=== PATIENT | female | born 1995 | race Caucasian/White ===

== ENCOUNTER 2024-01-16 14:04 | Outpatient (OUT) | payer OTHER, SELFPAY ==
--- NOTE | 2024-01-16 14:05 | US_ITS ---
[address] [address] Patient Name: JUNIOR GASPAR MRN: [id number] date: 1995 Sex: F Assigned Patient Location: [facility] Current Patient Location: Accession/Order Number: [id number] Exam Date: 01/16/2024 14:05 Report Date: 01/17/2024 04:23 At the request of: RUBIO MATTHEWS Procedure: US OB <= 14 weeks fetus EXAMINATION: US OB <= 14 weeks fetus HISTORY: MISSED MENSES COMPARISON: No relevant comparison available. FINDINGS: GESTATIONAL SAC: Present and normal appearing. YOLK SAC: Present and normal appearing. POLE: Present and normal appearing. CARDIAC: Present. UTERUS: Normal size and appearance. OVARIES: Right: Not seen. Left: Not seen. CERVIX: 3.9 cm in length and closed. CUL-DE-SAC: Normal. OTHER: None. AGE BY LMP: 12 weeks 0 days FE BY LMP: 07/30/2024 AGE BY US CRL: 11 weeks 6 days FE BY US CRL: 07/31/2024 US/US OB <= 14 weeks fetus IMPRESSION: 1. Single live intrauterine . Electronically authenticated by: PHILLIP QUINONES Date: 01/17/2024 04:23
== END 2024-01-16 14:05 | disposition home or self-care (01) ==
LOC: NOMS 14:04
PROVIDERS: Visit Provider Obstetrics & Gynecology
DX: Z34.91 Encounter for supervision of normal pregnancy, unspecified, first trimester (principal); Z3A.11 11 weeks gestation of pregnancy; N92.6 Irregular menstruation, unspecified
CPT/HCPCS: 76801

== ENCOUNTER 2024-02-14 12:14 | Outpatient (OUT) | payer OTHER, SELFPAY ==
--- OUTSIDE RECORDS SUMMARY | 2024-02-14 12:30 | XMS_ITS | CCD ---
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 Name Role Phone LESLY OLIVAREZ Unavailable Unavailable HERMILLER, JANETH R Unavailable Unavailable HERMILLER, JANETH R Unavailable Unavailable HERMILLER, JANETH R Unavailable Unavailable Alex Suarez Unavailable Unavailable HERMILLER, JANETH R Unavailable Unavailable Jarret Oquendo Unavailable Unavailable NO FAMILY, PHYSICIAN Primary Care Provider DO Luis De Santiago Emergency Provider HAO Hernandez Emergency Provider DO Quique Granger Attending Provider [phone] Trae Richey Admitting Unavailable Trae Richey Attending Unavailable [facility] Ren Admitting Unavailable Greg Ren Attending Unavailable Quique Granger Referring Unavailable DO Quique Granger Referring Provider DO Greg Ren Attending Provider [facility] Primary [facility] ider HAO Richey Emergency Provider Allergies Allergy Classification Reported Allergen(s) Allergy Type Date of Onset Reaction(s) Facility (1 source) No Known Medication Allergies; Translations: [No Known Medication Allergies] Propensity to adverse reactions to drug (disorder) [facility] Repository Medications Current Medications Medication Drug Class(es) Dates Sig (Normalized) Sig (Original) predniSONE 10 mg oral tablet (4 sources) Start: 07-10-2023 take 60 mg by mouth once daily, then take 40 mg by mouth once daily, then take 20 mg by mouth once daily, then take 10 mg by mouth once daily Prednisone Active 10 MG PO Daily 39 July 10, 2023 12:00am 60mg daily for three days, 40mg daily for three days, 20mg daily for three days, 10mg daily for three days. Start: 06-22-2022 End: 07-10-2023 take 40 mg by mouth once daily Prednisone Discontinued 40 MG PO Daily 6 June 22, 2022 1:00am July 10, 2023 3:08pm Completed/Discontinued Medications Medication Drug Class(es) Dates Sig (Normalized) Sig (Original) famotidine 20 mg oral tablet (3 sources) Histamine-2 Receptor Antagonist Start: 06-22-2022 End: 07-10-2023 take 1 tablet by mouth once daily Famotidine (Pepcid) 20 mg tablet Discontinued 20 MG PO Daily June 22, 2022 1:00am July 10, 2023 3:08pm Problems Problem Classification Problem Date Documented Da te Episodic/Chronic Allergic reactions (4 sources) Allergic reaction; Translations: [Allergy, unspecified, initial encounter] 06-22-2022 Episodic Fluid and electrolyte disorders (4 sources) Hypokalemia; Translations: [Hypokalemia] 06-20-2022 Episodic Mood disorders (1 source) Major depressive disorder, single episode, mild; Translations: [Major depressive disorder, single episode, mild] Onset: 05-31-2023 Chronic Other aftercare (3 sources) Follow-up status; Translations: [Encounter for change or removal of nonsurgical wound dressing] 06-22-2022 Episodic Skin and subcutaneous tissue infections (8 sources) Abscess; Translations: [Cutaneous abscess, unspecified] 06-20-2022 Episodic Results Test Name Value Interpretation Reference Range Facility Alanine aminotransferase [En zymatic activity/volume] in Serum or PlasmaOrdered By: Quique Granger on 05-31-2023 ALT [Catalytic activity/Vol] 122 U/L 7-[address] [facility] Albumin [Mass/volume] in Ser um or Plasma by Bromocresol green (BCG) dye binding methoOrdered By: Quique Granger on 05-31-2023 Albumin BCG dye [Mass/Vol] 4.4 g/dL 3.5-5.[address] [facility] Alkaline phosphatase [Enzyma tic activity/volume] in Serum or PlasmaOrdered By: Quique Granger on 05-31-2023 ALP [Catalytic activity/Vol] 51 U/L 34-[address] [facility] Aspartate aminotransferase [ Enzymatic activity/volume] in Serum or PlasmaOrdered By: Quique Granger on 05-31-2023 AST [Catalytic activity/Vol] 93 U/L 13-[address] [facility] Basophils Auto (Bld) [#/Vol] Ordered By: Quique Granger on 05-31-2023 Basophils (Bld) [#/Vol] 0.0 10*3/uL 0.0-0.[address] [facility] Basophils/100 WBC Auto (Bld) Ordered By: Quique Granger on 05-31-2023 Basophils/100 WBC (Bld) 0.6 % . [facility] Bilirubin.total [Mass/volume ] in Serum or PlasmaOrdered By: Quique Granger on 05-31-2023 Bilirubin [Mass/Vol] 0.5 mg/dL 0.3-1.0 [facility] Calcium [Mass/volume] in Ser um or PlasmaOrdered By: Quique Granger on 05-31-2023 Calcium [Mass/Vol] 9.2 mg/dL 8.6-10.3 [facility] Carbon dioxide, total [Moles /volume] in Serum or PlasmaOrdered By: Quique Granger on 05-31-2023 CO2 [Moles/Vol] 25.4 mmol/L 21.0-31.0 [facility] Chloride [Moles/volume] in S quan or PlasmaOrdered By: Quique Granger on 05-31-2023 Chloride [Moles/Vol] 106 mmol/L 98-107 [facility] Complete Blood Count Auto Di ffon 05-31-2023 Basophils (Bld) [#/Vol] 0.0 10*3/uL Normal 0.0-0.[address] [facility] Comment on above: Result Comment: PERF ORMED BY: [facility] [address] [place] [address] PATHOLOGIST [employer] ADRIAN LANG M.D. Performed By: #### T SH3 wRFLX, CMP, CBC #### [facility] [address] Basophils/100 WBC (Bld) 0.6 % Normal . [facility] Comment on above: Performed By: #### T SH3 wRFLX, CMP, CBC #### [address] Eosinophils (Bld) [#/Vol] 0.2 10*3/uL Normal 0.0-0.[address] [facility] Comment on above: Performed By: #### T SH3 wRFLX, CMP, CBC #### [address] Eosinophils/100 WBC (Bld) 3.9 % Normal . [facility] Comment on above: Performed By: #### T SH3 wRFLX, CMP, CBC #### [address] Erythrocyte distribution width (RBC) [Ratio] 13.8 % Normal 11.9-15.[address] [facility] Comment on above: Performed By: #### T SH3 wRFLX, CMP, CBC #### [address] Hematocrit (Bld) [Volume fraction] 39.2 % Normal 34.0-46.[address] [facility] Comment on above: Performed By: #### T SH3 wRFLX, CMP, CBC #### [address] Hemoglobin (Bld) [Mass/Vol] 13.2 g/dL Normal 11.8-15.[address] [facility] Comment on above: Performed By: #### T SH3 wRFLX, CMP, CBC #### [place] [address] [place] Lymphocytes (Bld) [#/Vol] 1.7 10*3/uL Normal 1.00-4.[address] [facility] Comment on above: Performed By: #### T SH3 wRFLX, CMP, CBC #### [address] Lymphocytes/100 WBC (Bld) 27.2 % Normal . [facility] Comment on above: Performed By: #### T SH3 wRFLX, CMP, CBC #### [address] MCH (RBC) [Entitic mass] 29.0 pg Normal 24.7-34.[address] [facility] Comment on above: Performed By: #### T SH3 wRFLX, CMP, CBC #### [address] MCV (RBC) [Entitic vol] 86.3 fL Normal 80-[address] [facility] Comment on above: Performed By: #### T SH3 wRFLX, CMP, CBC #### [address] Mean Corpuscular HGB Conc 33.6 g/dL Normal 32.0-35.[address] [facility] Comment on above: Performed By: #### T SH3 wRFLX, CMP, CBC #### [address] Monocytes (Bld) [#/Vol] 0.5 10*3/uL Normal 0.0-0.[address] [facility] Comment on above: Performed By: #### T SH3 wRFLX, CMP, CBC #### [address] Monocytes/100 WBC (Bld) 7.9 % Normal . [facility] Comment on above: Performed By: #### T SH3 wRFLX, CMP, CBC #### [address] Neutrophils (Bld) [#/Vol] 3.8 10*3/uL Normal 1.8-7.[address] [facility] Comment on above: Performed By: #### T SH3 wRFLX, CMP, CBC #### [address] Neutrophils/100 WBC (Bld) 60.4 % Normal . [facility] Comment on above: Performed By: #### T SH3 wRFLX, CMP, CBC #### [address] NRBC% 0.1 /100{WBC} Normal 0-0.[address] [facility] Comment on above: Performed By: #### T SH3 wRFLX, CMP, CBC #### [facility] [address] [place] [address] Platelet mean volume (Bld) [Entitic vol] 10.0 fL Normal 6.3-10.[address] [facility] Comment on above: Performed By: #### T SH3 wRFLX, CMP, CBC #### [address] Platelets (Bld) [#/Vol] 210 10*3/uL Normal 150-[address] [facility] Comment on above: Performed By: #### T SH3 wRFLX, CMP, CBC #### [address] RBC (Bld) [#/Vol] 4.54 10*6/uL Normal 3.60-5.00 [facility] Comment on above: Performed By: #### T SH3 wRFLX, CMP, CBC #### [address] WBC (Bld) [#/Vol] 6.3 10*3/uL Normal 3.8-11.6 [facility] Comment on above: Performed By: #### T SH3 wRFLX, CMP, CBC #### [address] Comprehensive Metabolic Pane caden 05-31-2023 Albumin [Mass/Vol] 4.4 g/dL Normal 3.5-5.7 [facility] Comment on above: Performed By: #### T SH3 wRFLX, CMP, CBC #### [address] Albumin/Globulin [Mass ratio] 1.9 {ratio} Normal [facility] Comment on above: Performed By: #### T SH3 wRFLX, CMP, CBC #### [address] ALP [Catalytic activity/Vol] 51 U/L Normal 34-[address] [facility] Comment on above: Performed By: #### T SH3 wRFLX, CMP, CBC #### [facility] [address] [place] [address] [place] ALT [Catalytic activity/Vol] 122 U/L High 7-[address] [facility] Comment on above: Performed By: #### T SH3 wRFLX, CMP, CBC #### [facility] [address] Anion gap [Moles/Vol] 9.8 mmol/L Normal 6.0-15.0 [facility] Comment on above: Performed By: #### T SH3 wRFLX, CMP, CBC #### [facility] [address] AST [Catalytic activity/Vol] 93 U/L High 13-[address] [facility] Comment on above: Performed By: #### T SH3 wRFLX, CMP, CBC #### [facility] [address] Bilirubin [Mass/Vol] 0.5 mg/dL Normal 0.3-1.0 [facility] Comment on above: Performed By: #### T SH3 wRFLX, CMP, CBC #### [facility] [address] Calcium [Mass/Vol] 9.2 mg/dL Normal 8.6-10.3 [facility] Comment on above: Performed By: #### T SH3 wRFLX, CMP, CBC #### [facility] [address] [place] [address] [place] Chloride [Moles/Vol] 106 mmol/L Normal 98-107 [facility] Comment on above: Performed By: #### T SH3 wRFLX, CMP, CBC #### [facility] [address] [place] [address] [place] CO2 [Moles/Vol] 25.4 mmol/L Normal 21.0-31.0 [facility] Comment on above: Performed By: #### T SH3 wRFLX, CMP, CBC #### [facility] [address] [place] [address] [place] Creatinine [Mass/Vol] 0.51 mg/dL Low 0.60-1.20 [facility] Comment on above: Performed By: #### T SORIN Valentine CMP, CBC #### [facility] [address] [place] [address] [place] GFR/1.73 sq M.predicted MDRD (S/P/Bld) [Vol rate/Area] mL/min/{1.73_m2} Normal [facility] Comment on above: Performed By: #### T SORIN Valentine CMP, CBC #### [facility] [address] Globulin (S) [Mass/Vol] 2.3 g/dL Normal [facility] Comment on above: Performed By: #### T SORIN Valentine CMP, CBC #### [address] Glucose [Mass/Vol] 92 mg/dL Normal 70-100 [facility] Comment on above: Result Comment: [facility] Glucose Reference Range is dependent on time and content of last meal. Glucose of more than 200 mg/dL in a nonstressed, ambulatory subject supports the diagnosis of Diabetes Mellitus. ADA recommended reference range Performed By: #### T SORIN Valentine CMP, CBC #### [address] Potassium [Moles/Vol] 4.2 mmol/L Normal 3.5-5.1 [facility] Comment on above: Performed By: #### T SORIN Valentine CMP, CBC #### [address] Protein [Mass/Vol] 6.7 g/dL Normal 6.4-8.9 [facility] Comment on above: Performed By: #### T SORIN Valentine CMP, CBC #### [facility] [address] Sodium [Moles/Vol] 137 mmol/L Normal 136-145 [facility] Comment on above: Performed By: #### T SORIN Valentine CMP, CBC #### [facility] [address] [place] [address] [place] Urea nitrogen [Mass/Vol] 9 mg/dL Normal 7-[address] [facility] Comment on above: Performed By: #### T SH3 wRFLX, CMP, CBC #### [facility] [address] Creatinine [Mass/volume] in Serum or PlasmaOrdered By: Quique Granger on 05-31-2023 Creatinine [Mass/Vol] 0.51 mg/dL 0.60-1.20 [facility] Eosinophils Auto (Bld) [#/Vo l]Ordered By: Quique Granger on 05-31-2023 Eosinophils (Bld) [#/Vol] 0.2 10*3/uL 0.0-0.[address] [facility] Eosinophils/100 WBC Auto (Bl d)Ordered By: Quique Granger on 05-31-2023 Eosinophils/100 WBC (Bld) 3.9 % . [facility] Erythrocyte distribution wid th Auto (RBC) [Ratio]Ordered By: Quique Granger on 05-31-2023 Erythrocyte distribution width (RBC) [Ratio] 13.8 % 11.9-15.[address] [facility] Globulin Calc (S) [Mass/Vol] Ordered By: Quique Granger on 05-31-2023 Globulin (S) [Mass/Vol] 2.3 g/dL [facility] Glucose [Mass/volume] in Ser um or PlasmaOrdered By: Quique Granger on 05-31-2023 Glucose [Mass/Vol] 92 mg/dL 70-100 [facility] Comment on above: ADA recommended refe rence rangeRandom Glucose Reference Range is dependent on time and content of last meal. Glucose of more than 200 mg/dL in a nonstressed, ambulatory subject supports the diagnosis of Diabetes Mellitus. Hematocrit Auto (Bld) [Volum e fraction]Ordered By: Quique Granger on 05-31-2023 Hematocrit (Bld) [Volume fraction] 39.2 % 34.0-46.[address] [facility] Hemoglobin [Mass/volume] in BloodOrdered By: Quique Granger on 05-31-2023 Hemoglobin (Bld) [Mass/Vol] 13.2 g/dL 11.8-15.[address] [facility] Leukocytes [#/volume] correc adrienne for nucleated erythrocytes in Blood by Automated counOrdered By: Quique Granger on 05-31-2023 WBC corrected for nucl RBC Auto (Bld) [#/Vol] 6.3 10*3/uL 3.8-11.[address] [facility] Lymphocytes Auto (Bld) [#/Vo l]Ordered By: Quique Granger on 05-31-2023 Lymphocytes (Bld) [#/Vol] 1.7 10*3/uL 1.00-4.[address] [facility] Lymphocytes/100 WBC Auto (Bl d)Ordered By: Quique Granger on 05-31-2023 Lymphocytes/100 WBC (Bld) 27.2 % . [facility] MCH Auto (RBC) [Entitic mass ]Ordered By: Quique Granger on 05-31-2023 MCH (RBC) [Entitic mass] 29.0 pg 24.7-34.[address] [facility] MCHC Auto (RBC) [Mass/Vol]Or dered By: Quique Granger on 05-31-2023 MCHC (RBC) [Mass/Vol] 33.6 g/dL 32.0-35.0 [facility] MCV Auto (RBC) [Entitic vol] Ordered By: Quique Granger on 05-31-2023 MCV (RBC) [Entitic vol] 86.3 fL 80-[address] [facility] Monocytes Auto (Bld) [#/Vol] Ordered By: Quique Granger on 05-31-2023 Monocytes (Bld) [#/Vol] 0.5 10*3/uL 0.0-0.[address] [facility] Monocytes/100 WBC Auto (Bld) Ordered By: Quique Granger on 05-31-2023 Monocytes/100 WBC (Bld) 7.9 % . [facility] Neutrophils Auto (Bld) [#/Vo l]Ordered By: Quique Granger on 05-31-2023 Neutrophils (Bld) [#/Vol] 3.8 10*3/uL 1.8-7.[address] [facility] Neutrophils/100 WBC Auto (Bl d)Ordered By: Quique Granger on 05-31-2023 Neutrophils/100 WBC (Bld) 60.4 % . [facility] No Panel InformationOrdered By: Quique Granger on 05-31-2023 Estimated GFR (CKD-EPI) > 60.0 mL/Min [facility] Creatinine Clearance (Chem N/A [facility] Nucleated erythrocytes [Pres ence] in Blood by Automated countOrdered By: Quique Granger on 05-31-2023 Nucleated RBC Auto Ql (Bld) 0.1 /100{WBC} 0-0.[address] [facility] Platelet mean volume Auto (B ld) [Entitic vol]Ordered By: Quique Granger on 05-31-2023 Platelet mean volume (Bld) [Entitic vol] 10.0 fL 6.3-10.[address] [facility] Platelets Auto (Bld) [#/Vol] Ordered By: Quique Granger on 05-31-2023 Platelets (Bld) [#/Vol] 210 10*3/uL 150-[address] [facility] Potassium [Moles/volume] in Serum or PlasmaOrdered By: Quique Granger on 05-31-2023 Potassium [Moles/Vol] 4.2 mmol/L 3.5-5.1 [facility] Protein [Mass/volume] in Ser um or PlasmaOrdered By: Quique Granger on 05-31-2023 Protein [Mass/Vol] 6.7 g/dL 6.4-8.9 [facility] RBC Auto (Bld) [#/Vol]Ordere d By: Quique Granger on 05-31-2023 RBC (Bld) [#/Vol] 4.54 10*6/uL 3.60-5.00 [facility] Serum or plasma albumin/glob ulin mass ratioOrdered By: Quique Granger on 05-31-2023 Albumin/Globulin [Mass ratio] 1.9 {ratio} [facility] Serum or plasma anion gap de terminationOrdered By: Quique Granger on 05-31-2023 Anion gap [Moles/Vol] 9.8 mmol/L 6.0-15.0 [facility] Sodium [Moles/volume] in Ser um or PlasmaOrdered By: Quique Granger on 05-31-2023 Sodium [Moles/Vol] 137 mmol/L 136-145 [facility] Thyroid Stim Hormone w/Rflxo n 05-31-2023 Thyroid Stim Hormone w/Rflx 0.86 u[iU]/mL Normal 0.45-5.[address] [facility] Comment on above: Result Comment: PERF ORMED BY: [place] [address] PATHOLOGIST [employer] ADRIAN LANG M.D. Performed By: #### T SH3 wRFLX, CMP, CBC #### [facility] [address] [place] [address] Thyrotropin [Units/volume] i n Serum or PlasmaOrdered By: Quique Granger on 05-31-2023 TSH Qn 0.86 m[IU]/L 0.45-5.[address] [facility] Urea nitrogen [Mass/volume] in Serum or PlasmaOrdered By: Quique Granger on 05-31-2023 Urea nitrogen [Mass/Vol] 9 mg/dL 7-[address] [facility] WBC Auto (Bld) [#/Vol]Ordere d By: Quique Granger on 05-31-2023 WBC (Bld) [#/Vol] 6.3 10*3/uL 3.8-11.6 [facility] Aerobic cultureOrdered By: Moshe Grayson on 06-20-2022 Bacteria identified Aer cx Nom (Unsp spec) [address] [facility] Albumin [Mass/volume] in Bod y fluidOrdered By: Luis Grayson on 06-20-2022 Albumin (Body fld) [Mass/Vol] 3.8 g/dL 3.2-5.[address] [facility] Alkaline phosphatase [Enzyma tic activity/volume] in Serum or PlasmaOrdered By: Luis Grayson on 06-20-2022 ALP [Catalytic activity/Vol] 60 U/L 32-[address] [facility] Aspartate aminotransferase [ Enzymatic activity/volume] in Serum or PlasmaOrdered By: Luis Grayson on 06-20-2022 AST [Catalytic activity/Vol] 65 U/L 10-[address] [facility] Basophils Auto (Bld) [#/Vol] Ordered By: Luis Grayson on 06-20-2022 Basophils (Bld) [#/Vol] 0.0 10*3/uL 0.0-0.[address] [facility] Basophils/100 WBC Auto (Bld) Ordered By: Luis Grayson on 06-20-2022 Basophils/100 WBC (Bld) 0.3 % . [facility] Bilirubin.direct [Mass/volum e] in Serum or PlasmaOrdered By: Luis Grayson on 06-20-2022 Bilirubin.direct [Mass/Vol] 0.2 mg/dL 0.0-0.[address] [facility] Bilirubin.total [Mass/volume ] in Serum or PlasmaOrdered By: Luis Grayson on 06-20-2022 Bilirubin [Mass/Vol] 0.6 mg/dL 0.3-1.2 [facility] Calcium [Mass/volume] in Ser um or PlasmaOrdered By: Luis Grayson on 06-20-2022 Calcium [Mass/Vol] 8.9 mg/dL 8.2-10.2 [facility] Carbon dioxide, total [Moles /volume] in Serum or PlasmaOrdered By: Luis Grayson on 06-20-2022 CO2 [Moles/Vol] 25.9 mmol/L 22.0-30.0 [facility] Chloride [Moles/volume] in S quan or PlasmaOrdered By: Luis Grayson on 06-20-2022 Chloride [Moles/Vol] 98 mmol/L 95-114 [facility] Creatinine and Glomerular fi ltration rate.predicted panel (S/P/Bld)Ordered By: Luis Grayson on 06-20-2022 Creatinine [Mass/Vol] 0.55 mg/dL 0.44-1.03 [facility] Eosinophils Auto (Bld) [#/Vo l]Ordered By: Luis Grayson on 06-20-2022 Eosinophils (Bld) [#/Vol] 0.0 10*3/uL 0.0-0.[address] [facility] Eosinophils/100 WBC Auto (Bl d)Ordered By: Luis Grayson on 06-20-2022 Eosinophils/100 WBC (Bld) 0.4 % . [facility] Erythrocyte distribution wid th Auto (RBC) [Ratio]Ordered By: Luis Grayson on 06-20-2022 Erythrocyte distribution width (RBC) [Ratio] 14.3 % 11.9-15.[address] [facility] Estimated glomerular filtrat ion rate (GFR) non- AmericanOrdered By: Luis Grayson on 06-20-2022 GFR/1.73 sq M.predicted among non-blacks MDRD (S/P/Bld) [Vol rate/Area] > 60 mL/Min [facility] Globulin Calc (S) [Mass/Vol] Ordered By: Luis Grayson on 06-20-2022 Globulin (S) [Mass/Vol] 3.0 g/dL [facility] Glucose [Mass/volume] in Ser um or PlasmaOrdered By: Luis Grayson on 06-20-2022 Glucose [Mass/Vol] 93 mg/dL 70-100 [facility] Comment on above: ADA recommended refe rence rangeRandom Glucose Reference Range is dependent on time and content of last meal. Glucose of more than 200 mg/dL in a nonstressed, ambulatory subject supports the diagnosis of Diabetes Mellitus. Hematocrit Auto (Bld) [Volum e fraction]Ordered By: Luis Grayson on 06-20-2022 Hematocrit (Bld) [Volume fraction] 36.7 % 34.0-46.[address] [facility] Hemoglobin [Mass/volume] in BloodOrdered By: Luis Grayson on 06-20-2022 Hemoglobin (Bld) [Mass/Vol] 12.2 g/dL 11.8-15.[address] [facility] Leukocytes [#/volume] correc adrienne for nucleated erythrocytes in Blood by Automated counOrdered By: Luis Grayson on 06-20-2022 WBC corrected for nucl RBC Auto (Bld) [#/Vol] 10.0 10*3/uL 3.8-11.[address] [facility] Lymphocytes Auto (Bld) [#/Vo l]Ordered By: Luis Grayson on 06-20-2022 Lymphocytes (Bld) [#/Vol] 1.1 10*3/uL 1.00-4.[address] [facility] Lymphocytes/100 WBC Auto (Bl d)Ordered By: Luis Grayson on 06-20-2022 Lymphocytes/100 WBC (Bld) 10.7 % . [facility] MCH Auto (RBC) [Entitic mass ]Ordered By: Luis Grayson on 06-20-2022 MCH (RBC) [Entitic mass] 28.5 pg 24.7-34.[address] [facility] MCHC Auto (RBC) [Mass/Vol]Or dered By: Luis Grayson on 06-20-2022 MCHC (RBC) [Mass/Vol] 33.3 g/dL 32.0-35.0 [facility] MCV Auto (RBC) [Entitic vol] Ordered By: Luis Grayson on 06-20-2022 MCV (RBC) [Entitic vol] 85.4 fL 80-[address] [facility] Monocyte distribution width [Entitic volume] in Blood by AutomatedOrdered By: Luis Grayson on 06-20-2022 Monocyte distribution width Auto (Bld) [Entitic vol] 18.16 % 0.00-20.[address] [facility] Monocytes Auto (Bld) [#/Vol] Ordered By: Luis Grayson on 06-20-2022 Monocytes (Bld) [#/Vol] 1.1 10*3/uL 0.0-0.[address] [facility] Monocytes/100 WBC Auto (Bld) Ordered By: Luis Grayson on 06-20-2022 Monocytes/100 WBC (Bld) 11.0 % . [facility] Neutrophils Auto (Bld) [#/Vo l]Ordered By: Luis Grayson on 06-20-2022 Neutrophils (Bld) [#/Vol] 7.8 10*3/uL 1.8-7.[address] [facility] Neutrophils/100 WBC Auto (Bl d)Ordered By: Luis Grayson on 06-20-2022 Neutrophils/100 WBC (Bld) 77.6 % . [facility] No Panel InformationOrdered By: Luis Grayson on 06-20-2022 Estimated GFR () > 60 mL/Min [facility] Comment on above: GFR estimated refere nce range: According to KDOQI guidelines, <60 ml/min/1.73m2 is sufficient to diagnose a patient with chronic kidney disease. Pharmacy Creatinine Clearance (Chem 149.[address] [facility] Nucleated erythrocytes [Pres ence] in Blood by Automated countOrdered By: Luis Grayson on 06-20-2022 Nucleated RBC Auto Ql (Bld) 0.1 /100{WBC} 0-0.[address] [facility] Platelet mean volume Auto (B ld) [Entitic vol]Ordered By: Luis Grayson on 06-20-2022 Platelet mean volume (Bld) [Entitic vol] 9.7 fL 6.3-10.[address] [facility] Platelets Auto (Bld) [#/Vol] Ordered By: Luis Grayson on 06-20-2022 Platelets (Bld) [#/Vol] 138 10*3/uL 150-[address] [facility] Potassium [Moles/volume] in Serum or PlasmaOrdered By: Luis Grayson on 06-20-2022 Potassium [Moles/Vol] 3.3 mmol/L 3.5-5.1 [facility] Protein [Mass/volume] in Ser um or PlasmaOrdered By: Luis Grayson on 06-20-2022 Protein [Mass/Vol] 6.8 g/dL 6.1-7.9 [facility] RBC Auto (Bld) [#/Vol]Ordere d By: Luis Grayson on 06-20-2022 RBC (Bld) [#/Vol] 4.29 10*6/uL 3.60-5.00 [facility] Serum or plasma alanine humphrey otransferase measurement without P-5'-P (enzymatic activiOrdered By: Luis Grayson on 06-20-2022 ALT No additional P-5'-P [Catalytic activity/Vol] 53 U/L 10-[address] [facility] Serum or plasma albumin/glob ulin mass ratioOrdered By: Luis Grayson on 06-20-2022 Albumin/Globulin [Mass ratio] 1.3 {ratio} [facility] Serum or plasma anion gap de terminationOrdered By: Luis Grayson on 06-20-2022 Anion gap [Moles/Vol] 15.4 mmol/L 6.0-15.0 [facility] Serum or plasma non-glucuron idated bilirubin measurement (mass/volume)Ordered By: Luis Grayson on 06-20-2022 Bilirubin.indirect [Mass/Vol] 0.4 mg/dL [facility] Sodium [Moles/volume] in Ser um or PlasmaOrdered By: Luis Grayson on 06-20-2022 Sodium [Moles/Vol] 136 mmol/L 136-146 [facility] Urea nitrogen [Mass/volume] in Serum or PlasmaOrdered By: Luis Grayson on 06-20-2022 Urea nitrogen [Mass/Vol] 13 mg/dL 01-[address] [facility] Urine lactic acid measuremen tOrdered By: Luis Grayson on 06-20-2022 Lactate (U) [Moles/Vol] 0.8 mmol/L 0.5-2.[address] [facility] WBC Auto (Bld) [#/Vol]Ordere d By: Luis Grayson on 06-20-2022 WBC (Bld) [#/Vol] 10.0 10*3/uL 3.8-11.6 [facility] EMS Documentationon 12-07-19 EMS Documentation [id number]:127 [facility] Coding Summary.on 12-05-2020 Coding Summary. CD:[id number] Gh0bWw+PG hlYWQ+SA1EOWYfZ28buPElnL0EH9d IMW8KFGFEXJFBKE0PPB0yzQI0OPbd Q0XjrfNg OcmakPNpTH05MAe7DRC7aXsoZYwnj N6ztGXuW9k5LhSbFE50lZ76JYyiFU XfGsN4EsHzxnkzpIGe W3cyNbUipLZuJcv+PHRhYmxlIHdpZ AExSXeyEXMeIqMscPnwIL8uCe0bNP VyLWNvbGxhcHNlOiBj i2bkXQHyIXswQC0kfNkvF8KtzOA6G YIri5h9Za36zMZ+HDUkARZ7yYtzOF apc349FqLmh4ywZUC7 eMUuDZiwBEO5E52zz1F3ROKvKEJjA YO3bBE2tK0czZnaxtkeT5HywZSjDv Y9HNF7nLMgmQ8vtEdv lazbwK2mCxq+L53PPD9HUFOBNQ1YZ tk8Z5NwWwrdtWG+NM01PYTtCO90tU CsvIRjm6mobJy8CzYa UHGaQSQ6cOaoGWkwa5CxUFMeX46zy CFow6K9MIYghIaxnTKgJjJxfMS8tC 1wDPaonmazv3hjhety Afsqa4xcvi87bW84B24fDYjpDFWaH JI7VQKsFVBwjVxmfb8awF6eFq9+ID swm5ohg2escDf9DeOs QXEjtbGeyRaaZLN9l5SqBo24P6Uud Hfag3WfBbc7sy03qJPul5I4iXF2NI zqZCTseZ2pJZosYyZ6 NDXeGkLzaK07jSRnRPxfVh6mfTfww HbxHT0sQBHebqepSGMkuE7kITDmxY MajHrcXR1gMRVcuqyo k015UnMhYHH2EYYbyEKgP0WljZ3sG zDkOAKjQDDvI0BsiGDmLVjrR390UO reRyI8PXRztsUtN9Ac TSXkjIbcEoD2h9C0Nu0Iz1AhxrchY IU6ZEpxVYV4RiW8UfYyWzB1F0NgMi c9UCAwgGeuFY2yS4Ls XVUiqomtunbfvJK0ILKwDNUyaD21p TXeTTvlBg3zd7A0t170DFPlRYHfcU 70Wr8yuDkdXLDywFAB uQ9xfxniv7nqsgboWgKjIWCqBUf4P Fw1QGOrwDzrMnAoFAE9XrV0NVO5zY PgjF6klCigvymcfL1o Oyc+W74liM3nRDQ7NDS7egmcMYDam lPcUN58ZJ99F7YfSdfbvELziPZ+PG GxnoRgqShsJZ2wGmPk z3kqs0WxXZxpM3XrTPBqGWsaBvu2K VCgUCU4iJM1pN3mUNEwATozs5E8eD F1B8QlgwNimv4so1bg CVCgNZkiI47eoNNef3Q4SZWviTB3V XGcyTopNlAmsG41Iad+PGNvbGdyb3 QcMhfmw7auv1umeWx2 InAtNGOsyzAeeOfzPUQ5o8ObNm75C 29sIHdpZHRoPSIxNSUiIHZhbGlnbj 8clH2vEs0+PGNvbCB3 tOZ7hV8eSZKeKtK1VMtzJ633TvQgf SOrKlcvw5rdv1ahcHc2YkFjQCQdnr WqnHexUJR5y2ZoWo37 J03jIOvmWHIxBGHzINFgLRFyfWsjb y0msH3bBp2+SB2eq2tvfo29aH55cB I+ZZLnULN5hWipMYdl NIQfgR4gRKtlLyB0XBEeWkPxkA87e BIiHTtxHh6saZweiXwoZY1kDUVfcz knc160YoEyf4cpLKYs vHVoZPreGMQ1P61xu1S6BDWjZAPcZ CV1kZL8bI1eeEedhjpdfRWolTdhlx YhuMurJNtaVXxnP027 TVUloJezUdAjsTxyjoAwOgOzFRx0I 7QxOli1ZMQtyNsbHV7jqQPnBPdjQh 5paZchyEfcTG6fALGs vmvkf652VvZly2kjHGOmgZNeKTbqF MI5Z78io5Q3MFWyMQFeXOO9lPL4iV 1hbGlnbjogbGVmdDsg daEpkUucKApcZRgrJ568KSHwuXsyL jHltoNmBCHrwPK2MA12ZD81iJIph4 F1lCK9U4XjVNMyggyl guknpAA8OBQgYBTcxW55Oy9hoNecS u3fEDCbONK4XVHitVGfD4CzlI1eNh DxLOOtXJPcK2IavJOz UYtdS643VMmaXgL8CIXyjpWpG5XfX WOhoGgnBmE5p2C3Gs0GT3X6UU64WR 17tEIed9S4kJZ0E6Jd QCUdkiosocnbfXA2MFEcMCWzzT47W l3jaNwxVr6tIQLrKLL5OCIqlSLoO5 KeuE5aAyBxJTAtEXFy W4KfdQPoJJpqN555KAkpVkU7HYVqb vUcH6MeFAJlbKwhHxH2q5E5Xf1ICK e6RP44SJ72iDGgw8W1 oIX4Q1TiQFBheprpnjwzoAN5JHSrI FFmmF86Ft3zbQhrPz0dARFpAXR4ZU GkgIWhL1AstJ9vQxWr TAJaGLRrB6QfoUBzQMgxG991KQekT nD5PWGqbqNqM3WtLYHdeIjmWyX9u1 O1It4CSOBgBU74HLY6 vIJ0FA11JS94A5UpRrfkwJNahMR+P HRhYmxlIHdpZHRoPScxMDAlJyBzdH lmNP2iFf7hNVLyKRCj lAiyfUVxAcRqf9lhYNLzLIsyGC0uy MpoG6CcpJO2GHSpk3z7Ir13C61lM9 JvdXA+CTYntRJ5fGZ2 rN2sBkNyQnV6KFubN727LhGudTLjV rmzq9cpo7ufyCg9XqR7GCMmetElfQ lpUNO4k0ReHa10A00e OOavHVSuIVOePKKtFNEhkIcvya7ey G9wIi8+ZUWkqDN2tUP9uV8cHtYzSb W5WTuyL018ZtQaeTFi Odtyi6yab7avdEj2EqHqMZUuwsZef GolUGV5q0XbHq44H2EayHifg3RgNo t4oq26lILtv2M5zEX6 X8TmHYQhfoeumGKqjYgtLY7dPAYuc fmgYAYlsI2sDBDzS1l9RqSjPiL9KI njF1JjiiS4BKAttKTu LIalFBM2C14bu8O3ZIPfDIUkSQM2n CO5nR6egIfxfcasyYHcoUzzhwLgtU omKZyuMZrfY275PNCh mJkePTLuuT6rGRAinKQbdYtjSQ4dR UAhzgokOvrZOPJMBDFYVDNGR61QPH W8M4VnSic7LJCqyHqg EU1ekTWeRObnAn3uyRujqVgrIR0hI SYmurmnMNAqvZ5bNDSmkKCcaGytXI 1lLDRodphgj767VlWk YSO9PHGecVCmQ4VjqD2lSrBdDJAbZ ZLdS4LdfDUoNKkfM308SYrmNcW3EQ WrmwMbY9BaWQOotSym CmZ5d7B6Lr1qTr8eMt8jDWk4LP75B Y57rITxz0K9sMT4U2RzUUXbwuctml ckxRG4QIDrFBInpY13 xKUdJMzkJm5fn9X6z155TWTlJEFvb D29Ss6adLyqVQKydWIZqO2xhfbbd5 xvcjogIzAwMDAwMDt0 BHn3TXSktQtpBoTpDOL3HfR9JAF7o ZEqlF9zgRilikivxE7cHmh+MjMgWW FpmxM4X8DbRzs2ZARa qMeiVP2njSSoSAjmGv1ywWvliEnrV W0gJQOdgkesTKCctJ6dOSZrdYAdcW bwKL6oJAKulrodj660 VfXvFSM8JYIwzTFmC0NsyL0xYaDaQ YWvXCOsV0DypEMeZUxdQ058QNriBw D6AZGnrfUlZ5UcECCe fUgkZtD8g9S9Qb0HSU1orIV7D2PgA um4TEHfuHnlZE2qmRGdPUgmJq3keR olvBjdXV7xWXEaanvy QNAheO4vLTHryZPnwVorAH9yQJTfa uzdw436JoKgWHI8HMFhfKMtC7GhiG 4yZmGbKBGnUZUrX9Rv aOSpBTizE970KGapEjS6RUNftnFfH 4WbYLGvxVgiThS9z9R9Bc0LqMWqR6 OcX7g4H5UtDqzgrMZ+ GG90SGMnAI26dZJgiEGep8ujtMk0T zPmHFDsZAN9wGiiCAjog6DtSEHiE3 1uiQWsj7K8PPSxjUlx iGQsJjZthVG7lH2iFUdbjgwhx8ehi qarZppyn2zqag99vZ53Z47vRUscTJ RoPSIzMCUiIHZhbGln ql4nzF2zTx8+MIGdkQJ8wQT8hX8wF rXoTnV6LSouD278PsQtwPTvBxkgm1 tyj7wafHw1BdPfRDDe dnWhvOdsSKH4b7YqQr59V74qXQgjE MAnIZOvKIPkDXApwCrvpy2txL7kXq 8+XC9ei3chds52pJ27 dHI+JXGaTLJ7oOwnKKxaXVCygJ3tE XhwUqS5RUIwIiFioI85qYMtMLkhRb 3vyVjssSaiGR9uYJDl mfjmh000GoYet8ahPTStoTCyIGkuT FI4V28dw8Y2UNNgDYMkXRB7oQH8nR 1hbGlnbjogbGVmdDsg etBuoBixOJmkELwwP811FBNlsJyeM bGacJMlX0yogrQVRK0uMlgsoMV+PH RyXSM2cTnxZMreAITl vC5pCWNsZ2c1VyOxVqR1OJarQ8Vuz cK4WHOaqODfQVSfbWSSiX7mgjbwe5 xvcjogIzAwMDAwMDt0 BDg6ZONyxRbwWcPgANE8XqV1THY4u ZMavM0tfXylehkepL2aLny+RklOOj wvdGQ+IOKeWHW3bYmt LShtPNTwlM7xRNXxG2t1FiQdYkF3P DqvA5FtgsM9XWLuuFDbGPYhaOAUnV 9igqmti4dhcccgXnUq TXOePYj8BMs6LYVxrWyeLgGeFIH5V aW0LDX0bCRhuK2imAolzgoewQ3bUj c+TVJOOjwvdGQ+PHRk NCY2mEeqLImvJUOwbS7fHVDaI0m2B jZmMaK5OQigY5XxbzY2KQMalDExDN ZssHIEeO8ggkvpz5pj zxluChUjFGYsUVa5BQa9JIAbaAahM pHsLAY1KgY1JIA1qLSouV7gfMpzvl toqS7yYjf+JFD6SFR5 JH09RU49L1EtGvknhHCebCK+PHRhY mxlIHdpZHRoPScxMDAlJyBzdHlsZT 9pXx9oSPTjMHMhkNqt cHNl (more content not included)... [facility] Acetamnphn Lvlon 12-04-2020 Acetaminophen [Mass/Vol] ug/mL Low 15-30 [facility] Comment on above: Result Comment: Resu lt verified by dilution Performed By: #### 2 [id number], [id number], [id number], [id number], [id number], [id number], [id number] ####[facility] [id number] [place] [address] Consent for Treatmenton 11-20 Consent for Treatment [id number]#[id number]:127 [facility] Discharge Instructionson Discharge Instructions [id number]:127 [facility] ED Clinical Summaryon 2020 ED Clinical Summary (Inserted Image. Addie ble to display) [address] [address] ED Clinical Summary Person Information Name: RABIA GASPAR/[facility] Age: 25 Years : 1995 Sex: Female Language: Danish PCP: NONE, XXXX Marital Status: Single Visit Id: Visit Reason: intoxication Speciality: Acuity: 2 Enc Type: Emergency Med Service: Emergency Arrival: 12/03/2020 20:52:33 Discharge: 12/04/2020 03:18:59 LOS: 000 06:26 Checkin: 12/03/2020 20:52:33 Checkout: 12/04/2020 03:18:59 Dispo Type: Home (Routine DC) EVENTS: Event Name Event Status Request Date/Time Start Date/Time Complete Date/Time Arrive Complete 12/03/2020 20:52:33 12/03/2020 20:52:33 12/03/2020 20:52:33 Document Home Meds Request 12/03/2020 20:52:33 Triage Complete 12/03/2020 20:52:33 12/03/2020 21:11:59 12/03/2020 21:11:59 Bed Assign Complete 12/03/2020 20:53:49 12/03/2020 20:53:49 12/03/2020 20:53:49 Dr Exam Complete 12/03/2020 20:53:49 12/03/2020 20:58:42 12/03/2020 20:58:42 RN Exam Complete 12/03/2020 20:53:49 12/03/2020 21:34:56 12/03/2020 21:34:56 Registration Complete 12/03/2020 20:58:42 12/03/2020 21:03:10 12/03/2020 22:11:41 Pending Labs Request 12/03/2020 21:01:28 Lab Request 12/03/2020 21:01:28 Patient Care Request 12/03/2020 21:01:28 RT Request 12/03/2020 21:01:28 EKG Complete 12/03/2020 21:01:28 12/03/2020 22:25:31 Urine Collect Request 12/03/2020 21:01:28 Meds Admin Complete 12/03/2020 21:18:38 12/03/2020 21:25:08 Pending Labs Complete 12/03/2020 21:29:53 12/03/2020 21:29:53 12/03/2020 21:57:53 Lab Complete 12/03/2020 21:29:53 12/03/2020 21:29:53 12/03/2020 21:57:53 Pending Labs Complete 12/03/2020 21:29:53 12/03/2020 21:29:53 12/03/2020 21:57:54 Lab Complete 12/03/2020 21:29:53 12/03/2020 21:29:53 12/03/2020 21:57:54 Fall Risk Request 12/03/2020 21:34:56 Pending Labs Complete 12/03/2020 21:36:12 12/03/2020 21:36:12 12/03/2020 21:36:19 Lab Complete 12/03/2020 21:36:12 12/03/2020 21:36:12 12/03/2020 21:36:19 Pending Labs Complete 12/03/2020 21:37:09 12/03/2020 21:37:09 12/03/2020 21:37:10 Reg Complete Request 12/03/2020 22:11:41 Reg Bed Request Complete 12/03/2020 22:11:41 12/03/2020 22:11:41 12/03/2020 22:11:41 Discharge Complete 12/04/2020 02:57:21 12/04/2020 03:19:09 12/04/2020 03:19:09 Transfer Complete 12/04/2020 03:19:09 12/04/2020 03:19:09 12/04/2020 03:19:09 ADDRESS: [address] [place] [id number] PHYS DOC NOTES: MEDICAL INFORMATION: Prescriptions Given: PATIENT EDUCATION INFORMATION: Instructions: Alcohol Intoxication Follow up: With: Address: When: XXXX NONE , [place] In 3 days 12/07/2020 DIAGNOSIS: 1:Alcohol intoxication; 2:Depression [facility] ED Note-Physicianon 12-05-19 ED Note-Physician Basic Information Time Seen: Keyshawn Stout MD 12/03/2020 20:58 Chief Complaint Pt is intoxicated. Not answering questions. Possible opiates on board. Says she wants to and be left alone. History of Present Illness patient is from [place]. Candy states she was at a alliance party. They state it was a alliance party after a wedding. Patient drinking ETOH. They believes she may have taken something in addition to the Alcohol. They did give her 2mg of narcan and states she did have a short response to it and became more responsive and then became unresponsive again. She has been vomiting. Candy states she did comment at the scene that she wanted to Review of Systems Unable to obtain ROS secondary to _.patient intoxicated Physical Exam Vitals & Measurements T: 36.5 ?C (Axillary) HR: 79(Monitored) RR: 14 BP: 86/45 SpO2: 97% General: obtuned, no acute distress. Vomiting with her head hanging of the side of the bed Skin: warm, dry Head: no trauma, normocephalic Neck: Trachea midline, no adenopathy, no tenderness Eye: normal conjunctiva, sclera clear ENMT: , oral mucosa moist, Cardiovascular: regular rate and rhythm, normal peripheral perfusion Respiratory: Lungs CTA, respirations non labored Chest wall: no deformity. Gastrointestinal: soft, non distended, no tenderness, no guarding. Back: No tenderness, Normal ROM, Normal alignment. Extremities: no deformity, no trauma Neurological: obtunded Medical Decision Making patient is awake and her mother is by her side. Apparently her boyfriend broke up with her tonight. She drink too much and was depressed. She has no plan of harming herself and is discharged in the care of her mother Assessment/Plan 1. Alcohol intoxication (F10.929: Alcohol use, unspecified with intoxication, unspecified) 2. Depression (F32.9: Major depressive disorder, single episode, unspecified) Orders: ondansetron, 4 mg = 2 mL, Injection, IV Push, Once, Stop date 12/03/20 21:18:00 EDT, STAT, Start date 12/03/20 21:18:00 EDT, 12/03/20 21:18:00 EDT Acetaminophen Level Automated Diff Beta hCG Qual Bilirubin Direct CBC w/ Auto Diff Communication Order Communication Order Physician to Nursing Comprehensive Metabolic Panel Continuous Pulse Oximetry Drug Screen Urine ECG 12 Lead Adult ED Cardiac Monitoring eGFR Ethanol Level Extra Blue Tube Lipase Level Oxygen Therapy Salicylate Level Medications Administered Given Zofran 4 mg/2 mL Injection, 4 mg, IV Push Disposition Plan Discharge Prescription List Prescriptions No active prescription medications Follow-up With When Contact Information XXXX NONE In 3 days 12/07/2020 EDT [place] Additional Instructions: Patient Education Alcohol Intoxication Problem List/Past Medical History Ongoing Smoker Historical None Procedure/Surgical History None. Medications Inpatient No active inpatient medications Home No active home medications Allergies No Known Allergies Social History Tobacco 1ppd Tobacco Use:. Cigarettes, 12/03/2020 Lab Results WBC: 9.6 E9/L (12/03/20 21:26:00) RBC: 4.8 E12/L (12/03/20 21:26:00) Hgb: 13.8 gm/dL (12/03/20:26:00) Hct: 41.8 % (12/03/20 21:26:00) MCV: 86.9 fL (12/03/20 21:26:00) MCH: 28.7 pg (12/03/20 21:26:00) MCHC: 33 gm/dL (12/03/20:26:00) RDW: 14.9 % High (12/03/20 21:26:00) Platelet: 200 E9/L (12/03/20 21:26:00) MPV: 9.7 fL (12/03/20 21:26:00) Neutro Auto: 57.4 % (12/03/20 21:26:00) Lymph Auto: 29.6 % (12/03/20::00) [place] Auto: 7.9 % (12/03/20::00) Eos Auto: 4.5 % (12/03/20::) Basophil Auto: 0.6 % (12/03/20:) Neutro Absolute: 5.5 E9/L (12/03/20::00) Lymph Absolute: 2.8 E9/L (12/03/20::) [place] Absolute: 0.8 E9/L (12/03/20::00) Eos Absolute: 0.4 E9/L (12/03/20::00) Basophil Absolute: 0.1 E9/L (12/03/20:) Glucose Lvl: 86 mg/dL (12/03/20:00) BUN: 16 mg/dL (12/03/20:) Creatinine: 0.5 mg/dL (12/03/20:) eGFR: >60 (12/03/20:) eGFR AA: >60 (12/03/20::) BUN/Creat Ratio: 32 High (12/03/20::) Sodium Lvl: 141 mmol/L (12/03/20::00) Potassium Lvl: 3.5 mmol/L (12/03/20::00) Chloride: 112 mmol/L High (12/03/20::00) CO2: 21 mmol/L (12/03/20::00) AGAP: 12 mEq/L (12/03/20:00) Calcium Lvl: 8.4 mg/dL Low (12/03/20::00) Alk Phos: 49 Int._Unit/L (12/03/20::00) ALT: 137 Int._Unit/L High (12/03/20::00) AST: 115 Int._Unit/L High (12/03/20:26:00) Total Protein: 7.1 gm/dL (12/03/20::00) Albumin Lvl: 4.4 gm/dL (12/03/20 21:26:00) Globulin: 2.7 gm/dL (12/03/20:26:00) A/G Ratio: 1.6 (12/03/20::00) Bili Total: 0.4 mg/dL (12/03/20:26:00) Bili Direct: 0.1 mg/dL (12/03/20:26:00) Lipase Lvl: 35 unit/L (12/03/20::00) Acetaminoph Lvl: <10 Low (12/03/20 21:26:00) Salicylate Lvl: <4 Low (12/03/20:26:00) Ethanol Lvl: 196 mg/dL Critical (12/03/20::00) Beta hCG Ql: NEGAT (more content not included)... [facility] Comment on above: Result Comment: Elec tronically Signed By: Girish MIXON, Keyshawn\.br\Date and Time Signed: 12/04/20 02:58 EDT ED Patient Education Noteon 12-04-2020 ED Patient Education Note Mental and Behavioral Health Alcohol Intoxication Alcohol intoxication occurs when a person no longer thinks clearly or functions well (becomes impaired) after drinking alcohol. Intoxication can occur with just one drink. The legal definition of alcohol intoxication depends on the amount of alcohol in the blood (blood alcohol concentration, XENIA). XENIA of 80?100 mg/dL or higher is commonly considered legally intoxicated. The level of impairment depends on: ? The amount of alcohol the person had. ? The person's age, gender, and weight. ? How often the person drinks. ? Whether the person has other medical conditions, such as diabetes, seizures, or a heart condition. Alcohol intoxication can range from mild to severe. The condition can be dangerous, especially if the person: ? Also took certain drugs or prescription medicines. ? Drinks a large amount of alcohol in a short period of time (binge drinks). ? For women, binge drinking is having four or more drinks at one time. ? For men, binge drinking is having five or more drinks at one time. If you or anyone around you appears intoxicated, speak up and act. What are the causes? This condition is caused by drinking alcohol. What increases the risk? The following factors may make you more likely to develop this condition: ? Peer pressure in young adults. ? Difficulty managing stress. ? History of drug or alcohol abuse. ? Combining alcohol with drugs. ? Family history of drug or alcohol abuse. ? Low body weight. ? Binge drinking. What are the signs or symptoms? Symptoms of alcohol intoxication can vary from person to person. Symptoms can be mild, moderate, or severe. Symptoms of mild alcohol intoxication may include: ? Feeling relaxed or sleepy. ? Having mild difficulty with coordination, speech, memory, or attention. Symptoms of moderate alcohol intoxication may include: ? Extreme emotions, like anger or sadness. ? Moderate difficulty with coordination, speech, memory, or attention. Symptoms of severe alcohol intoxication may include: ? Severe difficulty with coordination, speech, memory, or attention. ? Passing out. ? Vomiting. ? Confusion. ? Slow breathing. ? Coma. Intoxication can change quickly from mild to severe. It can cause coma or , especially in people who are not exposed to alcohol often. How is this diagnosed? Your health care provider will ask you how much alcohol you drank and what kind you had. Intoxication may also be diagnosed based on: ? Your symptoms and medical history. ? A physical exam. ? A blood test that measures XENIA. ? A smell of alcohol on your breath. How is this treated? Treatment for alcohol intoxication may include: ? Being monitored in an emergency department, hospital, or treatment center until your XENIA comes down and it is safe for you to go home. ? IV fluids to prevent or treat loss of fluid in the body (dehydration). ? Medicine to treat nausea or vomiting or to get rid of alcohol in the body. ? Counseling (brief intervention) about the dangers of using alcohol. ? Treatment for substance use disorder. ? Oxygen therapy or a breathing machine (ventilator). Long-term (chronic) exposure to alcohol can have long-term effects on your brain, heart, and gastrointestinal system. These effects can be serious and may also require treatment. Follow these instructions at home: Eating and drinking ? Do not drink alcohol if: ? Your health care provider tells you not to drink. ? You are , may be , or are planning to become . ? You are under the legal drinking age (21 years old in the [place] ? You are taking medicines that should not be taken with alcohol. ? You have a medical condition, and alcohol makes it worse. ? You need to drive or perform activities that require you to be alert. ? You have substance use disorder. ? Ask your health care provider if alcohol is safe for you. If your health care provider allows you to drink alcohol, limit how much you have. You may drink: ? 0?1 drink a day for women. ? 0?2 drinks a day for men. ? Be aware of how much alcohol is in your drink. In the [place] one drink equals one 12 oz bottle of beer (355 mL), one 5 oz glass of wine (148 mL), or one 1? oz shot of hard liquor (44 mL). ? Avoid drinking alcohol on an empty stomach. ? Stay hydrated. Drink enough fluid to keep your urine pale yellow. Avoid caffeine because it can dehydrate you. ? Avoid drinking more than one drink per hour. ? When having multiple drinks, drink water or a non-alcoholic beverage between alcoholic drinks. General instructions ? Take siyo-cjv-lgcirzm and prescription medicines only as told by your health care provider. ? Do not drive after drinking any amount of alcohol. Plan for a designated jinriksha driver or another way to go home. ? Have someone responsible stay with you while you are intoxicate (more content not included)... Normal [facility] ED Patient Summaryon 021 ED Patient Summary (Inserted Image. Addie ble to display) [place] [id number] Patient Discharge Instructions Person Information Name: RABIA GASPAR Age: 25 Years Arrival Date: 12/03/2020 20:52:33 Discharge Diagnosis: 1:Alcohol intoxication; 2:Depression Primary Care Physician: NONE, [place] Provider Information Primary Provider: Keyshawn Stout MD Advanced Sheet Combining Operator:None The exam and treatment you received in the Emergency Department were for an urgent problem and are not intended as complete care. It is important that you follow up with a doctor, nurse practitioner, or physician?s patent legal assistant for ongoing care. If your symptoms become worse or you do not improve as expected and you are unable to reach your usual health care provider, you should return to the Emergency Department. We are available 24 hours a day. JAREDRABIA STEWART has been given the following list of patient education materials, prescriptions and follow-up instructions: Follow-up Instructions: With: Address: When: [place] NONE , [place] In 3 days 12/07/2020 In the event that this physician does not participate in your insurance network, please consult with your insurance company to find a nearby participating provider. Patient Education Materials: Alcohol Intoxication A MESSAGE TO ALL PATIENTS REGARDING OPIOIDS PRESCRIPTION OPIOIDS: WHAT YOU NEED TO KNOW Prescription opioids can be used to help relieve awxylymg-ep-mukhtg pain and are often prescribed following a surgery or injury, or for certain health conditions. These medications can be an important part of the treatment but also come with serious risks. It is important to work with your healthcare provider to make sure you are getting the safest, most effective care. WHAT ARE THE RISKS AND SIDE EFFECTS OF OPIOID USE? Prescription opioids carry serious risks of addiction and overdose, especially with prolonged use. An opioid overdose, often marked by slowed breathing, can cause sudden . The use of prescription opioids can have a number of side effects as well, even when taken as directed: ? Tolerance?meaning you might need to take more of the medication for the same pain relief ? Physical dependence?meaning you have symptoms of withdrawal when a medication is stopped ? Increased sensitivity to pain ? Constipation ? Nausea, vomiting, and dry mouth ? Sleepiness and dizziness ? Confusion ? Depression ? Low levels of testosterone that can result in lower sex drive, energy, and strength ? Itching and sweating RISKS ARE GREATER WITH: ? History of drug misuse, substance use disorder, or overdose ? Mental health conditions (such as depression or anxiety) ? Sleep apnea ? Older age (65 years and older) ? Avoid alcohol while taking prescription opioids. Also, unless specifically advised by your health care provider, medications to avoid include: ? Benzodiazepines (such as Xanax or Valium) ? Muscle relaxants (such as Soma or Flexeril) ? Hypnotics (such as Ambien or Lunesta) ? Other prescription opioids KNOW YOUR OPTIONS Talk to your health care provider about ways to manage your pain that don?t involve prescription opioids. Some of these options may actually work better and have fewer risks and side effects. Options may include: ? Pain relievers such as acetaminophen, ibuprofen, and naproxen ? Some medication that are also used for depression or seizures ? Physical therapy and exercise ? Cognitive behavioral therapy, a psychological, goal-directed approach, in which patients learn how to modify physical, behavioral, and emotional triggers of pain and stress. IF YOU ARE PRESCRIBED OPIOIDS FOR PAIN: ? Never take opioids in greater amounts or more often than prescribed. ? Follow up with your primary health care provider. o Work together to create a plan on how to manage your pain. o Talk about ways to help manage your pain that don?t involve prescription opioids. o Talk about any and all concerns and side effects. ? Help prevent misuse and abuse o Never sell or share prescription opioids. o Never use another person?s prescription opioids. ? Store prescription opioids in a secure place and out of reach of others (this may include visitors, children, friends, and family). ? Safely dispose of unused prescription opioids: Find your community drug take-back program or your pharmacy mail-back program, or flush them down the toilet, following guidance from the Food and Drug Administration (www.fda.gov/Drugs/ResourcesF orYou). ? Visit www.cdc.gov/drugoverdose to learn about the risks of opioids abuse and overdose. ? If you believe you may be struggling with addiction, tell your health life care planner and ask for guidance or call [facility]?S National Helpline at 0-592-513-EMOY. w Source: [place] Department of Health and Human Services/Center for Disease Control & Prevention Am (more content not included)... Normal [facility] Ethanolon 12-04-2020 Ethanol [Mass/Vol] 196 mg/dL Abnormal <=7 [facility] Comment on above: Result Comment: Resu lts verified by repeat analysis\Critical Result S_ETOH:196.0 Called to AMRIK HOWELL AT by KEIRY LEVIN And Read Back For Confirmation at: 12/03/2020 22:01:24 Performed By: #### 2 [id number] ####[facility] [place] [address] Salicylateon 12-04-2020 Salicylates [Mass/Vol] mg/dL Low 6-29 [facility] Comment on above: Performed By: #### 2 427165, 78006996, 5557263, 20475871, 3267441, 7429495, 6711884, 6407827, 2950785 ####[facility] [address] [place] [address] Auto Diffon 12-03-2020 Basophils/100 WBC (Bld) 0.6 % Normal 0.0-2.0 [facility] Comment on above: Order Comment: Order Added by Discern Expert. Performed By: #### 2 003309, 26770995, 4442932, 21459860, 7221217, 3325167, 6259042, 2066734, 8501203 #### [facility] [address] [place] [address] Basophils/Leukocytes Auto (Bld) [Pure # fraction] 0.1 E9/L Normal 0.0-0.2 [facility] Comment on above: Order Comment: Order Added by Discern Expert. Performed By: #### 2 551271, 61769565, 2378367, 91232608, 8994404, 6167888, 6890473, 4019591, 1856096 #### [facility] [address] [place] [address] Eosinophils/100 WBC (Bld) 4.5 % Normal 0.0-8.0 [facility] Comment on above: Order Comment: Order Added by Discern Expert. Performed By: #### 2 584844, 11043069, 6803800, 74893582, 6920114, 8793697, 1304695, 2014954, 9457992 #### [facility] [address] [place] [address]288 Eosinophils/Leukocyte s Auto (Bld) [Pure # fraction] 0.4 E9/L Normal 0.0-0.5 [facility] Comment on above: Order Comment: Order Added by Discern Expert. Performed By: #### 2 650747, 67889756, 0114327, 17478487, 5782039, 9112380, 0939050, 6623787, 5030874 #### [facility] [address] [place] [address] Lymphocytes/100 WBC (Bld) 29.6 % Normal 14.0-50.0 [facility] Comment on above: Order Comment: Order Added by Discern Expert. Performed By: #### 2 587652, 85375399, 7362692, 74285284, 2124728, 8721787, 8305181, 0954921, 6145027 #### [facility] [address] [place] [address] 59997 Lymphocytes/Leukocyte s Auto (Bld) [Pure # fraction] 2.8 E9/L Normal 1.0-4.0 [facility] Comment on above: Order Comment: Order Added by Discern Expert. Performed By: #### 2 368866, 64718024, 2394706, 51196962, 5030315, 8773737, 8659922, 8297176, 4193627 #### [facility] [address] [place] [address] Monocytes/100 WBC (Bld) 7.9 % Normal 4.0-14.0 [facility] Comment on above: Order Comment: Order Added by Discern Expert. Performed By: #### 2 036718, 24908113, 4681515, 52255711, 4801027, 5680317, 1112222, 5486786, 1982575 #### [facility] [address] [place] [address] Monocytes/Leukocytes Auto (Bld) [Pure # fraction] 0.8 E9/L Normal 0.2-1.0 [facility] Comment on above: Order Comment: Order Added by Discern Expert. Performed By: #### 2 504745, 93236788, 9751511, 92391975, 1008267, 5989815, 5787522, 9288275, 4754195 #### [facility] [address] [place] [address] Neutrophils/100 WBC (Bld) 57.4 % Normal 36.0-75.0 [facility] Comment on above: Order Comment: Order Added by Carlos Expert. Performed By: #### 2 242730, 11745953, 1839155, 04429893, 6891936, 6737569, 9773620, 4919380, 2822373 #### [facility] [address] [place] [address] 41518 Neutrophils/Leukocyte s Auto (Bld) [Pure # fraction] 5.5 E9/L Normal 2.0-7.5 [facility] Comment on above: Order Comment: Order Added by Discern Expert. Performed By: #### 2 547178, 01510894, 8273998, 05877315, 3330422, 5349207, 3631746, 0247180, 6532028 #### [facility] [address] [place] [address] B hCG Qualon 12-03-2020 Beta hCG Ql Negative Normal [facility] Comment on above: Performed By: #### 2 919232, 03152286, 2795455, 21097505, 5623685, 7879528, 8359164, 4463169, 2659971 #### [facility] [address] [place] [address] Bili Directon 12-03-2020 Bilirubin.direct [Mass/Vol] 0.1 mg/dL Normal 0.1-0.4 [facility] Comment on above: Order Comment: Order Added by Discern Expert. Performed By: #### 2 331418, 37479495, 4780000, 42171821, 6554852, 9647520, 9785452, 5585171, 7443239 #### [facility] [address] [place] [address] CBC w/ Auto Diffon Erythrocyte distribution width (RBC) [Ratio] 14.9 % High 10.9-14.2 [facility] Comment on above: Performed By: #### 2 824170, 97735521, 9467970, 47179198, 9403785, 3356011, 9676646, 4329436, 7686993 #### [facility] [address] [place] [address] Hematocrit (Bld) [Volume fraction] 41.8 % Normal 34.0-46.0 [facility] Comment on above: Performed By: #### 2 189540, 54355758, 8932182, 09202709, 4947808, 1965175, 8961471, 2344824, 6611759 #### [facility] [address] [place] [address] 80959 Hemoglobin (Bld) [Mass/Vol] 13.8 g/dL Normal 12.0-16.0 [facility] Comment on above: Performed By: #### 2 296381, 43670808, 7309820, 18894349, 8044911, 6220955, 1765215, 9038684, 1031526 #### [facility] [address] [place] [address] 48431 MCH (RBC) [Entitic mass] 28.7 pg Normal 27.0-34.0 [facility] Comment on above: Performed By: #### 2 422626, 38216583, 2816231, 42946576, 1664138, 8359278, 0947422, 6446854, 9588459 #### [facility] [address] [place] [address] 63481 MCHC (RBC) [Mass/Vol] 33.0 g/dL Normal 31.4-36.0 [facility] Comment on above: Performed By: #### 2 122589, 64855560, 1715108, 89279585, 7680057, 7049798, 0180729, 1290868, 1049933 #### [facility] [address] [place] [address] 03381 MCV (RBC) [Entitic vol] 86.9 fL Normal 80.0-100.0 [facility] Comment on above: Performed By: #### 2 243926, 19673043, 2521168, 61598990, 8779802, 6661465, 0726718, 9489422, 6937101 #### [facility] [address] [place] [address] 84820 Platelet mean volume (Bld) [Entitic vol] 9.7 fL Normal 6.4-10.8 [facility] Comment on above: Performed By: #### 2 847634, 21276617, 9212588, 01819054, 8546059, 7592337, 6567181, 6326821, 2594682 #### [facility] [address] [place] [address] Platelets (Bld) [#/Vol] 200.0 E9/L Normal 150.0-500. 0 [facility] Comment on above: Performed By: #### 2 048025, 54115353, 8589109, 35493873, 4750734, 2879451, 1534107, 9662688, 6835514 #### [facility] [address] [place] [address] 60192 RBC (Bld) [#/Vol] 4.8 E12/L Normal 4.3-5.9 [facility] Comment on above: Performed By: #### 2 159372, 05272609, 4092229, 05216004, 3487817, 8791920, 0108565, 6607575, 3062501 #### [facility] [address] [place] [address] 94966 WBC corrected for nucl RBC Auto (Bld) [#/Vol] 9.6 E9/L Normal 4.0-11.0 [facility] Comment on above: Performed By: #### 2 456237, 84581303, 7776072, 15694016, 2102956, 2803744, 5644613, 2049166, 4175954 #### [facility] [address] [place] [address] CMPon 12-03-2020 Albumin [Mass/Vol] 4.4 g/dL Normal 3.3-5.0 [facility] Comment on above: Performed By: #### 2 180684, 18390562, 5578317, 91187460, 6147990, 2376555, 1708677, 0229399, 0461850 #### [facility] [address] [place] [address] 76178 Albumin/Globulin (S) [Mass conc ratio] 1.6 Normal 1.1-2.2 [facility] Comment on above: Performed By: #### 2 464403, 72992461, 4851811, 17887422, 4774701, 3262147, 6629587, 5884326, 3613375 #### [facility] [address] [place] [address] 95255 ALP [Catalytic activity/Vol] 49 Int._Unit/L Normal 21-98 [facility] Comment on above: Performed By: #### 2 501609, 36274249, 8343261, 67909217, 9050328, 7769306, 9030665, 6159565, 9072448 #### [facility] [address] [place] [address] 48124 ALT No additional P-5'-P [Catalytic activity/Vol] 137 Int._Unit/L High 6-46 [facility] Comment on above: Performed By: #### 2 787650, 91776317, 9461112, 87792867, 3894223, 7612521, 8880360, 5421738, 9802059 #### [facility] [address] [place] [address] 15209 AST [Catalytic activity/Vol] 115 Int._Unit/L High 5-43 [facility] Comment on above: Performed By: #### 2 950079, 20443928, 4297970, 10420957, 0717828, 4465587, 0435143, 6675004, 1711852 #### [facility] [address] [place] [address] 20107 Bilirubin [Mass/Vol] 0.4 mg/dL Normal 0.0-1.1 [facility] Comment on above: Performed By: #### 2 632377, 56657069, 4240503, 00092241, 1407670, 1453605, 5707267, 3559933, 3242604 #### [facility] [address] [place] [address] 31897 Creatinine [Mass/Vol] 0.5 mg/dL Normal 0.5-1.3 [facility] Comment on above: Performed By: #### 2 310296, 06234198, 3360222, 04315422, 7423704, 0285689, 3473543, 0433657, 6001738 #### [facility] [address] [place] [address] Globulin (S) [Mass/Vol] 2.7 g/dL Normal 1.4-4.0 [facility] Comment on above: Performed By: #### 2 675829, 56467472, 2225054, 12351204, 2709416, 2901150, 4291144, 4721096, 2809581 #### [facility] [address] [place] [address] Protein [Mass/Vol] 7.1 g/dL Normal 6.0-7.8 [facility] Comment on above: Performed By: #### 2 497577, 59912272, 6082722, 77302872, 0556049, 2624683, 1045620, 5534247, 0193818 #### [facility] [address] [place] [address] Urea nitrogen [Mass/Vol] 16 mg/dL Normal 5-21 [facility] Comment on above: Performed By: #### 2 371043, 77286914, 2084533, 46107852, 7524239, 6735971, 8966197, 5841629, 5821059 #### [facility] [address] [place] [address] 22618 Urea nitrogen/Creatinine [Mass ratio] 32 No Units High 10-20 [facility] Comment on above: Performed By: #### 2 641565, 52497431, 2440705, 83573144, 2286847, 9957368, 9833298, 9780362, 2729077 #### [facility] [address] [place] [address] Anion gap [Moles/Vol] 12 mmol/L Normal 6-16 [facility] Comment on above: Performed By: #### 2 058678, 26375933, 5873079, 01704636, 4093658, 0019503, 8393999, 2444966, 7428407 #### [facility] [address] [place] [address] Calcium [Mass/Vol] 8.4 mg/dL Low 8.9-11.1 [facility] Comment on above: Performed By: #### 2 361287, 81707653, 9151953, 87642223, 5059629, 8319108, 2121190, 1044272, 5814760 #### [facility] [address] [place] [address] Chloride [Moles/Vol] 112 mmol/L High 101-111 [facility] Comment on above: Performed By: #### 2 183387, 41569777, 9363362, 37054819, 7214701, 2335235, 2564419, 3251427, 6283518 #### [facility] [address] [place] [address] CO2 [Moles/Vol] 21 mmol/L Normal 21-31 [facility] Comment on above: Performed By: #### 2 328838, 35201495, 5310490, 26314533, 0787702, 1199519, 4043098, 4113867, 6725260 #### [facility] [address] [place] [address] Glucose [Mass/Vol] 86 mg/dL Normal 55-199 [facility] Comment on above: Result Comment: If t his glucose result represents a fasting glucose, interpretation should refer to the following reference range: 55-99 mg/dL Performed By: #### 2 966033, 59001262, 8906165, 07269238, 3421501, 8910324, 3785376, 1879308, 8057904 #### [facility] [address] [place] [address] Potassium [Moles/Vol] 3.5 mmol/L Normal 3.5-5.3 [facility] Comment on above: Performed By: #### 2 688733, 35551074, 9314640, 32077703, 8660922, 6155641, 8089141, 1707695, 7387034 #### [facility] [address] [place] [address] Sodium [Moles/Vol] 141 mmol/L Normal 135-145 [facility] Comment on above: Performed By: #### 2 794657, 78320036, 8253218, 89622448, 3660973, 5091192, 5662823, 9026783, 2610210 #### [facility] [address] [place] [address] Lipase Levelon 12-03-2020 Lipase [Catalytic activity/Vol] 35 U/L Normal 13-58 [facility] Comment on above: Performed By: #### 2 317567, 09390194, 2720119, 51470676, 4725361, 4479922, 5726394, 3376034, 4469295 #### [facility] [address] [place] [address] eGFRon 12-03-2020 GFR/1.73 sq M.predicted among blacks MDRD (S/P/Bld) [Vol rate/Area] mL/min/{1.73_m2} Normal >=59 [facility] Comment on above: Order Comment: Order added by Discern Expert. Result Comment: eGFR is race adjusted. AA=. Performed By: #### 2 879823, 17693183, 8166146, 42039347, 5192462, 0703310, 7846256, 1145255, 3394929 #### [facility] [address] [place] [address] GFR/1.73 sq M.predicted among non-blacks MDRD (S/P/Bld) [Vol rate/Area] mL/min/{1.73_m2} Normal >=59 [facility] Comment on above: Order Comment: Order added by Discern Expert. Result Comment: Rn Pool anuradha kidney disease could be indicated at eGFR's of less than 60 mL/min/1.73m2. Kidney failure is indicated at less than 15 mL/min/1.73m2. Performed By: #### 2 033971, 66405967, 5157460, 59876959, 4902020, 7810127, 5154350, 0635874, 9882911 #### [facility] [address] [place] [address] Gynecology Office/Clinic Not lindy 11-11-2017 Gynecology Office/Clinic Note Chief Complaint 22 y/o G0 here for ER follow up, was seen in ER for abdominal pain and vaginal bleeding.History of Present Illness Contraception Type: None Last Menstrual Period: 10/31/17 Abnormal vaginal discharge: No Breast lumps/pain: No Clotting with periods: Yes Heavy periods: No Hot flashes: No Irregular periods: Yes Night sweats: Yes Painful periods: No Painful sex: Yes Pelvic pain: Yes Spotting: Yes Vaginal dryness: Yes Vaginal itch/burning/odor: No Recent ER visit October 30 and for left lower quadrant pain. TVUS 10/30 showing left complex cyst less than 3 cm. Noting vaginal spotting. Rec Depo 09/25/17-states her last period was light and short. No fever/chills, n/vReview of Systems Constitutional: No fevers, chills, sweats Eye: No recent visual problems ENMT: No ear pain, nasal congestion, sore throat Respiratory: No shortness of breath, cough Cardiovascular: No Chest pain, palpitations, syncope Gastrointestinal: No nausea, vomiting, diarrhea Genitourinary: No hematuriaPhysical Exam Vitals & Measurements BP: 98/64 HT: 171.5 cm WT: 66.5 kg DOSE WT: 66.5 kg BMI: 22.61 General: Alert and oriented, well nourished, no acute distress. Psychiatric: Cooperative, appropriate mood and affect. Abd: left lower quadrant tenderness with palpation, soft, no masses palpated. Additional Vitals Body Mass Index Measured: 22.61 kg/m2 BP Position/Location: Sitting, Right armAssessment/Plan 1. Vaginal bleeding Pt with spotting, continue to monitor, bleeding prec reviewed. 2. Left lower quadrant pain, Left lower quadrant pain Recommend 600-800 mg Motrin TID PRN, if pain worsens she is to call Ordered: US Transvaginal 3. Complex cyst of left ovary, Other ovarian cyst, left side Plan for Day 5 TVUS-pt to call Ordered: US TransvaginalPhysician Comments 15 minute Face to face time with patient discussing symptoms, diagnosis, treatments, and medication compliance and risks.Problem List/Past Medical History Ongoing No chronic problems Historical No qualifying dataProcedure/Surgical History denies.Medications DayQuil Cold & Flu oral syrup, 30 mL, Oral, q4hr, PRN Depo-Provera Contraceptive 150 mg/mL intramuscular suspension, 150 mg, 1 mL, IM, q3mo, Not taking ibuprofen 200 mg oral capsule, 400 mg, 2 caps, Oral, q6hr, PRN Keflex 500 mg oral capsule, 500 mg, 1 caps, Oral, q8hr, Not takingAllergies No Known Medication AllergiesSocial History Alcohol Past Never Home/Environment Lives with Significant other. Sexual Sexually active: Yes. Substance Abuse Denies All Tobacco Former smoker, Cigarettes, 1 per day. Packs, 1 year(s). Started age 22 Years. Ready to change: No. Former smokerFamily History Family history is negativeDiagnostic Results No qualifying data available. No qualifying data available. No qualifying data available. No qualifying data available.Electronically signed by Janeth Carlos CNP 11/11/17 16:14 EDT Normal [facility] .UA Microscp Aon 11-07-2017 UA Bacteria Present Abnormal Absent [facility] Comment on above: Performed By: #### C [id number] ####[address] [address] UA Mucus Present Abnormal Absent [facility] Comment on above: Performed By: #### C D:[id number] ####[address] [address] UA RBC Quant 1 /HPF Normal 0-5 [facility] Comment on above: Performed By: #### C D:[id number] ####[place] [place] [address] UA Squepi Cells Quant 3 /HPF Normal 0-29 [facility] Comment on above: Performed By: #### C D:[id number] ####[address] [address] UA WBC Quant 10 /HPF High 0-5 [facility] Comment on above: Performed By: #### C D:[id number] ####[address] [address] .eGFRon 11-07-2017 eGFR Non-AA >60 Normal >=60 [facility] Comment on above: Result Comment: Resu lt = 0-14.9 mL/min/1.73 m2 Kidney failure or DialysisResult = 15-29 mL/min/1.73 m2 Severe decrease in GFRResult = 30-59 mL/min/1.73 m2 Moderate decrease in GFRResult >= 60 mL/min/1.73 m2 Normal or increased GFRChronic kidney disease is defined as either kidney damage or GFR < 60 mL/min/1.73 m2 for >= 3 months. Kidney damage is defined as pathologic abnormalities or markers of damage including abnormalities in blood or urine tests or imaging studies. This GFR is NOT used for medication dosing. Performed By: #### E GFR ####[place] [address] eGFR AA >60 Normal >=60 [facility] Comment on above: Result Comment: Resu lt = 0-14.9 mL/min/1.73 m2 Kidney failure or DialysisResult = 15-29 mL/min/1.73 m2 Severe decrease in GFRResult = 30-59 mL/min/1.73 m2 Moderate decrease in GFRResult >= 60 mL/min/1.73 m2 Normal or increased GFR Performed By: #### E GFR ####[place] [id number] CBC w/ Diffon 11-07-2017 Erythrocyte distribution width Auto Ratio (RBC) 15.0 % High 11.6-14.8 [facility] Comment on above: Performed By: #### C BC ####[place] [address] Hematocrit Auto Volume Fraction (Bld) 34.4 % Low 36.0-46.0 [facility] Comment on above: Performed By: #### C BC ####[place] [address] Hemoglobin mass conc (Bld) 11.5 g/dL Low 12.0-16.0 [facility] Comment on above: Performed By: #### C BC ####[address] [address] MCH Auto Entitic mass (RBC) 26.9 pg Low 27.0-35.0 [facility] Comment on above: Performed By: #### C BC ####[address] [address] MCHC Auto mass conc (RBC) 33.3 % Normal 31.0-37.0 [facility] Comment on above: Performed By: #### C BC ####[address] [address] MCV Auto Entitic volume (RBC) 80.6 fL Normal 80.0-100.0 [facility] Comment on above: Performed By: #### C BC ####[address] [address] Platelet mean volume Auto Entitic volume (Bld) 9.7 fL Normal 6.7-10.6 [facility] Comment on above: Performed By: #### C BC ####[address] [address] Platelets Auto #/vol (Bld) 166 x10*3/mcL Normal 150-350 [facility] Comment on above: Performed By: #### C BC ####[address] [address] RBC Auto #/vol (Bld) 4.27 x10*6/mcL Normal 3.80-5.20 [facility] Comment on above: Performed By: #### C BC ####[address] [address] WBC Auto #/vol (Bld) 8.6 x10*3/mcL Normal 4.5-11.0 [facility] Comment on above: Performed By: #### C BC ####[address] [address] CMPon 11-07-2017 Albumin mass conc 4.2 g/dL Normal 3.2-4.9 [facility] Comment on above: Performed By: #### C OMP ####[address] [address] Albumin/Globulin mass ratio 1.4 {ratio} Normal 1.1-2.2 [facility] Comment on above: Performed By: #### C OMP ####[address] [address] Alk Phos 57 IU/L Normal 32-91 [facility] Comment on above: Performed By: #### C OMP ####[address] [address] ALT enzyme act/vol 106 U/L High 14-54 [facility] Comment on above: Performed By: #### C OMP ####[address] [address] Anion gap 3 molar conc 9 mmol/L Normal 7-17 [facility] Comment on above: Performed By: #### C OMP ####[address] [address] AST enzyme act/vol 80 U/L High 15-41 [facility] Comment on above: Performed By: #### C OMP ####[address] [address] Bili Total 0.4 mg/dL Normal 0.3-1.2 [facility] Comment on above: Performed By: #### C OMP ####[address] [address] Calcium mass conc 8.9 mg/dL Normal 8.5-10.3 [facility] Comment on above: Performed By: #### C OMP ####[address] [address] Chloride molar conc 106 mmol/L Normal 98-110 [facility] Comment on above: Performed By: #### C OMP ####[address] [address] CO2 molar conc 27 mmol/L Normal 22-32 [facility] Comment on above: Performed By: #### C OMP ####[address] [address] Creatinine mass conc 0.40 mg/dL Low 0.44-1.03 [facility] Comment on above: Performed By: #### C OMP ####[address] [address] Glucose mass conc 102 mg/dL Normal 74-118 [facility] Comment on above: Performed By: #### C OMP ####[address] [address] Potassium molar conc 4.1 mmol/L Normal 3.4-4.8 [facility] Comment on above: Performed By: #### C OMP ####[address] [address] Protein mass conc 7.3 g/dL Normal 6.5-8.1 [facility] Comment on above: Performed By: #### C OMP ####[address] [address] Sodium molar conc 138 mmol/L Normal 133-142 [facility] Comment on above: Performed By: #### C OMP ####[address] [address] Urea nitrogen mass conc 16 mg/dL Normal 8-26 [facility] Comment on above: Performed By: #### C OMP ####[address] [address] Urea nitrogen/Creatinine mass ratio 40.0 mg/mg High 15.0-25.0 [facility] Comment on above: Performed By: #### C OMP ####[address] [address] [address] Abdomen Pelvis w/ IV Cont raston 11-07-2017 CT Abdomen Pelvis w/ IV Contrast Exam: Abdomen and pelvis CT with oral and IV contrast dated 11/07/2017.HISTORY: Left lower quadrant abdominal pain, nausea, vomiting and diarrhea.COMPARISON: None.TECHNIQUE: Multidetector axial images with coronal and sagittal reconstructions performed at the CT scanner are obtained through the abdomen and pelvis following the intravenous administration of 100 mL of Omnipaque 300.Oral contrast was administered prior to scanning.FINDINGS:Liver, gallbladder, pancreas, spleen, bilateral adrenal glands are unremarkable.Gastroesophageal reflux in distal esophagus.Stomach, small and large bowel loops are grossly unremarkable. The appendix is normal. Trace free fluid in the pelvis, physiologic. Uterus and bilateral ovaries are unremarkable. Small cyst in the left ovary. No abdominal aortic aneurysm. No abnormal lymph node enlargement. No acute findings at the lung bases. No acute osseous abnormalities.IMPRESSION: No acute findings.Radiation Dose Estimate:CTDI(mGy):0.667344 / / / kVp:120.978709 / mAs:0.951551 / / / DLP(mGy-cm):7.666293Qrqf Part: AbdomenCTDI(mGy):8.623799 / / / kVp:100.460653 / mAs:115.084403 / / / DLP(mGy-cm):404.200240Vqji Part: Abdomen Final Dictated by: Essie Osorio MD DT/TM: 11.07.2017 7:06 pmSigned by: Wilfredo Osorio MD (Electronic Signature): 11.07.2017 7:10 pm(If Report Is Signed, Electronically Signed in Other Vendor System) Normal [facility] Diff Autoon 11-07-2017 Baso Absolute 0.0 x10*3/mcL Normal 0.0-0.2 [facility] Comment on above: Performed By: #### . Automated Diff ####[address] [address] Basophils/100 WBC Auto (Bld) 0.5 % Normal 0.0-1.5 [facility] Comment on above: Performed By: #### . Automated Diff ####[address] [address] Eos Absolute 0.3 x10*3/mcL Normal 0.0-0.4 [facility] Comment on above: Performed By: #### . Automated Diff ####[address] [address] Eosinophils/100 WBC Auto (Bld) 3.1 % Normal 0.0-5.4 [facility] Comment on above: Performed By: #### . Automated Diff ####[address] [address] Lymphocytes Auto #/vol (Bld) 1.5 x10*3/mcL Normal 1.2-5.2 [facility] Comment on above: Performed By: #### . Automated Diff ####[address] [address] Lymphocytes/100 WBC Auto (Bld) 17.9 % Low 28.0-42.0 [facility] Comment on above: Performed By: #### . Automated Diff ####[address] [address] [place] Absolute 1.0 x10*3/mcL Normal 0.1-1.1 [facility] Comment on above: Performed By: #### . Automated Diff ####[address] [address] Monocytes/100 WBC Auto (Bld) 11.2 % Normal 3.7-11.9 [facility] Comment on above: Performed By: #### . Automated Diff ####[address] [address] Neutro Absolute 5.8 x10*3/mcL Normal 1.8-8.0 [facility] Comment on above: Performed By: #### . Automated Diff ####[place] [id number] Neutro Auto 67.3 % Normal 45.6-68.4 [facility] Comment on above: Performed By: #### . Automated Diff ####[address] [address] ED Clinical Summaryon 2017 ED Clinical Summary (Inserted Image. Addie ble to display) [address] [address] ed Clinical SummaryPerson InformationName: Rabia Gaspar [facility] Age: 22 Years : 1995Sex: Female PCP:Marital Status:Single Phone:Race:White Ethnicity:Not or Language:EnglishMRN: [id number] [facility]: [id number] Reason:Headache; Abdominal pain; Abdominal pain Acuity: 3Enc Type: Emergency Med Service: Emergency MedicineArrival:11/07/2017 17:17:00 Discharge: 11/07/2017 19:46:00 LOS: 000 02:29Checkin:11/07/2017 17:17:00 Checkout: 11/07/2017 19:46:00 Dispo Type: Home or Self CareAddress:[address] [place] [address] Provider Notes:Diagnosis:1:Abdominal pain; 2:Urinary tract infection; 3:Frontal headacheProblems Active No Chronic ProblemsSmoking Status: Smoking Status Former smokerFunctional Status:Sensory Deficits:History of Falls:Mobility Assistance Prior to Admission:ADLs:Current Level of Assistance for Self-Care/Mobility:Cognitive Status:Allergies No Known Medication AllergiesLaboratory or Other Results This Visit (last charted value for your 11/07/2017 visit) Hematology 11/07/2017 6:14 PM WBC: 8.6 x10 RBC: 4.27 x10 Neutro Auto: 67.3 % -- Normal range between ( 45.6 and 68.4 ) Lymph Auto: 17.9 % -- Normal range between ( 28.0 and 42.0 ) [place] Auto: 11.2 % -- Normal range between ( 3.7 and 11.9 ) Eos Auto: 3.1 % -- Normal range between ( 0.0 and 5.4 ) Basophil Auto: 0.5 % -- Normal range between ( 0.0 and 1.5 ) Baso Absolute: 0.0 x10 MCV: 80.6 fL -- Normal range between ( 80.0 and 100.0 ) MCHC: 33.3 % -- Normal range between ( 31.0 and 37.0 ) Lymph Absolute: 1.5 x10 Hct: 34.4 % -- Normal range between ( 36.0 and 46.0 ) [place] Absolute: 1.0 x10 MCH: 26.9 pg -- Normal range between ( 27.0 and 35.0 ) Neutro Absolute: 5.8 x10 Hgb: 11.5 g/dL -- Normal range between ( 12.0 and 16.0 ) Mean Platelet Volume: 9.7 fL -- Normal range between ( 6.7 and 10.6 ) Platelet: 166 x10 Eos Absolute: 0.3 x10 RDW: 15.0 % -- Normal range between ( 11.6 and 14.8 ) Urinalysis 11/07/2017 5:36 PM UA Color: Yellow UA Urobilinogen: 0.2 mg/dL UA Bili: Negative UA Ketones: Negative mg/dL UA Leukocyte Esterase: Moderate UA Nitrite: Negative UA Glucose: Negative mg/dL UA Bacteria: Present /HPF UA Protein: Negative mg/dL UA Blood: Large UA Spec Grav: 1.020 -- Normal range between ( 1.003 and 1.035 ) UA pH: 6.0 UA Clarity: Clear UA Source: Clean Catch UA Mucus: Present /LPF UA WBC Quant: 10 /HPF -- Normal range between ( 0 and 5 ) UA RBC Quant: 1 /HPF -- Normal range between ( 0 and 5 ) UA Squepi Cells Quant: 3 /HPF -- Normal range between ( 0 and 29 ) Chemistry 11/07/2017 6:14 PM Creatinine Lvl: 0.40 mg/dL -- Normal range between ( 0.44 and 1.03 ) BUN: 16 mg/dL -- Normal range between ( 8 and 26 ) Glucose Lvl: 102 mg/dL -- Normal range between ( 74 and 118 ) Potassium Lvl: 4.1 mmol/L -- Normal range between ( 3.4 and 4.8 ) AST: 80 IU/L -- Normal range between ( 15 and 41 ) ALT: 106 IU/L -- Normal range between ( 14 and 54 ) Sodium Lvl: 138 mmol/L -- Normal range between ( 133 and 142 ) Lipase Lvl: 22 IU/L -- Normal range between ( 22 and 51 ) Calcium Lvl: 8.9 mg/dL -- Normal range between ( 8.5 and 10.3 ) Albumin Lvl: 4.2 g/dL -- Normal range between ( 3.2 and 4.9 ) Total Protein: 7.3 g/dL -- Normal range between ( 6.5 and 8.1 ) Bili Total: 0.4 mg/dL -- Normal range between ( 0.3 and 1.2 ) Alk Phos: 57 IU/L -- Normal range between ( 32 and 91 ) Chloride: 106 mmol/L -- Normal range between ( 98 and 110 ) CO2: 27 mmol/L -- Normal range between ( 22 and 32 ) Anion Gap: 9 -- Normal range between ( 7 and 17 ) eGFR Non-AA: >60 mL/min/1.73m? eGFR AA: >60 mL/min/1.73m? BUN Crea Ratio: 40.0 -- Normal range between ( 15.0 and 25.0 ) AG Ratio: 1.4 -- Normal range between ( 1.1 and 2.2 ) 11/07/2017 5:36 PM Urine Preg: Negative Computed Tomography 11/07/2017 6:[address] Abdomen Pelvis w/ IV Contrast: CT Abdomen Pelvis w/ IV ContrastMeasurements:Height:W eight: 72.6 kgBlood Pressure: /76 mmHgBMI:Procedures No Procedures DocumentedImmunizations No Immunizations Documented This VisitFinal Med List:New MedicationsKR[facility]ER [facility] [address] [place] [address], [phone] (Keflex 500 mg oral capsule) 1 Capsules Oral (given by mouth) every 8 hours for 7 Days. Refills: 0.Last Dose: Medi cations that have not changedOther MedicationsAPAP/dextromethorp luo/phenylephrine (DayQuil Cold & Flu oral syrup) 30 Milliliter Oral (given by mouth) every 4 hours as needed as needed for cold.Last Dose: ibup rofen (ibuprofen 200 mg oral capsule) 2 Capsules Oral (given by mouth) every 6 hours as needed as needed for pain.Last Dose: medr oxyPROGESTERone (Depo-Provera Contraceptive 150 mg/mL intramuscular suspension) 1 Milliliter Intramuscular (in a muscle) every 3 months.Last Dose: [facility] [address] [place] [address], [phone] (Keflex 500 mg oral capsule) 1 Capsules Oral (given by mouth) every 8 hours for 7 Days. Refills: 0.Other MedicationsAPAP/dextromethorp luo/phenylephrine (DayQuil Cold & Flu oral syrup) 30 Milliliter Oral (given by mouth) every 4 hours as needed as needed for cold.ibuprofen (ibuprofen 200 mg oral capsule) 2 Capsules Oral (given by mouth) every 6 hours as needed as needed for pain.medroxyPROGESTERone (Depo-Provera Contraceptive 150 mg/mL intramuscular suspension) 1 Milliliter Intramuscular (in a muscle) every 3 months.Care Team Members:Attending Physician: Jarret Oquendo MDConsulting Physician:Referring Physician:Provider Role Assigned UnassAmie Kennedy ED Nurse 11/07/2017 17:24:13Jarret Oquendo MD ED Provider 11/07/2017 17:27:38Follow up:With: Address: When:Follow-up with your primary care provider in next 2-3 days. If you do not have a primary care provider, you can call for help establishing with a primary care doctor in the area.Type Location Start Finish StateSP Established Patient Visit [facility] 11/11/2017 15:45:00 11/11/2017 16:00:00 ConfirmedNurse Visit [facility] 12/26/2017 15:15:00 12/26/2017 15:30:00 ConfirmedDischarge Orders:Discharge Patient 11/07/17 19:17:00 EDT, Discharge to Home, SelfPatient Education Information:HEADACHE, Unspecified; BLADDER INFECTION, Female (Adult); ABDOMINAL PAIN, Unknown Cause, (Female)[facility] Poison Help line: .[facility] Hotline: [place] Tobacco Quit Line: [place], [place]) [address]: [phone], [place]) [address]: [phone] [address] [place], [place]: [phone] [facility] ED Note-Physicianon 11-08-19 18 ED Note-Physician Chief Complaint Pt c /o pressure behind right eye, headache, sinus drainage x4 days. Left lower quadrant pain.History of Present Illness Patient is a 22 year old female presenting to the emergency department by private vehicle complaining of headache. Patient states the symptoms started 4 days ago. Patient describes the the quality of the symptoms as constant. Patient complains of right eye pressure, sinus drainage, epistaxis, LLQ abdominal pain, nausea, vomiting, yellow and watery diarrhea, abdominal distention. Patient does have a history of similar symptoms; she visited the ED last week secondary to similar symptoms. Patient reports having an ultrasound performed while at the ED which demonstrated hemorrhaging in the pelvic area and a possible cyst on her left ovary. Patient denies a history of chronic migraines. PCP: none. Patient reports she has an PHYSICIAN ANESTHESIOLOGIST appointment on November 11.Review of Systems GENERAL: [Negative for fevers] EYES: [Positive for right eye pressure] ENT: [Positive for sinus drainage, epistaxis; Negative for sore throat] NECK: [Negative for pain] CARDIOVASCULAR: [Negative for chest pain] RESPIRATORY: [Negative for shortness of breath] ABDOMEN/GI: [Positive for LLQ abdominal pain, nausea, vomiting, yellow and watery diarrhea, abdominal distention] BACK: [Negative for injury] : [Negative for dysuria] MUSCULOSKELETAL: [Negative for arthralgias] SKIN: [Negative for rash] NEURO: [Positive for headache]Physical Exam CONSTITUTIONAL: [well appearing in no acute distress] SKIN: [Warm, dry, and intact without rash] EYES: [clear conjunctiva] HENT: [Normocephalic, atraumatic, moist mucus membranes] NECK: [no obvious swelling, normal range of motion] PULMONARY: [normal chest rise and fall, no respiratory distress or stridor CARDIOVASCULAR: [regular rate, distal extremities are warm and well perfused] GASTROINTESTINAL: [generalized abdominal tenderness, nondistended, No CVA tenderness note] NEUROLOGIC: [normal speech, moves all extremities] MUSCULOSKELETAL: [no gross deformities, atraumatic, lower extremities are symmetrical without edema, erythema, and tenderness] PSYCHIATRIC: [normal mood and affect]Vitals & Measurements T: 36.3 ?C (Oral) RR: 16 BP: 120/76 SpO2: 99% DOSE WT: 72.6 kg Additional Vitals Peripheral Pulse Rate: 69 bpmProcedure No qualifying data available. ASA DocumentationMedical Decision Making Trae Torres scribing for and in the presence of Dr. Jarret Oquendo. Scribe Attestation: The information in this document, created by the emergency medical technician for me, accurately reflects the services I personally performed and the decisions made by me. On evaluation, patient is in no distress. Abdominal pain has been chronic over the last 2 weeks. She had pelvic ultrasound performed which showed minimal hemorrhage but otherwise unremarkable. CT abdomen and pelvis was ordered. CBC shows hemoglobin of 11.5 but otherwise unremarkable. CMP is essentially unremarkable. Urinalysis shows minimal evidence of infection with 10 wbc's and moderate leukocyte esterase. CT abdomen and pelvis was read by radiologist and shows no acute finding. On reevaluation, patient is be in no distress. Patient was started on Keflex for treatment urinary tract infection. Return precautions were discussed. 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 Abdominal pain Ordered: cephalexin, 1 caps, Oral, q8hr, X 7 days, # 21 caps, 0 Refill(s), 11/14/17 19:17:00 EDT, Pharmacy: [facility] 2. Urinary tract infection 3. Frontal headache Orders: Discharge PatientProblem List/Past Medical History Ongoing No chronic problems Historical No qualifying dataProcedure/Surgical History denies.Medications Home DayQuil Cold & Flu oral syrup, 30 mL, Oral, q4hr, PRN Depo-Provera Contraceptive 150 mg/mL intramuscular suspension, 150 mg, 1 mL, IM, q3mo ibuprofen 200 mg oral capsule, 400 mg, 2 caps, Oral, q6hr, PRN Inpatient Benadryl, 50 mg, 1 mL, IV Push, Once NS Bolus, 1000 mL, IV Bolus, Once Omnipaque 300, 30 mL, Oral, Once Toradol, 30 mg, 1 mL, IV Push, Once Zofran, 4 mg, 2 mL, IV Push, Once Prescriptions No active PrescriptionsAllergies No Known Medication AllergiesSocial History Alcohol Past Never Home/Environment Lives with Significant other. Sexual Sexually active: Yes. Substance Abuse Denies All Tobacco Former smoker, Cigarettes, 1 per day. Packs, 1 year(s). Started age 22 Years. Former smokerFamily History Family history is negativeLab Results Automated Hematology LATEST RESULTS HISTORICAL RESULTS WBC 11/07/17 18:14 8.6 10/30/17 9.2 RBC 11/07/17 18:14 4.27 10/30/17 4.73 Hgb 11/07/17 18:14 11.5 Low 10/30/17 12.9 Hct 11/07/17 18:14 34.4 Low 10/30/17 38.5 MCV 11/07/17 18:14 80.6 10/30/17 81.4 MCH 11/07/17 18:14 26.9 Low 10/30/17 27.3 MCHC 11/07/17 18:14 33.3 10/30/17 33.6 RDW 11/07/17 18:14 15.0 High 10/30/17 15.1 High Platelet 11/07/17 18:14 166 10/30/17 171 Mean Platelet Volume 11/07/17 18:14 9.7 10/30/17 9.9 Neutro Auto 11/07/17 18:14 67.3 10/30/17 69.9 High Lymph Auto 11/07/17 18:14 17.9 Low 10/30/17 14.7 Low [place] Auto 11/07/17 18:14 11.2 10/30/17 10.0 Eos Auto 11/07/17 18:14 3.1 10/30/17 5.1 Basophil Auto 11/07/17 18:14 0.5 10/30/17 0.3 Neutro Absolute 11/07/17 18:14 5.8 10/30/17 6.4 Lymph Absolute 11/07/17 18:14 1.5 10/30/17 1.4 [place] Absolute 11/07/17 18:14 1.0 10/30/17 0.9 Eos Absolute 11/07/17 18:14 0.3 10/30/17 0.5 High Baso Absolute 11/07/17 18:14 0.0 10/30/17 0.0 Routine Chemistry LATEST RESULTS HISTORICAL RESULTS Sodium Lvl 11/07/17 18:14 138 10/30/17 139 Potassium Lvl 11/07/17 18:14 4.1 10/30/17 3.8 Chloride 11/07/17 18:14 106 10/30/17 108 CO2 11/07/17 18:14 27 10/30/17 25 Anion Gap 11/07/17 18:14 9 10/30/17 10 Glucose Lvl 11/07/17 18:14 102 10/30/17 87 BUN 11/07/17 18:14 16 10/30/17 11 Creatinine Lvl 11/07/17 18:14 0.40 Low 10/30/17 0.65 eGFR AA 11/07/17 18:14 >60 10/30/17 >60 eGFR Non-AA 11/07/17 18:14 >60 10/30/17 >60 BUN Crea Ratio 11/07/17 18:14 40.0 High 10/30/17 16.9 Bili Total 11/07/17 18:14 0.4 Alk Phos 11/07/17 18:14 57 AST 11/07/17 18:14 80 High ALT 11/07/17 18:14 106 High Total Protein 11/07/17 18:14 7.3 Albumin Lvl 11/07/17 18:14 4.2 AG Ratio 11/07/17 18:14 1.4 Calcium Lvl 11/07/17 18:14 8.9 10/30/17 8.9 Lipase Lvl 11/07/17 18:14 22 Testing LATEST RESULTS Urine Preg 11/07/17 17:36 Negative UA Macroscopic LATEST RESULTS UA Source 11/07/17 17:36 Clean Catch UA Color 11/07/17 17:36 Yellow UA Clarity 11/07/17 17:36 Clear UA Spec Grav 11/07/17 17:36 1.020 UA pH 11/07/17 17:36 6.0 UA Protein 11/07/17 17:36 Negative UA Glucose 11/07/17 17:36 Negative UA Bili 11/07/17 17:36 Negative UA Urobilinogen 11/07/17 17:36 0.2 UA Leukocyte Esterase 11/07/17 17:36 Moderate Abnormal UA Nitrite 11/07/17 17:36 Negative UA Ketones 11/07/17 17:36 Negative UA Blood 11/07/17 17:36 Large Abnormal UA Microscopic LATEST RESULTS UA RBC Quant 11/07/17 17:36 1 UA WBC Quant 11/07/17 17:36 10 High UA Mucus 11/07/17 17:36 Present Abnormal UA Bacteria 11/07/17 17:36 Present Abnormal UA Squepi Cells Quant 11/07/17 17:36 3Diagnostic Results XRay No qualifying data available. Computerized Tomagraphy CT Abdomen Pelvis w/ IV Contrast 11/07/17 19:06:57 IMPRESSION: No acute findings. Signed By: Margaux Osorio MD Ultrasound No qualifying data available. Magnetic Resonance Imaging No qualifying data available. _Trae Torres RElectronically signed by Jarret Oquendo MD 11/07/2017 21:04 EDT Normal [facility] Lipaseon 11-07-2017 Lipase Lvl 22 IU/L Normal - [facility] Comment on above: Performed By: #### L IP ####[address] [address] UA w Culture if Indon 2017 Color Nom (U) Yellow Normal [facility] Comment on above: Performed By: #### U CI ####[address] [address] Glucose mass conc (U) Negative Normal Negative [facility] Comment on above: Performed By: #### U CI ####[address] [address] Ketones Ql (U) Negative Normal Negative [facility] Comment on above: Performed By: #### U CI ####[address] [address] UA Blood Large Abnormal Negative [facility] Comment on above: Performed By: #### U CI ####[address] [address] UA Clarity Clear Normal [facility] Comment on above: Performed By: #### U CI ####[address] [address] UA Leukocyte Esterase Moderate Abnormal Negative [facility] Comment on above: Performed By: #### U CI ####[address] [address] UA Nitrite Negative Normal Negative [facility] Comment on above: Performed By: #### U CI ####[address] [address] UA pH 6.0 Normal 4.5 - 7.8 [facility] Comment on above: Performed By: #### U CI ####[address] [address] UA Protein Negative Normal Negative [facility] Comment on above: Performed By: #### U CI ####[address] [address] UA Source Clean Catch Normal [facility] Comment on above: Performed By: #### U CI ####[address] [address] UA Spec Grav 1.020 Normal 1.003-1.03 5 [facility] Comment on above: Performed By: #### U CI ####[address] [address] UA Urobilinogen 0.2 mg/dL Normal 0.2 - 1.0 [facility] Comment on above: Performed By: #### U CI ####[place] [id number] Urobilinogen Test strip Qn (U) Negative Normal Negative [facility] Comment on above: Performed By: #### U CI ####[place] [id number] Ambulatory Patient Education on 11-06-2017 Ambulatory Patient Education Patient Education MaterialsName: Tammy Rabia Ramos March Current Date: 11/06/2017 11:38:14 [place] 1995 following sheet(s) are the Patient Education Leaflets for Rabia Gaspar [facility] .eGFRon 10-30-2017 eGFR AA >60 Normal >=60 [facility] Comment on above: Result Comment: Resu lt = 0-14.9 mL/min/1.73 m2 Kidney failure or DialysisResult = 15-29 mL/min/1.73 m2 Severe decrease in GFRResult = 30-59 mL/min/1.73 m2 Moderate decrease in GFRResult >= 60 mL/min/1.73 m2 Normal or increased GFR Performed By: #### E GFR ####[address] [address] eGFR Non-AA >60 Normal >=60 [facility] Comment on above: Result Comment: Resu lt = 0-14.9 mL/min/1.73 m2 Kidney failure or DialysisResult = 15-29 mL/min/1.73 m2 Severe decrease in GFRResult = 30-59 mL/min/1.73 m2 Moderate decrease in GFRResult >= 60 mL/min/1.73 m2 Normal or increased GFRChronic kidney disease is defined as either kidney damage or GFR < 60 mL/min/1.73 m2 for >= 3 months. Kidney damage is defined as pathologic abnormalities or markers of damage including abnormalities in blood or urine tests or imaging studies. This GFR is NOT used for medication dosing. Performed By: #### E GFR ####[address] [address] ABO/Rhon 10-30-2017 ABO/Rh DCon: 0 ABO/Rh: O NEG Normal [facility] Comment on above: Performed By: #### A BORH ####[address] [address] Basic Metabolic Profileon Anion gap 3 molar conc 10 mmol/L Normal 7-17 [facility] Comment on above: Performed By: #### C [id number] ####[address] [address] Calcium mass conc 8.9 mg/dL Normal 8.5-10.3 [facility] Comment on above: Performed By: #### C [id number] ####[address] [address] Chloride molar conc 108 mmol/L Normal 98-110 [facility] Comment on above: Performed By: #### C [id number] ####[address] [address] CO2 molar conc 25 mmol/L Normal 22-32 [facility] Comment on above: Performed By: #### C [id number] ####[address] [address] Creatinine mass conc 0.65 mg/dL Normal 0.44-1.03 [facility] Comment on above: Performed By: #### C [id number] ####[address] [address] Glucose mass conc 87 mg/dL Normal 74-118 [facility] Comment on above: Performed By: #### C [id number] ####[address] [address] Potassium molar conc 3.8 mmol/L Normal 3.4-4.8 [facility] Comment on above: Performed By: #### C [id number] ####[address] [address] Sodium molar conc 139 mmol/L Normal 133-142 [facility] Comment on above: Performed By: #### C [id number] ####[address] [address] Urea nitrogen mass conc 11 mg/dL Normal 8-26 [facility] Comment on above: Performed By: #### C [id number] ####[address] [address] Urea nitrogen/Creatinine mass ratio 16.9 mg/mg Normal 15.0-25.0 [facility] Comment on above: Performed By: #### C [id number] ####[place] [id number] BhCG Qnton 10-30-2017 HCG.beta subunit Qn m[IU]/mL Low 0.0-4.9 [facility] Comment on above: Result Comment: 0.0 - 4.9 Negative for Pregnancy5.0 - 25.0 Indeterminant for : Suggest repeat in 72 hours.>25.0 Positive for Performed By: #### H CG ####[place] [id number] CBC w/ Diffon 10-30-2017 Erythrocyte distribution width Auto Ratio (RBC) 15.1 % High 11.6-14.8 [facility] Comment on above: Performed By: #### C BC ####[place] [id number] Hematocrit Auto Volume Fraction (Bld) 38.5 % Normal 36.0-46.0 [facility] Comment on above: Performed By: #### C BC ####[place] [id number] Hemoglobin mass conc (Bld) 12.9 g/dL Normal 12.0-16.0 [facility] Comment on above: Performed By: #### C BC ####[place] [address]7440 MCH Auto Entitic mass (RBC) 27.3 pg Normal 27.0-35.0 [facility] Comment on above: Performed By: #### C BC ####[place] [address]7440 MCHC Auto mass conc (RBC) 33.6 % Normal 31.0-37.0 [facility] Comment on above: Performed By: #### C BC ####[place] [id number] MCV Auto Entitic volume (RBC) 81.4 fL Normal 80.0-100.0 [facility] Comment on above: Performed By: #### C BC ####[place] [id number] Platelet mean volume Auto Entitic volume (Bld) 9.9 fL Normal 6.7-10.6 [facility] Comment on above: Performed By: #### C BC ####[address] [address] Platelets Auto #/vol (Bld) 171 x10*3/mcL Normal 150-350 [facility] Comment on above: Performed By: #### C BC ####[place] [id number] RBC Auto #/vol (Bld) 4.73 x10*6/mcL Normal 3.80-5.20 [facility] Comment on above: Performed By: #### C BC ####[place] [id number] WBC Auto #/vol (Bld) 9.2 x10*3/mcL Normal 4.5-11.0 [facility] Comment on above: Performed By: #### C BC ####[place] [id number] Diff Autoon 10-30-2017 Baso Absolute 0.0 x10*3/mcL Normal 0.0-0.2 [facility] Comment on above: Performed By: #### . Automated Diff ####[address] [address] Basophils/100 WBC Auto (Bld) 0.3 % Normal 0.0-1.5 [facility] Comment on above: Performed By: #### . Automated Diff ####[address] [address] Eos Absolute 0.5 x10*3/mcL High 0.0-0.4 [facility] Comment on above: Performed By: #### . Automated Diff ####[address] [address] Eosinophils/100 WBC Auto (Bld) 5.1 % Normal 0.0-5.4 [facility] Comment on above: Performed By: #### . Automated Diff ####[address] [address] Lymphocytes Auto #/vol (Bld) 1.4 x10*3/mcL Normal 1.2-5.2 [facility] Comment on above: Performed By: #### . Automated Diff ####[address] [address] Lymphocytes/100 WBC Auto (Bld) 14.7 % Low 28.0-42.0 [facility] Comment on above: Performed By: #### . Automated Diff ####[place] [address] [place] Absolute 0.9 x10*3/mcL Normal 0.1-1.1 [facility] Comment on above: Performed By: #### . Automated Diff ####[place] [id number] Monocytes/100 WBC Auto (Bld) 10.0 % Normal 3.7-11.9 [facility] Comment on above: Performed By: #### . Automated Diff ####[place] [id number] Neutro Absolute 6.4 x10*3/mcL Normal 1.8-8.0 [facility] Comment on above: Performed By: #### . Automated Diff ####[place] [address] Neutro Auto 69.9 % High 45.6-68.4 [facility] Comment on above: Performed By: #### . Automated Diff ####[place] [address] ED Clinical Summaryon 2017 ED Clinical Summary (Inserted Image. Addie ble to display) [place] [address] Clinical SummaryPerson InformationName: Rabia Gaspar [facility]_[place] Age: 22 Years : 1995Sex: Female PCP:Marital Status:Single Phone:Race:White Ethnicity:Not or Language:EnglishMRN: [id number] Reason:Abdominal pain; Abdominal pain Acuity: 3Enc Type: Emergency Med Service: Emergency MedicineArrival:10/30/2017 12:10:00 Discharge: 10/30/2017 16:32:00 LOS: 000 04:22Checkin:10/30/2017 12:10:00 Checkout: 10/30/2017 16:32:00 Dispo Type: Home or Self CareAddress:[address] [place], [place] [id number] Provider Notes: History of Present IllnessPatient presents to the ED for the evaluation of abdominal pain. Patient reports that she has been on the Depo shot and that she has also been intimate with her boyfriend. She states that she has been experiencing lower abdominal pain for the past 3 days as well as spotty vaginal bleeding. She reports that her bleeding worsened yesterday, and that she then passed a large clot. Patient states that she was experiencing nausea this morning which has since resolved. She denies experiencing any chest pain, shortness of breath, fever, emesis, diarrhea, or dysuria. She also denies that she took any at home tests or any known trauma or injury. Patient denies further complaints at initial encounter. Review of SystemsAs reviewed in the HPI. All other systems reviewed are negative or normal.GENERAL: [Negative for fatigue, malaise]EYES: [Negative for injury, pain, redness, discharge]ENT: [Negative for injury, pain, sore throat and discharge]NECK: [Negative for injury, pain, swelling, and stiffness]CARDIOVASCULAR: [Negative for chest pain, palpitations]RESPIRATORY: [Negative for shortness of breath, cough, and wheezing]ABDOMEN/GI: [Positive for pain and nausea (resolved), Negative for?vomiting]BACK: [Negative for injury or bruising]: [Positive for vaginal bleeding, Negative for injury,?discharge, frequency, hematuria, urgency]MUSCULOSKELETAL: [Negative for arthralgias, injury, and deformity]SKIN: [Negative for injury, rash, discoloration]NEURO: [Negative for focal weakness, numbness, tingling, and seizure]ALLERGY/IMMUNOLOGY: [Negative for hives, rash, and new allergies]ENDOCRINE: [Negative for neck swelling, polydipsia, polyuria, marked weight changes, heat/cold intolerance]HEMATOLOGIC/LYMPH ATIC: [Negative for swollen lymph nodes, abnormal bleeding, and unusual bruising] Physical ExamCONSTITUTIONAL: [no apparent distress, well appearing]SKIN: [warm, dry, no jaundice, hives or petechiae]EYES: [pupils are equally round, extraocular movements intact without nystagmus, clear conjunctiva, non-icteric sclera]HENT: [normocephalic, atraumatic, moist mucus membranes, oropharynx clear without exudates]NECK: [Nontender and supple with no nuchal rigidity, no lymphadenopathy, full range of motion]PULMONARY: [clear to auscultation without wheezes, rhonchi, or rales, normal excursion, no accessory muscle use and no stridor]CARDIOVASCULAR: [regular rate, rhythm, normal S1 and S2. No appreciated murmurs. Strong radial pulses with intact distal perfusion]GASTROINTESTINAL: [Minimal lower abdominal discomfort with palpation, soft, non-distended, no palpable masses, no rebound or guarding]GENITOURINARY: [No costovertebral angle tenderness to palpation]LYMPHATICS: [no edema in lower extremities, no lymphadenopathy]MUSCULOSKELET AL: [Extremities are nontender to palpation and have no gross deformity, no edema, redness, or swelling]NEUROLOGIC: [alert and oriented x 3, GCS 15, normal mentation and speech. Moves all extremities x 4 without motor or sensory deficit]PSYCHIATRIC: [normal mood and affect, thought process is clear and linear]Diagnosis:1:Vaginal bleedingProblems Active No Chronic ProblemsSmoking Status: Smoking Status Former smokerFunctional Status:Sensory Deficits:History of Falls:Mobility Assistance Prior to Admission:ADLs:Current Level of Assistance for Self-Care/Mobility:Cognitive Status:Allergies No Known Medication AllergiesLaboratory or Other Results This Visit (last charted value for your 10/30/2017 visit) Hematology 10/30/2017 12:41 PM WBC: 9.2 x10 RBC: 4.73 x10 Neutro Auto: 69.9 % -- Normal range between ( 45.6 and 68.4 ) Lymph Auto: 14.7 % -- Normal range between ( 28.0 and 42.0 ) [place] Auto: 10.0 % -- Normal range between ( 3.7 and 11.9 ) Eos Auto: 5.1 % -- Normal range between ( 0.0 and 5.4 ) Basophil Auto: 0.3 % -- Normal range between ( 0.0 and 1.5 ) Baso Absolute: 0.0 x10 MCV: 81.4 fL -- Normal range between ( 80.0 and 100.0 ) MCHC: 33.6 % -- Normal range between ( 31.0 and 37.0 ) Lymph Absolute: 1.4 x10 Hct: 38.5 % -- Normal range between ( 36.0 and 46.0 ) [place] Absolute: 0.9 x10 MCH: 27.3 pg -- Normal range between ( 27.0 and 35.0 ) Neutro Absolute: 6.4 x10 Hgb: 12.9 g/dL -- Normal range between ( 12.0 and 16.0 ) Mean Platelet Volume: 9.9 fL -- Normal range between ( 6.7 and 10.6 ) Platelet: 171 x10 Eos Absolute: 0.5 x10 RDW: 15.1 % -- Normal range between ( 11.6 and 14.8 ) Chemistry 10/30/2017 12:41 PM Creatinine Lvl: 0.65 mg/dL -- Normal range between ( 0.44 and 1.03 ) BUN: 11 mg/dL -- Normal range between ( 8 and 26 ) Glucose Lvl: 87 mg/dL -- Normal range between ( 74 and 118 ) Potassium Lvl: 3.8 mmol/L -- Normal range between ( 3.4 and 4.8 ) Beta hCG Qnt: <0.6 mIU/mL -- Normal range between ( 0.0 and 4.9 ) Sodium Lvl: 139 mmol/L -- Normal range between ( 133 and 142 ) Calcium Lvl: 8.9 mg/dL -- Normal range between ( 8.5 and 10.3 ) Chloride: 108 mmol/L -- Normal range between ( 98 and 110 ) CO2: 25 mmol/L -- Normal range between ( 22 and 32 ) Anion Gap: 10 -- Normal range between ( 7 and 17 ) eGFR Non-AA: >60 mL/min/1.73m? eGFR AA: >60 mL/min/1.73m? BUN Crea Ratio: 16.9 -- Normal range between ( 15.0 and 25.0 ) Blood Bank 10/30/2017 12:41 PM ABO/Rh: O NEG Ultrasound 10/30/2017 1:16 PM US Transvaginal: US TransvaginalMeasurements:Florin ht:Weight: 74.8 kgBlood Pressure: /67 mmHgBMI:Procedures No Procedures DocumentedImmunizations No Immunizations Documented This VisitFinal Med List:Medications that have not changedOther MedicationsAPAP/dextromethorp luo/phenylephrine (DayQuil Cold & Flu oral syrup) 30 Milliliter Oral (given by mouth) every 4 hours as needed as needed for cold.Last Dose: ibup rofen (ibuprofen 200 mg oral capsule) 2 Capsules Oral (given by mouth) every 6 hours as needed as needed for pain.Last Dose: Othe r MedicationsAPAP/dextromethorp luo/phenylephrine (DayQuil Cold & Flu oral syrup) 30 Milliliter Oral (given by mouth) every 4 hours as needed as needed for cold.ibuprofen (ibuprofen 200 mg oral capsule) 2 Capsules Oral (given by mouth) every 6 hours as needed as needed for pain.Care Team Members:Attending Physician: Alex Suarez II, DOConsulting Physician:Referring Physician:Provider Role Assigned UnassignedAlex Suarez II, DO ED Provider 10/30/2017 12:20:22DeJannette lópez ED Nurse 10/30/2017 12:29:21Follow up:With: Address: When:family doctorComments:follow up with your doctor and return to the ed with any cocnernsType Location Start Finish StateNurse Visit [facility] 12/26/2017 15:15:00 12/26/2017 15:30:00 ConfirmedDischarge Orders:Discharge Patient 10/30/17 16:08:00 EDT, Discharge to Home, Self, Vaginal bleedingPatient Education Information:[facility] Poison Help line: .[facility] Hotline: [place] Tobacco Quit Line: [place], [place]) [address]: [phone]) [address]: [phone] [address] [place], [place]: [phone] [facility] ED Note-Physicianon 10-31-19 ED Note-Physician Chief Complaint Abdo ayesha painHistory of Present Illness Patient presents to the ED for the evaluation of abdominal pain. Patient reports that she has been on the Depo shot and that she has also been intimate with her boyfriend. She states that she has been experiencing lower abdominal pain for the past 3 days as well as spotty vaginal bleeding. She reports that her bleeding worsened yesterday, and that she then passed a large clot. Patient states that she was experiencing nausea this morning which has since resolved. She denies experiencing any chest pain, shortness of breath, fever, emesis, diarrhea, or dysuria. She also denies that she took any at home tests or any known trauma or injury. Patient denies further complaints at initial encounter.Review of Systems As reviewed in the HPI. All other systems reviewed are negative or normal. GENERAL: [Negative for fatigue, malaise] EYES: [Negative for injury, pain, redness, discharge] ENT: [Negative for injury, pain, sore throat and discharge] NECK: [Negative for injury, pain, swelling, and stiffness] CARDIOVASCULAR: [Negative for chest pain, palpitations] RESPIRATORY: [Negative for shortness of breath, cough, and wheezing] ABDOMEN/GI: [Positive for pain and nausea (resolved), Negative for vomiting] BACK: [Negative for injury or bruising] : [Positive for vaginal bleeding, Negative for injury, discharge, frequency, hematuria, urgency] MUSCULOSKELETAL: [Negative for arthralgias, injury, and deformity] SKIN: [Negative for injury, rash, discoloration] NEURO: [Negative for focal weakness, numbness, tingling, and seizure] ALLERGY/IMMUNOLOGY: [Negative for hives, rash, and new allergies] ENDOCRINE: [Negative for neck swelling, polydipsia, polyuria, marked weight changes, heat/cold intolerance] HEMATOLOGIC/LYMPHATIC: [Negative for swollen lymph nodes, abnormal bleeding, and unusual bruising]Physical Exam CONSTITUTIONAL: [no apparent distress, well appearing] SKIN: [warm, dry, no jaundice, hives or petechiae] EYES: [pupils are equally round, extraocular movements intact without nystagmus, clear conjunctiva, non-icteric sclera] HENT: [normocephalic, atraumatic, moist mucus membranes, oropharynx clear without exudates] NECK: [Nontender and supple with no nuchal rigidity, no lymphadenopathy, full range of motion] PULMONARY: [clear to auscultation without wheezes, rhonchi, or rales, normal excursion, no accessory muscle use and no stridor] CARDIOVASCULAR: [regular rate, rhythm, normal S1 and S2. No appreciated murmurs. Strong radial pulses with intact distal perfusion] GASTROINTESTINAL: [Minimal lower abdominal discomfort with palpation, soft, non-distended, no palpable masses, no rebound or guarding] GENITOURINARY: [No costovertebral angle tenderness to palpation] LYMPHATICS: [no edema in lower extremities, no lymphadenopathy] MUSCULOSKELETAL: [Extremities are nontender to palpation and have no gross deformity, no edema, redness, or swelling] NEUROLOGIC: [alert and oriented x 3, GCS 15, normal mentation and speech. Moves all extremities x 4 without motor or sensory deficit] PSYCHIATRIC: [normal mood and affect, thought process is clear and linear]Vitals & Measurements T: 36.6 ?C (Oral) RR: 18 BP: 103/67 SpO2: 99% DOSE WT: 74.8 kg Additional Vitals Peripheral Pulse Rate: 67 bpmProcedure No qualifying data available. ASA DocumentationMedical Decision Making Flavia Grewal scribing for and in the presence of Dr. Suarez. Scribe Attestation: The information in this document, created by the emergency medical technician for me, accurately reflects the services I personally performed and the decisions made by me. This report has been created using voice recognition software. It may contain minor errors which are inherent in voice recognition technology. Scribe Attestation: The information in this document, created by the emergency medical technician for me, accurately reflects the services I personally performed and the decisions made by me. Patient at this time has dysfunction uterine bleeding. Patient will be discharged home without the primary care physician.Assessment/Plan 1. Vaginal bleedingProblem List/Past Medical History Ongoing No chronic problems Historical No qualifying dataProcedure/Surgical History denies.Medications Home No active home medications Inpatient No active inpatient medications Prescriptions No active PrescriptionsAllergies No Known Medication AllergiesSocial History Alcohol Past Never Home/Environment Lives with Significant other. Sexual Sexually active: Yes. Substance Abuse Denies All Tobacco Former smoker Current every day smoker, Cigarettes, 1 per day. Packs, 1 year(s).Family History Family history is negativeLab Results Automated Hematology LATEST RESULTS WBC 10/30/17 12:41 9.2 RBC 10/30/17 12:41 4.73 Hgb 10/30/17 12:41 12.9 Hct 10/30/17 12:41 38.5 MCV 10/30/17 12:41 81.4 MCH 10/30/17 12:41 27.3 MCHC 10/30/17 12:41 33.6 RDW 10/30/17 12:41 15.1 High Platelet 10/30/17 12:41 171 Mean Platelet Volume 10/30/17 12:41 9.9 Neutro Auto 10/30/17 12:41 69.9 High Lymph Auto 10/30/17 12:41 14.7 Low [place] Auto 10/30/17 12:41 10.0 Eos Auto 10/30/17 12:41 5.1 Basophil Auto 10/30/17 12:41 0.3 Neutro Absolute 10/30/17 12:41 6.4 Lymph Absolute 10/30/17 12:41 1.4 [place] Absolute 10/30/17 12:41 0.9 Eos Absolute 10/30/17 12:41 0.5 High Baso Absolute 10/30/17 12:41 0.0Diagnostic Results XRay No qualifying data available. Computerized Tomagraphy No qualifying data available. Ultrasound No qualifying data available. Magnetic Resonance Imaging No qualifying data available. _Flavia Grewaltronicmary signed by Alex Suarez II, DO 10/30/2017 16:08 EDT Normal [facility] Transvaginalon 10-30-2017 US Transvaginal Procedure: Transvagi nal sonogram.Technique: Realtime grayscale and color flow Doppler imaging of the pelvis.Still images were reviewed.Clinical Information: 22-year-old female with vaginal bleeding x2 days. Abdominal pain x2 days.Comparison: None.Findings:Uterus: Retroverted and retroflexed.Grossly unremarkable.Masses: Grossly none.Uterus size: 6 x 4.4 x 4.2 cm.Endometrium: Grossly unremarkable.No sonographic evidence for retained products of conception.Endometrial thickness: 0.9 cm.Cervix: Not well-visualized.Ovaries: 2.4 x 1.5 x 2 cm heterogeneous hypoechoic structure in the left ovary.Right ovary size: 3.4 x 2.1 x 2 cm.Left ovary size: 4.6 x 2.7 x 3 cm.Adnexa: No mass.Free fluid: Trace and with internal echoes, probable blood.Other findings: None.IMPRESSION:1. No sonographic evidence for retained products of conception.2. Probable complex cyst left ovary. Consider 8-12 week follow-up to ensure resolution.3. Trace probable hemorrhage in the pelvis. Final Dictated by: Kelton Rosales MDctated DT/TM: 10/30/2017 3:05 pmSigned by: Kelton Rosales MDigned (Electronic Signature): 10/30/2017 3:09 pm(If Report Is Signed, Electronically Signed in Other Vendor System) [facility] Send-out: Otheron 09-30-2017 Ref [facility] See report for normal ranges. [facility] Comment on above: Order Comment: HSV 1 & 2 swab Performed By: #### S OOTH ####[place] [address] Ref Lab Test Culture, HSV with Re flex to Typing, Genital [facility] Comment on above: Order Comment: HSV 1 & 2 swab Performed By: #### S OOTH ####[place] [id number] Send-out Other See Report [facility] Comment on above: Order Comment: HSV 1 & 2 swab Result Comment: Miss ing Attachment Chartable Reference Lab Reports Can be viewed in source system Performed By: #### S OOTH ####[facility] [place] [address] HSV 1 & 2 Ab, IgG-[facility] HSV Type I IgG-[place] Negative Normal Negative [facility] Comment on above: Performed By: #### C [id number] ####[facility] [place] [address] HSV Type II IgG-[place] Negative Normal Negative [facility] Comment on above: Result Comment: Test Performed by:[facility], [place] [address] Performed By: #### C [id number] ####[facility] [place] [address] RPRon 09-27-2017 RPR Ql Non-Reactive Normal Non-Reacti ve [facility] Comment on above: Performed By: #### R [place] ####[address] [address] Chlam & GC, DNAon 09-26-2017 Chlamydia, DNA Negative Normal Negative [facility] Comment on above: Result Comment: The APTIMA Combo 2 Assay is a target amplification nucleic acid probe test that utilizes target capture for the in-vitro qualitative detection of ribosomal RNA (rRNA) form Chlamydia trachomatis/CT and /or Neisseria gonorrhoeae/GC.A negative result does not preclude the presence of a CT or GC infection because results are dependent of adequate specimen collection, absence of inhibitors and sufficient rRNA to be detected.Results from the APTIMA Combo 2 Assay should be interpreted in conjunction with other laboratory and clinical data available to the clinician. Performed By: #### C [id number] ####[facility] [place] [address] Gonorrhea, DNA Negative Normal Negative [facility] Comment on above: Result Comment: The APTIMA Combo 2 Assay is a target amplification nucleic acid probe test that utilizes target capture for the in-vitro qualitative detection of ribosomal RNA (rRNA) form Chlamydia trachomatis/CT and /or Neisseria gonorrhoeae/GCA negative result does not preclude the presence of a CT or GC infection because results are dependent of adequate specimen collection, absence of inhibitors and sufficient rRNA to be detected.Results from the APTIMA Combo 2 Assay should be interpreted in conjunction with other laboratory and clinical data available to the clinician. Performed By: #### C [id number] ####[facility] [place] [address] Gynecology Office/Clinic Not lindy 09-25-2017 Gynecology Office/Clinic Note Chief Complaint BC follow up/UPT/Depo if neg.History of Present Illness Pt presents for repeat UPT for Depo injection today Also complaints of vaginal itching, and lesion that recently developed in past 2 weeks. States that her boyfriend was recently diagnosed with herpes. UPT negative. Depo today.Review of Systems Negative except noted in HPIPhysical Exam Vitals & Measurements WT: 69.7 kg DOSE WT: 69.7 kg General: Alert and oriented, well nourished, no acute distress. Abdomen: Soft, non-tender, non-distended, no masses. Psychiatric: Cooperative, appropriate mood and affect. External Genitalia: Normal urethral meatus, noted right vaginal lip with ulcerated lesions. Genitourinary: Normal vaginal mucosa, no lesions or abnormal discharge, cervix intact without lesions or bleeding. Bimanual exam: Normal sized, non-tender, mobile uterus. No adnexal tenderness or masses. Wet mount slide was prepared and examined microscopically. Clue cells noted Additional Vitals No qualifying data available.Assessment/Plan 1. control counseling UPT negative. Depo administered today RTO in 3 months for repeat injection Ordered: 06839 AMB Urine POC 2. Encounter for initial prescription of injectable contraceptive Ordered: 62828 AMB Urine POC 3. Routine screening for STI (sexually transmitted infection) Screening for sexually transmitted infections is recommended 3 months after a new sexual partner or sooner, if you are experiencing symptoms. Gonorrhea and chlamydia are STI's that have no symptoms in 80% of infections. If you experience burning or pain with urination, vaginal discharge, odor, or pelvic pain, return for further evaluation. Ordered: GC/Chlamydia DNA Hepatitis B Surface Antigen Hepatitis C Ab w/reflex HCV RNA Qnt, PCR HSV 1 and 2 Antibody, IgG-[place]ridges Human Immunodeficiency Virus Types 1 and 2 Antibodies RPR 4. Vaginal lesion Concern for herpes, await results of culture and blood work Ordered: HSV 1 and 2 Antibody, IgG-Bridges RPR Send-out: Other 5. Bacterial vaginosis, Acute vaginitis Take all antibiotics or vaginal gel as directed and discussed, complete prescription. Take oral medication with food as it could cause nausea and vomiting. Medication can cause a metallic taste in your mouth. Discussed other potential side effects of oral medication; diarrhea, appetite loss, headache, dark urine and to call if side effects are not tolerable. If experiene anaphylactic reaction advised to stop the medication and go to ER. Avoid alcohol while taking medication. No sexual intercourse until medication is completed. Wash vaginal area with unscented soap or just water. Avoid scented soaps and body washes. Wear cotton underwear. Avoid thongs or silk fabrics. Change out of wet clothing as soon as possible Consider yogurt or a probiotic daily. Return if symptoms persist or recur Return for annual exam as scheduled. Ordered: metroNIDAZOLE, 1 tabs, Oral, q12hr, # 14 tabs, 0 Refill(s), 10/02/17 16:04:00 EDTPhysician Comments 12 minute Face to face time with patient discussing symptoms, diagnosis, treatments, and medication compliance and risks.Problem List/Past Medical History Ongoing No qualifying data Historical No qualifying dataProcedure/Surgical History denies.Medications Flagyl 500 mg oral tablet, 500 mg, 1 tabs, Oral, [id number] No Known Medication AllergiesSocial History Alcohol Never Sexual Sexually active: Yes. Substance Abuse Denies All Tobacco Current every day smoker, Cigarettes, 1 per day. Packs, 1 year(s).Family History Family history is negativeDiagnostic Results No qualifying data available. No qualifying data available. No qualifying data available. No qualifying data available.Electronically signed by Janeth Carlos CNP 09/25/17 16:07 EDT [facility] HIV 1 & 2 ABon 09-25-2017 HIV 1, HIV 2 AB Interp Normal Negative [facility] Comment on above: Result Comment: Claudia camejo Performed By: #### H IV12 ####[address] [address] Hep Bs Agon 09-25-2017 Body surface area Derived from formula Normal Negative [facility] Comment on above: Result Comment: Nega tive Performed By: #### H BSAG ####[address] [address] Hep C Ab w/reflex HCV RNA Qn t, PCRon 09-25-2017 Hep C IgG Interp Normal Negative [facility] Comment on above: Result Comment: Nega tive Performed By: #### H CV ####[address] [address] OR Trackon 09-25-2017 Pl Red # 1 Normal [facility] Comment on above: Performed By: #### O utreach Tracking Order ####[address] [address] Ambulatory Patient Education on 09-20-2017 Ambulatory Patient Education Patient Education MaterialsName: Rabia Gaspar March Current Date: 09/20/2017 15:26:32 [place] 1995 following sheet(s) are the Patient Education Leaflets for JaredRabia stewart MarchDrugSheetsMedroxyprog esterone injection [Contraceptive]What is this medicine?MEDROXYPROGESTERONE (me DROX ee proe CASSANDRA te zeferino) contraceptive injections prevent . They provide effective control for 3 months. Depo-subQ Provera 104 is also used for treating pain related to endometriosis.How should I use this medicine?Depo-Provera Contraceptive injection is given into a muscle. Depo-subQ Provera 104 injection is given under the skin. These injections are given by a health life care planner. You must not be before getting an injection. The injection is usually given during the first 5 days after the start of a menstrual period or 6 weeks after delivery of a baby.Talk to your tax services professional regarding the use of this medicine in children. Special care may be needed. These injections have been used in female children who have started having menstrual periods.What side effects may I notice from receiving this medicine?Side effects that you should report to your doctor or health life care planner as soon as possible:? allergic reactions like skin rash, itching or hives, swelling of the face, lips, or tongue? breast tenderness or discharge? breathing problems? changes in vision? depression? feeling faint or lightheaded, falls? fever? pain in the abdomen, chest, groin, or leg? problems with balance, talking, walking? unusually weak or tired? yellowing of the eyes or skinSide effects that usually do not require medical attention (report to your doctor or health life care planner if they continue or are bothersome):? acne? fluid retention and swelling? headache? irregular periods, spotting, or absent periods? temporary pain, itching, or skin reaction at site where injected? weight gainWhat may interact with this medicine?Do not take this medicine with any of the following medications:? bosentanThis medicine may also interact with the following medications:? aminoglutethimide? antibiotics or medicines for infections, especially rifampin, rifabutin, rifapentine, and griseofulvin? aprepitant? barbiturate medicines such as phenobarbital or primidone? bexarotene? carbamazepine? medicines for seizures like ethotoin, felbamate, oxcarbazepine, phenytoin, topiramate? modafinil? [place]'s wortWhat if I miss a dose?Try not to miss a dose. You must get an injection once every 3 months to maintain control. If you cannot keep an appointment, call and reschedule it. If you wait longer than 13 weeks between Depo-Provera contraceptive injections or longer than 14 weeks between Depo-subQ Provera 104 injections, you could get . Use another method for control if you miss your appointment. You may also need a test before receiving another injection.Where should I keep my medicine?This does not apply. The injection will be given to you by a health life care planner.What should I tell my health care provider before I take this medicine?They need to know if you have any of these conditions:? frequently drink alcohol? asthma? blood vessel disease or a history of a blood clot in the lungs or legs? bone disease such as osteoporosis? breast cancer? diabetes? eating disorder (anorexia nervosa or bulimia)? high blood pressure? HIV infection or AIDS? kidney disease? liver disease? mental depression? migraine? seizures (convulsions)? stroke? tobacco smoker? vaginal bleeding? an unusual or allergic reaction to medroxyprogesterone, other hormones, medicines, foods, dyes, or preservatives? or trying to get ? breast-feedingWhat should I watch for while using this medicine?This drug does not protect you against HIV infection (AIDS) or other sexually transmitted diseases.Use of this product may cause you to lose calcium from your bones. Loss of calcium may cause weak bones (osteoporosis). Only use this product for more than 2 years if other forms of control are not right for you. The longer you use this product for control the more likely you will be at risk for weak bones. Ask your health life care planner how you can keep strong bones.You may have a change in bleeding pattern or irregular periods. Many females stop having periods while taking this drug.If you have received your injections on time, your chance of being is very low. If you think you may be , see your health life care planner as soon as possible.Tell your health life care planner if you want to get within the next year. The effect of this medicine may last a long time after you get your last injection.NOTE:This sheet is a summary. It may not cover all possible information. If you have questions about this medicine, talk to your doctor, pharmacist, or health care provider. Copyright? 2017 [employer] [facility] Obstetrics Office/Clinic Not lindy 09-11-2017 Obstetrics Office/Clinic Note Chief Complaint control consult. Declines STD testing.History of Present Illness Contraception Type: None Last Menstrual Period: 08/24/17 Frequency of Menstruation: 28-32 Abnormal vaginal discharge: No Breast lumps/pain: No Clotting with periods: No Heavy periods: No Hot flashes: No Irregular periods: No Night sweats: No Painful periods: No Painful sex: No Pelvic pain: No Spotting: No Vaginal dryness: No Vaginal itch/burning/odor: No Additional HPI details: BC consultation, Declines STD testing. Would like to be on BC that would stop cycles and that would last for a while. Interested in depo Recent unprotected intercourse UPT negative todayReview of Systems Head Headaches: Yes Migraines: No Additional Details Additional Details: Gained 15 pounds in 2 weeks Cardio Respiratory Heart Irregularity: No Peripheral edema: No Shortness of Breath: No Endocrine Abnormal weight gain: Yes Abnormal weight loss: No Fatigue1: No ENT Congestion: No Nasal drainage: No Sore throat: No Vertigo: No Eyes Blurred vision: No Corrective lenses: No Gastrointestinal Abdominal Pain: No Bloating: No Change in bowel habits: No Reflux/heartburn: Yes Hematologic/Lymphatic Bleeding tendencies: No Bruising: No Lymphadenopathy: No Thromboembolism: No Integumentary Acne: No Hair changes: No Lesions: No Moles: No Musculoskeletal Backpain: Yes Joint pain: Yes Muscle aches: Yes Pain Present PsychoSocial Anxiety: No Depression2: No Homicidal Ideation: No Sleep Problems: No Suicidal Ideation1: No Urinary Nocturia: No Painful urination: No Urgency: No Urinary frequency: No Urinary Incontinence: NoPhysical Exam Vitals & Measurements BP: 112/60 WT: 66.6 kg DOSE WT: 66.6 kg General: Alert and oriented, well nourished, no acute distress. Psychiatric: Cooperative, appropriate mood and affect. Additional Vitals BP Position/Location: SittingAssessment/Plan 1. Encounter for consultation 2. control counseling UPT negative today however recent unprotected intercourse, have her RTO in 10-14 days for repeat UPT to assure patient is not . Recommend abstaining from intercourse or using protection with condoms. If UPT is negative at next visit will plan to give first dose of DepoPhysician Comments 10 minute Face to face time with patient discussing symptoms, diagnosis, treatments, and medication compliance and risks.Problem List/Past Medical History Ongoing No qualifying data Historical No qualifying dataProcedure/Surgical History denies.Medications No active medicationsAllergies No Known Medication AllergiesSocial History Alcohol Never Sexual Sexually active: Yes. Substance Abuse Denies All Tobacco Current every day smoker, Cigarettes, 1 per day. Packs, 1 year(s).Family History Family history is negativeDiagnostic Results No qualifying data available. No qualifying data available. No qualifying data available. No qualifying data available.Electronically signed by Janeth Carlos CNP 09/11/17 16:33 EDT [facility] Ambulatory Patient Education on 09-09-2017 Ambulatory Patient Education Patient Education MaterialsName: Rabia Gaspar March Current Date: 09/09/2017 11:00:43 [place] 1995 following sheet(s) are the Patient Education Leaflets for Rabia GasparAmbulatoryBirth Control MethodsBirth control methods are used to help prevent . There are many different methods to choose from. Talk to your healthcare provider about which method is right for you. Be sure to ask your provider about the effectiveness of each method. Also ask about the benefits, risks, and side effects of each method.HormonesSome control methods work by releasing hormones such as progestin and estrogen. These methods include: hormone implants, hormone shots, the vaginal ring, the patch, and control pills. They all work by stopping ovulation (release of the egg from the ovary). The implant is a small device that needs to be placed in the upper arm by a trained healthcare provider. It works for up to 3 years. Hormone injections must be repeated every 3 months. The vaginal ring must be replaced monthly (it can be removed during the fourth week of each cycle). The patch must be replaced weekly (it is not worn during the fourth week of each cycle). control pills must be taken every day. Note that all of these methods are effective and can be stopped at any time.Intrauterine Device (IUD)An IUD is a small, T-shaped device. It must be placed in the uterus by a trained healthcare provider. There are different types of IUDs available. They work by causing changes in the uterus that make it harder for sperm to reach the egg. Depending on the type of IUD you have, it may work for several years or longer. The IUD is a reversible control method. This means it can be removed at any time.CondomA condom is a sheath that forms a thin barrier between the penis and the vagina. It helps prevent by keeping sperm from entering the vagina. When latex condoms are used, they have the added benefit of protecting against most STDs (sexually transmitted diseases). Condoms should be discarded after each use. Ask your healthcare provider about the different types of condoms available. These include both the male condom and female condom.SpermicideSpermicides come as foams, jellies, creams, suppositories, and tablets. They help prevent by killing sperm. When used alone they are not that reliable. They work best when combined with other control methods such as diaphragms and cervical caps.Sponge, Diaphragm, and Cervical CapAll of these methods help prevent by covering the opening of the uterus (cervix). This prevents sperm from passing through.The sponge contains spermicide. It can be bought over the counter. The sponge must be left in place for at least 6 hours after the last time you have sex. However, it should not stay in place for more than 24 hours. It should be discarded after it is used.The diaphragm and cervical cap must be fitted and prescribed by your healthcare provider. Both are used with spermicide. The diaphragm must be left in place for at least 6 hours after sex. However, it should not stay in place for more than 24 hours. It can be washed and reused. The cervical cap must be left in place for at least 6 hours after sex. However, it should not stay in place for more than 48 hours. It can be washed and reused.Withdrawal MethodThis is when the man pulls his penis out of the vagina just before ejaculation ( coming ). This lowers the amount of sperm entering the vagina. Be aware that fluids released just before ejaculation often still contain some sperm, so this method is not as reliable as certain other methods.Rhythm MethodThis method requires that you know when in your menstrual cycle you are likely to become . Then, you avoid sex during those days. This requires careful planning and good discipline. Your healthcare provider can explain more about how this works.Tubal Ligation and VasectomyThese are surgical methods to prevent . Tubal ligation is an option for women. The fallopian tubes are blocked or cut (ligated). This keeps the egg from passing into the uterus or sperm from reaching the egg. Vasectomy is an option for men. The tubes that normally carry sperm to the penis are either closed or blocked. Both tubal ligation and vasectomy are permanent both control methods. This means reversal is either not possible or unlikely to work. They are good choices for women and men who know that they do not want to have children in the future.? [id number] [employer]. [address] [place] [address], [place] [address]. All rights reserved. This information is not intended as a substitute for professional medical care. Always follow your healthcare professional's instructions. [facility] VNOTEon 12-30-2016 VNOTE EMERGENCY DEPARTMENT REPORT [place] [id number] Patient: RABIA GASPAR Date of : 1995 Unit#: [id number] DOS: 12/30/16 History of Present Illness Chief Compaint Lower abdominal pain, lower back pain History of Present Illness This patient is a 21-year-old female that presents to the emergency Department with complaints of lower abdominal pain and lower back pain. Patient states that she's had some lower abdominal pain for the past 2 weeks that relieved somewhat when she urinates. The patient does state that she has had some polyuria, but denies dysuria, hematuria or other urinary symptoms. The patient states that she's had lower back pain in the past few days. The patient denies any fevers, nausea, vomiting, diarrhea. The patient states that it's possible she can be but she doesn't think so she took a test yesterday that was negative. The patient denies vaginal pain, discharge but does state that she's had some light spotting. The patient states that she had her last menstrual period within the last 1-2 weeks. Patient History Medical History Past Medical History: No Past Medical History Surgical History Past Surgical History: No Surgical History Social History Smoking Status: Current every day smoker Hx Alcohol Use: No Hx Substance Use: No Allergies Allergies: Coded Allergies: No Known Drug Allergies (Unverified , 12/30/16) Review of Systems Gastrointestinal: Positive: Abdominal Pain (suprapubic), Negative: Constipation, Diarrhea, Hematochezia, Melena, Nausea, Other, Vomiting Genitourinary: Negative Dysuria, Positive Frequency, Negative Incontinence, Negative Hematuria, Negative Retention, Positive Other (vaginal spotting) Musculoskeletal: Positive: back pain (low back), Negative: arm pain, foot pain, hand pain, leg pain, neck pain, other, shoulder pain Other All other systems have been reviewed and are negative. Exam Vital Signs Vital Signs Date Time Temp Pulse Resp B/P (MAP) Pulse Ox O2 Delivery O2 Flow Rate FiO2 12/30/16 13:35 98.5 66 16 134/75 (94) 98 Room Air Other Nurse notes were reviewed and I agree except as detailed below General: This is a pleasant, well-developed 21-year-old female who is alert and oriented ?3, appears appropriate for age and is nontoxic. Head: Atraumatic, no lesions or deformities. ENT: Patient is phonating and handling secretions well. CARDIOVASCULAR: RRR, no rubs, clicks, gallops, or murmurs. LUNGS: Clear to auscultation bilaterally, lacking wheezes, rales, or rhonchi. Respiratory effort is adequate. ABDOMEN: Soft and non-tender. No rebound tenderness, guarding, organomegaly, or rigidity. No pulsatile masses. Bowel sounds are present in all 4 quadrants. Negative Colvin sign, negative obturator, negative psoas, negative McBurney point tenderness MUSCULOSKELETAL: No obvious deformity, swelling, or lesions noted. There is some scattered bruising noted to the lower extremities, specifically around a new tattoo. Distal extremities are warm with symmetric muscle tone and there are no distal motor, vascular, or sensory deficits. Peripheral pulses +2, cap refill <2 seconds, and no pitting edema or weakness is noted to the lower extremities. Skin: [place], warm and dry, no lesions, rashes, ulcers, or lacerations noted. Skin turgor is appropriate for age. BACK: shows no obvious deformity, bruising, swelling or lesions. No CVA tenderness. NEURO: Alert and oriented x 3, no gross focal deficits. Diagnostic Labs Laboratory Tests Test 12/30/16 14:08 Urine Color Lt. yellow (YELLOW) Urine Appearance Cloudy (CLEAR) Urine pH 6.0 (5.0-8.5) Urine Specific [place] 1.025 (1.005-1.030) Urine Protein 100 mg/dL (NEGATIVE) Urine Glucose (UA) Negative mg/dL (NEGATIVE) Urine Ketones Negative mg/dL (NEGATIVE) Urine Occult Blood Large (NEGATIVE) Urine Nitrite Negative (NEGATIVE) Urine Bilirubin Negative (NEGATIVE) Urine Urobilinogen 0.2 E.U./dL (NEGATIVE) Urine Leukocyte Esterase Moderate (NEGATIVE) Urine RBC Too numerous to cnt /hpf Urine WBC Too numerous to cnt /hpf Urine Squamous Epithelial Cells 0-2 /hpf (0-5) Urine Bacteria 2+ Urine Mucus 1+ Urine HCG, Qualitative Negative (NEG) ED Course Course/Progress ED course is unremarkable. The patient does have urinalysis consistent with a urinary tract infection. A sample was sent for cultures and sensitivity. The patient was placed on Keflex with instructions to follow-up with her primary care provider for further evaluation and management. Patient was also instructed to return to the emergency department with any new or worsening symptoms, especially any vaginal pain, discharge or bleeding. The patient is currently resting comfortably, appears well-hydrated and nontoxic. I saw this patient independently. If documented above, the critical care time does not include billable procedures. Impression & Plan Impression & Plan 1. 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 07-10-2023 15:07-0400 Body temperature 98.8 [degF] DO Quique Granger Work Phone: [facility] 07-10-2023 15:07-0400 Body weight 74.9 kg DO Quique Granger Work Phone: [facility] 07-10-2023 15:07-0400 Diastolic blood pressure 83 mm[Hg] DO Quique Granger Work Phone: [facility] 07-10-2023 15:07-0400 Heart rate 63 /min DO Quique Granger Work Phone: [facility] 07-10-2023 15:07-0400 Respiratory rate 16 /min DO Quique Granger Work Phone: [facility] 07-10-2023 15:07-0400 SaO2% (BldA) [Mass fraction] 99 % DO Quique rGanger Work Phone: [facility] 07-10-2023 15:07-0400 Systolic blood pressure 154 mm[Hg] DO Quique Elkin Work Phone: [facility] 06-22-2022 21:11-0500 Body height 175.26 cm PHYSICIAN NO [facility] 06-22-2022 21:11-0500 Body temperature 98.2 [degF] PHYSICIAN NO [facility] 06-22-2022 21:11-0500 Body weight 63 kg PHYSICIAN NO [facility] 06-22-2022 21:11-0500 Diastolic blood pressure 65 mm[Hg] PHYSICIAN NO [facility] 06-22-2022 21:11-0500 Heart rate 91 /min PHYSICIAN NO [facility] 06-22-2022 21:11-0500 Respiratory rate 16 /min PHYSICIAN NO [facility] 06-22-2022 21:11-0500 SaO2% (BldA) [Mass fraction] 99 % PHYSICIAN NO [facility] 06-22-2022 21:11-0500 Systolic blood pressure 115 mm[Hg] PHYSICIAN NO [facility] 06-20-2022 02:51-0500 Diastolic blood pressure 52 mm[Hg] PHYSICIAN NO [facility] 06-20-2022 02:51-0500 Heart rate 82 /min PHYSICIAN NO [facility] 06-20-2022 02:51-0500 Respiratory rate 18 /min PHYSICIAN NO [facility] 06-20-2022 02:51-0500 SaO2% (BldA) [Mass fraction] 100 % PHYSICIAN NO [facility] 06-20-2022 02:51-0500 Systolic blood pressure 102 mm[Hg] PHYSICIAN NO [facility] 06-19-2022 22:23-0500 Body height 172.72 cm PHYSICIAN NO [facility] 06-19-2022 22:23-0500 Body temperature 100 [degF] PHYSICIAN NO [facility] 06-19-2022 22:23-0500 Body weight 60.45 kg PHYSICIAN NO [facility] Encounters Encounter Date Encounter Type Care Provider Facility Start: 07-10-2023 End: 07-10-2023 Emergency department patient visit Traemichael Richey Facility:[facility] Start: 07-10-2023 End: 07-10-2023 Emergency department patient visit DO Quique Granger Work Phone: [facility] Work Phone: Start: 05-31-2023 End: 05-31-2023 ambulatory Greg Mikal Facility:[facility] Start: 05-31-2023 End: 05-31-2023 ambulatory DO Quique Elkin Work Phone: [facility] Work Phone: Start: 05-31-2023 End: 05-31-2023 Departed Referred DO Quique Elkin Work Phone: [facility] Start: 06-22-2022 End: 06-22-2022 Emergency department patient visit PHYSICIAN NO [facility] Work Phone: Start: 06-19-2022 End: 06-20-2022 Emergency department patient visit PHYSICIAN NO [facility] Work Phone: Start: 12-26-2017 End: 12-27-2017 Patient encounter JANETH PABON Facility:[facility] Start: 11-11-2017 End: 11-12-2017 Patient encounter JANETH PABON Facility:[facility] Start: 11-07-2017 End: 11-07-2017 Emergency department patient visit Jarret Oquendo Facility:[facility] Start: 10-30-2017 End: 10-30-2017 Emergency department patient visit Alex Suarez Facility:[facility] Start: 09-25-2017 End: 09-26-2017 Patient encounter JANETH PABON Facility:[facility] Start: 09-25-2017 End: 09-26-2017 Patient encounter JANETH PABON Facility:[facility] Start: 09-11-2017 End: 09-12-2017 Patient encounter [facility] Start: 12-30-2016 End: 12-30-2016 Emergency department patient visit LESLY OLIVAREZ Facility:[facility] Procedures Date Procedure Procedure Detail Performing Clinician Start: 06-20-2022 Aerobic microbial culture PHYSICIAN NO FAMILY Plan of Treatment Date Care Activity Detail Author Start: 06-20-2022 Bacteria identified in Blood by Culture Blood Culture [facility] Start: 06-20-2022 Blood culture for bacteria, including anaerobic screen Blood Culture [facility] Start: 06-20-2022 Superficial Wound Culture Superficial Wound Culture [facility] Patient Education [facility] Work Phone: Patient referral [facility] Work Phone: Payers Date Payer Category Payer Private Health Insurance [id number] 2023 Self-pay 2017 Unknown Medicaid Medicaid [id number] Unknown Lane BC/BS [id number] Unknown [id number] Unknown [id number] Social History Date Type Detail Facility Start: 06-20-2022 End: 07-10-2023 Tobacco smoking status WAIS Smoker (finding) [facility] Start: 04-22-2014 History of tobacco use [facility] Work Phone: Start: 1995 Sex Assigned At Female F [facility] NEGATED: Highlighted row Fir [facility] Evaluation note Note Date & Type Note Facility Evaluation note No assessment information availa ble [facility] Work Phone: Hospital Discharge instructions Note Date & Type Note Facility Hospital Discharge instructions Additional Instructions Keep your skin clean with soap and water daily. Take Motrin Tylenol as needed for pain. Watch for any spreading redness or severe worsening pain for which return to the emergency department. Otherwise follow-up here in the emergency department in 3 days for reevaluation of the cellulitis. Establish care with one of the primary care physicians provided to you for ongoing evaluation and care. [facility] Work Phone: Hospital Discharge instructions Note Date & Type Note Facility Hospital Discharge instructions Additional Instructions Take prednisone as directed Take Pepcid as directed Take Benadryl as needed for itching Warm soaks several times a day as discussed Avoid picking, popping, poke area affected Follow-up with your doctor Saturday Return here if any problems persist or worsen as history [facility] Work Phone: Hospital Discharge instructions Note Date & Type Note Facility Hospital Discharge instructions Additional Instructions Continue to take Benadryl every 8 hours [facility] Work Phone: Summary Purpose Family History No Family History Records FoundNo Family History Records FoundNo Family History Records FoundNo Family History Records Found Advance Directives Advance Directive Response Recorded Date/ Time Advance Directives No June 20 12:26am Advance Directive Response Recorded Date/ Time Advance Directives No June 20 1:26am Chief Complaint and Reason for Visit Chief Complaint growth on left leg Chief Complaint growth on left leg rash Chief Complaint F32.0 allergic reaction Additional Source Comments INFORMATION SOURCE (unrecogn ized section and content) DATE CREATED AUTHOR 10/16/2017 [facility] [employer] DATE CREATED AUTHOR AUTHOR'S ORGANIZ ATION 01/05/2018 [facility] DATE CREATED AUTHOR AUTHOR'S ORGANIZ ATION 12/06/2020 [facility] DATE CREATED AUTHOR AUTHOR'S ORGANIZ ATION 07/12/2023 [facility] Care Teams (unrecognized sec tion and content) Team Status: Inactive Member Role Status Dates PHYSICIAN NO FAMILY Primary Care Provider Active Rika Shah DO RES Active Luis Grayson DO Emergency Provider Active Team Status: Active Member Role Status Dates PHYSICIAN NO FAMILY Primary Care Provider Active Team Status: Inactive Member Role Status Dates PHYSICIAN NO FAMILY Primary Care Provider Active Lyssa Huang APRN Emergency Provider Active Team Status: Inactive Member Role Status Dates Quique Granger DO Attending Provider Active St art: May 31, 2023 End: May 31, 2023 Team Status: Active Member Role Status Dates [facility] Care Provider Ac tive Team Status: Inactive Member Role Status Dates Quique Granger DO Referring Provider Active St art: May 31, 2023 End: May 31, 2023 Greg Ren DO Attending Provider Active Start : May 31, 2023 End: May 31, 2023 Team Status: Inactive Member Role Status Dates [facility] Provider Ac tive Start: July 10, 2023 End: July 10, 2023 Trae Richey APRN Emergency Provider Active Start: July 10, 2023 End: July 10, 2023 Goals (unrecognized section and content) Goals may be documented in a n alternate sectionGoals may be documented in an alternate sectionGoals may be documented in an alternate sectionGoals may be documented in an alternate section FOR RECORDS PERTAINING TO PATIENTS WHO ARE OR HAVE BEEN ENROLLED IN A CHEMICAL DEPENDENCY/SUBSTANCEABUSE PROGRAM, SOME INFORMATION MAY BE OMITTED. This clinical summary was aggregated from multiple sources. Caution should be exercised in using it in the provision of clinical care. This summary normalizes information from multiple sources, and as a consequence, information in this document may materially change the coding, format and clinical context of patient data. In addition, data may be omitted in some cases. CLINICAL DECISIONS SHOULD BE BASED ON THE PRIMARY CLINICAL RECORDS. [facility] [employer] provides no warranty or guarantee of the accuracy or completeness of information in this document.
[2024-02-14 12:50] LABS: Basophils Percent Auto 0.7 % (0.2-2.0); Eosinophils Absolute Auto 0.1 10^3/uL (0.0-0.7); Eosinophils Percent Auto 2.2 % (0.9-7.0); Hematocrit 37.9 % (36.0-48.0); Hemoglobin 12.3 g/dL (12.0-16.0); Immature Granulocytes Abs Auto 0.01 10^3/uL (0.00-0.03); Immature Granulocytes Pct Auto 0.2 % (0.0-0.5); Lymphocytes Absolute Auto 1.3 10^3/uL (1.2-3.8); Lymphocytes Percent Auto 22.2 % (20.5-60.0); Mean Corpuscular HGB Conc 32.5 g/dL (29.9-35.2); Mean Corpuscular Hemoglobin 29.1 pg (26.7-34.0); Mean Corpuscular Volume 89.8 fL (81.0-99.0); Mean Platelet Volume 11.6 fL (9.5-13.5); Monocytes Absolute Auto 0.4 10^3/uL (0.3-0.8); Monocytes Percent Auto 6.4 % (1.7-12.0); Neutrophils Percent Auto 68.3 % (43.0-75.0); Platelet Count 164 10^3/uL (150-450); Red Blood Count 4.22 10^6/uL (4.20-5.40); Red Cell Distribution Width 13.9 % (11.0-15.0); White Blood Count 5.9 10^3/uL (4.0-11.0)
[2024-02-14 12:53] LABS: BOX Test Reference Lab UNITY; BOX Test Sent Out UNITY
[2024-02-14 13:07] LABS: Amphetamine Screen Urine NEGATIVE (NEGATIVE); Barbiturates Screen Urine NEGATIVE (NEGATIVE); Benzodiazepines Screen Urine NEGATIVE (NEGATIVE); Buprenorphine Screen Urine NEGATIVE (NEGATIVE); Cocaine Screen Urine NEGATIVE (NEGATIVE); Methadone Screen Urine NEGATIVE (NEGATIVE); Methamphetamines Screen Urine NEGATIVE (NEGATIVE); Opiate Screen Urine NEGATIVE (NEGATIVE); Oxycodone Screen Urine NEGATIVE (NEGATIVE); Phencyclidine Screen Urine NEGATIVE (NEGATIVE); Tricyclic Antidepressant Urine NEGATIVE (NEGATIVE)
[2024-02-14 13:09] LABS: Cannabinoid Screen Urine POSITIVE (NEGATIVE)
[2024-02-14 13:44] LABS: Estimated Average Glucose 85 mg/dL; Glycohemoglobin A1C 4.6 % (4.5-6.2)
[2024-02-15 07:08] LABS: HBsAg Screen Negative (Negative); HCV Ab Non Reactive (Non Reactive); HIV Ab/p24 Ag Screen Non Reactive (Non Reactive); Rubella Antibodies, IgG 3.15 index (Immune >0.99)
[2024-02-15 10:08] LABS: Rapid Plasma Reagin, Quant Non Reactive titer (NonRea<1:1)
[2024-02-18 03:16] LABS: Cannabinoid Positive (.); Carboxy THC Conf, MS, UR 698 ng/mL (Cutoff=10)
== END 2024-02-14 12:15 | disposition home or self-care (01) ==
LOC: LAB 12:15
PROVIDERS: Visit Provider Obstetrics & Gynecology
DX: Z34.01 Encounter for supervision of normal first pregnancy, first trimester (principal); Z36.0 Encounter for antenatal screening for chromosomal anomalies; N92.6 Irregular menstruation, unspecified
CPT/HCPCS: 36415; 80307; 80349; 83036; 85025; 86592; 86762; 86803; 86850; 86900; 86901; 87086; 87340; 87389

== ENCOUNTER 2024-02-17 21:03 | Outpatient (REF) | payer OTHER, SELFPAY ==
--- OUTSIDE RECORDS SUMMARY | 2024-02-17 21:07 | XMS_ITS | CCD ---
Author Organization [facility] Care Team Providers Care Distribution Warehouse Manager Name Role Phone LESLY OLIVAREZ Unavailable Unavailable HERMILLER, JANETH R Unavailable Unavailable HERMILLER, JANETH R Unavailable Unavailable HERMILLER, JANETH R Unavailable Unavailable Alex Suarez Unavailable Unavailable HERMILLER, JANETH R Unavailable Unavailable Jarret Oquendo Unavailable Unavailable NO FAMILY, PHYSICIAN Primary Care Provider UnaDO Luis Chan Emergency Provider HAO Hernandez Emergency Provider DO Quique Granger Attending Provider Trae Richey Admitting Unavailable Trae Richey Attending Unavailable [facility] Primary Care navailGreg Saenz Admitting Unavailable Greg Ren Attending Unavailable Quique Granger Referring Unavailable DO Quique Granger Referring Provider [phone] DO Greg Ren Attending Provider [facility] Primary Care [facility] ider HAO Richey Emergency Provider [phone] Unavailable Primary Care Provider UnavailRUBIO Wellington Attending Unavailable Allergies Allergy Classification Reported Allergen(s) Allergy Type Date of Onset Reaction(s) Facility (1 source) No Known Medication Allergies; Translations: [No Known Medication Allergies] Propensity to adverse reactions to drug (disorder) [facility] Repository Medications Current Medications Medication Drug Class(es) Dates Sig (Normalized) Sig (Original) ondansetron 4 mg disintegrating oral tablet (2 sources) Serotonin-3 Receptor Antagonist Start: 01-16-2024 End: 04-15-2024 take 1 tablet by mouth every six hours ondansetron ODT (Zofran-ODT) 4 MG disintegrating tablet Indications: Nausea and vomiting in Take 1 tablet (4 mg) by mouth every 6 (six) hours 120 tablet 1 01/16/2024 04/15/2024 Active predniSONE 10 mg oral tablet (4 sources) [...] 22, 2022 1:00am July 10, 2023 3:08pm Vit-Fe Fumarate-FA (PNV Plus Multivitamin) 27-1 MG tablet (2 sources) Start: 01-16-2024 End: 01-15-2025 take 1 tablet by mouth once daily Vit-Fe Fumarate-FA (PNV Plus Multivitamin) 27-1 MG tablet Indications: , unspecified gestational age Take 1 tablet by mouth Daily 30 tablet 11 01/16/2024 01/15/2025 Active Completed/Discontinued Medications Medication Drug Class(es) Dates Sig [...] Test Name Value Interpretation Reference Range Facility BOX TESTon 02-14-2024 BOX TEST SENT OUT [facility] BOX1 [facility] BOX2 02/14/24 [facility]OX [facility] Alanine aminotransferase [En zymatic activity/volume] in Serum or PlasmaOrdered By: Quique Granger on 05-31-2023 ALT [Catalytic activity/Vol] 122 U/L 7-52 [facility] Albumin [Mass/volume] in Ser um or Plasma by Bromocresol green (BCG) dye binding methoOrdered By: Quique Granger on 05-31-2023 Albumin BCG dye [Mass/Vol] 4.4 g/dL 3.5-5.7 [facility] Alkaline phosphatase [Enzyma tic activity/volume] in Serum or PlasmaOrdered By: Quique Granger on 05-31-2023 ALP [Catalytic activity/Vol] 51 U/L 34-104 [facility] Aspartate aminotransferase [ Enzymatic activity/volume] in Serum or PlasmaOrdered By: Quique Granger on 05-31-2023 AST [Catalytic activity/Vol] 93 U/L 13-39 [facility] Basophils Auto (Bld) [#/Vol] Ordered By: Quique Granger on 05-31-2023 Basophils (Bld) [#/Vol] 0.0 10*3/uL 0.0-0.2 [facility] Basophils/100 WBC Auto (Bld) Ordered By: Quique Granger on 05-31-2023 Basophils/100 WBC (Bld) 0.6 % . [facility] Bilirubin.total [Mass/volume ] in Serum or PlasmaOrdered By: Quique Granger on 05-31-2023 Bilirubin [Mass/Vol] 0.5 mg/dL 0.3-1.0 [facility] Calcium [Mass/volume] in Ser um or PlasmaOrdered By: Quique Granger on 05-31-2023 Calcium [Mass/Vol] 9.2 mg/dL 8.6-10.3 [facility] Carbon dioxide, total [Moles /volume] in Serum or PlasmaOrdered By: Quique Granger on 05-31-2023 CO2 [Moles/Vol] 25.4 mmol/L 21.0-31.0 [facility] Chloride [Moles/volume] in S quan or PlasmaOrdered By: Quique Granger on 05-31-2023 Chloride [Moles/Vol] 106 mmol/L 98-107 [facility] Complete Blood Count Auto Di ffon 05-31-2023 Basophils (Bld) [#/Vol] 0.0 10*3/uL Normal 0.0-0.2 [facility] Comment on above: Result Comment: PERF ORMED BY: [place] [address] PATHOLOGIST RADIATION TECHNICIAN ADRIAN LANG M.D. Performed By: #### T SH3 wRFLX, CMP, CBC #### [facility] [address] Basophils/100 WBC (Bld) 0.6 % Normal . [facility] Comment on above: Performed By: #### T SH3 wRFLX, CMP, CBC #### [facility] [address] [place] [address] [place] Eosinophils (Bld) [#/Vol] 0.2 10*3/uL Normal 0.0-0.45 [facility] Comment on above: Performed By: #### T SH3 wRFLX, CMP, CBC #### [facility] [address] [place] [address] [place] Eosinophils/100 WBC (Bld) 3.9 % Normal . [facility] Comment on above: Performed By: #### T SH3 wRFLX, CMP, CBC #### [facility] [address] [place] [address] [place] Erythrocyte distribution width (RBC) [Ratio] 13.8 % Normal 11.9-15.3 [facility] Comment on above: Performed By: #### T SH3 wRFLX, CMP, CBC #### [facility] [address] Hematocrit (Bld) [Volume fraction] 39.2 % Normal 34.0-46.4 [facility] Comment on above: Performed By: #### T SH3 wRFLX, CMP, CBC #### [address] Hemoglobin (Bld) [Mass/Vol] 13.2 g/dL Normal 11.8-15.4 [facility] Comment on above: Performed By: #### T SH3 wRFLX, CMP, CBC #### [address] Lymphocytes (Bld) [#/Vol] 1.7 10*3/uL Normal 1.00-4.8 [facility] Comment on above: Performed By: #### T SH3 wRFLX, CMP, CBC #### [address] Lymphocytes/100 WBC (Bld) 27.2 % Normal . [facility] Comment on above: Performed By: #### T SH3 wRFLX, CMP, CBC #### [address] MCH (RBC) [Entitic mass] 29.0 pg Normal 24.7-34.3 [facility] Comment on above: Performed By: #### T SH3 wRFLX, CMP, CBC #### [address] MCV (RBC) [Entitic vol] 86.3 fL Normal 80-100 [facility] Comment on above: Performed By: #### T SH3 wRFLX, CMP, CBC #### [address] Mean Corpuscular HGB Conc 33.6 g/dL Normal 32.0-35.0 [facility] Comment on above: Performed By: #### T SH3 wRFLX, CMP, CBC #### [address] Monocytes (Bld) [#/Vol] 0.5 10*3/uL Normal 0.0-0.8 [facility] Comment on above: Performed By: #### T SH3 wRFLX, CMP, CBC #### [address] [place] [address] [place] Monocytes/100 WBC (Bld) 7.9 % Normal . [facility] Comment on above: Performed By: #### T SH3 wRFLX, CMP, CBC #### [facility] [address] Neutrophils (Bld) [#/Vol] 3.8 10*3/uL Normal 1.8-7.7 [facility] Comment on above: Performed By: #### T SH3 wRFLX, CMP, CBC #### [address] Neutrophils/100 WBC (Bld) 60.4 % Normal . [facility] Comment on above: Performed By: #### T SH3 wRFLX, CMP, CBC #### [address] NRBC% 0.1 /100{WBC} Normal 0-0.5 [facility] Comment on above: Performed By: #### T SH3 wRFLX, CMP, CBC #### [address] Platelet mean volume (Bld) [Entitic vol] 10.0 fL Normal 6.3-10.7 [facility] Comment on above: Performed By: #### T SH3 wRFLX, CMP, CBC #### [place] [address] [place] Platelets (Bld) [#/Vol] 210 10*3/uL Normal 150-450 [facility] Comment on above: Performed By: #### T SH3 wRFLX, CMP, CBC #### [place] [address] [place] RBC (Bld) [#/Vol] 4.54 10*6/uL Normal 3.60-5.00 [facility] Comment on above: Performed By: #### T SH3 wRFLX, CMP, CBC #### [place] [address] [place] WBC (Bld) [#/Vol] 6.3 10*3/uL Normal 3.8-11.6 [facility] Comment on above: Performed By: #### T SH3 wRFLX, CMP, CBC #### [facility] [address] [place] [address] Comprehensive Metabolic Pane caden 05-31-2023 Albumin [Mass/Vol] 4.4 g/dL Normal 3.5-5.7 [facility] Comment on above: Performed By: #### T SH3 wRFLX, CMP, CBC #### [facility] [address] Albumin/Globulin [Mass ratio] 1.9 {ratio} Normal [facility] Comment on above: Performed By: #### T SH3 wRFLX, CMP, CBC #### [address] ALP [Catalytic activity/Vol] 51 U/L Normal 34-104 [facility] Comment on above: Performed By: #### T SH3 wRFLX, CMP, CBC #### [address] ALT [Catalytic activity/Vol] 122 U/L High 7-52 [facility] Comment on above: Performed By: #### T SH3 EmperatrizFLX, CMP, CBC #### [address] Anion gap [Moles/Vol] 9.8 mmol/L Normal 6.0-15.0 [facility] Comment on above: Performed By: #### T SH3 wRFLX, CMP, CBC #### [address] AST [Catalytic activity/Vol] 93 U/L High 13-39 [facility] Comment on above: Performed By: #### T SH3 wRFLX, CMP, CBC #### [address] Bilirubin [Mass/Vol] 0.5 mg/dL Normal 0.3-1.0 [facility] Comment on above: Performed By: #### T SH3 wRFLX, CMP, CBC #### [address] [address] [place] Calcium [Mass/Vol] 9.2 mg/dL Normal 8.6-10.3 [facility] Comment on above: Performed By: #### T SORIN SimpsonX CMP, CBC #### [facility] [address] [place] [address] [place] Chloride [Moles/Vol] 106 mmol/L Normal 98-107 [facility] Comment on above: Performed By: #### T SORIN SimpsonX, CMP, CBC #### [facility] [address] CO2 [Moles/Vol] 25.4 mmol/L Normal 21.0-31.0 [facility] Comment on above: Performed By: #### T SORIN Valentine CMP, CBC #### [address] Creatinine [Mass/Vol] 0.51 mg/dL Low 0.60-1.20 [facility] Comment on above: Performed By: #### T SH3 EmperatrizFLX, CMP, CBC #### [facility] [address] [place] [address] [place] GFR/1.73 sq M.predicted MDRD (S/P/Bld) [Vol rate/Area] mL/min/{1.73_m2} [facility] Comment on above: Performed By: #### T SH3 CalvinX CMP, CBC #### [facility] [address] [place] [address] [place] Globulin (S) [Mass/Vol] 2.3 g/dL [facility] Comment on above: Performed By: #### T SH3 EmperatrizFLX, CMP, CBC #### [facility] [address] Glucose [Mass/Vol] 92 mg/dL Normal 70-100 [facility] Comment on above: Result Comment: [place] Glucose Reference Range is dependent on time and content of last meal. Glucose of more than 200 mg/dL in a nonstressed, ambulatory subject supports the diagnosis of Diabetes Mellitus. ADA recommended reference range Performed By: #### T SH3 EmperatrizFLX, CMP, CBC #### [facility] [address] [place] [address] [place] Potassium [Moles/Vol] 4.2 mmol/L Normal 3.5-5.1 [facility] Comment on above: Performed By: #### T SH3 wRFLX, CMP, CBC #### [facility] [address] [place] [address] [place] Protein [Mass/Vol] 6.7 g/dL Normal 6.4-8.9 [facility] Comment on above: Performed By: #### T SH3 wRFLX, CMP, CBC #### [facility] [address] [place] [address] [place] Sodium [Moles/Vol] 137 mmol/L Normal 136-145 [facility] Comment on above: Performed By: #### T SH3 wRFLX, CMP, CBC #### [facility] [address] [place] [address] [place] Urea nitrogen [Mass/Vol] 9 mg/dL Normal 7-25 [facility] Comment on above: Performed By: #### T SH3 wRFLX, CMP, CBC #### [facility] [address] [place] [address] [place] Creatinine [Mass/volume] in Serum or PlasmaOrdered By: Quique Granger on 05-31-2023 Creatinine [Mass/Vol] 0.51 mg/dL 0.60-1.20 [facility] Eosinophils Auto (Bld) [#/Vo l]Ordered By: Quique Granger on 05-31-2023 Eosinophils (Bld) [#/Vol] 0.2 10*3/uL 0.0-0.45 [facility] Eosinophils/100 WBC Auto (Bl d)Ordered By: Quique Granger on 05-31-2023 Eosinophils/100 WBC (Bld) 3.9 % . [facility] Erythrocyte distribution wid th Auto (RBC) [Ratio]Ordered By: Quique Granger on 05-31-2023 Erythrocyte distribution width (RBC) [Ratio] 13.8 % 11.9-15.3 [facility] Globulin Calc (S) [Mass/Vol] Ordered By: Quique Granger on 05-31-2023 Globulin (S) [Mass/Vol] 2.3 g/dL [facility] Glucose [Mass/volume] in Ser um or PlasmaOrdered By: Quique Granger on 05-31-2023 Glucose [Mass/Vol] 92 mg/dL 70-100 [facility] Comment on above: ADA recommended refe rence rangeRandom Glucose Reference Range is dependent on time and content of last meal. Glucose of more than 200 mg/dL in a nonstressed, ambulatory subject supports the diagnosis of Diabetes Mellitus. Hematocrit Auto (Bld) [Volum e fraction]Ordered By: Quique Granger on 05-31-2023 Hematocrit (Bld) [Volume fraction] 39.2 % 34.0-46.4 [facility] Hemoglobin [Mass/volume] in BloodOrdered By: Quique Granger on 05-31-2023 Hemoglobin (Bld) [Mass/Vol] 13.2 g/dL 11.8-15.4 [facility] Leukocytes [#/volume] correc adrienne for nucleated erythrocytes in Blood by Automated counOrdered By: Quique Granger on 05-31-2023 WBC corrected for nucl RBC Auto (Bld) [#/Vol] 6.3 10*3/uL 3.8-11.6 [facility] Lymphocytes Auto (Bld) [#/Vo l]Ordered By: Quique Granger on 05-31-2023 Lymphocytes (Bld) [#/Vol] 1.7 10*3/uL 1.00-4.8 [facility] Lymphocytes/100 WBC Auto (Bl d)Ordered By: Quique Granger on 05-31-2023 Lymphocytes/100 WBC (Bld) 27.2 % . [facility] MCH Auto (RBC) [Entitic mass ]Ordered By: Quique Granger on 05-31-2023 MCH (RBC) [Entitic mass] 29.0 pg 24.7-34.3 [facility] MCHC Auto (RBC) [Mass/Vol]Or dered By: Quique Granger on 05-31-2023 MCHC (RBC) [Mass/Vol] 33.6 g/dL 32.0-35.0 [facility] MCV Auto (RBC) [Entitic vol] Ordered By: Quique Granger on 05-31-2023 MCV (RBC) [Entitic vol] 86.3 fL 80-100 [facility] Monocytes Auto (Bld) [#/Vol] Ordered By: Quique Granger on 05-31-2023 Monocytes (Bld) [#/Vol] 0.5 10*3/uL 0.0-0.8 [facility] Monocytes/100 WBC Auto (Bld) Ordered By: Quique Granger on 05-31-2023 Monocytes/100 WBC (Bld) 7.9 % . [facility] Neutrophils Auto (Bld) [#/Vo l]Ordered By: Quique Granger on 05-31-2023 Neutrophils (Bld) [#/Vol] 3.8 10*3/uL 1.8-7.7 [facility] Neutrophils/100 WBC Auto (Bl d)Ordered By: Quique Granger on 05-31-2023 Neutrophils/100 WBC (Bld) 60.4 % . [facility] No Panel InformationOrdered By: Quique Granger on 05-31-2023 Estimated GFR (CKD-EPI) > 60.0 mL/Min [facility] Creatinine Clearance (Chem N/A [facility] Nucleated erythrocytes [Pres ence] in Blood by Automated countOrdered By: Quique Granger on 05-31-2023 Nucleated RBC Auto Ql (Bld) 0.1 /100{WBC} 0-0.5 [facility] Platelet mean volume Auto (B ld) [Entitic vol]Ordered By: Quique Granger on 05-31-2023 Platelet mean volume (Bld) [Entitic vol] 10.0 fL 6.3-10.7 [facility] Platelets Auto (Bld) [#/Vol] Ordered By: Quique Granger on 05-31-2023 Platelets (Bld) [#/Vol] 210 10*3/uL 150-450 [facility] Potassium [Moles/volume] in Serum or PlasmaOrdered By: Quique Granger on 05-31-2023 Potassium [Moles/Vol] 4.2 mmol/L 3.5-5.1 [facility] Protein [Mass/volume] in Ser um or PlasmaOrdered By: Quique Granger on 05-31-2023 Protein [Mass/Vol] 6.7 g/dL 6.4-8.9 [facility] RBC Auto (Bld) [#/Vol]Ordere d By: Quique Granger on 05-31-2023 RBC (Bld) [#/Vol] 4.54 10*6/uL 3.60-5.00 [facility] Serum or plasma albumin/glob ulin mass ratioOrdered By: Quique Granger on 05-31-2023 Albumin/Globulin [Mass ratio] 1.9 {ratio} [facility] Serum or plasma anion gap de terminationOrdered By: Quique Granger on 05-31-2023 Anion gap [Moles/Vol] 9.8 mmol/L 6.0-15.0 [facility] Sodium [Moles/volume] in Ser um or PlasmaOrdered By: Quique Granger on 05-31-2023 Sodium [Moles/Vol] 137 mmol/L 136-145 [facility] Thyroid Stim Hormone w/Rflxo n 05-31-2023 Thyroid Stim Hormone w/Rflx 0.86 u[iU]/mL Normal 0.45-5.33 [facility] Comment on above: Result Comment: PERF ORMED BY: [place] [address] PATHOLOGIST RADIATION TECHNICIAN ADRIAN LANG M.D. Performed By: #### T SH3 wRFLX, CMP, CBC #### [address] Thyrotropin [Units/volume] i n Serum or PlasmaOrdered By: Quique Granger on 05-31-2023 TSH Qn 0.86 m[IU]/L 0.45-5.33 [facility] Urea nitrogen [Mass/volume] in Serum or PlasmaOrdered By: Quique Granger on 05-31-2023 Urea nitrogen [Mass/Vol] 9 mg/dL 7-25 [facility] WBC Auto (Bld) [#/Vol]Ordere d By: Quique Granger on 05-31-2023 WBC (Bld) [#/Vol] 6.3 10*3/uL 3.8-11.6 [facility] Aerobic cultureOrdered By: Moshe Grayson on 06-20-2022 Bacteria identified Aer cx Nom (Unsp spec) 2 Days [facility] Albumin [Mass/volume] in Bod y fluidOrdered By: Luis Grayson on 06-20-2022 Albumin (Body fld) [Mass/Vol] 3.8 g/dL 3.2-5.5 [facility] Alkaline phosphatase [Enzyma tic activity/volume] in Serum or PlasmaOrdered By: Luis Grayson on 06-20-2022 ALP [Catalytic activity/Vol] 60 U/L 32-92 [facility] Aspartate aminotransferase [ Enzymatic activity/volume] in Serum or PlasmaOrdered By: Luis Grayson on 06-20-2022 AST [Catalytic activity/Vol] 65 U/L 10-42 [facility] Basophils Auto (Bld) [#/Vol] Ordered By: Luis Grayson on 06-20-2022 Basophils (Bld) [#/Vol] 0.0 10*3/uL 0.0-0.2 [facility] Basophils/100 WBC Auto (Bld) Ordered By: Luis Grayson on 06-20-2022 Basophils/100 WBC (Bld) 0.3 % . [facility] Bilirubin.direct [Mass/volum e] in Serum or PlasmaOrdered By: Luis Grayson on 06-20-2022 Bilirubin.direct [Mass/Vol] 0.2 mg/dL 0.0-0.4 [facility] Bilirubin.total [Mass/volume ] in Serum or PlasmaOrdered By: Luis Grayson on 06-20-2022 Bilirubin [Mass/Vol] 0.6 mg/dL 0.3-1.2 [facility] Calcium [Mass/volume] in Ser um or PlasmaOrdered By: Luis Grayson on 06-20-2022 Calcium [Mass/Vol] 8.9 mg/dL 8.2-10.2 [facility] Carbon dioxide, total [Moles /volume] in Serum or PlasmaOrdered By: Luis Grayson on 06-20-2022 CO2 [Moles/Vol] 25.9 mmol/L 22.0-30.0 [facility] Chloride [Moles/volume] in S quan or PlasmaOrdered By: Luis Grayson on 06-20-2022 Chloride [Moles/Vol] 98 mmol/L 95-114 [facility] Creatinine and Glomerular fi ltration rate.predicted panel (S/P/Bld)Ordered By: Lius Grayson on 06-20-2022 Creatinine [Mass/Vol] 0.55 mg/dL 0.44-1.03 [facility] Eosinophils Auto (Bld) [#/Vo l]Ordered By: Luis Grayson on 06-20-2022 Eosinophils (Bld) [#/Vol] 0.0 10*3/uL 0.0-0.45 [facility] Eosinophils/100 WBC Auto (Bl d)Ordered By: Luis Grayson on 06-20-2022 Eosinophils/100 WBC (Bld) 0.4 % . [facility] Erythrocyte distribution wid th Auto (RBC) [Ratio]Ordered By: Luis Grayson on 06-20-2022 Erythrocyte distribution width (RBC) [Ratio] 14.3 % 11.9-15.3 [facility] Estimated glomerular filtrat ion rate (GFR) non- AmericanOrdered By: Luis Grayson on 06-20-2022 GFR/1.73 sq M.predicted among non-blacks MDRD (S/P/Bld) [Vol rate/Area] > 60 mL/Min [facility] Globulin Calc (S) [Mass/Vol] Ordered By: Luis Grayson on 06-20-2022 Globulin (S) [Mass/Vol] 3.0 g/dL [facility] Glucose [Mass/volume] in Ser um or PlasmaOrdered By: Luis Grayson on 06-20-2022 Glucose [Mass/Vol] 93 mg/dL 70-100 [facility] Comment on above: ADA recommended refe rence rangeRandom Glucose Reference Range is dependent on time and content of last meal. Glucose of more than 200 mg/dL in a nonstressed, ambulatory subject supports the diagnosis of Diabetes Mellitus. Hematocrit Auto (Bld) [Volum e fraction]Ordered By: Luis Grayson on 06-20-2022 Hematocrit (Bld) [Volume fraction] 36.7 % 34.0-46.4 [facility] Hemoglobin [Mass/volume] in BloodOrdered By: Luis Grayson on 06-20-2022 Hemoglobin (Bld) [Mass/Vol] 12.2 g/dL 11.8-15.4 [facility] Leukocytes [#/volume] correc adrienne for nucleated erythrocytes in Blood by Automated counOrdered By: Luis Grayson on 06-20-2022 WBC corrected for nucl RBC Auto (Bld) [#/Vol] 10.0 10*3/uL 3.8-11.6 [facility] Lymphocytes Auto (Bld) [#/Vo l]Ordered By: Luis Grayson on 06-20-2022 Lymphocytes (Bld) [#/Vol] 1.1 10*3/uL 1.00-4.8 [facility] Lymphocytes/100 WBC Auto (Bl d)Ordered By: Luis Grayson on 06-20-2022 Lymphocytes/100 WBC (Bld) 10.7 % . [facility] MCH Auto (RBC) [Entitic mass ]Ordered By: Luis Grayson on 06-20-2022 MCH (RBC) [Entitic mass] 28.5 pg 24.7-34.3 [facility] MCHC Auto (RBC) [Mass/Vol]Or dered By: Luis Grayson on 06-20-2022 MCHC (RBC) [Mass/Vol] 33.3 g/dL 32.0-35.0 [facility] MCV Auto (RBC) [Entitic vol] Ordered By: Luis Grayson on 06-20-2022 MCV (RBC) [Entitic vol] 85.4 fL 80-100 [facility] Monocyte distribution width [Entitic volume] in Blood by AutomatedOrdered By: Luis Grayson on 06-20-2022 Monocyte distribution width Auto (Bld) [Entitic vol] 18.16 % 0.00-20.00 [facility] Monocytes Auto (Bld) [#/Vol] Ordered By: Luis Grayson on 06-20-2022 Monocytes (Bld) [#/Vol] 1.1 10*3/uL 0.0-0.8 [facility] Monocytes/100 WBC Auto (Bld) Ordered By: Luis Grayson on 06-20-2022 Monocytes/100 WBC (Bld) 11.0 % . [facility] Neutrophils Auto (Bld) [#/Vo l]Ordered By: Luis Grayson on 06-20-2022 Neutrophils (Bld) [#/Vol] 7.8 10*3/uL 1.8-7.7 [facility] Neutrophils/100 WBC Auto (Bl d)Ordered By: Luis Grayson on 06-20-2022 Neutrophils/100 WBC (Bld) 77.6 % . [facility] No Panel InformationOrdered By: Luis Grayson on 06-20-2022 Estimated GFR () > 60 mL/Min [facility] Comment on above: GFR estimated refere nce range: According to KDOQI guidelines, <60 ml/min/1.73m2 is sufficient to diagnose a patient with chronic kidney disease. Pharmacy Creatinine Clearance (Chem 149.22 [facility] Nucleated erythrocytes [Pres ence] in Blood by Automated countOrdered By: Luis Grayson on 06-20-2022 Nucleated RBC Auto Ql (Bld) 0.1 /100{WBC} 0-0.5 [facility] Platelet mean volume Auto (B ld) [Entitic vol]Ordered By: Luis Grayson on 06-20-2022 Platelet mean volume (Bld) [Entitic vol] 9.7 fL 6.3-10.7 [facility] [facility] Platelets Auto (Bld) [#/Vol] Ordered By: Luis Grayson on 06-20-2022 Platelets (Bld) [#/Vol] 138 10*3/uL 150-450 [facility] Potassium [Moles/volume] in Serum or PlasmaOrdered By: Luis Grayson on 06-20-2022 Potassium [Moles/Vol] 3.3 mmol/L 3.5-5.1 [facility] Protein [Mass/volume] in Ser um or PlasmaOrdered By: Luis Grayson on 06-20-2022 Protein [Mass/Vol] 6.8 g/dL 6.1-7.9 [facility] RBC Auto (Bld) [#/Vol]Ordere d By: Luis Grayson on 06-20-2022 RBC (Bld) [#/Vol] 4.29 10*6/uL 3.60-5.00 [facility] Serum or plasma alanine humphrey otransferase measurement without P-5'-P (enzymatic activiOrdered By: Luis Grayson on 06-20-2022 ALT No additional P-5'-P [Catalytic activity/Vol] 53 U/L 10-60 [facility] Serum or plasma albumin/glob ulin mass ratioOrdered By: Luis Grayson on 06-20-2022 Albumin/Globulin [Mass ratio] 1.3 {ratio} [facility] Serum or plasma anion gap de terminationOrdered By: Luis Grayson on 06-20-2022 Anion gap [Moles/Vol] 15.4 mmol/L 6.0-15.0 [facility] Serum or plasma non-glucuron idated bilirubin measurement (mass/volume)Ordered By: Luis Grayson on 06-20-2022 Bilirubin.indirect [Mass/Vol] 0.4 mg/dL [facility] Sodium [Moles/volume] in Ser um or PlasmaOrdered By: Luis Grayson on 06-20-2022 Sodium [Moles/Vol] 136 mmol/L 136-146 [facility] Urea nitrogen [Mass/volume] in Serum or PlasmaOrdered By: Luis Grayson on 06-20-2022 Urea nitrogen [Mass/Vol] 13 mg/dL 9-23 [facility] Urine lactic acid measuremen tOrdered By: Luis Grayson on 06-20-2022 Lactate (U) [Moles/Vol] 0.8 mmol/L 0.5-2.2 [facility] WBC Auto (Bld) [#/Vol]Ordere d By: Luis Grayson on 06-20-2022 WBC (Bld) [#/Vol] 10.0 10*3/uL 3.8-11.6 [facility] EMS Documentationon 12-07-19 EMS Documentation [id number]:127 Normal [facility] Coding Summary.on 12-05-2020 Coding Summary. CD:[id number] Gh0bWw+P GhlYWQ+IX7LQYPqN77vaUShyQ5XL 7jKJU9LMBMGCRNYPQ4GED6vyDI1Z KcxV8UfofRr MkcxbLYiZW75JQe1IAH0lMutHIfm cS0wyKLdN9k1VbBxTH25iX36ZTin AIQuRoO4VrSbmgvdeFHi G9ebWnCfyAMoOaq+PHRhYmxlIHdp PCGcPZhyZAMfYvGkfIhwSX6mCp7w ZGVyLWNvbGxhcHNlOiBj e9zaFDXxBJkuFD2qnOxeM9PtbKM6 ZPUoc6k2Pa43sXF+EOWsDVW0vYat YUuoo430XuSdl2npIPA5 xPJlZYgfQNY6L19zj3P2XATkANVp AUC2rYE3aG1jdPzaolifR6IoaQQq PcD0VSK5wOTywN4abCng oghbsW8yXmv+P44BCI7OODFRHN9K Ezc3Z2OwCugqhDY+UD73FZKkFO30 bMAaeGHey8aapCy4WjPg GQRpYIK6aPjxSWcrw7IsJCLlH03g ePOac9J4CBOzdLrxzQLgHgSxfGO9 yR8gJFqngedds4vctdpd Lnudb0vtfg99rX31E58pBFlnFITg BAU9JBQcVMHhbGpmyo6vqO7jEh6+ EIwar6wzi5ehuVu9MiDb SUOyndTriGmlLOX2m5FtWl79F2Pi xVihl8MrKrk3sd57tJEgu8C5tMC7 DUsiXZTnbT2lHCdgSkU8 EFMlNaPlzE87rFQzDXchYu3kkHcr iEohAN9vKQMkqfyjDQIaaO4iSGNv oZBwiStgHU9bJQZpiuxj b752KtMuTKT6YEQbbVBjN4IqhJ9o LjGhLVVzOAXsL1AzhLHeORicF986 UPyuMqQ5ELEuuxNgL4Es RYUcpYtxAlV0x9V7Gk3Pf4Pubxgo MSF4LQdgYBK7SmN0SmInIeP7Y0Qc Aim4IHMrhKccLM9dQ1Eo AAOamofboxxlhFY2WSWmQNZqnU25 yYFkCRddMw5ri8U4w137AMGtXUNc zQ63Uv2kbPjcSGMsxZBE mC1yjzyxh9dymaovPiJjMGGaFAd2 VLm2QQOfsAftCuZdUGZ4YwC4VJT1 bLAjwC5rrXiyzyjtqU9v Oyc+R99vrV1oXOS7SAE1vyegJMKq mnMfBD41VH32R3DwJatyyLRdsKW+ QIZhfwQhqSkcXX7nAuEc h0mhp1EiSJbeD7ZvZORdNOluIwm9 IHLwAOG6yVQ8pB3oCJZvGEytg5W3 vFO9D1CsreEwyt5gn4ad BLIfSBxcO11kcONyn8E2ZXVmsAS7 OXZenMsyWuVoqC54Cor+PGNvbGdy q2LyAfgco1xpd6iriAq8 NmPoEXTsatEmbHdeOEX2n0HrNw99 Y12sAUqmLPOfUBTqOPBkCAPvwYil kq8kkJ2lWr0+PGNvbCB3 nKB5oE7qPUKeGvI6XWmmM694FxMb nYPqVadlr3bsl6gsuTr5WqBcBHXq nvCxaDsaBPX1t9KoEq16 Q60cBNlvUVOwHKKwJZNtGOJwjSgp dh6ssF8rRw5+HC5oh6uiut22gR24 dHI+SYYsLHJ2fFqsGMlm APXhbX3wENlqDmA4YWVyDwPczX69 wXAdWVofLw7sdSdmyFfeEN7bDKEd qwdnc055VqVar1vyGOSi jZWyHPsmDWT4P35md0O3FLAbLRQv YJN8uAL3tS3ddAasvinhkFQluBcy wjEblBntVSsiUCdoS988 IHRvcDsnPlBhdGllbnQgTmFtZTo8 T1SwVsz8HYAruQjwBU3xrDXmREey Ey8toGpirNriVS1pZSJo dyyyl847CwDhq5aqQFKnrTQhNLfd OGB5T08bn2Q2PQDlUEFiKTS4pNP6 iF7yvHstolesaPHehXob toDtyJopALvjPAafT883XYHuiMgw TmHxbsKqJMKsyLO6AH98XO17aXEv k8W9aKN3G6IjCRUmflzu tflkaOX6OSJdUOZnpN11Xz1upUzm Ud7tPFWvVKP1HRUnkVOdC2HvdV4y EmGmSVHcUTGhN3OyuSYx OKkrV032CBxmWdH2RYPylzPpD9Vg JWVvwVbkPbI4h9M3Jt6RZ0T0ZY73 NN12jHPhb4G4wDJ5K4Pd LSQkgvcilixtiFH3FWXfZUOljO06 Vt6vdTdoHc9fWIGgNQF4YIZqqAHd F8UiiF7jUhQnNQEpGDVn Z2HuxCTfJVjiT459BBavKrC1QPHb siGqV2CdFGCbdKoxLpS8c6W5Ih2H BCg6EK77WG72hSOpk6Q0 lBX0N5VbPACveihsjmoenHQ1FTUy VHAvoN60Br8huKrmBy9wCRCuUIY4 JXPlzDGtJ8ZhmM8dNnLw VGQsCCFdL1RkuUCtFJimX344OFst HyF4NCKnwnNkG9BvGQPwwXbfKeO3 r4J8Mh0JWBIoDF66GQC1 zBJ0YH04ZX44V7JrFftsyVQhuRC+ PHRhYmxlIHdpZHRoPScxMDAlJyBz tMzoVC7aRc1pXRFwMXAt bSvajAHhOrUvm3neOUSgTYzxXH5w fTpqF9RdwTR0TOCse3a3Wi95L22i B6ZfxQW+AMVmlDK4cUH0 qW5lEbJlZlV6NTbmF387FwHxiPWd Hbozs6grk0rthCx1TjY6OFZenhYu hYsmTAA8e8BbOm66J23v CTwbLOPaWJFlWBAvPJYmnMzcte2w lU4bYm1+DEXleIK8tZN8kS4gYzSf HvR1IOrvM983ZcBpfBMz Rwijd2kha3dorBm3WxBxLDJijzKu tGrsZJA3y9BwWd81Q2QgeSloq3Db Fhh5xt94hKWty6G1nIE8 V8SnKCOrcyeudPObpKzxNC8oTQCv lftkXAMspU0jLJVaM9f6NpWiIzE2 AOkmY6HwbfL9NKHfuDQf BVbfYTL4C71dj4F7ZKMlHWYbZOE8 kVK8nN9vsCfwvetinTLozVstweTe hEtuLGjlSTkoU785YJPr aLfmVECqbM2mBGFdfYEtiXneFM1x MXKyhujaMqwKVKYCUBIBWNQVJ72R OUT3H6RdEuw0PBYuhWpb AL0ikMBfLKkyZu6zlNlitYszRV9b MRBmyywzACJvaQ1tJNNptBDlvBul ZX9cVXCkyaciw031IwAq ZYS0ZDVqkCZqJ1OdpU7nBvQtEKXx CKCnI2GtrEQlXAouR543HBwzPtC9 YYAnsrPcH4MoFBLjoDrg YoP7k5W0Nd9nQj1jXm2pZBc1EB46 MS45wHDjg6I7xVR2J2VdFABitvcg zizflHV4LHRbAFBqtO54 eTNnUNocIt9xf1B6i044OWPfPXSu lF77St7eeEaeKGVvlZDZaW6xwser b1lppmpyUvEyJAEpPEv1 EKk4ZGRejRpcVbBeAWS0IkW3VMV2 cYKsbB1ugPzfpqvwuJ8gVzq+MjMg ZTNtwuD9L0NzKmc8OOTl rOqsVV1leSJtZNetMc5swWwriUwl NA1iBAOsktuaAGQfrW0mAAKrwIDh bPfyUT4qKWWhqkfem699 HrFeRPQ9GYXcsBIlT9WttG7zGuLz MNRvSJAnA8BtoANqUMznL094OQvk CaW9ZSXuxaVxT5PeNTDp yIzbHxS3p4V7Cx1DZA6pyYV1Q4Tj Ujm3CSDglVeyDE1eyAIlGExzUw9u bNzpgMblZU1kEOGrmdfu LTOzcE8yMXFuhWUivXmoNN6wNTNu nhlim052VoXqYSU8GDHscFGwZ2Dm qB9hFcLfCWQgCEMlV1Yx zCGgLGjvE057QDiwOaO0EFVjnjNj T9JaMJPouXqiYxF0u3P8Wa0AvVNc T2IvG9k4F4OmTfperSX+ KO91RADmJG26cQDujNAvx6ugjDy1 FnHjTNNwTXO9gXpkLRfdj5GoKJDz D78llTCwj4L3SWVmoQtx xSPpJnGmcDB2xS9wQJxxqolcf1bk wbdlBbnii2loqb71rY01G12cLLwi ZHRoPSIzMCUiIHZhbGln fj2pqH7eHk6+XCLnzIW1dTS7cA8v VwOmMsV2YOviY033ThWtzIJbAxyp h9ize6ggbYu4LaHvQLFs aoFfrKekAKK9a9ZyBa76Q16wCLjv CCIhPVWpZDXdAJXodZygen0lsJ0t Ii8+SO1sh8oxqr63uP37 dHI+WBMwTMK8oFjcOKugPKTxsU5e REhsHqO6EJInJwAazK23lUGhXOth Ij0rjOnnuSjjMI0nLDVr imama760SzByr7xcTYUujTYxMYvn DLZ1I16rn2G8BPKcFVLdLCX5yIH4 rA0udPsexuwmjKDsjHaw jsNqwZiqBOypKBezG357SCEbqCzr WdLuoRIqZ1qwzvSSJN2jHiqbwWM+ INYnSMR6yHmmDRfmICDh tC7jTDMgK6w6YyYyOdE7FInbO3Mq zmH8DKDasYRoWLHclQGGlP7hjspx m5sqkkszRtJgSCIpYOu3 IFz5XXRazBizNlOpTVO7HvR4NNK6 pUCdoA0yxOajceglyG2tMqr+RklO OjwvdGQ+TMLjVGW1gEtq PAhtLYNzwU2qFYGqM6i0EwCtIqB4 POzuD6IimbH8WUVslCKvUIFufQII aY0mymftl6xnsxmwSbKo CEKfSXi3ZUu5PPAioPtpIfOcJLJ9 KfW5BMY7pKCvsP8cxTjauwtguO2d Oyc+TVJOOjwvdGQ+PHRk CNW7bXeiEFydQJZncN9zIKNhN2g8 QsCeAmL0DFyuI7WaudW1PWCmnLAt JALxdUANdK6nkjims3wg okwmLjSfNFFzRAi9NXu2XWGovPhm GzFvKYI3PwE6ITF5sIGlcY9uaAmf odhwcN7aZch+NBB2EIS5 XQ78NS79X0QnXmggbLLiiDE+PHRh YmxlIHdpZHRoPScxMDAlJyBzdHls LJ8oDn7aYXYoIVIdyXql cHNl (more content not included)... Normal [facility] Acetamnphn Lvlon 12-04-2020 Acetaminophen [Mass/Vol] ug/mL Low - [facility] Comment on above: Result Comment: Resu lt verified by dilution Performed By: #### 2 [id number], [id number], 0291436, 69699893, 2155884, 8813314, 3919967, 6713485, 4856346 ####[facility] [address] [place] [address] Consent for Treatmenton 11-20 Consent for Treatment [id number]:127 Normal [facility] Discharge Instructionson Discharge Instructions [id number]#[id number]:127 Normal [facility] ED Clinical Summaryon 2020 ED Clinical Summary (Inserted Image. Addie ble to display) [place] [id number] ED Clinical Summary Person Information Name: RABIA GASPAR/[facility] Age: 25 Years : 1995 Sex: Female Language: Estonian PCP: NONE, XXXX Marital Status: Single Visit [...] 12/04/2020 03:19:09 12/04/2020 03:19:09 12/04/2020 03:19:09 AD[address]ESS: [address] [id number] PHYS DOC NOTES: MEDICAL INFORMATION: Prescriptions Given: PATIENT EDUCATION INFORMATION: Instructions: Alcohol Intoxication Follow up: With: Address: When: XXXX NONE , [place] In 3 days 12/07/2020 DIAGNOSIS: 1:Alcohol intoxication; 2:Depression Normal [facility] ED Note-Physicianon 12-05-19 ED Note-Physician Basic Information Time Seen: Keyshawn Stout MD 12/03/2020 20:58 Chief Complaint Pt is intoxicated. Not answering questions. Possible opiates on board. Says she wants to and be left alone. History of Present Illness patient is from [place]. Candy states she was at a republican. They state it was a republican after a wedding. Patient drinking ETOH. They [...] Cigarettes, 12/03/2020 Lab Results WBC: 9.6 E9/L (12/03/20:26:00) RBC: 4.8 E12/L (12/03/20::00) Hgb: 13.8 gm/dL (12/03/20::00) Hct: 41.8 % (12/03/20::00) MCV: 86.9 fL (12/03/20::00) MCH: 28.7 pg (12/03/20:) MCHC: 33 gm/dL (12/03/20::00) RDW: 14.9 % High (12/03/20::00) Platelet: 200 E9/L (12/03/20:) MPV: 9.7 fL (12/03/20:) Neutro Auto: 57.4 % (12/03/20::00) Lymph Auto: 29.6 % (12/03/20::) Leon Auto: 7.9 % (12/03/20::) Eos Auto: 4.5 % (12/03/20::) Basophil Auto: 0.6 % (12/03/20::00) Neutro Absolute: 5.5 E9/L (12/03/20::) Lymph Absolute: 2.8 E9/L (12/03/20::00) Leon Absolute: 0.8 E9/L (12/03/20::00) Eos Absolute: 0.4 E9/L (12/03/20:) Basophil Absolute: 0.1 E9/L (12/03/20::00) Glucose Lvl: 86 mg/dL (12/03/20::00) BUN: 16 mg/dL (12/03/20:00) Creatinine: 0.5 mg/dL (12/03/20::00) eGFR: >60 (12/03/20:26:00) eGFR AA: >60 (12/03/20:26:00) BUN/Creat Ratio: 32 High (12/03/20:26:00) Sodium Lvl: 141 mmol/L (12/03/20:26:00) Potassium Lvl: 3.5 mmol/L (12/03/20::00) Chloride: 112 mmol/L High (12/03/20:26:00) CO2: 21 mmol/L (12/03/20:26:00) AGAP: 12 mEq/L (12/03/20::00) Calcium Lvl: 8.4 mg/dL Low (12/03/20::00) Alk Phos: 49 Int._Unit/L (12/03/20::00) ALT: 137 Int._Unit/L High (12/03/20::00) AST: 115 Int._Unit/L High (12/03/20::00) Total Protein: 7.1 gm/dL (12/03/20::00) Albumin Lvl: 4.4 gm/dL (12/03/20::00) Globulin: 2.7 gm/dL (12/03/20::00) A/G Ratio: 1.6 (12/03/20::00) Bili Total: 0.4 mg/dL (12/03/20::00) Bili Direct: 0.1 mg/dL (12/03/20::00) Lipase Lvl: 35 unit/L (12/03/20:26:00) Acetaminoph Lvl: <10 Low (12/03/20:26:00) Salicylate Lvl: <4 Low (12/03/20:26:00) Ethanol Lvl: 196 mg/dL Critical (12/03/20:26:00) Beta hCG Ql: NEGAT (more content not included)... Normal [facility] Comment on above: Result Comment: Elec [...] between alcoholic drinks. General instructions ? Take ovzq-jqg-jxttnvn and prescription medicines only as told by your health care provider. ? Do not drive after drinking any amount of alcohol. Plan for a designated cdl driver or another way to go home. ? Have someone responsible stay with you while you are intoxicate (more content not included)... Normal [facility] ED Patient Summaryon 021 ED Patient Summary (Inserted Image. Addie ble to display) [address] [address] Patient Discharge Instructions Person Information Name: RABIA GASPAR Age: 25 Years Arrival Date: 12/03/2020 20:52:33 Discharge Diagnosis: 1:Alcohol intoxication; 2:Depression Primary Care Physician: NONE, XXXX Provider Information Primary Provider: Keyshawn Stout MD [place] Attendant:None The exam and treatment you received in the Emergency Department were for an urgent problem and are not intended as complete care. It is important that you follow up with a doctor, nurse practitioner, or physician?s administrative services assistant for ongoing care. If your symptoms become worse or you do not improve as expected and you are unable to reach your usual health care provider, you should return to the Emergency Department. We are available 24 hours a day. RABIA GASPAR has been given the following list of [...] opioids can be used to help relieve deefrlqz-ic-ctukhx pain and are often prescribed following a [...] guidance from the Food and Drug Administration (www.fda.gov/Drugs/Resources ForYou). ? Visit www.cdc.gov/drugoverdose to learn about the risks of opioids abuse and overdose. ? If you believe you may be struggling with addiction, tell your health career development counselor and ask for guidance or call SAMHSA?S National Helpline at 2-325-432-QKNL. v Source: [place] Department of Health and Human Services/Center for Disease Control & Prevention Am (more content not included)... Normal [facility] Ethanolon 12-04-2020 Ethanol [Mass/Vol] 196 mg/dL Abnormal <=7 [facility] Comment on above: Result Comment: Resu lts verified by repeat analysis\Critical Result S_ETOH:196.0 Called to AMRIK HOWELL AT by KEIRY LEVIN And Read Back For Confirmation at: 12/03/2020 22:01:24 Performed By: #### 2 130548 ####[facility] [address] [place] [address] Salicylateon 12-04-2020 Salicylates [Mass/Vol] mg/dL Low 6-29 [facility] Comment on above: Performed By: #### 2 892812, 62936924, 9168716, 43068060, 3879522, 0622779, 4469302, 7465502, 3413138 ####[facility] [address] [place] [address] Auto Diffon 12-03-2020 Basophils/100 WBC (Bld) 0.6 % Normal 0.0-2.0 [facility] Comment on above: Order Comment: Order Added by Discern Expert. Performed By: #### 2 141842, 11110922, 7429716, 59104569, 7481220, 9641686, 7414633, 7926038, 5685443 #### [facility] [address] [place] [address] Basophils/Leukocytes Auto (Bld) [Pure # fraction] 0.1 E9/L Normal 0.0-0.2 [facility] Comment on above: Order Comment: Order Added by Discern Expert. Performed By: #### 2 801676, 66450382, 3088610, 07811527, 6418417, 3178662, 1974970, 6205774, 9379183 #### [facility] [address] [place] [address] Eosinophils/100 WBC (Bld) 4.5 % Normal 0.0-8.0 [facility] Comment on above: Order Comment: Order Added by Discern Expert. Performed By: #### 2 159215, 18630737, 1939781, 82636262, 4032416, 4093890, 1444430, 6341203, 3875747 #### [facility] [address] [place] [address] Eosinophils/Leukocyte s Auto (Bld) [Pure # fraction] 0.4 E9/L Normal 0.0-0.5 [facility] Comment on above: Order Comment: Order Added by Discern Expert. Performed By: #### 2 158966, 57149840, 2957624, 79005472, 1071755, 9030889, 9789381, 2797050, 4186962 #### [facility] [address] [place] [address] Lymphocytes/100 WBC (Bld) 29.6 % Normal 14.0-50.0 [facility] Comment on above: Order Comment: Order Added by Discern Expert. Performed By: #### 2 542542, 55905996, 3676712, 34670034, 1452487, 4860557, 8198085, 1124538, 3914027 #### [facility] [address] [place] [address] Lymphocytes/Leukocyte s Auto (Bld) [Pure # fraction] 2.8 E9/L Normal 1.0-4.0 [facility] Comment on above: Order Comment: Order Added by Discern Expert. Performed By: #### 2 944566, 45251313, 8349922, 00032616, 1612166, 0396213, 1456116, 9897467, 6795264 #### [facility] [address] [place] [address] Monocytes/100 WBC (Bld) 7.9 % Normal 4.0-14.0 [facility] Comment on above: Order Comment: Order Added by Discern Expert. Performed By: #### 2 063384, 50314746, 7104927, 46528838, 0419626, 8173562, 0103886, 5250343, 9617589 #### [facility] [address] [place] [address] Monocytes/Leukocytes Auto (Bld) [Pure # fraction] 0.8 E9/L Normal 0.2-1.0 [facility] Comment on above: Order Comment: Order Added by Discern Expert. Performed By: #### 2 623543, 12023714, 2035714, 54231168, 7558107, 3542053, 7361443, 6047822, 4332260 #### [facility] [address] [place] [address] Neutrophils/100 WBC (Bld) 57.4 % Normal 36.0-75.0 [facility] Comment on above: Order Comment: Order Added by Discern Expert. Performed By: #### 2 532757, 84330652, 5476054, 07389631, 2585037, 0286596, 9164246, 2074578, 6131007 #### [facility] [address] [place] [address] Neutrophils/Leukocyte s Auto (Bld) [Pure # fraction] 5.5 E9/L Normal 2.0-7.5 [facility] Comment on above: Order Comment: Order Added by Discern Expert. Performed By: #### 2 276142, 43908300, 9453110, 12041250, 0579134, 2516032, 4875230, 0674264, 0194919 #### [facility] [address] [place] [address] B hCG Qualon 12-03-2020 Beta hCG Ql Negative Normal [facility] Comment on above: Performed By: #### 2 534859, 12101548, 7327075, 53053290, 9776989, 3099343, 6371947, 5866352, 2956134 #### [facility] [address] [place] [address] Bili Directon 12-03-2020 Bilirubin.direct [Mass/Vol] 0.1 mg/dL Normal 0.1-0.4 [facility] Comment on above: Order Comment: Order Added by Discern Expert. Performed By: #### 2 246408, 54734134, 6801513, 41097274, 1078480, 5813786, 0362388, 4329058, 3461897 #### [facility] [address] [place] [address] CBC w/ Auto Diffon 1 Erythrocyte distribution width (RBC) [Ratio] 14.9 % High 10.9-14.2 [facility] Comment on above: Performed By: #### 2 604393, 08241899, 9338425, 13218298, 7603767, 7042363, 6929080, 5346213, 6066511 #### [facility] [address] [place] [address] Hematocrit (Bld) [Volume fraction] 41.8 % Normal 34.0-46.0 [facility] Comment on above: Performed By: #### 2 071966, 18804012, 1767316, 39902970, 2741051, 5052422, 1450783, 6494787, 6249883 #### [facility] [address] [place], [place] [address] Hemoglobin (Bld) [Mass/Vol] 13.8 g/dL Normal 12.0-16.0 [facility] Comment on above: Performed By: #### 2 535932, 60652960, 9460857, 74621575, 6314715, 4991065, 2016274, 1674483, 1449561 #### [facility] [address] [place] [address] MCH (RBC) [Entitic mass] 28.7 pg Normal 27.0-34.0 [facility] Comment on above: Performed By: #### 2 657645, 71762573, 4417583, 20747318, 8212658, 1366388, 0929098, 9811341, 6711401 #### [facility] [address] [place] [address] MCHC (RBC) [Mass/Vol] 33.0 g/dL Normal 31.4-36.0 [facility] Comment on above: Performed By: #### 2 095264, 19018568, 3829895, 95496616, 8643266, 8126154, 3341723, 1841232, 9480988 #### [facility] [address] [place] [address] MCV (RBC) [Entitic vol] 86.9 fL Normal 80.0-100.0 [facility] Comment on above: Performed By: #### 2 296613, 72724026, 0815824, 54512196, 7356651, 4821888, 3984068, 8543711, 3858571 #### [facility] [address] [place] [address] Platelet mean volume (Bld) [Entitic vol] 9.7 fL Normal 6.4-10.8 [facility] Comment on above: Performed By: #### 2 706698, 06529320, 9434968, 51266925, 5795389, 2036952, 2428384, 1539468, 2061734 #### [facility] [address] [place] [address] Platelets (Bld) [#/Vol] 200.0 E9/L Normal 150.0-500. 0 [facility] Comment on above: Performed By: #### 2 843840, 95644891, 2098925, 05850998, 2945150, 3558819, 8203391, 9715976, 8938954 #### [facility] [address] [place] [address] 78633 RBC (Bld) [#/Vol] 4.8 E12/L Normal 4.3-5.9 [facility] Comment on above: Performed By: #### 2 610554, 97528009, 0146561, 11795681, 4200730, 5367751, 3858964, 1738384, 0785653 #### [facility] [address] [place] [address] 43340 WBC corrected for nucl RBC Auto (Bld) [#/Vol] 9.6 E9/L Normal 4.0-11.0 [facility] Comment on above: Performed By: #### 2 277586, 31499983, 9346138, 86340728, 3897275, 1747440, 2467129, 3613012, 8372348 #### [facility] [address] [place] [address]648 CMPon 12-03-2020 Albumin [Mass/Vol] 4.4 g/dL Normal 3.3-5.0 [facility] Comment on above: Performed By: #### 2 808276, 58211130, 6342577, 92467802, 1094262, 9788508, 2605609, 4777547, 1315051 #### [facility] [address] [place] [address] 07432 Albumin/Globulin (S) [Mass conc ratio] 1.6 Normal 1.1-2.2 [facility] Comment on above: Performed By: #### 2 672859, 84952046, 4511295, 66565982, 3067908, 4648766, 7739887, 9892697, 0822576 #### [facility] [address] [place] [address] 64319 ALP [Catalytic activity/Vol] 49 Int._Unit/L Normal 21-98 [facility] Comment on above: Performed By: #### 2 493050, 99355713, 7867267, 07973668, 7457946, 2842578, 1371612, 8562911, 2747628 #### [facility] [address] [place] [address] 31823 ALT No additional P-5'-P [Catalytic activity/Vol] 137 Int._Unit/L High 6-46 [facility] Comment on above: Performed By: #### 2 937934, 42912960, 9640816, 40507733, 2174294, 5029067, 4912438, 4153831, 6467219 #### [facility] [address] [place] [address] 43984 AST [Catalytic activity/Vol] 115 Int._Unit/L High 5-43 [facility] Comment on above: Performed By: #### 2 653819, 45407430, 4798724, 68214172, 3252843, 8966976, 7578417, 9902382, 8043817 #### [facility] [address] [place] [address] Bilirubin [Mass/Vol] 0.4 mg/dL Normal 0.0-1.1 [facility] Comment on above: Performed By: #### 2 982916, 39562627, 0344753, 87928209, 3222155, 3941768, 4711304, 0940609, 0420256 #### [facility] [address] [place] [address] Creatinine [Mass/Vol] 0.5 mg/dL Normal 0.5-1.3 [facility] Comment on above: Performed By: #### 2 988422, 26995936, 8240637, 21546167, 8577098, 1600140, 5630582, 6338583, 9509650 #### [facility] [address] [place] [address] 47841 Globulin (S) [Mass/Vol] 2.7 g/dL Normal 1.4-4.0 [facility] Comment on above: Performed By: #### 2 698110, 35058895, 2687934, 68994451, 7365467, 2695437, 5442859, 7067711, 9232206 #### [facility] [address] [place] [address] 65031 Protein [Mass/Vol] 7.1 g/dL Normal 6.0-7.8 [facility] Comment on above: Performed By: #### 2 836784, 39982341, 9994628, 96569661, 8598404, 9563400, 2312447, 2191008, 7636798 #### [facility] [address] [place] [address] 29445 Urea nitrogen [Mass/Vol] 16 mg/dL Normal 5-21 [facility] Comment on above: Performed By: #### 2 164208, 02500986, 8541469, 68050116, 3355185, 3676071, 1783939, 6761480, 9628501 #### [facility] [address] [place] [address] Urea nitrogen/Creatinine [Mass ratio] 32 No Units High 10-20 [facility] Comment on above: Performed By: #### 2 357558, 61803612, 2454249, 33699508, 7284488, 7705772, 2025989, 0007085, 7720778 #### [facility] [address] [place] [address] Anion gap [Moles/Vol] 12 mmol/L Normal 6-16 [facility] Comment on above: Performed By: #### 2 327531, 45382686, 6092931, 68337997, 3045497, 1224686, 8901488, 3762106, 4755947 #### [facility] [address] [place] [address] Calcium [Mass/Vol] 8.4 mg/dL Low 8.9-11.1 [facility] Comment on above: Performed By: #### 2 476639, 38432136, 2827660, 81084281, 5737013, 2927660, 5921174, 4644350, 0561799 #### [facility] [address] [place] [address] Chloride [Moles/Vol] 112 mmol/L High 101-111 [facility] Comment on above: Performed By: #### 2 505128, 79838189, 8625274, 91707315, 4444231, 6064461, 3569684, 2533101, 3327885 #### [facility] [address] [place] [address] CO2 [Moles/Vol] 21 mmol/L Normal 21-31 [facility] Comment on above: Performed By: #### 2 569358, 40063305, 6251687, 35059225, 9786095, 6328518, 5187078, 3172591, 7638551 #### [facility] [address] [place] [address] Glucose [Mass/Vol] 86 mg/dL Normal 55-199 [facility] Comment on above: Result Comment: If t his glucose result represents a fasting glucose, interpretation should refer to the following reference range: 55-99 mg/dL Performed By: #### 2 [id number], [id number], 9113835, 01968389, 8174634, 2093071, 3721346, 3925547, 7409159 #### [facility] [address] [place] [address] Potassium [Moles/Vol] 3.5 mmol/L Normal 3.5-5.3 [facility] Comment on above: Performed By: #### 2 370586, 67639384, 2689142, 06847467, 7662474, 9242442, 0379936, 8924941, 3889388 #### [facility] [address] [place] [address] Sodium [Moles/Vol] 141 mmol/L Normal 135-145 [facility] Comment on above: Performed By: #### 2 176940, 25808192, 8899420, 43953865, 8452886, 1262576, 2149166, 7123392, 7436149 #### [facility] [address] [place] [address] Lipase Levelon 12-03-2020 Lipase [Catalytic activity/Vol] 35 U/L Normal 13-58 [facility] Comment on above: Performed By: #### 2 273432, 40474347, 0163118, 35072762, 0074169, 8111913, 0657265, 8727144, 6414023 #### [facility] [address] [place] [address] eGFRon 12-03-2020 GFR/1.73 sq M.predicted among blacks MDRD (S/P/Bld) [Vol rate/Area] mL/min/{1.73_m2} Normal >=59 [facility] Comment on above: Order Comment: Order added by Discern Expert. Result Comment: eGFR is race adjusted. AA=. Performed By: #### 2 550288, 05990942, 2642309, 75227494, 5077409, 9745684, 6246813, 6906882, 9769995 #### [facility] [address] [place] [address] GFR/1.73 sq M.predicted among non-blacks MDRD (S/P/Bld) [Vol rate/Area] mL/min/{1.73_m2} Normal >=59 [facility] Comment on above: Order Comment: Order added by Discern Expert. Result Comment: Toe Puller anuradha kidney disease could be indicated at eGFR's of less than 60 mL/min/1.73m2. Kidney failure is indicated at less than 15 mL/min/1.73m2. Performed By: #### 2 210361, 34401342, 6972240, 09924046, 5379407, 4911745, 8239792, 5517216, 0545668 #### [facility] [address] [place] [address] Gynecology Office/Clinic Not lindy 11-11-2017 Gynecology Office/Clinic [...] available. No qualifying data available.Electronically signed by Florina smart CNP Janeth Jose 11/11/17 16:14 EDT Normal [facility] .UA Microscp Aon 11-07-2017 UA Bacteria Present Abnormal Absent [facility] Comment on above: Performed By: #### C [id number] ####[address] [address] UA Mucus Present Abnormal Absent [facility] Comment on above: Performed By: #### C D:[id number] ####[address] [address] UA RBC Quant 1 /HPF Normal 0-5 [facility] Comment on above: Performed By: #### C D:[id number] ####[address] [address] UA Squepi Cells Quant 3 /HPF Normal 0-29 [facility] Comment on above: Performed By: #### C D:[id number] ####[address] [address] UA WBC Quant 10 /HPF High 0-5 [facility] Comment on above: Performed By: #### C D:[id number] ####[address] [address] .eGFRon 11-07-2017 eGFR Non-AA >60 Normal >=60 [facility] Comment on above: Result Comment: Resu lt [...] medication dosing. Performed By: #### E GFR ####[address] [address] eGFR AA >60 Normal >=60 [facility] Comment on above: Result Comment: Resu lt = 0-14.9 mL/min/1.73 m2 Kidney failure or DialysisResult = 15-29 mL/min/1.73 m2 Severe decrease in GFRResult = 30-59 mL/min/1.73 m2 Moderate decrease in GFRResult >= 60 mL/min/1.73 m2 Normal or increased GFR Performed By: #### E GFR ####[place] [address] CBC w/ Diffon 11-07-2017 Erythrocyte distribution width Auto Ratio (RBC) 15.0 % High 11.6-14.8 [facility] Comment on above: Performed By: #### C BC ####[place] [address] Hematocrit Auto Volume Fraction (Bld) 34.4 % Low 36.0-46.0 [facility] Comment on above: Performed By: #### C BC ####[place] [address]7840 Hemoglobin mass conc (Bld) 11.5 g/dL Low 12.0-16.0 [facility] Comment on above: Performed By: #### C BC ####[place] [address]7840 MCH Auto Entitic mass (RBC) 26.9 pg Low 27.0-35.0 [facility] Comment on above: Performed By: #### C BC ####[place] [address]40 MCHC Auto mass conc (RBC) 33.3 % Normal 31.0-37.0 [facility] Comment on above: Performed By: #### C BC ####[place] [address]7840 MCV Auto Entitic volume (RBC) 80.6 fL Normal 80.0-100.0 [facility] Comment on above: Performed By: #### C BC ####[place] [address] Platelet mean volume Auto Entitic volume (Bld) 9.7 fL Normal 6.7-10.6 [facility] Comment on above: Performed By: #### C BC ####[place] [address] Platelets Auto #/vol (Bld) 166 x10*3/mcL Normal 150-350 [facility] Comment on above: Performed By: #### C BC ####[address] [address] RBC Auto #/vol (Bld) 4.27 x10*6/mcL Normal 3.80-5.20 [facility] Comment on above: Performed By: #### C BC ####[place] [address]40 WBC Auto #/vol (Bld) 8.6 x10*3/mcL Normal 4.5-11.0 [facility] Comment on above: Performed By: #### C BC ####[address] [address] CMPon 11-07-2017 Albumin mass conc 4.2 g/dL Normal 3.2-4.9 [facility] Comment on above: Performed By: #### C OMP ####[place] [address]40 Albumin/Globulin mass ratio 1.4 {ratio} Normal 1.1-2.2 [facility] Comment on above: Performed By: #### C OMP ####[address] [address] Alk Phos 57 IU/L Normal 32-91 [facility] Comment on above: Performed By: #### C OMP ####[address] [address] ALT enzyme act/vol 106 U/L High 14-54 [facility] Comment on above: Performed By: #### C OMP ####[place] [address]7840 Anion gap 3 molar conc 9 mmol/L Normal 7-17 [facility] Comment on above: Performed By: #### C OMP ####[address] [address] AST enzyme act/vol 80 U/L High 15-41 [facility] Comment on above: Performed By: #### C OMP ####[address] [address] Bili Total 0.4 mg/dL Normal 0.3-1.2 [facility] Comment on above: Performed By: #### C OMP ####[address] [address] Calcium mass conc 8.9 mg/dL Normal 8.5-10.3 [facility] Comment on above: Performed By: #### C OMP ####[address] [address] Chloride molar conc 106 mmol/L Normal 98-110 [facility] Comment on above: Performed By: #### C OMP ####[address] [address] CO2 molar conc 27 mmol/L Normal 22-32 [facility] Comment on above: Performed By: #### C OMP ####[address] [address] Creatinine mass conc 0.40 mg/dL Low 0.44-1.03 [facility] Comment on above: Performed By: #### C OMP ####[address] [address] Glucose mass conc 102 mg/dL Normal 74-118 [facility] Comment on above: Performed By: #### C OMP ####[address] [address] Potassium molar conc 4.1 mmol/L Normal 3.4-4.8 [facility] Comment on above: Performed By: #### C OMP ####[address] [address] Protein mass conc 7.3 g/dL Normal 6.5-8.1 [facility] Comment on above: Performed By: #### C OMP ####[address] [address] Sodium molar conc 138 mmol/L Normal 133-142 [facility] Comment on above: Performed By: #### C OMP ####[address] [address] Urea nitrogen mass conc 16 mg/dL Normal 8-26 [facility] Comment on above: Performed By: #### C OMP ####[place] [address] [place] [address] Urea nitrogen/Creatinine mass ratio 40.0 mg/mg High 15.0-25.0 [facility] Comment on above: Performed By: #### C OMP ####[address] [address] [address] Abdomen Pelvis w/ IV Cont raston [...] gallbladder, pancreas, spleen, bilateral adrenal glands are unremarkable.Gastroesophagea l reflux in distal esophagus.Stomach, small and large bowel loops are grossly unremarkable. The appendix is normal. Trace free fluid in the pelvis, physiologic. Uterus and bilateral ovaries are unremarkable. Small cyst in the left ovary. No abdominal aortic aneurysm. No abnormal lymph node enlargement. No acute findings at the lung bases. No acute osseous abnormalities.IMPRESSION: No acute findings.Radiation Dose Estimate:CTDI(mGy):0.544774 / / / kVp:120.619217 / mAs:0.157197 / / / DLP(mGy-cm):7.904862Aown Part: AbdomenCTDI(mGy):8.668415 / / / kVp:100.271260 / mAs:115.204241 / / / DLP(mGy-cm):404.713547Zdpk Part: Abdomen Final Dictated by: Essie Osorio MD DT/TM: 11.07.2017 7:06 pmSigned by: Wilfredo Osorio MD (Electronic Signature): 07.19.2018 7:10 pm(If Report Is Signed, Electronically Signed in Other Vendor System) Normal [facility] Diff Autoon 11-07-2017 Baso Absolute 0.0 x10*3/mcL Normal 0.0-0.2 [facility] Comment on above: Performed By: #### . Automated Diff ####[address] [address] Basophils/100 WBC Auto (Bld) 0.5 % Normal 0.0-1.5 [facility] Comment on above: Performed By: #### . Automated Diff ####[address] [address] Eos Absolute 0.3 x10*3/mcL Normal 0.0-0.4 [facility] Comment on above: Performed By: #### . Automated Diff ####[address] [address] Eosinophils/100 WBC Auto (Bld) 3.1 % Normal 0.0-5.4 [facility] Comment on above: Performed By: #### . Automated Diff ####[address] [address] Lymphocytes Auto #/vol (Bld) 1.5 x10*3/mcL Normal 1.2-5.2 [facility] Comment on above: Performed By: #### . Automated Diff ####[address] [address] Lymphocytes/100 WBC Auto (Bld) 17.9 % Low 28.0-42.0 [facility] Comment on above: Performed By: #### . Automated Diff ####[address] [address] Leon Absolute 1.0 x10*3/mcL Normal 0.1-1.1 [facility] Comment on above: Performed By: #### . Automated Diff ####[address] [address] Monocytes/100 WBC Auto (Bld) 11.2 % Normal 3.7-11.9 [facility] Comment on above: Performed By: #### . Automated Diff ####[place] [address] Neutro Absolute 5.8 x10*3/mcL Normal 1.8-8.0 [facility] Comment on above: Performed By: #### . Automated Diff ####[address] [address] Neutro Auto 67.3 % Normal 45.6-68.4 [facility] Comment on above: Performed By: #### . Automated Diff ####[place] [address] ED Clinical Summaryon 2017 ED Clinical Summary (Inserted Image. Addie ble to display) [place] [address] ed Clinical SummaryPerson InformationName: Rabia Gaspar [facility] Age: 22 Years : 1995Sex: Female PCP:Marital Status:Single Phone:Race:White Ethnicity:Not or Language:EnglishMRN: [id number] Reason:Headache; Abdominal pain; Abdominal pain Acuity: 3Enc Type: Emergency Med Service: Emergency MedicineArrival:11/07/2017 17:17:00 Discharge: 11/07/2017 19:46:00 LOS: 000 02:29Checkin:11/07/2017 17:17:00 Checkout: 11/07/2017 19:46:00 Dispo Type: Home or Self CareAddress:[address] [place] [address] Provider Notes:Diagnosis:1:Abdominal pain; 2:Urinary tract infection; 3:Frontal [...] range between ( 28.0 and 42.0 ) Leon Auto: 11.2 % -- Normal range between [...] range between ( 36.0 and 46.0 ) Leon Absolute: 1.0 x10 MCH: 26.9 pg -- [...] IV Contrast: CT Abdomen Pelvis w/ IV ContrastMeasurements:Height: Weight: 72.6 kgBlood Pressure: /76 mmHgBMI:Procedures No Procedures DocumentedImmunizations No Immunizations Documented This VisitFinal Med List:New MedicationsOG[facility] [address] [place] [address], [phone] (Keflex 500 mg oral capsule) 1 Capsules Oral (given by mouth) every 8 hours for 7 Days. Refills: 0.Last Dose: Med ications that have not changedOther MedicationsAPAP/dextromethor grossman/phenylephrine (DayQuil Cold & Flu oral syrup) 30 Milliliter Oral (given by mouth) every 4 hours as needed as needed for cold.Last Dose: ibu profen (ibuprofen 200 mg oral capsule) 2 Capsules Oral (given by mouth) every 6 hours as needed as needed for pain.Last Dose: med roxyPROGESTERone (Depo-Provera Contraceptive 150 mg/mL intramuscular suspension) 1 Milliliter Intramuscular (in a muscle) every 3 months.Last Dose: [facility] [address] [place] [address], [phone] (Keflex 500 mg oral capsule) 1 Capsules Oral (given by mouth) every 8 hours for 7 Days. Refills: 0.Other MedicationsAPAP/dextromethor grossman/phenylephrine (DayQuil Cold & Flu oral syrup) 30 Milliliter Oral (given by mouth) every 4 hours as needed as needed for cold.ibuprofen (ibuprofen 200 mg oral capsule) 2 Capsules Oral (given by mouth) every 6 hours as needed as needed for pain.medroxyPROGESTERone (Depo-Provera Contraceptive 150 mg/mL intramuscular suspension) 1 Milliliter Intramuscular (in a muscle) every 3 months.Care Team Members:Attending Physician: Jarret Oquendo MDConsultwily Physician:Referring Physician:Provider Role Assigned AddiessAmie Kennedy ED Nurse 11/07/2017 17:24:13Jarret Oquendo MD ED Provider 11/07/2017 17:27:38Follow up:With: Address: When:Follow-up with your primary care provider in next 2-3 days. If you do not have a primary care provider, you can call for help establishing with a primary care doctor in the area.Type Location Start [facility] 15:45:00 11/11/2017 16:00:00 [facility] 12/26/2017 15:15:00 12/26/2017 15:30:00 ConfirmedDischarge Orders:Discharge Patient 11/07/17 19:17:00 EDT, Discharge to Home, SelfPatient Education Information:HEADACHE, Unspecified; BLADDER INFECTION, Female (Adult); ABDOMINAL PAIN, Unknown Cause, (Female)[facility] Poison Help line: .[facility] Hotline: [place] Tobacco Quit Line: [facility] ([place], [place]) [address]: [phone] ([place], [place]) [address]: [phone] [address] [facility]. [place], [place]: [phone] Normal [facility] ED Note-Physicianon 11-08-19 ED Note-Physician Chief Complaint Pt c /o [...] PCP: none. Patient reports she has an [facility] appointment on November 11.Review of Systems GENERAL: [...] information in this document, created by the medical planner for me, accurately reflects the services I [...] is instructed follow-up with PCP and her gearman as scheduled.Assessment/Plan 1. Abdominal pain Ordered: cephalexin, 1 caps, Oral, q8hr, X 7 days, # 21 caps, 0 Refill(s), 11/14/17 19:17:00 EDT, Pharmacy: [facility] 2. Urinary tract infection 3. Frontal headache [...] 11/07/17 18:14 17.9 Low 10/30/17 14.7 Low Leon Auto 11/07/17 18:14 11.2 10/30/17 10.0 Eos Auto 11/07/17 18:14 3.1 10/30/17 5.1 Basophil Auto 11/07/17 18:14 0.5 10/30/17 0.3 Neutro Absolute 11/07/17 18:14 5.8 10/30/17 6.4 Lymph Absolute 11/07/17 18:14 1.5 10/30/17 1.4 Leon Absolute 11/07/17 18:14 1.0 10/30/17 0.9 Eos [...] Magnetic Resonance Imaging No qualifying data available. ___Trae Torres RElectronically signed by Jarert Oquendo MD 11/07/2017 21:04 EDT Normal [facility] Lipaseon 11-07-2017 Lipase Lvl 22 IU/L Normal 22-51 [facility] Comment on above: Performed By: #### L IP ####[place] [id number] UA w Culture if Indon 2017 Color Nom (U) Yellow Normal [facility] Comment on above: Performed By: #### U CI ####[address] [place] [address] Glucose mass conc (U) Negative Normal Negative [facility] Comment on above: Performed By: #### U CI ####[address] [address] Ketones Ql (U) Negative Normal Negative [facility] Comment on above: Performed By: #### U CI ####[address] [place] [address] UA Blood Large Abnormal Negative [facility] Comment on above: Performed By: #### U CI ####[address] [place] [address] UA Clarity Clear Normal [facility] Comment on above: Performed By: #### U CI ####[address] [place] [address] UA Leukocyte Esterase Moderate Abnormal Negative [facility] Comment on above: Performed By: #### U CI ####[address] [place] [address] UA Nitrite Negative Normal Negative [facility] Comment on above: Performed By: #### U CI ####[address] [address] UA pH 6.0 Normal 4.5 - 7.8 [facility] Comment on above: Performed By: #### U CI ####[address] [address] UA Protein Negative Normal Negative [facility] Comment on above: Performed By: #### U CI ####[address] [address] UA Source Clean Catch Normal [facility] Comment on above: Performed By: #### U CI ####[address] [address] UA Spec Grav 1.020 Normal 1.003-1.03 5 [facility] Comment on above: Performed By: #### U CI ####[address] [address] UA Urobilinogen 0.2 mg/dL Normal 0.2 - 1.0 [facility] Comment on above: Performed By: #### U CI ####[address] [address] Urobilinogen Test strip Qn (U) Negative Normal Negative [facility] Comment on above: Performed By: #### U CI ####[address] [address] Ambulatory Patient Education on 11-06-2017 Ambulatory Patient Education Patient Education MaterialsName: Rabia Gaspar Current Date: 11/06/2017 11:38:14 [place] 1995 following sheet(s) are the Patient Education Leaflets for Rabia Gaspar Normal [facility] .eGFRon 10-30-2017 eGFR AA >60 Normal >=60 [facility] Comment on above: Result Comment: Resu lt = 0-14.9 mL/min/1.73 m2 Kidney failure or DialysisResult = 15-29 mL/min/1.73 m2 Severe decrease in GFRResult = 30-59 mL/min/1.73 m2 Moderate decrease in GFRResult >= 60 mL/min/1.73 m2 Normal or increased GFR Performed By: #### E GFR ####[address] [address] eGFR Non-AA >60 Normal >=60 [facility] Comment on above: Result Comment: Resu lt [...] medication dosing. Performed By: #### E GFR ####[address] [address] ABO/Rhon 10-30-2017 ABO/Rh DCon: 0 ABO/Rh: O NEG Normal [facility] Comment on above: Performed By: #### A BORH ####[address] [address] Basic Metabolic Profileon Anion gap 3 molar conc 10 mmol/L Normal 7-17 [facility] Comment on above: Performed By: #### C D:[id number] ####[address] [address] Calcium mass conc 8.9 mg/dL Normal 8.5-10.3 [facility] Comment on above: Performed By: #### C D:[id number] ####[address] [address] Chloride molar conc 108 mmol/L Normal 98-110 [facility] Comment on above: Performed By: #### C D:[id number] ####[address] [address] CO2 molar conc 25 mmol/L Normal 22-32 [facility] Comment on above: Performed By: #### C D:[id number] ####[address] [address] Creatinine mass conc 0.65 mg/dL Normal 0.44-1.03 [facility] Comment on above: Performed By: #### C D:[id number] ####[address] [address] Glucose mass conc 87 mg/dL Normal 74-118 [facility] Comment on above: Performed By: #### C D:[id number] ####[address] [address] Potassium molar conc 3.8 mmol/L Normal 3.4-4.8 [facility] Comment on above: Performed By: #### C D:[id number] ####[address] [address] Sodium molar conc 139 mmol/L Normal 133-142 [facility] Comment on above: Performed By: #### C D:[id number] ####[place] [address] Urea nitrogen mass conc 11 mg/dL Normal 8-26 [facility] Comment on above: Performed By: #### C D:[id number] ####[place] [address] Urea nitrogen/Creatinine mass ratio 16.9 mg/mg Normal 15.0-25.0 [facility] Comment on above: Performed By: #### C D:[id number] ####[place] [address] BhCG Qnton 10-30-2017 HCG.beta subunit Qn m[IU]/mL Low 0.0-4.9 [facility] Comment on above: Result Comment: 0.0 - 4.9 Negative for Pregnancy5.0 - 25.0 Indeterminant for : Suggest repeat in 72 hours.>25.0 Positive for Performed By: #### H CG ####[place] [address] CBC w/ Diffon 10-30-2017 Erythrocyte distribution width Auto Ratio (RBC) 15.1 % High 11.6-14.8 [facility] Comment on above: Performed By: #### C BC ####[place] [address] Hematocrit Auto Volume Fraction (Bld) 38.5 % Normal 36.0-46.0 [facility] Comment on above: Performed By: #### C BC ####[place] [address] Hemoglobin mass conc (Bld) 12.9 g/dL Normal 12.0-16.0 [facility] Comment on above: Performed By: #### C BC ####[address] [address] MCH Auto Entitic mass (RBC) 27.3 pg Normal 27.0-35.0 [facility] Comment on above: Performed By: #### C BC ####[address] [address] MCHC Auto mass conc (RBC) 33.6 % Normal 31.0-37.0 [facility] Comment on above: Performed By: #### C BC ####[address] [address] MCV Auto Entitic volume (RBC) 81.4 fL Normal 80.0-100.0 [facility] Comment on above: Performed By: #### C BC ####[address] [address] Platelet mean volume Auto Entitic volume (Bld) 9.9 fL Normal 6.7-10.6 [facility] Comment on above: Performed By: #### C BC ####[address] [address] Platelets Auto #/vol (Bld) 171 x10*3/mcL Normal 150-350 [facility] Comment on above: Performed By: #### C BC ####[address] [address] RBC Auto #/vol (Bld) 4.73 x10*6/mcL Normal 3.80-5.20 [facility] Comment on above: Performed By: #### C BC ####[address] [address] WBC Auto #/vol (Bld) 9.2 x10*3/mcL Normal 4.5-11.0 [facility] Comment on above: Performed By: #### C BC ####[address] [address] Diff Autoon 10-30-2017 Baso Absolute 0.0 x10*3/mcL Normal 0.0-0.2 [facility] Comment on above: Performed By: #### . Automated Diff ####[address] [address] Basophils/100 WBC Auto (Bld) 0.3 % Normal 0.0-1.5 [facility] Comment on above: Performed By: #### . Automated Diff ####[address] [address] Eos Absolute 0.5 x10*3/mcL High 0.0-0.4 [facility] Comment on above: Performed By: #### . Automated Diff ####[address] [address] Eosinophils/100 WBC Auto (Bld) 5.1 % Normal 0.0-5.4 [facility] Comment on above: Performed By: #### . Automated Diff ####[address] [address] Lymphocytes Auto #/vol (Bld) 1.4 x10*3/mcL Normal 1.2-5.2 [facility] Comment on above: Performed By: #### . Automated Diff ####[address] [address] Lymphocytes/100 WBC Auto (Bld) 14.7 % Low 28.0-42.0 [facility] Comment on above: Performed By: #### . Automated Diff ####[address] [address] Leon Absolute 0.9 x10*3/mcL Normal 0.1-1.1 [facility] Comment on above: Performed By: #### . Automated Diff ####[address] [address] Monocytes/100 WBC Auto (Bld) 10.0 % Normal 3.7-11.9 [facility] Comment on above: Performed By: #### . Automated Diff ####[address] [address] Neutro Absolute 6.4 x10*3/mcL Normal 1.8-8.0 [facility] Comment on above: Performed By: #### . Automated Diff ####[place] [address] Neutro Auto 69.9 % High 45.6-68.4 [facility] Comment on above: Performed By: #### . Automated Diff ####[place] [address] ED Clinical Summaryon 2017 ED Clinical Summary (Inserted Image. Addie ble to display) [place] [id number] ED Clinical SummaryPerson InformationName: Rabia Gaspar [facility] Age: 22 Years : 1995Sex: Female PCP:Marital Status:Single Phone:Race:White Ethnicity:Not or Language:EnglishMRN: [id number] Reason:Abdominal pain; Abdominal pain Acuity: 3Enc Type: Emergency Med Service: Emergency MedicineArrival:10/30/2017 12:10:00 Discharge: 10/30/2017 16:32:00 LOS: 000 04:22Checkin:10/30/2017 12:10:00 Checkout: 10/30/2017 16:32:00 Dispo Type: Home or Self CareAddress:[address] [place] [address] Provider Notes: History of Present IllnessPatient presents [...] swelling, polydipsia, polyuria, marked weight changes, heat/cold intolerance]HEMATOLOGIC/LYMP HATIC: [Negative for swollen lymph nodes, abnormal bleeding, [...] palpation]LYMPHATICS: [no edema in lower extremities, no lymphadenopathy]MUSCULOSKELE LITA: [Extremities are nontender to palpation and have [...] range between ( 28.0 and 42.0 ) Leon Auto: 10.0 % -- Normal range between [...] range between ( 36.0 and 46.0 ) Leon Absolute: 0.9 x10 MCH: 27.3 pg -- [...] Ultrasound 10/30/2017 1:16 PM US Transvaginal: US TransvaginalMeasurements:Hei ght:Weight: 74.8 kgBlood Pressure: /67 mmHgBMI:Procedures No Procedures DocumentedImmunizations No Immunizations Documented This VisitFinal Med List:Medications that have not changedOther MedicationsAPAP/dextromethor grossman/phenylephrine (DayQuil Cold & Flu oral syrup) 30 Milliliter Oral (given by mouth) every 4 hours as needed as needed for cold.Last Dose: ibu profen (ibuprofen 200 mg oral capsule) 2 Capsules Oral (given by mouth) every 6 hours as needed as needed for pain.Last Dose: Oth er MedicationsAPAP/dextromethor grossman/phenylephrine (DayQuil Cold & Flu oral syrup) 30 Milliliter Oral (given by mouth) every 4 hours as needed as needed for cold.ibuprofen (ibuprofen 200 mg oral capsule) 2 Capsules Oral (given by mouth) every 6 hours as needed as needed for pain.Care Team Members:Attending Physician: Alex Suarez II, DOConsulting Physician:Referring Physician:Provider Role Assigned UnassignedAlex Suarez II, DO ED Provider 10/30/2017 12:20:22Jannette Harry ED Nurse 10/30/2017 12:29:21Follow up:With: Address: When:family doctorComments:follow up with your doctor and return to the ed with any cocnernsType Location Start Finish StateNurse Visit [facility] 12/26/2017 15:15:00 12/26/2017 15:30:00 ConfirmedDischarge Orders:Discharge Patient 10/30/17 16:08:00 EDT, Discharge to Home, Self, Vaginal bleedingPatient Education Information:[facility]ING[facility] Poison Help line: .[facility] Hotline: [place] Tobacco Quit Line: [place], [place]) [address]: [phone]) [address]: [phone] [place] [address] [address] [facility]. [place]: [phone] Normal [facility] ED Note-Physicianon 10-31-19 18 ED Note-Physician Chief Complaint Abdo ayesha painHistory [...] information in this document, created by the medical planner for me, accurately reflects the services I personally performed and the decisions made by me. This report has been created using voice recognition software. It may contain minor errors which are inherent in voice recognition technology. Scribe Attestation: The information in this document, created by the medical planner for me, accurately reflects the services I [...] High Lymph Auto 10/30/17 12:41 14.7 Low Leon Auto 10/30/17 12:41 10.0 Eos Auto 10/30/17 12:41 5.1 Basophil Auto 10/30/17 12:41 0.3 Neutro Absolute 10/30/17 12:41 6.4 Lymph Absolute 10/30/17 12:41 1.4 Leon Absolute 10/30/17 12:41 0.9 Eos Absolute 10/30/17 12:41 0.5 High Baso Absolute 10/30/17 12:41 0.0Diagnostic Results XRay No qualifying data available. Computerized Tomagraphy No qualifying data available. Ultrasound No qualifying data available. Magnetic Resonance Imaging No qualifying data available. ___Uri Flavia JElectronically signed by Erick OLIVAREZ DO Alex Medina 10/30/2017 16:08 EDT Normal [facility] US Transvaginalon 10-30-2017 US Transvaginal Procedure: Transvagi nal [...] hemorrhage in the pelvis. Final Dictated by: Bobby MIXON, Kelton Parks DT/TM: 10/30/2017 3:05 pmSigned by: Bobby MIXON, Kelton Guerreroigned (Electronic Signature): 10/30/2017 3:09 pm(If Report Is Signed, Electronically Signed in Other Vendor System) Normal [facility] Send-out: Otheron 09-30-2017 Ref Lab Sent to [facility]. See report for normal ranges. Normal [facility] Comment on above: Order Comment: HSV 1 & 2 swab Performed By: #### S OOTH ####[address] [address] Ref Lab Test Culture, HSV with Re flex to Typing, Genital Normal [facility] Comment on above: Order Comment: HSV 1 & 2 swab Performed By: #### S OOTH ####[address] [address] Send-out Other See Report Normal [facility] Comment on above: Order Comment: HSV 1 & 2 swab Result Comment: Miss ing Attachment Chartable Reference Lab Reports Can be viewed in source system Performed By: #### S OOTH ####[address] [address] HSV 1 & 2 Ab, IgG-[facility] HSV Type I IgG-[place] Negative Normal Negative [facility] Comment on above: Performed By: #### C [id number] ####[facility] [id number] [place] [address] HSV Type II IgG-[place] Negative Normal Negative [facility] Comment on above: Result Comment: Test Performed by:[facility] [place] [address] Performed By: #### C [id number] ####[facility] [id number] [place] [address] RPRon 09-27-2017 RPR Ql Non-Reactive Normal Non-Reacti ve [facility] Comment on above: Performed By: #### R LA ####[address] [address] Chlam & GC, DNAon 09-26-2017 Chlamydia, DNA Negative Normal Negative [facility] Comment on above: Result Comment: The APTIMA [...] to the clinician. Performed By: #### C [id number] ####[address] [address] [place] [address] Gonorrhea, DNA Negative Normal Negative [facility] Comment on above: Result Comment: The APTIMA [...] to the clinician. Performed By: #### C [id number] ####[address] [address] Gynecology Office/Clinic Not lindy 09-25-2017 Gynecology Office/Clinic [...] in 3 months for repeat injection Ordered: [id number] AMB Urine POC 2. Encounter for initial prescription of injectable contraceptive Ordered: [id number] AMB Urine POC 3. Routine screening for [...] oral tablet, 500 mg, 1 tabs, Oral, [id number] No Known Medication AllergiesSocial History Alcohol Never Sexual Sexually active: Yes. Substance Abuse Denies All Tobacco Current every day smoker, Cigarettes, 1 per day. Packs, 1 year(s).Family History Family history is negativeDiagnostic Results No qualifying data available. No qualifying data available. No qualifying data available. No qualifying data available.Electronically signed by Janeth Mace CNP 09/25/17 16:07 EDT Normal [facility] HIV 1 & 2 ABon 09-25-2017 HIV 1, HIV 2 AB Interp Normal Negative [facility] Comment on above: Result Comment: Nega tive Performed By: #### H IV12 ####[place] [address] Hep Bs Agon 09-25-2017 Body surface area Derived from formula Normal Negative [facility] Comment on above: Result Comment: Nega tive Performed By: #### H BSAG ####[place] [address] Hep C Ab w/reflex HCV RNA Qn t, PCRon 09-25-2017 Hep C IgG Interp Normal Negative [facility] Comment on above: Result Comment: Nega tive Performed By: #### H CV ####[place] [address] [place] Trackon 09-25-2017 Pl Red # 1 Normal [facility] Comment on above: Performed By: #### O elisabeth Tracking Order ####[place] [address] Ambulatory Patient Education on 09-20-2017 Ambulatory Patient Education Patient Education MaterialsName: Tammy Rabia Ramos March Current Date: 09/20/2017 15:26:32 [place]OB: 1995 following sheet(s) are the Patient Education Leaflets for Rabia Gaspar MarchDrugSheetsMedroxypro gesterone injection [Contraceptive]What is this medicine?MEDROXYPROGESTERONE (me DROX ee proe CASSANDRA te zeferino) contraceptive injections prevent . They provide effective control for 3 months. Depo-subQ Provera 104 is also used for treating pain related to endometriosis.How should I use this medicine?Depo-Provera Contraceptive injection is given into a muscle. Depo-subQ Provera 104 injection is given under the skin. These injections are given by a health career development counselor. You must not be before getting an injection. The injection is usually given during the first 5 days after the start of a menstrual period or 6 weeks after delivery of a baby.Talk to your equipment washer regarding the use of this medicine in children. Special care may be needed. These injections have been used in female children who have started having menstrual periods.What side effects may I notice from receiving this medicine?Side effects that you should report to your doctor or health career development counselor as soon as possible:? allergic reactions like [...] attention (report to your doctor or health career development counselor if they continue or are bothersome):? acne? [...] like ethotoin, felbamate, oxcarbazepine, phenytoin, topiramate? modafinil? [place]'s wortWhat if I miss a dose?Try not [...] be given to you by a health career development counselor.What should I tell my health care provider [...] risk for weak bones. Ask your health career development counselor how you can keep strong bones.You may have a change in bleeding pattern or irregular periods. Many females stop having periods while taking this drug.If you have received your injections on time, your chance of being is very low. If you think you may be , see your health career development counselor as soon as possible.Tell your health career development counselor if you want to get within the next year. The effect of this medicine may last a long time after you get your last injection.NOTE:This sheet is a summary. It may not cover all possible information. If you have questions about this medicine, talk to your doctor, pharmacist, or health care provider. Copyright? 2017 [employer] [facility] Obstetrics Office/Clinic Not lindy 09-11-2017 Obstetrics Office/Clinic [...] available. No qualifying data available.Electronically signed by Florina smart CNPJaneth 09/11/17 16:33 EDT Normal [facility] Ambulatory Patient Education on 09-09-2017 Ambulatory Patient Education Patient Education MaterialsName: Rabia Gaspar Richard March Current Date: 09/09/2017 11:00:43 [place]_YorkDOB: 1995 following sheet(s) are the Patient Education Leaflets for Rabia Gaspar Richard LackeyAmbulatoryBirth Control MethodsBirth control methods are used to [...] want to have children in the future.? 3768-2010 [employer]. [address] [place] [address]. All rights reserved. This information is not intended as a substitute for professional medical care. Always follow your healthcare professional's instructions. [facility] VNOTEon 12-30-2016 OTE EMERGENCY DEPARTMENT REPORT [place] [address] Patient: RABIA GASPAR Date of : 1995 Unit#: [id number] DOS: 12/30/16 History of Present Illness Chief [...] is noted to the lower extremities. Skin: [place], warm and dry, no lesions, rashes, ulcers, or lacerations noted. Skin turgor is appropriate for age. BACK: shows no obvious deformity, bruising, swelling or lesions. No CVA tenderness. NEURO: Alert and oriented x 3, no gross focal deficits. Diagnostic Labs Laboratory Tests Test 12/30/16 14:08 Urine Color Lt. yellow (YELLOW) Urine Appearance Cloudy (CLEAR) Urine pH 6.0 (5.0-8.5) Urine Specific [place] 1.025 (1.005-1.030) Urine Protein 100 mg/dL (NEGATIVE) [...] NP Dec 30, 2016 14:40 Sign dt/tm: 12/30/161440 LESLY OLIVAREZ NP < > Dict Dr: ASHLEY Velasquez dt/tm: 12/30/16 144 Trans: ANGELA Trans dt/tm: 12/30/16 144 [~ rep ct ivnm] [~ rep ct add1] [~ rep ct add2] [~ rep ct add3] Normal [facility] Vital Signs Date Time Vital Sign Value Performing Clinician Sam camargo 07-10-2023 15:07-0400 Body height 177.8 cm DO Quique Elkin Work Phone: [facility] 07-10-2023 15:07-0400 Body temperature 98.8 [degF] DO Quique Granger Work Phone: [facility] 07-10-2023 15:07-0400 Body weight 74.9 kg DO Quique Granger Work Phone: [facility] 07-10-2023 15:07-0400 Diastolic blood pressure 83 mm[Hg] DO Quique Granger Work Phone: [facility] 07-10-2023 15:07-0400 Heart rate 63 /min DO Quique Granger Work Phone: [facility] 07-10-2023 15:07-0400 Respiratory rate 16 /min DO Quique Granger Work Phone: [facility] 07-10-2023 15:07-0400 SaO2% (BldA) [Mass fraction] 99 % DO Quique Granger Work Phone: [facility] 07-10-2023 15:07-0400 Systolic blood pressure 154 mm[Hg] DO Quique Granger Work Phone: [facility] 06-22-2022 21:11-0500 Body height 175.26 cm PHYSICIAN NO [facility] 06-22-2022 21:11-0500 Body temperature 98.2 [degF] PHYSICIAN NO [facility] 06-22-2022 21:11-0500 Body weight 63 kg PHYSICIAN NO [facility] 06-22-2022 21:11-0500 Diastolic blood pressure 65 mm[Hg] PHYSICIAN NO [facility] 06-22-2022 21:11-0500 Heart rate 91 /min PHYSICIAN NO [facility] 06-22-2022 21:11-0500 Respiratory rate 16 /min PHYSICIAN NO [facility] 06-22-2022 21:11-0500 SaO2% (BldA) [Mass fraction] 99 % PHYSICIAN NO [facility] 06-22-2022 21:11-0500 Systolic blood pressure 115 mm[Hg] PHYSICIAN NO [facility] 06-20-2022 02:51-0500 Diastolic blood pressure 52 mm[Hg] PHYSICIAN NO [facility] 06-20-2022 02:51-0500 Heart rate 82 /min PHYSICIAN NO [facility] 06-20-2022 02:51-0500 Respiratory rate 18 /min PHYSICIAN NO [facility] 06-20-2022 02:51-0500 SaO2% (BldA) [Mass fraction] 100 % PHYSICIAN NO [facility] 06-20-2022 02:51-0500 Systolic blood pressure 102 mm[Hg] PHYSICIAN NO [facility] 06-19-2022 22:23-0500 Body height 172.72 cm PHYSICIAN NO [facility] 06-19-2022 22:23-0500 Body temperature 100 [degF] PHYSICIAN NO [facility] 06-19-2022 22:23-0500 Body weight 60.45 kg PHYSICIAN NO [facility] Encounters Encounter Date Encounter Type Care Provider Facility Start: 02-17-2024 End: 02-17-2024 Bamboo flowsheet Rubio Tara DO Work Phone: [facility] Start: 02-17-2024 End: 02-17-2024 Bamboo flowsheet Rubio Tara DO Work Phone: [facility] Start: 02-17-2024 End: 02-17-2024 ambulatory RUBIO TARA Not Available Start: 02-14-2024 End: 02-14-2024 Clinisync Result Encounter Rubio Tara DO Work Phone: [facility] Unsolicited Start: 02-14-2024 End: 02-14-2024 Clinisync Result Encounter Rubio Tara DO Work Phone: [facility] Unsolicited Start: 01-16-2024 End: 01-16-2024 ambulatory RUBIO TARA Not Available Start: 07-10-2023 End: 07-10-2023 Emergency department patient visit Trae Richey Facility:[facility] Start: 07-10-2023 End: 07-10-2023 Emergency department patient visit DO Quique Granger Work Phone: [facility]-Emergency Room Work Phone: Start: 05-31-2023 End: 05-31-2023 ambulatory Greg Miakl Facility:[facility] Start: 05-31-2023 End: 05-31-2023 ambulatory DO Quique Granger Work Phone: [facility] Work Phone: Start: 05-31-2023 End: 05-31-2023 Departed Referred DO Quique Granger Work Phone: [facility] Start: 06-22-2022 End: 06-22-2022 Emergency department patient visit PHYSICIAN NO [facility]-Emergency Room Work Phone: Start: 06-19-2022 End: 06-20-2022 Emergency department patient visit PHYSICIAN NO [facility]-Emergency Room Work Phone: Start: 12-26-2017 End: 12-27-2017 Patient encounter JANETH PABON Facility:[facility] Start: 11-11-2017 End: 11-12-2017 Patient encounter JANETH PABON Facility:[facility] Start: 11-07-2017 End: 11-07-2017 Emergency department patient visit Jarret Oquendo Facility:[facility] Start: 10-30-2017 End: 10-30-2017 Emergency department patient visit Alex Suarez Facility:[facility] Start: 09-25-2017 End: 09-26-2017 Patient encounter JANETH PABON Facility:[facility] Start: 09-25-2017 End: 09-26-2017 Patient encounter JANETH PABON Facility:[facility] Start: 09-11-2017 End: 09-12-2017 Patient encounter JANETH PABON Facility:[facility] Start: 12-30-2016 End: 12-30-2016 Emergency department patient visit LESLY OLIVAREZ Facility:[facility] Procedures Date Procedure Procedure Detail Performing Clinician Start: 02-14-2024 BOX TEST Rubio ferguson DO Work Phone: Start: 06-20-2022 Aerobic microbial culture PHYSICIAN NO FAMILY Plan of Treatment Date Care Activity Detail Author Start: 02-17-2024 End: 02-17-2024 Patient encounter procedure 02/17/2024 8:30 AM EDT Routine [facility] [address] [place] [id number] Rubio Pacheco, DO [address] [place] [address] [facility] Start: 06-20-2022 Bacteria identified in Blood by Culture Blood Culture [facility] Start: 06-20-2022 Blood culture for bacteria, including anaerobic screen Blood Culture [facility] Start: 06-20-2022 Superficial Wound Culture Superficial Wound Culture [facility] Patient Education [facility] Work Phone: Patient referral [facility] Work Phone: Payers Date Payer Category Payer Medicaid (Managed Care) [facility] MEDICAID [id number] 2023 Medicaid [id number] 2023 Private Health Insurance [id number] 2023 Self-pay 2017 Unknown 1995 Unknown [id number] 1995 Unknown [id number] Unknown Christofer BC/BS [id number] Unknown [id number] Unknown [id number] Social History Date Type Detail Facility Start: 06-20-2022 End: 07-10-2023 Tobacco smoking status CAIS Smoker (finding) [facility] Start: 04-22-2014 History of tobacco use [facility] Work Phone: Start: 1995 Sex Assigned At Female [facility] Tobacco smoking status [facility] Tobacco smoking consumption unknown [facility] Start: 11-07-2023 [facility] Start: 01-09-2024 Gender identity Identifies as female gender (finding) [facility] Healthcare NEGATED: Highlighted row [facility] Evaluation note Note Date & Type Note Facility Evaluation note No assessment information availa ble [facility] Work Phone: Hospital Discharge instructions Note Date [...] to you for ongoing evaluation and care. [facility] Work Phone: Hospital Discharge instructions Note Date & Type Note Facility Hospital Discharge instructions Additional Instructions Take prednisone as directed Take Pepcid as directed Take Benadryl as needed for itching Warm soaks several times a day as discussed Avoid picking, popping, poke area affected Follow-up with your doctor Saturday Return here if any problems persist or worsen as history [facility] Work Phone: Hospital Discharge instructions Note Date & Type Note Facility Hospital Discharge instructions Additional Instructions Continue to take Benadryl every 8 hours [facility] Work Phone: Summary Purpose Family History No Family History Records FoundNo Family History Records FoundNo Family History Records FoundNo Family History Records FoundNo Family History Records Found Advance Directives No Advanced Directives Records Found Advance Directive Response Recorded Date/ Time Advance Directives No June 20 12:26am Advance Directive Response Recorded Date/ Time Advance Directives No June 20 1:26am Chief Complaint and Reason for Visit Chief Complaint growth on left leg Chief Complaint growth on left leg rash Chief Complaint F32.0 allergic reaction Additional Source Comments INFORMATION SOURCE (unrecogn ized section and content) DATE CREATED AUTHOR 10/16/2017 [facility] DATE CREATED AUTHOR AUTHOR'S ORGANIZ ATION 01/05/2018 [facility] DATE CREATED AUTHOR AUTHOR'S ORGANIZ ATION 12/06/2020 [facility] DATE CREATED AUTHOR AUTHOR'S ORGANIZ ATION 07/12/2023 [facility] DATE CREATED AUTHOR AUTHOR'S ORGANIZ ATION 02/17/2024 [facility] Specialists EPIC Care Teams (unrecognized sec tion and content) [...] Team Status: Active Member Role Status Dates Services Count Includes [facility] Primary Care Provider Ac tive Team Status: Inactive Member Role Status Dates Quique Granger DO Referring Provider Active St art: May 31, 2023 End: May 31, 2023 Greg Ren DO Attending Provider Active Start : May 31, 2023 End: May 31, 2023 Team Status: Inactive Member Role Status On License Of [facility] Primary Care Provider Ac tive Start: July 10, 2023 [...] BE BASED ON THE PRIMARY CLINICAL RECORDS. [facility] [employer] [facility]. provides no warranty or guarantee of the accuracy or completeness of information in this document.
== END 2024-02-17 21:04 | disposition home or self-care (01) ==
LOC: LAB 21:03
PROVIDERS: Visit Provider Obstetrics & Gynecology
DX: Z01.419 Encounter for gynecological examination (general) (routine) without abnormal findings (principal)
CPT/HCPCS: 88175

== ENCOUNTER 2024-02-29 10:23 | Outpatient (OUT) | payer OTHER, SELFPAY ==
--- OUTSIDE RECORDS SUMMARY | 2024-02-29 10:28 | XMS_ITS | CCD ---
Author Organization [facility] Care Team Providers Care Marine Erector Name Role Phone LESLY OLIVAREZ Unavailable Unavailable HERMILLER, AHMET R Unavailable Unavailable HERMILLER, AHMET R Unavailable Unavailable HERMILLER, AHMET R Unavailable Unavailable Alex Suarez Unavailable Unavailable HERMILLER, AHMET R Unavailable Unavailable Jarret Oquendo Unavailable Unavailable NO FAMILY, PHYSICIAN Primary Care Provider UnaDO Luis Chan Emergency Provider HAO Hernandez Emergency Provider DO Quique Granger Attending Provider [phone] Trae Richey Admitting Unavailable Trae Richey Attending Unavailable [facility] Primary Care navailGreg Saenz Admitting Unavailable Greg Ren Attending Unavailable Quique Granger Referring Unavailable DO Quique Granger Referring Provider [phone] DO Greg Ren Attending Provider [facility] Primary Care [facility] ider HAO Richey Emergency Provider Unavailable Primary Care Provider UnavailFRANCO [place] Attending Unavailable Allergies Allergy Classification Reported Allergen(s) Allergy Type Date of Onset Reaction(s) Facility (1 source) No Known Medication Allergies; Translations: [No Known Medication Allergies] Propensity to adverse reactions to drug (disorder) [facility] Repository Medications Current Medications Medication Drug Class(es) Dates Sig (Normalized) Sig (Original) ondansetron 4 mg disintegrating oral tablet (6 sources) Serotonin-3 Receptor Antagonist Start: 01-16-2024 End: [...] Fumarate-FA (PNV Plus Multivitamin) 27-1 MG tablet (5 sources) Start: 01-16-2024 End: 01-15-2025 take 1 [...] 3:08pm Problems Problem Classification Problem Date Documented Date Episodic/Chronic Allergic reactions (4 sources) Allergic reaction; Translations: [Allergy, unspecified, initial encounter] 06-22-2022 Episodic Fluid and electrolyte disorders (4 sources) Hypokalemia; Translations: [Hypokalemia] 06-20-2022 Episodic Immunizations and screening for infectious disease (2 sources) Exposure to sexually transmissible disorder; Translations: [Contact with and (suspected) exposure to infections with a predominantly sexual mode of transmission] 02-17-2024 Episodic Mood disorders (1 source) Major depressive disorder, single episode, mild; Translations: [Major depressive disorder, single episode, mild] Onset: 05-31-2023 Chronic Other aftercare (3 sources) Follow-up status; Translations: [Encounter for change or removal of nonsurgical wound dressing] 06-22-2022 Episodic Other and delivery including normal (2 sources) Second trimester ; Translations: [Encounter for supervision of normal , unspecified, second trimester] 02-17-2024 Episodic Other screening for suspected conditions (not mental disorders or infectious disease) (4 sources) Alpha-fetoprotein blood test status; Translations: [Encounter for screening for raised alphafetoprotein level] 02-17-2024 Episodic Residual codes; unclassified (2 sources) Gestation period, 16 weeks; Translations: [16 weeks gestation of ] 02-17-2024 Episodic Skin and subcutaneous tissue infections (8 sources) Abscess; Translations: [Cutaneous abscess, unspecified] 06-20-2022 Episodic Results Test Name Value Interpretation Reference Range Facility IGP,APTIMA HPV,AGE GDLNon AGE GDLN ACOG TESTING Note . [facility] Comment on above: TESTS RESULT FLAG UN ITS REF RANGE LAB Clinician Provided Cytology Information Source.............Cervix;Vulva Other.............. No. of containers..01 ThinPrep Vial Age Algo ACOG Lauren... FLAG LEGEND: L-Low Normal,H-High Normal,LL-Alert Low,HH-Alert High <-Panic Low,>-Panic High,A-Abnormal,AA-Critical Abnormal Performed at: 01 =G [facility] [address] [place] [address] Fernanda Macedo MD, IGP, RFX APTIMA HPV ASCU Note . [facility] Comment on above: TESTS RESULT FLAG UN ITS REF RANGE LAB DIAGNOSIS: 02 NEGATIVE FOR INTRAEPITHELIAL LESION OR MALIGNANCY. Specimen adequacy: 02 Satisfactory for evaluation. No endocervical component is identified. An endocervical component is not commonly seen in the patient. Performed by: 02 Marco Butterfield Field Service Analyst ([facility]) . 02 Note: Note 02 The Pap smear is a screening test designed to aid in the detection of premalignant and malignant conditions of the uterine cervix. It is not a diagnostic procedure and should not be used as the sole means of detecting cervical cancer. Both false-positive and false-negative reports do occur. Test Methodology: Note 02 This liquid based ThinPrep(R) pap test was screened with the use of an image guided system. . 02 The HPV DNA reflex criteria were not met with this specimen result therefore, no HPV testing was performed. FLAG LEGEND: L-Low Normal,H-High Normal,LL-Alert Low,HH-Alert High <-Panic Low,>-Panic High,A-Abnormal,AA-Critical Abnormal Performed at: 02 [facility] [address] [place], [place] [address] Fernanda Macedo MD, Performed at: =[address] [id number] [employer] Attendant: Fernanda Macedo MD, Phone: [phone] Performed at: [address] [id number] [employer] Attendant: Fernanda Macedo MD, Phone: [phone] [facility] URETHRITIS/DISCHARGE PLUS VA GINITIS (HTRX)on 02-19-2024 ATOPOBIUM VAGINAE 19.009 Abnormal [facility] ATOPOBIUM VAGINAE Detected Abnormal [facility] BVAB 2,3 (BACTERIAL VAGINOSIS ASSOCIATED BACTERIA 2, 3); MOBILUNCUS SPP 9.763 Abnormal [facility] BVAB 2,3 (BACTERIAL VAGINOSIS ASSOCIATED BACTERIA 2, 3); MOBILUNCUS SPP Detected Abnormal [facility] KRYSTYNA ALBICANS, PARAPSILOSIS, TROPICALIS 0 [facility] KRYSTYNA ALBICANS, PARAPSILOSIS, TROPICALIS Not detected [facility] KRYSTYNA GLABRATA 0 [facility] KRYSTYNA GLABRATA Not detected [facility] KRYSTYNA KRUSEI 0 [facility] KRYSTYNA KRUSEI Not detected [facility] CHLAMYDIA TRACHOMATIS 26.358 Abnormal [facility] CHLAMYDIA TRACHOMATIS Detected Abnormal [facility] ERMB, C; MEFA 24.199 Abnormal [facility] ERMB, C; MEFA Detected Abnormal [facility] GARDNERELLA VAGINALIS 22.01 Abnormal [facility] GARDNERELLA VAGINALIS Detected Abnormal [facility] Interpretation and review of laboratory results Abnormal [facility] MEGASPHAERA (TYPES 1, 2) 20.793 Abnormal [facility] MEGASPHAERA (TYPES 1, 2) Detected Abnormal [facility] MYCOPLASMA GENITALIUM 0 [facility] MYCOPLASMA GENITALIUM Not detected [facility] NEISSERIA GONORRHOEAE 0 [facility] NEISSERIA GONORRHOEAE Not detected [facility] TET B, TET M 17.287 Abnormal [facility] TET B, TET M Detected Abnormal [facility] TRICHOMONAS VAGINALIS 0 [facility] TRICHOMONAS VAGINALIS Not detected [facility] BOX TESTon 02-14-2024 BOX TEST SENT OUT UNITY [facility] BOX1 [facility] BOX2 02/14/24 [facility] Alanine aminotransferase [En zymatic activity/volume] in Serum or PlasmaOrdered By: Quique Granger on 05-31-2023 ALT [Catalytic activity/Vol] 122 U/L 7-52 [facility] Albumin [Mass/volume] in Ser um or Plasma by Bromocresol green (BCG) dye binding methoOrdered By: Quique Granger on 05-31-2023 Albumin BCG dye [Mass/Vol] 4.4 g/dL 3.5-5.7 [facility] Alkaline phosphatase [Enzyma tic activity/volume] in Serum or PlasmaOrdered By: Quique Granger on 05-31-2023 ALP [Catalytic activity/Vol] 51 U/L 34-104 [facility] Aspartate aminotransferase [ Enzymatic activity/volume] in Serum or PlasmaOrdered By: Quique Granger on 05-31-2023 AST [Catalytic activity/Vol] 93 U/L 13-39 [facility] Basophils Auto (Bld) [#/Vol] Ordered By: Quique Granger on 05-31-2023 Basophils (Bld) [#/Vol] 0.0 10*3/uL 0.0-0.2 [facility] Basophils/100 WBC Auto (Bld) Ordered By: Quique Granger on 05-31-2023 Basophils/100 WBC (Bld) 0.6 % . [facility] Bilirubin.total [Mass/volume ] in Serum or PlasmaOrdered By: Quique Granger on 05-31-2023 Bilirubin [Mass/Vol] 0.5 mg/dL 0.3-1.0 [facility] Calcium [Mass/volume] in Ser um or PlasmaOrdered By: Quique Granger on 05-31-2023 Calcium [Mass/Vol] 9.2 mg/dL 8.6-10.3 [facility] Carbon dioxide, total [Moles /volume] in Serum or PlasmaOrdered By: Quique Granger on 05-31-2023 CO2 [Moles/Vol] 25.4 mmol/L 21.0-31.0 [facility] Chloride [Moles/volume] in S quan or PlasmaOrdered By: Quique Granger on 05-31-2023 Chloride [Moles/Vol] 106 mmol/L 98-107 [facility] Complete Blood Count Auto Di ffon 05-31-2023 Basophils (Bld) [#/Vol] 0.0 10*3/uL Normal 0.0-0.2 [facility] Comment on above: Result Comment: PERF ORMED BY: [place] [address] PATHOLOGIST [employer] ADRIAN LANG M.D. Performed By: #### T SH3 wRFLX, CMP, CBC #### [facility] [address] Basophils/100 WBC (Bld) 0.6 % Normal . [facility] Comment on above: Performed By: #### T SH3 wRFLX, CMP, CBC #### [facility] [address] Eosinophils (Bld) [#/Vol] 0.2 10*3/uL Normal 0.0-0.45 [facility] Comment on above: Performed By: #### T SH3 wRFLX, CMP, CBC #### [facility] [address] [place] [address] Eosinophils/100 WBC (Bld) 3.9 % Normal . [facility] Comment on above: Performed By: #### T SH3 wRFLX, CMP, CBC #### [facility] [address] [place] [address] Erythrocyte distribution width (RBC) [Ratio] 13.8 % Normal 11.9-15.3 [facility] Comment on above: Performed By: #### T SH3 wRFLX, CMP, CBC #### [facility] [address] [place] [address] Hematocrit (Bld) [Volume fraction] 39.2 % Normal 34.0-46.4 [facility] Comment on above: Performed By: #### T SH3 wRFLX, CMP, CBC #### [facility] [address] Hemoglobin (Bld) [Mass/Vol] 13.2 g/dL Normal 11.8-15.4 [facility] Comment on above: Performed By: #### T SH3 wRFLX, CMP, CBC #### [address] Lymphocytes (Bld) [#/Vol] 1.7 10*3/uL Normal 1.00-4.8 [facility] Comment on above: Performed By: #### T SH3 wRFLX, CMP, CBC #### [address] Lymphocytes/100 WBC (Bld) 27.2 % Normal . [facility] Comment on above: Performed By: #### T SH3 wRFLX, CMP, CBC #### [address] MCH (RBC) [Entitic mass] 29.0 pg Normal 24.7-34.3 [facility] Comment on above: Performed By: #### T SH3 wRFLX, CMP, CBC #### [address] MCV (RBC) [Entitic vol] 86.3 fL Normal 80-100 [facility] Comment on above: Performed By: #### T SH3 wRFLX, CMP, CBC #### [address] Mean Corpuscular HGB Conc 33.6 g/dL Normal 32.0-35.0 [facility] Comment on above: Performed By: #### T SH3 wRFLX, CMP, CBC #### [address] Monocytes (Bld) [#/Vol] 0.5 10*3/uL Normal 0.0-0.8 [facility] Comment on above: Performed By: #### T SH3 wRFLX, CMP, CBC #### [address] Monocytes/100 WBC (Bld) 7.9 % Normal . [facility] Comment on above: Performed By: #### T SH3 wRFLX, CMP, CBC #### [address] Neutrophils (Bld) [#/Vol] 3.8 10*3/uL Normal 1.8-7.7 [facility] Comment on above: Performed By: #### T SH3 wRFLX, CMP, CBC #### [facility] [address] Neutrophils/100 WBC (Bld) 60.4 % Normal . [facility] Comment on above: Performed By: #### T SH3 wRFLX, CMP, CBC #### [facility] [address] NRBC% 0.1 /100{WBC} Normal 0-0.5 [facility] Comment on above: Performed By: #### T SH3 wRFLX, CMP, CBC #### [address] Platelet mean volume (Bld) [Entitic vol] 10.0 fL Normal 6.3-10.7 [facility] Comment on above: Performed By: #### T SH3 wRFLX, CMP, CBC #### [address] Platelets (Bld) [#/Vol] 210 10*3/uL Normal 150-450 [facility] Comment on above: Performed By: #### T SH3 wRFLX, CMP, CBC #### [address] RBC (Bld) [#/Vol] 4.54 10*6/uL Normal 3.60-5.00 [facility] Comment on above: Performed By: #### T SH3 wRFLX, CMP, CBC #### [address] WBC (Bld) [#/Vol] 6.3 10*3/uL Normal 3.8-11.6 [facility] Comment on above: Performed By: #### T SH3 wRFLX, CMP, CBC #### [address] Comprehensive Metabolic Pane caden 05-31-2023 Albumin [Mass/Vol] 4.4 g/dL Normal 3.5-5.7 [facility] Comment on above: Performed By: #### T SH3 wRFLX, CMP, CBC #### [facility] [address] [place] [address] [place] Albumin/Globulin [Mass ratio] 1.9 {ratio} Normal [facility] Comment on above: Performed By: #### T SH3 wRFLX, CMP, CBC #### [facility] [address] ALP [Catalytic activity/Vol] 51 U/L Normal 34-104 [facility] Comment on above: Performed By: #### T SH3 wRFLX, CMP, CBC #### [facility] [address] ALT [Catalytic activity/Vol] 122 U/L High 7-52 [facility] Comment on above: Performed By: #### T SH3 wRFLX, CMP, CBC #### [facility] [address] [place] [address] [place] Anion gap [Moles/Vol] 9.8 mmol/L Normal 6.0-15.0 [facility] Comment on above: Performed By: #### T SH3 wRFLX, CMP, CBC #### [facility] [address] [place] [address] [place] AST [Catalytic activity/Vol] 93 U/L High 13-39 [facility] Comment on above: Performed By: #### T SH3 wRFLX, CMP, CBC #### [facility] [address] [place] [address] [place] Bilirubin [Mass/Vol] 0.5 mg/dL Normal 0.3-1.0 [facility] Comment on above: Performed By: #### T SH3 wRFLX, CMP, CBC #### [facility] [address] [place] [address] [place] Calcium [Mass/Vol] 9.2 mg/dL Normal 8.6-10.3 [facility] Comment on above: Performed By: #### T SH3 wRFLX, CMP, CBC #### [facility] [address] [place] [address] [place] Chloride [Moles/Vol] 106 mmol/L Normal 98-107 [facility] Comment on above: Performed By: #### T SORIN Valentine CMP, CBC #### [facility] [address] CO2 [Moles/Vol] 25.4 mmol/L Normal 21.0-31.0 [facility] Comment on above: Performed By: #### T SORIN SimpsonX CMP, CBC #### [facility] [address] Creatinine [Mass/Vol] 0.51 mg/dL Low 0.60-1.20 [facility] Comment on above: Performed By: #### T SORIN Valentine CMP, CBC #### [place] [address] [place] GFR/1.73 sq M.predicted MDRD (S/P/Bld) [Vol rate/Area] mL/min/{1.73_m2} [facility] Comment on above: Performed By: #### T SORIN Valentine CMP, CBC #### [facility] [address] Globulin (S) [Mass/Vol] 2.3 g/dL Normal [facility] Comment on above: Performed By: #### T SORIN Valentine CMP, CBC #### [address] Glucose [Mass/Vol] 92 mg/dL Normal 70-100 [facility] Comment on above: Result Comment: [place] Glucose Reference Range is dependent on time and content of last meal. Glucose of more than 200 mg/dL in a nonstressed, ambulatory subject supports the diagnosis of Diabetes Mellitus. ADA recommended reference range Performed By: #### T SORIN Valentine CMP, CBC #### [facility] [address] Potassium [Moles/Vol] 4.2 mmol/L Normal 3.5-5.1 [facility] Comment on above: Performed By: #### T SORIN SimpsonX, CMP, CBC #### [facility] [address] [place] [address] [place] Protein [Mass/Vol] 6.7 g/dL Normal 6.4-8.9 [facility] Comment on above: Performed By: #### T SH3 wRFLX, CMP, CBC #### [facility] [address] [place] [address] [place] Sodium [Moles/Vol] 137 mmol/L Normal 136-145 [facility] Comment on above: Performed By: #### T SH3 wRFLX, CMP, CBC #### [facility] [address] [place] [address] [place] Urea nitrogen [Mass/Vol] 9 mg/dL Normal 7-25 [facility] Comment on above: Performed By: #### T SH3 wRFLX, CMP, CBC #### [facility] [address] [place] [address] [place] Creatinine [Mass/volume] in Serum or PlasmaOrdered By: Quique Granger on 05-31-2023 Creatinine [Mass/Vol] 0.51 mg/dL 0.60-1.20 [facility] Eosinophils Auto (Bld) [#/Vo l]Ordered By: Quique Granger on 05-31-2023 Eosinophils (Bld) [#/Vol] 0.2 10*3/uL 0.0-0.45 [facility] Eosinophils/100 WBC Auto (Bl d)Ordered By: Quique Granger on 05-31-2023 Eosinophils/100 WBC (Bld) 3.9 % . [facility] Erythrocyte distribution wid th Auto (RBC) [Ratio]Ordered By: Quique Granger on 05-31-2023 Erythrocyte distribution width (RBC) [Ratio] 13.8 % 11.9-15.3 [facility] Globulin Calc (S) [Mass/Vol] Ordered By: Quique Granger on 05-31-2023 Globulin (S) [Mass/Vol] 2.3 g/dL [facility] Glucose [Mass/volume] in Ser um or PlasmaOrdered By: Quique Granger on 05-31-2023 Glucose [Mass/Vol] 92 mg/dL 70-100 [facility] Comment on above: ADA recommended refe rence rangeRandom Glucose Reference Range is dependent on time and content of last meal. Glucose of more than 200 mg/dL in a nonstressed, ambulatory subject supports the diagnosis of Diabetes Mellitus. Hematocrit Auto (Bld) [Volum e fraction]Ordered By: Quique Granger on 05-31-2023 Hematocrit (Bld) [Volume fraction] 39.2 % 34.0-46.4 [facility] Hemoglobin [Mass/volume] in BloodOrdered By: Quique Granger on 05-31-2023 Hemoglobin (Bld) [Mass/Vol] 13.2 g/dL 11.8-15.4 [facility] Leukocytes [#/volume] correc adrienne for nucleated erythrocytes in Blood by Automated counOrdered By: Quique Granger on 05-31-2023 WBC corrected for nucl RBC Auto (Bld) [#/Vol] 6.3 10*3/uL 3.8-11.6 [facility] Lymphocytes Auto (Bld) [#/Vo l]Ordered By: Quique Granger on 05-31-2023 Lymphocytes (Bld) [#/Vol] 1.7 10*3/uL 1.00-4.8 [facility] Lymphocytes/100 WBC Auto (Bl d)Ordered By: Quique Granger on 05-31-2023 Lymphocytes/100 WBC (Bld) 27.2 % . [facility] MCH Auto (RBC) [Entitic mass ]Ordered By: Quique Granger on 05-31-2023 MCH (RBC) [Entitic mass] 29.0 pg 24.7-34.3 [facility] MCHC Auto (RBC) [Mass/Vol]Or dered By: Quique Granger on 05-31-2023 MCHC (RBC) [Mass/Vol] 33.6 g/dL 32.0-35.0 [facility] MCV Auto (RBC) [Entitic vol] Ordered By: Quique Granger on 05-31-2023 MCV (RBC) [Entitic vol] 86.3 fL 80-100 [facility] Monocytes Auto (Bld) [#/Vol] Ordered By: Quique Granger on 05-31-2023 Monocytes (Bld) [#/Vol] 0.5 10*3/uL 0.0-0.8 [facility] Monocytes/100 WBC Auto (Bld) Ordered By: Quique Granger on 05-31-2023 Monocytes/100 WBC (Bld) 7.9 % . [facility] Neutrophils Auto (Bld) [#/Vo l]Ordered By: Quique Granger on 05-31-2023 Neutrophils (Bld) [#/Vol] 3.8 10*3/uL 1.8-7.7 [facility] Neutrophils/100 WBC Auto (Bl d)Ordered By: Quique Granger on 05-31-2023 Neutrophils/100 WBC (Bld) 60.4 % . [facility] No Panel InformationOrdered By: Quique Granger on 05-31-2023 Estimated GFR (CKD-EPI) > 60.0 mL/Min [facility] Creatinine Clearance (Chem N/A [facility] Nucleated erythrocytes [Pres ence] in Blood by Automated countOrdered By: Quique Granger on 05-31-2023 Nucleated RBC Auto Ql (Bld) 0.1 /100{WBC} 0-0.5 [facility] Platelet mean volume Auto (B ld) [Entitic vol]Ordered By: Quique Granger on 05-31-2023 Platelet mean volume (Bld) [Entitic vol] 10.0 fL 6.3-10.7 [facility] Platelets Auto (Bld) [#/Vol] Ordered By: Quique Granger on 05-31-2023 Platelets (Bld) [#/Vol] 210 10*3/uL 150-450 [facility] Potassium [Moles/volume] in Serum or PlasmaOrdered By: Quique Granger on 05-31-2023 Potassium [Moles/Vol] 4.2 mmol/L 3.5-5.1 [facility] Protein [Mass/volume] in Ser um or PlasmaOrdered By: Quique Granger on 05-31-2023 Protein [Mass/Vol] 6.7 g/dL 6.4-8.9 [facility] RBC Auto (Bld) [#/Vol]Ordere d By: Quique Granger on 05-31-2023 RBC (Bld) [#/Vol] 4.54 10*6/uL 3.60-5.00 [facility] Serum or plasma albumin/glob ulin mass ratioOrdered By: Quique Granger on 05-31-2023 Albumin/Globulin [Mass ratio] 1.9 {ratio} [facility] Serum or plasma anion gap de terminationOrdered By: Quique Granger on 05-31-2023 Anion gap [Moles/Vol] 9.8 mmol/L 6.0-15.0 [facility] Sodium [Moles/volume] in Ser um or PlasmaOrdered By: Quique Granger on 05-31-2023 Sodium [Moles/Vol] 137 mmol/L 136-145 [facility] Thyroid Stim Hormone w/Rflxo n 05-31-2023 Thyroid Stim Hormone w/Rflx 0.86 u[iU]/mL Normal 0.45-5.33 [facility] Comment on above: Result Comment: PERF ORMED BY: [place] [address] PATHOLOGIST [employer] ADRIAN LANG M.D. Performed By: #### T SH3 wRFLX, CMP, CBC #### [facility] [address] Thyrotropin [Units/volume] i n Serum or PlasmaOrdered By: Quique Granger on 05-31-2023 TSH Qn 0.86 m[IU]/L 0.45-5.33 [facility] Urea nitrogen [Mass/volume] in Serum or PlasmaOrdered By: Quique Granger on 05-31-2023 Urea nitrogen [Mass/Vol] 9 mg/dL 7-25 [facility] WBC Auto (Bld) [#/Vol]Ordere d By: Quique Granger on 05-31-2023 WBC (Bld) [#/Vol] 6.3 10*3/uL 3.8-11.6 [facility] Aerobic cultureOrdered By: Moshe Grayson on 06-20-2022 Bacteria identified Aer cx Nom (Unsp spec) 2 Days [facility] Albumin [Mass/volume] in Bod y fluidOrdered By: Luis Grayson on 06-20-2022 Albumin (Body fld) [Mass/Vol] 3.8 g/dL 3.2-5.5 [facility] Alkaline phosphatase [Enzyma tic activity/volume] in Serum or PlasmaOrdered By: Luis Grayson on 06-20-2022 ALP [Catalytic activity/Vol] 60 U/L 32-92 [facility] Aspartate aminotransferase [ Enzymatic activity/volume] in Serum or PlasmaOrdered By: Luis Grayson on 06-20-2022 AST [Catalytic activity/Vol] 65 U/L 10-42 [facility] Basophils Auto (Bld) [#/Vol] Ordered By: Luis Grayson on 06-20-2022 Basophils (Bld) [#/Vol] 0.0 10*3/uL 0.0-0.2 [facility] Basophils/100 WBC Auto (Bld) Ordered By: Luis Grayson on 06-20-2022 Basophils/100 WBC (Bld) 0.3 % . [facility] Bilirubin.direct [Mass/volum e] in Serum or PlasmaOrdered By: Luis Grayson on 06-20-2022 Bilirubin.direct [Mass/Vol] 0.2 mg/dL 0.0-0.4 [facility] Bilirubin.total [Mass/volume ] in Serum or PlasmaOrdered By: Luis Grayson on 06-20-2022 Bilirubin [Mass/Vol] 0.6 mg/dL 0.3-1.2 [facility] Calcium [Mass/volume] in Ser um or PlasmaOrdered By: Luis Grayson on 06-20-2022 Calcium [Mass/Vol] 8.9 mg/dL 8.2-10.2 [facility] Carbon dioxide, total [Moles /volume] in Serum or PlasmaOrdered By: Luis Grayson on 06-20-2022 CO2 [Moles/Vol] 25.9 mmol/L 22.0-30.0 [facility] Chloride [Moles/volume] in S quan or PlasmaOrdered By: Luis Grayson on 06-20-2022 Chloride [Moles/Vol] 98 mmol/L 95-114 [facility] Creatinine and Glomerular fi ltration rate.predicted panel (S/P/Bld)Ordered By: Luis Grayson on 06-20-2022 Creatinine [Mass/Vol] 0.55 mg/dL 0.44-1.03 [facility] Eosinophils Auto (Bld) [#/Vo l]Ordered By: Luis Grayson on 06-20-2022 Eosinophils (Bld) [#/Vol] 0.0 10*3/uL 0.0-0.45 [facility] Eosinophils/100 WBC Auto (Bl d)Ordered By: Luis Grayson on 06-20-2022 Eosinophils/100 WBC (Bld) 0.4 % . [facility] Erythrocyte distribution wid th Auto (RBC) [Ratio]Ordered By: Luis Grayson on 06-20-2022 Erythrocyte distribution width (RBC) [Ratio] 14.3 % 11.9-15.3 [facility] Estimated glomerular filtrat ion rate (GFR) non- AmericanOrdered By: Luis Grayson on 06-20-2022 GFR/1.73 sq M.predicted among non-blacks MDRD (S/P/Bld) [Vol rate/Area] > 60 mL/Min [facility] Globulin Calc (S) [Mass/Vol] Ordered By: Luis Grayson on 06-20-2022 Globulin (S) [Mass/Vol] 3.0 g/dL [facility] Glucose [Mass/volume] in Ser um or PlasmaOrdered By: Luis Grayson on 06-20-2022 Glucose [Mass/Vol] 93 mg/dL 70-100 [facility] Comment on above: ADA recommended refe rence rangeRandom Glucose Reference Range is dependent on time and content of last meal. Glucose of more than 200 mg/dL in a nonstressed, ambulatory subject supports the diagnosis of Diabetes Mellitus. Hematocrit Auto (Bld) [Volum e fraction]Ordered By: Luis Grayson on 06-20-2022 Hematocrit (Bld) [Volume fraction] 36.7 % 34.0-46.4 [facility] Hemoglobin [Mass/volume] in BloodOrdered By: Luis Grayson on 06-20-2022 Hemoglobin (Bld) [Mass/Vol] 12.2 g/dL 11.8-15.4 [facility] Leukocytes [#/volume] correc adrienne for nucleated erythrocytes in Blood by Automated counOrdered By: Luis Grayson on 06-20-2022 WBC corrected for nucl RBC Auto (Bld) [#/Vol] 10.0 10*3/uL 3.8-11.6 [facility] Lymphocytes Auto (Bld) [#/Vo l]Ordered By: Luis Grayson on 06-20-2022 Lymphocytes (Bld) [#/Vol] 1.1 10*3/uL 1.00-4.8 [facility] Lymphocytes/100 WBC Auto (Bl d)Ordered By: Luis Grayson on 06-20-2022 Lymphocytes/100 WBC (Bld) 10.7 % . [facility] MCH Auto (RBC) [Entitic mass ]Ordered By: Luis Grayson on 06-20-2022 MCH (RBC) [Entitic mass] 28.5 pg 24.7-34.3 [facility] MCHC Auto (RBC) [Mass/Vol]Or dered By: Luis Grayson on 06-20-2022 MCHC (RBC) [Mass/Vol] 33.3 g/dL 32.0-35.0 [facility] MCV Auto (RBC) [Entitic vol] Ordered By: Luis Grayson on 06-20-2022 MCV (RBC) [Entitic vol] 85.4 fL 80-100 [facility] Monocyte distribution width [Entitic volume] in Blood by AutomatedOrdered By: Luis Grayson on 06-20-2022 Monocyte distribution width Auto (Bld) [Entitic vol] 18.16 % 0.00-20.00 [facility] Monocytes Auto (Bld) [#/Vol] Ordered By: Luis Grayson on 06-20-2022 Monocytes (Bld) [#/Vol] 1.1 10*3/uL 0.0-0.8 [facility] Monocytes/100 WBC Auto (Bld) Ordered By: Luis Grayson on 06-20-2022 Monocytes/100 WBC (Bld) 11.0 % . [facility] Neutrophils Auto (Bld) [#/Vo l]Ordered By: Luis Grayson on 06-20-2022 Neutrophils (Bld) [#/Vol] 7.8 10*3/uL 1.8-7.7 [facility] Neutrophils/100 WBC Auto (Bl d)Ordered By: Luis Grayson on 06-20-2022 Neutrophils/100 WBC (Bld) 77.6 % . [facility] No Panel InformationOrdered By: Luis Grayson on 06-20-2022 Estimated GFR () > 60 mL/Min [facility] Comment on above: GFR estimated refere nce range: According to KDOQI guidelines, <60 ml/min/1.73m2 is sufficient to diagnose a patient with chronic kidney disease. Pharmacy Creatinine Clearance (Chem 149.22 [facility] Nucleated erythrocytes [Pres ence] in Blood by Automated countOrdered By: Luis Grayson on 06-20-2022 Nucleated RBC Auto Ql (Bld) 0.1 /100{WBC} 0-0.5 [facility] Platelet mean volume Auto (B ld) [Entitic vol]Ordered By: Luis Grayson on 06-20-2022 Platelet mean volume (Bld) [Entitic vol] 9.7 fL 6.3-10.7 [facility] Platelets Auto (Bld) [#/Vol] Ordered By: Luis Grayson on 06-20-2022 Platelets (Bld) [#/Vol] 138 10*3/uL 150-450 [facility] Potassium [Moles/volume] in Serum or PlasmaOrdered By: Luis Grayson on 06-20-2022 Potassium [Moles/Vol] 3.3 mmol/L 3.5-5.1 [facility] Protein [Mass/volume] in Ser um or PlasmaOrdered By: Luis Grayson on 06-20-2022 Protein [Mass/Vol] 6.8 g/dL 6.1-7.9 [facility] RBC Auto (Bld) [#/Vol]Ordere d By: Luis Grayson on 06-20-2022 RBC (Bld) [#/Vol] 4.29 10*6/uL 3.60-5.00 [facility] Serum or plasma alanine humphrey otransferase measurement without P-5'-P (enzymatic activiOrdered By: Luis Grayson on 06-20-2022 ALT No additional P-5'-P [Catalytic activity/Vol] 53 U/L 10-60 [facility] Serum or plasma albumin/glob ulin mass ratioOrdered By: Luis Grayson on 06-20-2022 Albumin/Globulin [Mass ratio] 1.3 {ratio} [facility] Serum or plasma anion gap de terminationOrdered By: Luis Grayson on 06-20-2022 Anion gap [Moles/Vol] 15.4 mmol/L 6.0-15.0 [facility] Serum or plasma non-glucuron idated bilirubin measurement (mass/volume)Ordered By: Luis Grayson on 06-20-2022 Bilirubin.indirect [Mass/Vol] 0.4 mg/dL [facility] Sodium [Moles/volume] in Ser um or PlasmaOrdered By: Luis Grayson on 06-20-2022 Sodium [Moles/Vol] 136 mmol/L 136-146 [facility] Urea nitrogen [Mass/volume] in Serum or PlasmaOrdered By: Luis Grayson on 06-20-2022 Urea nitrogen [Mass/Vol] 13 mg/dL 9-23 [facility] Urine lactic acid measuremen tOrdered By: Luis Grayson on 06-20-2022 Lactate (U) [Moles/Vol] 0.8 mmol/L 0.5-2.2 [facility] WBC Auto (Bld) [#/Vol]Ordere d By: Luis Grayson on 06-20-2022 WBC (Bld) [#/Vol] 10.0 10*3/uL 3.8-11.6 [facility] EMS Documentationon 12-07-19 EMS Documentation [id number]#[id number]:127 Normal [facility] Coding Summary.on 12-05-2020 Coding Summary. CD:[id number] Gh0bWw+P GhlYWQ+CL8KWVIlH34psKQoiO9MG 2kNZR1IRSFSVZOWFQ5MVE8inFR4I LcqX3AyccBb XqgvuSFjMB07DCa0XBM4wLfbNPls fB2jrCKuF0u9VoSeUG48vO54YCta ERCsVoK1IyBbqoheqNVl T3auLqOhiPGfBzu+PHRhYmxlIHdp SGMoJJvcYWAmFxWuhVlgPT7aFx6d ZGVyLWNvbGxhcHNlOiBj m7boRYUdQPrtEE7oxIfkG4TerQS2 DYSof3f3Hj71cZH+WTVgLKQ4aFol IXksa587EaVji7dkGOY9 eXBnRXjkRKB0W29zl3O4NUKiOWCl EGZ1fQQ5tM2tvBtggzazS7IrxWJu EsI1XHN5cMJyfG6qdJdr kwfekR5gKlg+H45FVK4YDLOZPP2J Sxg8J6MnHmkfuGY+UY27XTEhMF71 rSHctTBik8imvWv2EhEv IXVuPIO0sUigQMfjh4YhRVKtO94h dNFzz0F7LZWcdPruzVDtDsLprWP1 tM3eVUquilvqu3ouqjoh Rumkf8qauq55vC42O02mSLmdELWw ITA7ZJByTYOeuJwbdp7gkB4vMq5+ XLgyf1hca7vqbPq4OgXq FQUrbuCraGidWBK7j2ZqAl62J2Sr hLwoy2BjKgv9rh91uWQqt8E2aHE7 TSrcTMDxiD5zBHxyAwL4 WBEjXcGegB23fECsGSlyRx5aaFko yOttKW1xLHOattakRQWisA2tGVQd gSNjgVikAI5fWBJbsobl l351CzHtYTY5NXGtfQItV4JvzK9f IlEiDFAnYOUiZ7OudTJvPFuvI914 WVcpRzC5JBTqegUsV8Mq QUEkdTtbUyG7t5W8Hg5Hl4Oarxrc XGA1JPurNIP0OvF2XxRtPqM1G0Jo Dwo7BZWmaWobLS4eN1Gh BGEhznevwxksmJS3ULMtFSWgkG58 sBFxWZhuIl2oc5K2p464CRLzCTTf xU79Mw3wdLmvAVKlrEGM vU2hqhgco5iwbyltUnElAHIlMPq8 SMt0HMDlfKoaSbFvYTO3RlP5LLP3 yNXfzQ6boPyqrtitqA6j Oyc+J90lrE3nLDC5BDJ9yiqbXCNk rnBkUG12RA61I1OhQghbnFKmcHQ+ ASZkmnNjbXxgYM8bCkQr q1lbx4PzYScjF6VoOMTyPUcxBrm3 DPLaBDT5eVR0bE9xCTHcLJzob0N1 zKE1D0QhebHnow5et0ky VHCzTEhkL80ofTIzd8U0FAZahDL9 DJRlzYclEkJcdE05Naj+PGNvbGdy r9NdFnrse3taf0sjlBh9 XhTcBWXvrwHxhYgsUOS1t2HiKj65 P96rEQpqUQLuJOMtVTRjJPJwyGdt up3kbZ2kTr0+PGNvbCB3 nMG6oC0sXDVbEcO4JAygG013FrJm vZDoQezmx4bxc3gmrEj5VhVcRWPr ukMsbJufWFX4l9WsEl28 G85mFIozKCUsXOGiYHTxDONwtVkn ga6brL8oFw6+CU5il7vwki30mB80 dHI+EFAeJGP5bCgsUKzh OVBurY8zMAfkKjM4GVTjPqOqtD24 lTYvTBsfWn3zcUxqbEwmIE6zJOHx pnnlp272BzUbd6sgQXOp jBTpPSdpYWB7K57et5A9FTUlAKJk QSB8rBE2pF8plBctvwqjoUAihVtx nwUyjBdlTFfnMAvjG842 IHRvcDsnPlBhdGllbnQgTmFtZTo8 P2QlUso5ZPBxzOpbCJ6xgPMsPNwa Ot3reAqlfHyrTR7kSOGd akmpj027UvWze8zsBUAcqOQjCDpu OCN7O91hf4V5MGDsIDYuLNH1tRR2 sN5whZioybrchDSjtGfz ayPziYwqTVmkLRehK585OTLohSye FeUcjpBvABHklOX2ZG44QI33eNZn m0J5wCI1D5LaCXSkycvc avqznRQ3EQGgVDFfiT51Vz3ijUdy Mo9qDYPjZOK6ADXxrCNsV2YetR3v JqQaQISrONPhT3NegLAe WBvdV506UUmaKgK9ZQZdsbGyI5Ua GMJadQbaHnZ0g2Y0Lx8UP5Q1MD40 HU80iUNgd9N4qZY8F5Iu KPMsyvqynamxeKG7RQCdRDQhnA92 Ed6fzJraWg7uICLaZZW9AJRhlFZv V4MtvL3sAaKzCEYhPLSx G4HshMGgQMycU428UHmfIyD7IQIz mlNyO5WsYPQsbOsaBaL9c4N8Zr5Z QIk6FE77JZ27yDTuc7R1 xQI1G1LkULJrkpckhidltDE4GVJm MJHiiW19Ys4ncYsmDr2wUNBrGON4 NVJigSQrV5WumH1nTqBw DPRxGAUhP4ScwRAoVHaaL329HMdd ZfN3VTUoayVtR9FpXQGrfPwtHkF1 h6T8Je6EETPvWZ81AMP4 tJO9NV93SG69L6GjRpqdsXNloKG+ PHRhYmxlIHdpZHRoPScxMDAlJyBz gKypLJ4gNm3vCIKbYRTe uRcweQJrEqYxq2sxTHOjTOajIB8v nSboF2JeyQN7KIRed6l9Dt66G25a F6YdiGU+DCOxtHO9vWI0 vR5kLxTsLiH3KZsbJ188EiSnpFNi Fihtx2zpm0otaKe0QwJ9EYGiqhWr jWicSYK8r8VrAj63M41e RUvyHWPnMPGiFEHaBRNrnDyduw2n iG0iIr9+BGPbpKY7aEZ7sS5gAtVy KjY8RZspE408PzFjyENo Awdsv4yoc6lfwJl2GrIyZHAzxeCn pDzaMRN9d6SoVj79T0HkeAnjb7Xb Poq6rf90oXTkp5Q6rTM3 B2BeZATptawcdWSuzBkiPO2fHPHj qehtHZBszQ7zEYBkW9m1PvEqMmH4 MAgtT0GhehT2DSZohWSa YVqwMAE7C49hn2X3IWRrBNXkVVW4 wLK8jZ7umOycxuacySLteIjfouTe xTnsZQnnNPpdU091TDSk oYpwYXEwjC9dNZDanUIktJcmSD7c XDXgxhpuKzuPVHODDSNNEIKIH20T HWW7X7CdUku0XPNqcAue OL3erSSuLIfjKw9adJuraXzvLI8x LOLoothqJSAjuT5oYDTysXAxiIye UX4eTIMvspjdd476SiVw WRJ2HXPxrOVnL0GwzA7qJuZcGQFm ABCiL8UedAPnEGtfZ152LBxcUeB9 BLIhgpPhO5BlTQBaoHlp IuC7z8I3Js8mLv9rXy9cGRf1HT02 OD40zJTaq3W7hIA7E3FaCTYyazwf luxdhBE8DVZbBNHyyO63 gWWuEHxpGo8pw9D3d156DAXcGIYd sQ75Lt4zcUlbPNDzvHVQpN2rfoql s1hxegemAbOdOKEjWVh7 LYv1FAKuxFpqWiAoIXE9WaD1SPC5 hHXayG8ogNspbezzeV4oCib+MjMg VUHzelH8H0CwBvk6DPVg cUjpSI0qhZXxPMqaFb8ymXeqoTzi RF0vSKPmkjpsWRFewY7jYIVksKRp uPdfJB2bUOQofsgyp851 EpWzIYZ1JTEcyRKeL5NocO0uCyZp REKzCNKbQ6WaeFDcVTgwJ628QFpc EmX9KLKxjtGmZ7LuBPHh zJrtSgW8c8M4Pa9VFL3tjYS1Z1Zi Kop6BFJxiJwmUK7zkJGyIGjeOg7u pDbunBcdCP8nOULzzjhh CKEdwX5eSTOodMAhbEuwTD7dKIRw mavip283GeKcFHK6VXObeKQsD8Nt nV1yCsEaUFKrWQVbN6Je jXSrIBlsC264YXetEiT5LNMwkwAm N5TdETNdxRdzMjT2t2E5Sg7DkREo Y4HxH9i0T5BdEpkhfVX+ RF65BQAzUB87nIGhaGZsx3seeDj9 NrLsUSQmOSH4dBidFMcdt9HlDURe A12fvEClx0C7ZQKqpCme sHNxYuSupOI9bU0dDQdjehzfb9nq nvgfRujoi2btvq58vN19I13gTDvy ZHRoPSIzMCUiIHZhbGln nu2jgB3eNe1+BTPhjJD1gVD0xL3b QaIpGgA4KLmzT437PoLqiDJcOrcf v6jgc9gjoQa0IrWnMYZk gsTzwHcwYLX2s6ShOw31E95xYUum WAYzNBLuAWOkVNYqmPgizv5qlZ2f Ii8+CK9kt8ejlz56iI04 dHI+EOVeNRH8vAdpCHfkVOGyxP2b IUojWeS3VQIlKpSpoW07iKRhNSmv Br1ogFcajHgnWR7ePWDc qotqu146PpAcx0pzOEZrsVRcLUyn IGZ5C09mi4I2CIWmTZIcKLM4zUV9 xS1qhOoyexbmdKXvxYof thZvcSxpMWarXHjzL659ACSrvHzu EuWfyZUtT1juhaKLVS0tKzlazYC+ JFJpHHZ4nIpeHWvfKJBk mJ7xYNDnD5p0ViChKjJ5QAikB9Qk rnJ3WZRelWWkSMLgtBHUdI7eygic p9ootkqgTrOtKTYlGVt7 RYd6UVAtpWwlNtGqKDF2ZmX6PIO0 cXOahS4shRpaogyvkN7mObq+RklO OjwvdGQ+MYHaJUW9cDrz BTdmVQMsdE5eQSFlN7x6KdOtZeD1 IDluL8DzfeF6VBOayINxZPIhaYNQ nJ9sirtms5jzfpkrWzZe SGXcWUu1BTg1LPBlxNthBlKgJEA3 IzC6IZR9lVHagK0haBachtfshP1q Oyc+TVJOOjwvdGQ+PHRk IQT9jLcxLSagYPHyyK6vDHWvO9z9 TjUyHlI9YRziG8NmmkD3LRJhyVSo UCOiyMZYrM7ucdzfr8nb nnkkZwQrVSPhYTx9LRc6SQKgcKto DiMoTJA5RpP8XPL3nUDzqH0uvWke jsdszE2hFwq+HPZ5BVA8 XU30UC41B5LpGukaxDCofXX+PHRh YmxlIHdpZHRoPScxMDAlJyBzdHls WM3qVu2nGVMsRLLgjHia [facility] (more content not included)... Normal [facility] Acetamnphn Lvlon 12-04-2020 Acetaminophen [Mass/Vol] ug/mL Low 15-30 [facility] Comment on above: Result Comment: Resu lt verified by dilution Performed By: #### 2 [id number], [id number], [id number], 0687014, 0930750, [id number], 3743272, [id number] ####[facility] [address] [place] [address] Consent for Treatmenton 11-20 Consent for Treatment [id number]#[id number]:127 Normal [facility] Discharge Instructionson Discharge Instructions [id number]:127 Normal [facility] ED Clinical Summaryon 2020 ED Clinical Summary (Inserted Image. Addie ble to display) [place] [id number] ED Clinical Summary Person Information Name: RABIA GASPAR/[facility] Age: 25 Years : 1995 Sex: Female Language: Cymro PCP: NONE, XXXX Marital Status: Single Visit [...] 12/04/2020 03:19:09 12/04/2020 03:19:09 12/04/2020 03:19:09 AD[address]ESS: [address] [id number] PHYS DOC NOTES: MEDICAL INFORMATION: Prescriptions Given: PATIENT EDUCATION INFORMATION: Instructions: Alcohol Intoxication Follow up: With: Address: When: XXXX NONE , [place] In 3 days 12/07/2020 DIAGNOSIS: 1:Alcohol intoxication; 2:Depression Normal [facility] ED Note-Physicianon 12-05-19 ED Note-Physician Basic Information Time Seen: Keyshawn Stout MD 12/03/2020 20:58 Chief Complaint Pt is intoxicated. Not answering questions. Possible opiates on board. Says she wants to and be left alone. History of Present Illness patient is from [place]. Candy [facility] [...] 4.8 E12/L (12/03/20 21:26:00) Hgb: 13.8 gm/dL (12/03/20 21:26:00) Hct: 41.8 % (12/03/20 21:26:00) MCV: 86.9 fL (12/03/20:00) MCH: 28.7 pg (12/03/20:) MCHC: 33 gm/dL (12/03/20) RDW: 14.9 % High (12/03/20:) Platelet: 200 E9/L (12/03/20:) MPV: 9.7 fL (12/03/20) Neutro Auto: 57.4 % (12/03/20) Lymph Auto: 29.6 % (12/03/20) Davidson Auto: 7.9 % (12/03/20) Eos Auto: 4.5 % (12/03/20) Basophil Auto: 0.6 % (12/03/20) Neutro Absolute: 5.5 E9/L (12/03/20) Lymph Absolute: 2.8 E9/L (12/03/20) Davidson Absolute: 0.8 E9/L (12/03/20:) Eos Absolute: 0.4 E9/L (12/03/20) Basophil Absolute: 0.1 E9/L (12/03/20) Glucose Lvl: 86 mg/dL (12/03/20:) BUN: 16 mg/dL (12/03/20) Creatinine: 0.5 mg/dL (12/03/20:) eGFR: >60 (12/03/20:) eGFR AA: >60 (12/03/20:) BUN/Creat Ratio: 32 High (12/03/20) Sodium Lvl: 141 mmol/L (12/03/20) Potassium Lvl: 3.5 mmol/L (12/03/20::) Chloride: 112 mmol/L High (12/03/20::) CO2: 21 mmol/L (12/03/20:00) AGAP: 12 mEq/L (12/03/20:26:00) Calcium Lvl: 8.4 mg/dL Low (12/03/20:26:00) Alk Phos: 49 Int._Unit/L (12/03/20::00) ALT: 137 Int._Unit/L High (12/03/20::00) AST: 115 Int._Unit/L High (12/03/20::00) Total Protein: 7.1 gm/dL (12/03/20::00) Albumin Lvl: 4.4 gm/dL (12/03/20::) Globulin: 2.7 gm/dL (12/03/20:) A/G Ratio: 1.6 (12/03/20::) Bili Total: 0.4 mg/dL (12/03/20::00) Bili Direct: 0.1 mg/dL (12/03/20::) Lipase Lvl: 35 unit/L (12/03/20::00) Acetaminoph Lvl: <10 Low (12/03/20::00) Salicylate Lvl: <4 Low (12/03/20::00) Ethanol Lvl: 196 mg/dL Critical (12/03/20:26:00) Beta hCG Ql: NEGAT (more content not included)... Normal [facility] Comment on above: Result Comment: Elec tronically [...] between alcoholic drinks. General instructions ? Take ykwq-czv-yazknip and prescription medicines only as told by your health care provider. ? Do not drive after drinking any amount of alcohol. Plan for a designated day haul or farm charter bus driver or another way to go home. ? Have someone responsible stay with you while you are intoxicate (more content not included)... Normal [facility] ED Patient Summaryon 021 ED Patient Summary (Inserted Image. Addie ble to display) [place] [id number] Patient Discharge Instructions Person Information Name: RABIA GASPAR Age: 25 Years Arrival Date: 12/03/2020 20:52:33 Discharge Diagnosis: 1:Alcohol intoxication; 2:Depression Primary Care Physician: NONE, XXXX Provider Information Primary Provider: Keyshawn Stout MD Advanced Record Filing Clerk:Tu The exam and treatment you received in the Emergency Department were for an urgent problem and are not intended as complete care. It is important that you follow up with a doctor, nurse practitioner, or physician?s virtual office assistant for ongoing care. If your symptoms become worse or you do not improve as expected and you are unable to reach your usual health care provider, you should return to the Emergency Department. We are available 24 hours a day. RABIA GASPAR has been given the following list of patient education materials, prescriptions and follow-up instructions: Follow-up Instructions: With: Address: When: XXXX [place] , [place] In 3 days 12/07/2020 In the event that this physician does not participate in your insurance network, please consult with your insurance company to find a nearby participating provider. Patient Education Materials: Alcohol Intoxication A MESSAGE TO ALL PATIENTS REGARDING OPIOIDS PRESCRIPTION OPIOIDS: WHAT YOU NEED TO KNOW Prescription opioids can be used to help relieve dxlxqqne-kd-dxndip pain and are often prescribed following a [...] be struggling with addiction, tell your health family day carer and ask for guidance or call [employer]?S National Helpline at 3-589-578-OWEG. k Source: [place] Department of Health and Human Services/Center for Disease Control & Prevention Am (more content not included)... Normal [facility] Ethanolon 12-04-2020 Ethanol [Mass/Vol] 196 mg/dL Abnormal <=7 [facility] Comment on above: Result Comment: Resu lts verified by repeat analysis\Critical Result S_ETOH:196.0 Called to [facility] AT ER by KEIRY LEVIN And Read Back For Confirmation at: 12/03/2020 22:01:24 Performed By: #### 2 [id number] ####[facility] [address] [place] [address] Salicylateon 12-04-2020 Salicylates [Mass/Vol] mg/dL Low 6-29 [facility] Comment on above: Performed By: #### 2 [id number], [id number], 6100084, 56638306, 4808612, 7422962, 6515633, 4384690, 8160527 ####[facility] [address] [place] [address] Auto Diffon 12-03-2020 Basophils/100 WBC (Bld) 0.6 % Normal 0.0-2.0 [facility] Comment on above: Order Comment: Order Added by Discern Expert. Performed By: #### 2 [id number], [id number], 4164319, 41697316, 9891740, 5145314, 2259843, 7209676, 6160668 #### [facility] [address] [place] [address] Basophils/Leukocytes Auto (Bld) [Pure # fraction] 0.1 E9/L Normal 0.0-0.2 [facility] Comment on above: Order Comment: Order Added by Discern Expert. Performed By: #### 2 777907, [id number], 8505908, 86911401, 2625550, 2894438, 3258169, 0704629, 6160266 #### [facility] [address] [place] [address] Eosinophils/100 WBC (Bld) 4.5 % Normal 0.0-8.0 [facility] Comment on above: Order Comment: Order Added by Discern Expert. Performed By: #### 2 564360, [id number], 8986714, 39367283, 3935265, 9481756, 4232240, 8009171, 2746451 #### [facility] [address] [place] [address] Eosinophils/Leukocyte s Auto (Bld) [Pure # fraction] 0.4 E9/L Normal 0.0-0.5 [facility] Comment on above: Order Comment: Order Added by Discern Expert. Performed By: #### 2 [id number], [id number], 6997844, 86702232, 5456910, 7181440, 2813589, 0624289, 0122143 #### [facility] [address] [place] [address] Lymphocytes/100 WBC (Bld) 29.6 % Normal 14.0-50.0 [facility] Comment on above: Order Comment: Order Added by Discern Expert. Performed By: #### 2 555010, 44327306, 6572323, 21638119, 7275032, 9108430, 6223290, 0419532, 1194986 #### [facility] [address] [place] [address] Lymphocytes/Leukocyte s Auto (Bld) [Pure # fraction] 2.8 E9/L Normal 1.0-4.0 [facility] Comment on above: Order Comment: Order Added by Discern Expert. Performed By: #### 2 068142, 57605982, 6380650, 30373056, 3220036, 6846364, 9914759, 2077156, 9010042 #### [facility] [address] [place] [address] Monocytes/100 WBC (Bld) 7.9 % Normal 4.0-14.0 [facility] Comment on above: Order Comment: Order Added by Discern Expert. Performed By: #### 2 296143, [id number], 3058835, 31897354, 2551403, 3475641, 9581798, 7422149, 9508090 #### [facility] [address] [place] [address] Monocytes/Leukocytes Auto (Bld) [Pure # fraction] 0.8 E9/L Normal 0.2-1.0 [facility] Comment on above: Order Comment: Order Added by Discern Expert. Performed By: #### 2 095074, 65590152, 8398306, 12995731, 6170205, 6070832, 5913993, 7259942, 6324206 #### [facility] [address] [place] [address] Neutrophils/100 WBC (Bld) 57.4 % Normal 36.0-75.0 [facility] Comment on above: Order Comment: Order Added by Discern Expert. Performed By: #### 2 004316, 85815733, 3357951, 63455326, 8339653, 5904847, 0431775, 4745076, 6835314 #### [facility] [address] [place] [address] Neutrophils/Leukocyte s Auto (Bld) [Pure # fraction] 5.5 E9/L Normal 2.0-7.5 [facility] Comment on above: Order Comment: Order Added by Discern Expert. Performed By: #### 2 227641, 34411318, 7694900, 51621256, 3325438, 5002287, 6765426, 0227698, 2473549 #### [facility] [address] [place] [address] B hCG [employer] 12-03-2020 Beta hCG Ql Negative Normal [facility] Comment on above: Performed By: #### 2 616249, 00108429, 2723784, 53740997, 1753995, 3477290, 4824287, 5815511, 4419922 #### [facility] [address] [place] [address] Bili Directon 12-03-2020 Bilirubin.direct [Mass/Vol] 0.1 mg/dL Normal 0.1-0.4 [facility] Comment on above: Order Comment: Order Added by Discern Expert. Performed By: #### 2 706324, 85280496, 1385460, 91889598, 6096274, 6847763, 9865193, 2367417, 6845092 #### [facility] [address] [place] [address] CBC w/ Auto Diffon Erythrocyte distribution width (RBC) [Ratio] 14.9 % High 10.9-14.2 [facility] Comment on above: Performed By: #### 2 769721, 38916579, 4455881, 92747472, 8477899, 1192637, 0103569, 4220949, 0699166 #### [facility] [address] [place] [address] Hematocrit (Bld) [Volume fraction] 41.8 % Normal 34.0-46.0 [facility] Comment on above: Performed By: #### 2 703925, 85571275, 1691935, 73761871, 8117252, 7993162, 2760904, 8721953, 3581653 #### [facility] [address] [place] [address] Hemoglobin (Bld) [Mass/Vol] 13.8 g/dL Normal 12.0-16.0 [facility] Comment on above: Performed By: #### 2 547508, 04068092, 7405890, 79824234, 0562248, 1177634, 4847318, 9315701, 7215053 #### [facility] [address] [place] [address]111 MCH (RBC) [Entitic mass] 28.7 pg Normal 27.0-34.0 [facility] Comment on above: Performed By: #### 2 801992, 93144567, 8160523, 32801640, 6894246, 7204060, 5662155, 9785398, 8944391 #### [facility] [address] [place] [address] 00411 MCHC (RBC) [Mass/Vol] 33.0 g/dL Normal 31.4-36.0 [facility] Comment on above: Performed By: #### 2 692530, 19157503, 6677820, 68867232, 2139270, 2584736, 6596800, 6389527, 3903959 #### [facility] [address] [place] [address]478 MCV (RBC) [Entitic vol] 86.9 fL Normal 80.0-100.0 [facility] Comment on above: Performed By: #### 2 182990, 59424390, 1337307, 15625357, 9159640, 2573024, 2045914, 0810153, 2191371 #### [facility] [address] [place] [address]35[address] Platelet mean volume (Bld) [Entitic vol] 9.7 fL Normal 6.4-10.8 [facility] Comment on above: Performed By: #### 2 820412, 79668246, 8474283, 38334768, 8021998, 8611951, 0810869, 2327416, 8821317 #### [facility] [address] [place] [address] Platelets (Bld) [#/Vol] 200.0 E9/L Normal 150.0-500. 0 [facility] Comment on above: Performed By: #### 2 855656, 77195617, 8266071, 75748790, 1710957, 9046297, 5397579, 4832064, 9318531 #### [facility] [address] [place] [address] 60890 RBC (Bld) [#/Vol] 4.8 E12/L Normal 4.3-5.9 [facility] Comment on above: Performed By: #### 2 374498, 19587645, 3470718, 31565758, 9368958, 3187355, 1684753, 4783310, 1264103 #### [facility] [address] [place] [address] WBC corrected for nucl RBC Auto (Bld) [#/Vol] 9.6 E9/L Normal 4.0-11.0 [facility] Comment on above: Performed By: #### 2 062201, 36710482, 7914078, 20474312, 0029118, 0952087, 1812674, 2477777, 6631402 #### [facility] [address] [place] [address] CMPon 12-03-2020 Albumin [Mass/Vol] 4.4 g/dL Normal 3.3-5.0 [facility] Comment on above: Performed By: #### 2 697424, 12733808, 4775243, 30933024, 6419490, 4274515, 7545668, 6148718, 8886463 #### [facility] [address] [place] [address] Albumin/Globulin (S) [Mass conc ratio] 1.6 Normal 1.1-2.2 [facility] Comment on above: Performed By: #### 2 909775, 97415941, 2310521, 91529113, 5166319, 9742768, 5310680, 7937710, 1022135 #### [facility] [address] [place] [address] ALP [Catalytic activity/Vol] 49 Int._Unit/L Normal 21-98 [facility] Comment on above: Performed By: #### 2 247933, 00852278, 5640459, 74163176, 1489476, 4269269, 1632695, 8750491, 6378342 #### [facility] [address] [place] [address]5727 ALT No additional P-5'-P [Catalytic activity/Vol] 137 Int._Unit/L High 6-46 [facility] Comment on above: Performed By: #### 2 186314, 49635047, 5356044, 47457328, 9604736, 6826380, 2446978, 5628202, 3328656 #### [facility] [address] [place] [address] 00369 AST [Catalytic activity/Vol] 115 Int._Unit/L High 5-43 [facility] Comment on above: Performed By: #### 2 163701, 80284037, 4122256, 26963892, 9775816, 0263635, 7851105, 0150429, 3673356 #### [facility] [address] [place] [address] 23040 Bilirubin [Mass/Vol] 0.4 mg/dL Normal 0.0-1.1 [facility] Comment on above: Performed By: #### 2 476123, 64022595, 6323652, 33769693, 7676805, 9816466, 3128423, 8563442, 1175010 #### [facility] [address] [place] [address] Creatinine [Mass/Vol] 0.5 mg/dL Normal 0.5-1.3 [facility] Comment on above: Performed By: #### 2 203120, 02388069, 1630872, 98362045, 7053014, 6469868, 2023130, 3650912, 6478963 #### [facility] [address] [place] [address] Globulin (S) [Mass/Vol] 2.7 g/dL Normal 1.4-4.0 [facility] Comment on above: Performed By: #### 2 486341, 02622730, 2682000, 28566547, 3744604, 4962540, 4565984, 5825281, 7698436 #### [facility] [address] [place] [address]1293 Protein [Mass/Vol] 7.1 g/dL Normal 6.0-7.8 [facility] Comment on above: Performed By: #### 2 515663, 85930159, 4133006, 51253253, 7734308, 9658781, 2022635, 6574591, 8626656 #### [facility] [address] [place] [address] Urea nitrogen [Mass/Vol] 16 mg/dL Normal 5-21 [facility] Comment on above: Performed By: #### 2 771295, 50689803, 7132984, 48431644, 0977571, 1156945, 3660762, 0940286, 4029893 #### [facility] [address] [place] [address] Urea nitrogen/Creatinine [Mass ratio] 32 No Units High 10-20 [facility] Comment on above: Performed By: #### 2 958841, 82431227, 2752209, 59507079, 6401173, 5760134, 0366052, 2764282, 4396657 #### [facility] [address] [place] [address] Anion gap [Moles/Vol] 12 mmol/L Normal 6-16 [facility] Comment on above: Performed By: #### 2 886180, 34903496, 1829024, 96721770, 9396668, 2481615, 4011754, 5618290, 2582911 #### [facility] [address] [place] [address] Calcium [Mass/Vol] 8.4 mg/dL Low 8.9-11.1 [facility] Comment on above: Performed By: #### 2 229398, 18873991, 4186559, 05401226, 5244485, 0688710, 6525104, 4752311, 9439794 #### [facility] [address] [place] [address] Chloride [Moles/Vol] 112 mmol/L High 101-[address] [facility] Comment on above: Performed By: #### 2 035515, 48832089, 7859435, 66278255, 1962830, 8931459, 2017594, 3431107, 7645179 #### [facility] [address] [place] [address] CO2 [Moles/Vol] 21 mmol/L Normal 21-31 [facility] Comment on above: Performed By: #### 2 912431, 23391002, 1388939, 88643210, 3659917, 8963872, 0760770, 7839481, 2267460 #### [facility] [address] [place] [address] Glucose [Mass/Vol] 86 mg/dL Normal 55-199 [facility] Comment on above: Result Comment: If t his glucose result represents a fasting glucose, interpretation should refer to the following reference range: 55-99 mg/dL Performed By: #### 2 719461, 50806334, 3506801, 96311118, 6087770, 8401867, 5461304, 1219224, 1751606 #### [facility] [address] [place] [address] Potassium [Moles/Vol] 3.5 mmol/L Normal 3.5-5.3 [facility] Comment on above: Performed By: #### 2 338098, 00030394, 3098437, 04895432, 3733696, 8696406, 0417686, 5454634, 1932020 #### [facility] [address] [place] [address] Sodium [Moles/Vol] 141 mmol/L Normal 135-145 [facility] Comment on above: Performed By: #### 2 620060, 56240584, 1303729, 93696415, 2162672, 3187854, 7563038, 1652373, 7082824 #### [facility] [address] [place] [address] Lipase Levelon 12-03-2020 Lipase [Catalytic activity/Vol] 35 U/L Normal 13-58 [facility] Comment on above: Performed By: #### 2 420138, 90830465, 1763929, 19229333, 7049005, 7776347, 0773884, 8674393, 7410576 #### [facility] [address] [place] [address] eGFRon 12-03-2020 GFR/1.73 sq M.predicted among blacks MDRD (S/P/Bld) [Vol rate/Area] mL/min/{1.73_m2} Normal >=59 [facility] Comment on above: Order Comment: Order added by Discern Expert. Result Comment: eGFR is race adjusted. AA=. Performed By: #### 2 206663, 17832173, 5899098, 48262411, 5851807, 7898350, 8991925, 4995480, 3379630 #### [facility] [address] [place] [address] GFR/1.73 sq M.predicted among non-blacks MDRD (S/P/Bld) [Vol rate/Area] mL/min/{1.73_m2} Normal >=59 [facility] Comment on above: Order Comment: Order added by Discern Expert. Result Comment: [employer]argo [employer] anuradha kidney disease could be indicated at eGFR's of less than 60 mL/min/1.73m2. Kidney failure is indicated at less than 15 mL/min/1.73m2. Performed By: #### 2 401840, 92125611, 0955191, 84963657, 4021034, 8130895, 4301348, 2587124, 1531262 #### [facility] [address] [place] [address] Gynecology Office/Clinic Not lindy 11-11-2017 Gynecology Office/Clinic [...] data available.Electronically signed by Florina smart CNP Ahmet Jose 11/11/17 16:14 EDT Normal [facility] .UA Microscp Aon 11-07-2017 UA Bacteria Present Abnormal Absent [facility] Comment on above: Performed By: #### C D:[id number] ####[address] [address] UA Mucus Present Abnormal Absent [facility] Comment on above: Performed By: #### C D:[id number] ####[place] [address]25840 UA RBC Quant 1 /HPF Normal 0-5 [facility] Comment on above: Performed By: #### C D:[id number] ####[address] [address] UA Squepi Cells Quant 3 /HPF Normal 0-29 [facility] Comment on above: Performed By: #### C D:[id number] ####[address] [address] UA WBC Quant 10 /HPF High 0-5 [facility] Comment on above: Performed By: #### C D:[id number] ####[address] [address] .eGFRon 11-07-2017 eGFR Non-AA >60 Normal >=60 [facility] Comment on above: Result Comment: Resu [...] medication dosing. Performed By: #### E GFR ####[place] 0825840 eGFR AA >60 Normal >=60 [facility] Comment on above: Result Comment: Resu lt = 0-14.9 mL/min/1.73 m2 Kidney failure or DialysisResult = 15-29 mL/min/1.73 m2 Severe decrease in GFRResult = 30-59 mL/min/1.73 m2 Moderate decrease in GFRResult >= 60 mL/min/1.73 m2 Normal or increased GFR Performed By: #### E GFR ####[place] 0825840 CBC w/ Diffon 11-07-2017 Erythrocyte distribution width Auto Ratio (RBC) 15.0 % High 11.6-14.8 [facility] Comment on above: Performed By: #### C BC ####[place] [address] Hematocrit Auto Volume Fraction (Bld) 34.4 % Low 36.0-46.0 [facility] Comment on above: Performed By: #### C BC ####[place] [address] Hemoglobin mass conc (Bld) 11.5 g/dL Low 12.0-16.0 [facility] Comment on above: Performed By: #### C BC ####[place] [address] MCH Auto Entitic mass (RBC) 26.9 pg Low 27.0-35.0 [facility] Comment on above: Performed By: #### C BC ####[place] [address] MCHC Auto mass conc (RBC) 33.3 % Normal 31.0-37.0 [facility] Comment on above: Performed By: #### C BC ####[place] [address] MCV Auto Entitic volume (RBC) 80.6 fL Normal 80.0-100.0 [facility] Comment on above: Performed By: #### C BC ####[place] [address] Platelet mean volume Auto Entitic volume (Bld) 9.7 fL Normal 6.7-10.6 [facility] Comment on above: Performed By: #### C BC ####[place] 0825840 Platelets Auto #/vol (Bld) 166 x10*3/mcL Normal 150-350 [facility] Comment on above: Performed By: #### C BC ####[place] 0825840 RBC Auto #/vol (Bld) 4.27 x10*6/mcL Normal 3.80-5.20 [facility] Comment on above: Performed By: #### C BC ####[address] [address] WBC Auto #/vol (Bld) 8.6 x10*3/mcL Normal 4.5-11.0 [facility] Comment on above: Performed By: #### C BC ####[address] [address] CMPon 11-07-2017 Albumin mass conc 4.2 g/dL Normal 3.2-4.9 [facility] Comment on above: Performed By: #### C OMP ####[address] [address] Albumin/Globulin mass ratio 1.4 {ratio} Normal 1.1-2.2 [facility] Comment on above: Performed By: #### C OMP ####[address] [address] Alk Phos 57 IU/L Normal 32-91 [facility] Comment on above: Performed By: #### C OMP ####[address] [address] ALT enzyme act/vol 106 U/L High 14-54 [facility] Comment on above: Performed By: #### C OMP ####[address] [address] Anion gap 3 molar conc 9 mmol/L Normal 7-17 [facility] Comment on above: Performed By: #### C OMP ####[address] [address] AST enzyme act/vol 80 U/L High 15-41 [facility] Comment on above: Performed By: #### C OMP ####[address] [address] Bili Total 0.4 mg/dL Normal 0.3-1.2 [facility] Comment on above: Performed By: #### C OMP ####[address] [address] Calcium mass conc 8.9 mg/dL Normal 8.5-10.3 [facility] Comment on above: Performed By: #### C OMP ####[address] [address] Chloride molar conc 106 mmol/L Normal 98-110 [facility] Comment on above: Performed By: #### C OMP ####[address] [address] CO2 molar conc 27 mmol/L Normal 22-32 [facility] Comment on above: Performed By: #### C OMP ####[address] [address] Creatinine mass conc 0.40 mg/dL Low 0.44-1.[address] [facility] Comment on above: Performed By: #### C OMP ####[address] [address] Glucose mass conc 102 mg/dL Normal 74-118 [facility] Comment on above: Performed By: #### C OMP ####[address] [address] Potassium molar conc 4.1 mmol/L Normal 3.4-4.[address] [facility] Comment on above: Performed By: #### C OMP ####[address] [address] Protein mass conc 7.3 g/dL Normal 6.5-8.1 [facility] Comment on above: Performed By: #### C OMP ####[address] [address] Sodium molar conc 138 mmol/L Normal 133-142 [facility] Comment on above: Performed By: #### C OMP ####[address] [address] Urea nitrogen mass conc 16 mg/dL Normal 8-26 [facility] Comment on above: Performed By: #### C OMP ####[address] [address] Urea nitrogen/Creatinine mass ratio 40.0 mg/mg High 15.0-25.0 [facility] Comment on above: Performed By: #### C OMP ####[facility] [place] [address] CT Abdomen Pelvis w/ IV Cont sherry 11-07-2017 CT Abdomen Pelvis w/ IV Contrast [...] acute osseous abnormalities.IMPRESSION: No acute findings.Radiation Dose Estimate:CTDI(mGy):0.224367 / / / kVp:120.524301 / mAs:0.908962 / / / DLP(mGy-cm):7.858776Cehx Part: AbdomenCTDI(mGy):8.210036 / / / kVp:100.991303 / mAs:115.246481 / / / DLP(mGy-cm):404.714182Yljk Part: Abdomen Final Dictated by: Essie Osorio MD DT/TM: 11.07.2017 7:06 pmSigned by: Wilfredo Osorio MD (Electronic Signature): 11.07.2017 7:10 pm(If Report Is Signed, Electronically Signed in Other Vendor System) Normal [facility] Diff Autoon 11-07-2017 Baso Absolute 0.0 x10*3/mcL Normal 0.0-0.2 [facility] Comment on above: Performed By: #### . Automated Diff ####[address] [address] Basophils/100 WBC Auto (Bld) 0.5 % Normal 0.0-1.5 [facility] Comment on above: Performed By: #### . Automated Diff ####[address] [address] Eos Absolute 0.3 x10*3/mcL Normal 0.0-0.4 [facility] Comment on above: Performed By: #### . Automated Diff ####[address] [address] Eosinophils/100 WBC Auto (Bld) 3.1 % Normal 0.0-5.4 [facility] Comment on above: Performed By: #### . Automated Diff ####[address] [address] Lymphocytes Auto #/vol (Bld) 1.5 x10*3/mcL Normal 1.2-5.2 [facility] Comment on above: Performed By: #### . Automated Diff ####[address] [address] Lymphocytes/100 WBC Auto (Bld) 17.9 % Low 28.0-42.0 [facility] Comment on above: Performed By: #### . Automated Diff ####[address] [address] Davidson Absolute 1.0 x10*3/mcL Normal 0.1-1.1 [facility] Comment on above: Performed By: #### . Automated Diff ####[address] [address] Monocytes/100 WBC Auto (Bld) 11.2 % Normal 3.7-11.9 [facility] Comment on above: Performed By: #### . Automated Diff ####[address] [address] Neutro Absolute 5.8 x10*3/mcL Normal 1.8-8.0 [facility] Comment on above: Performed By: #### . Automated Diff ####[place] [address] Neutro Auto 67.3 % Normal 45.6-68.4 [facility] Comment on above: Performed By: #### . Automated Diff ####[place] [id number] ED Clinical Summaryon 2017 ED Clinical Summary (Inserted Image. Addie ble to display) [place] [address] ED Clinical SummaryPerson InformationName: Rabia Gaspar [facility] Age: 22 Years : 1995Sex: Female PCP:Marital Status:Single Phone:Race:White Ethnicity:Not or Language:EnglishMRN: [id number] Reason:Headache; Abdominal pain; Abdominal pain Acuity: 3Enc Type: Emergency Med Service: Emergency MedicineArrival:11/07/2017 17:17:00 Discharge: 11/07/2017 19:46:00 LOS: 000 02:29Checkin:11/07/2017 17:17:00 Checkout: 11/07/2017 19:46:00 Dispo Type: Home or Self CareAddress:[address] [place] [address] Provider Notes:Diagnosis:1:Abdominal pain; 2:Urinary tract infection; 3:Frontal [...] range between ( 28.0 and 42.0 ) Davidson Auto: 11.2 % -- Normal range between [...] range between ( 36.0 and 46.0 ) Davidson Absolute: 1.0 x10 MCH: 26.9 pg -- [...] No Immunizations Documented This VisitFinal Med List:New MedicationsED[facility] [address] [place] [address], [phone] (Keflex 500 mg oral capsule) 1 Capsules [...] a muscle) every 3 months.Last Dose: [facility] [address] [place] [address], [phone] (Keflex 500 mg oral capsule) 1 Capsules [...] Jarret Oquendo MDConsulting Physician:Referring Physician:Provider Role Assigned AddiessAmie Kennedy ED [...] INFECTION, Female (Adult); ABDOMINAL PAIN, Unknown Cause, (Female)[facility] Poison Help line: .[facility] Hotline: [place] Tobacco Quit Line: [facility] ([place], [place]) [address]: [phone] ([place], [place]) [address]: [phone] [address], [place]: [phone] Normal [facility] ED Note-Physicianon 11-08-19 ED Note-Physician Chief Complaint [...] PCP: none. Patient reports she has an [facility] appointment on November 11.Review of Systems GENERAL: [...] in this document, created by the medical assisting program director for me, accurately reflects the services I [...] is instructed follow-up with PCP and her cigar binder as scheduled.Assessment/Plan 1. Abdominal pain Ordered: cephalexin, 1 caps, Oral, q8hr, X 7 days, # 21 caps, 0 Refill(s), 11/14/17 19:17:00 EDT, [facility] 2. Urinary tract infection 3. Frontal [...] 11/07/17 18:14 17.9 Low 10/30/17 14.7 Low Davidson Auto 11/07/17 18:14 11.2 10/30/17 10.0 Eos Auto 11/07/17 18:14 3.1 10/30/17 5.1 Basophil Auto 11/07/17 18:14 0.5 10/30/17 0.3 Neutro Absolute 11/07/17 18:14 5.8 10/30/17 6.4 Lymph Absolute 11/07/17 18:14 1.5 10/30/17 1.4 Davidson Absolute 11/07/17 18:14 1.0 10/30/17 0.9 Eos [...] data available. ___Trae Torres RElectronically signed by Jarret Oquendo MD 11/07/2017 21:04 EDT Normal [facility] Lipaseon 11-07-2017 Lipase Lvl 22 IU/L Normal 22-51 [facility] Comment on above: Performed By: #### L IP ####[address] [address] UA w Culture if Indon 2017 Color Nom (U) Yellow Normal [facility] Comment on above: Performed By: #### U CI ####[address] [address] Glucose mass conc (U) Negative Normal Negative [facility] Comment on above: Performed By: #### U CI ####[address] [place] [address] Ketones Ql (U) Negative Normal Negative [facility] Comment on above: Performed By: #### U CI ####[address] [place] [address] UA Blood Large Abnormal Negative [facility] Comment on above: Performed By: #### U CI ####[address] [place] [address] UA Clarity Clear Normal [facility] Comment on above: Performed By: #### U CI ####[address] [place] [address] UA Leukocyte Esterase Moderate Abnormal Negative [facility] Comment on above: Performed By: #### U CI ####[address] [place] [address] UA Nitrite Negative Normal Negative [facility] Comment on above: Performed By: #### U CI ####[address] [place] [address] UA pH 6.0 Normal 4.5 - 7.8 [facility] Comment on above: Performed By: #### U CI ####[address] [place] [address] UA Protein Negative Normal Negative [facility] Comment on above: Performed By: #### U CI ####[address] [place] [address] UA Source Clean Catch Normal [facility] Comment on above: Performed By: #### U CI ####[address] [address] UA Spec Grav 1.020 Normal 1.003-1.03 5 [facility] Comment on above: Performed By: #### U CI ####[address] [place] [address] UA Urobilinogen 0.2 mg/dL Normal 0.2 - 1.0 [facility] Comment on above: Performed By: #### U CI ####[address] [address] Urobilinogen Test strip Qn (U) Negative Normal Negative [facility] Comment on above: Performed By: #### U CI ####[address] [address] Ambulatory Patient Education on 11-06-2017 Ambulatory Patient Education Patient Education MaterialsName: Rabia Gaspar Current Date: 11/06/2017 11:38:14 [place] 1995 following sheet(s) are the Patient Education Leaflets for Rabia Gaspar Ziyad Normal [facility] .eGFRon 10-30-2017 eGFR AA >60 Normal >=60 [facility] Comment on above: Result Comment: Resu lt = 0-14.9 mL/min/1.73 m2 Kidney failure or DialysisResult = 15-29 mL/min/1.73 m2 Severe decrease in GFRResult = 30-59 mL/min/1.73 m2 Moderate decrease in GFRResult >= 60 mL/min/1.73 m2 Normal or increased GFR Performed By: #### E GFR ####[place] [address]258[address] eGFR Non-AA >60 Normal >=60 [facility] Comment on above: Result Comment: Resu [...] medication dosing. Performed By: #### E GFR ####[address] [address] ABO/Rhon 10-30-2017 ABO/Rh DCon: 0 ABO/Rh: O NEG Normal [facility] Comment on above: Performed By: #### A SHAYE ####[address] [address] Basic Metabolic Profileon Anion gap 3 molar conc 10 mmol/L Normal 7-17 [facility] Comment on above: Performed By: #### C D:[id number] ####[address] [address] Calcium mass conc 8.9 mg/dL Normal 8.5-10.3 [facility] Comment on above: Performed By: #### C D:[id number] ####[address] [address] Chloride molar conc 108 mmol/L Normal 98-110 [facility] Comment on above: Performed By: #### C D:[id number] ####[address] [address] CO2 molar conc 25 mmol/L Normal 22-32 [facility] Comment on above: Performed By: #### C D:[id number] ####[address] [address] Creatinine mass conc 0.65 mg/dL Normal 0.44-1.[address] [facility] Comment on above: Performed By: #### C D:[id number] ####[address] [address] Glucose mass conc 87 mg/dL Normal 74-118 [facility] Comment on above: Performed By: #### C D:[id number] ####[address] [address] Potassium molar conc 3.8 mmol/L Normal 3.4-4.[address] [facility] Comment on above: Performed By: #### C D:[id number] ####[address] [address] Sodium molar conc 139 mmol/L Normal 133-142 [facility] Comment on above: Performed By: #### C D:[id number] ####[address] [address] Urea nitrogen mass conc 11 mg/dL Normal 8-26 [facility] Comment on above: Performed By: #### C D:[id number] ####[address] [address] Urea nitrogen/Creatinine mass ratio 16.9 mg/mg Normal 15.0-25.0 [facility] Comment on above: Performed By: #### C D:[id number] ####[address] [address] BhCG Qnton 10-30-2017 HCG.beta subunit Qn m[IU]/mL Low 0.0-4.9 [facility] Comment on above: Result Comment: 0.0 - 4.9 Negative for Pregnancy5.0 - 25.0 Indeterminant for : Suggest repeat in 72 hours.>25.0 Positive for Performed By: #### H CG ####[address] [address] CBC w/ Diffon 10-30-2017 Erythrocyte distribution width Auto Ratio (RBC) 15.1 % High 11.6-14.8 [facility] Comment on above: Performed By: #### C BC ####[address] [address] Hematocrit Auto Volume Fraction (Bld) 38.5 % Normal 36.0-46.0 [facility] Comment on above: Performed By: #### C BC ####[address] [address] Hemoglobin mass conc (Bld) 12.9 g/dL Normal 12.0-16.0 [facility] Comment on above: Performed By: #### C BC ####[address] [address] MCH Auto Entitic mass (RBC) 27.3 pg Normal 27.0-35.0 [facility] Comment on above: Performed By: #### C BC ####[address] [address] MCHC Auto mass conc (RBC) 33.6 % Normal 31.0-37.0 [facility] Comment on above: Performed By: #### C BC ####[address] [address] MCV Auto Entitic volume (RBC) 81.4 fL Normal 80.0-100.0 [facility] Comment on above: Performed By: #### C BC ####[address] [address] Platelet mean volume Auto Entitic volume (Bld) 9.9 fL Normal 6.7-10.6 [facility] Comment on above: Performed By: #### C BC ####[address] [address] Platelets Auto #/vol (Bld) 171 x10*3/mcL Normal 150-350 [facility] Comment on above: Performed By: #### C BC ####[address] [address] RBC Auto #/vol (Bld) 4.73 x10*6/mcL Normal 3.80-5.20 [facility] Comment on above: Performed By: #### C BC ####[address] [address] WBC Auto #/vol (Bld) 9.2 x10*3/mcL Normal 4.5-11.0 [facility] Comment on above: Performed By: #### C BC ####[address] [address] Diff Autoon 10-30-2017 Baso Absolute 0.0 x10*3/mcL Normal 0.0-0.2 [facility] Comment on above: Performed By: #### . Automated Diff ####[address] [address] Basophils/100 WBC Auto (Bld) 0.3 % Normal 0.0-1.5 [facility] Comment on above: Performed By: #### . Automated Diff ####[address] [address] Eos Absolute 0.5 x10*3/mcL High 0.0-0.4 [facility] Comment on above: Performed By: #### . Automated Diff ####[address] [address] Eosinophils/100 WBC Auto (Bld) 5.1 % Normal 0.0-5.4 [facility] Comment on above: Performed By: #### . Automated Diff ####[address] [address] Lymphocytes Auto #/vol (Bld) 1.4 x10*3/mcL Normal 1.2-5.2 [facility] Comment on above: Performed By: #### . Automated Diff ####[address] [address] Lymphocytes/100 WBC Auto (Bld) 14.7 % Low 28.0-42.0 [facility] Comment on above: Performed By: #### . Automated Diff ####[address] [address] Davidson Absolute 0.9 x10*3/mcL Normal 0.1-1.1 [facility] Comment on above: Performed By: #### . Automated Diff ####[address] [address] Monocytes/100 WBC Auto (Bld) 10.0 % Normal 3.7-11.9 [facility] Comment on above: Performed By: #### . Automated Diff ####[address] [address] Neutro Absolute 6.4 x10*3/mcL Normal 1.8-8.0 [facility] Comment on above: Performed By: #### . Automated Diff ####[address] [address] Neutro Auto 69.9 % High 45.6-68.4 [facility] Comment on above: Performed By: #### . Automated Diff ####[place] [id number] ED Clinical Summaryon 2017 ED Clinical Summary (Inserted Image. Addie ble to display) [place] [id number] ed Clinical SummaryPerson InformationName: Rabia Gaspar/Bailey Age: 22 Years : 1995Sex: Female PCP:Marital Status:Single Phone:Race:White Ethnicity:Not or Language:EnglishMRN: [id number] Reason:Abdominal pain; Abdominal pain Acuity: 3Enc Type: Emergency Med Service: Emergency MedicineArrival:10/30/2017 12:10:00 Discharge: 10/30/2017 16:32:00 LOS: 000 04:22Checkin:10/30/2017 12:10:00 Checkout: 10/30/2017 16:32:00 Dispo Type: Home or Self CareAddress:[address] [place], [place] [id number] Provider Notes: History of Present IllnessPatient presents [...] range between ( 28.0 and 42.0 ) Davidson Auto: 10.0 % -- Normal range between [...] range between ( 36.0 and 46.0 ) Davidson Absolute: 0.9 x10 MCH: 27.3 pg -- [...] pain.Care Team Members:Attending Physician: Alex Suarez II, DOConsultwily Physician:Referring Physician:Provider Role Assigned UnassignedAlex Suarez II, DO ED Provider 10/30/2017 12:20:22Jannette Harry ED Nurse 10/30/2017 12:29:21Follow up:With: Address: When:family doctorComments:follow up with your doctor and return to the ed with any cocnernsType Location Start Finish StateNurse Visit [facility] 12/26/2017 15:15:00 12/26/2017 15:30:00 ConfirmedDischarge Orders:Discharge Patient 10/30/17 16:08:00 EDT, Discharge to Home, Self, Vaginal bleedingPatient Education Information:[facility] Poison Help line: .[facility] Hotline: [place] Tobacco Quit Line: [facility] ([place], [place]) [address]: [phone] ([place], [place]) [address]: [phone] [address], [place]: [phone] Normal [facility] ED Note-Physicianon 10-31-19 ED Note-Physician Chief [...] in this document, created by the medical assisting program director for me, accurately reflects the services I personally performed and the decisions made by me. This report has been created using voice recognition software. It may contain minor errors which are inherent in voice recognition technology. Scribe Attestation: The information in this document, created by the medical assisting program director for me, accurately reflects the services I [...] High Lymph Auto 10/30/17 12:41 14.7 Low Davidson Auto 10/30/17 12:41 10.0 Eos Auto 10/30/17 12:41 5.1 Basophil Auto 10/30/17 12:41 0.3 Neutro Absolute 10/30/17 12:41 6.4 Lymph Absolute 10/30/17 12:41 1.4 Davidson Absolute 10/30/17 12:41 0.9 Eos Absolute 10/30/17 12:41 0.5 High Baso Absolute 10/30/17 12:41 0.0Diagnostic Results XRay No qualifying data available. Computerized Tomagraphy No qualifying data available. Ultrasound No qualifying data available. Magnetic Resonance Imaging No qualifying data available. ___JozefFlavia shoemaker JElectronically signed by Erick OLIVAREZ DO Alex Medina 10/30/2017 16:08 EDT Normal [facility] US Transvaginalon 10-30-2017 US Transvaginal Procedure: Transvagi [...] the pelvis. Final Dictated by: Kelton Rosales MD DT/TM: 10/30/2017 3:05 pmSigned by: Kelton Rosales MDigned (Electronic Signature): 10/30/2017 3:09 pm(If Report Is Signed, Electronically Signed in Other Vendor System) [facility] Send-out: Otheron 09-30-2017 Ref Lab Sent to [facility] ce laboratory. See report for normal ranges. Normal [facility] Comment on above: Order Comment: HSV 1 & 2 swab Performed By: #### S OOTH ####[place] [id number] [place] [address] Ref Lab Test Culture, HSV with Re flex to Typing, Genital Normal [facility] Comment on above: Order Comment: HSV 1 & 2 swab Performed By: #### S OOTH ####[address] [address] Send-out Other See Report Normal [facility] Comment on above: Order Comment: HSV 1 & 2 swab Result Comment: Miss ing Attachment Chartable Reference Lab Reports Can be viewed in source system Performed By: #### S OOTH ####[address] [address] HSV 1 & 2 Ab, IgG-[facility] HSV Type I IgG-Reno Negative Normal Negative [facility] Comment on above: Performed By: #### C D:[id number] ####[facility] [place] [address]405 HSV Type II IgG-Reno Negative Normal Negative [facility] Comment on above: Result Comment: Test Performed by:[facility] [place] [address] Performed By: #### C D:[id number] ####[facility] [place] [address] RPRon 09-27-2017 RPR Ql Non-Reactive Normal Non-Reacti ve [facility] Comment on above: Performed By: #### R CO ####[address] [address] Chlam & GC, DNAon 09-26-2017 Chlamydia, DNA Negative Normal Negative [facility] Comment on above: Result Comment: The [...] to the clinician. Performed By: #### C D:[id number] ####[address] [address] Gonorrhea, DNA Negative Normal Negative [facility] Comment on above: Result Comment: The [...] to the clinician. Performed By: #### C D:[id number] ####[address] [address] Gynecology Office/Clinic Not lindy 09-25-2017 Gynecology Office/Clinic [...] in 3 months for repeat injection Ordered: 78670 AMB Urine POC 2. Encounter for initial prescription of injectable contraceptive Ordered: 08121 AMB Urine POC 3. Routine screening for [...] oral tablet, 500 mg, 1 tabs, Oral, [id number] No Known Medication AllergiesSocial History Alcohol Never Sexual Sexually active: Yes. Substance Abuse Denies All Tobacco Current every day smoker, Cigarettes, 1 per day. Packs, 1 year(s).Family History Family history is negativeDiagnostic Results No qualifying data available. No qualifying data available. No qualifying data available. No qualifying data available.Electronically signed by Florina smart Ahmet CALIXTO 09/25/17 16:07 EDT Normal [facility] HIV 1 & 2 ABon 09-25-2017 HIV 1, HIV 2 AB Interp Normal Negative [facility] Comment on above: Result Comment: Nega tive Performed By: #### H IV12 ####[place] [address] Hep Bs Agon 09-25-2017 Body surface area Derived from formula Normal Negative [facility] Comment on above: Result Comment: Nega tive Performed By: #### H BSAG ####[place] [address] Hep C Ab w/reflex HCV RNA Qn t, PCRon 09-25-2017 Hep C IgG Interp Normal Negative [facility] Comment on above: Result Comment: Nega tive Performed By: #### H CV ####[place] [address] OR Trackon 09-25-2017 Pl Red # 1 Normal [facility] Comment on above: Performed By: #### O utrea Tracking Order ####[place] [address] Ambulatory Patient Education on 09-20-2017 Ambulatory Patient Education Patient Education MaterialsName: Rabia Gaspar March Current Date: 09/20/2017 15:26:32 [place]OB: 1995 [...] These injections are given by a health family day carer. You must not be before getting an injection. The injection is usually given during the first 5 days after the start of a menstrual period or 6 weeks after delivery of a baby.Talk to your vp respiratory regarding the use of this medicine in children. Special care may be needed. These injections have been used in female children who have started having menstrual periods.What side effects may I notice from receiving this medicine?Side effects that you should report to your doctor or health family day carer as soon as possible:? allergic reactions like [...] attention (report to your doctor or health family day carer if they continue or are bothersome):? acne? [...] like ethotoin, felbamate, oxcarbazepine, phenytoin, topiramate? modafinil? Preemption's wortWhat if I miss a dose?Try not [...] be given to you by a health family day carer.What should I tell my health care provider [...] risk for weak bones. Ask your health family day carer how you can keep strong bones.You may have a change in bleeding pattern or irregular periods. Many females stop having periods while taking this drug.If you have received your injections on time, your chance of being is very low. If you think you may be , see your health family day carer as soon as possible.Tell your health family day carer if you want to get within the next year. The effect of this medicine may last a long time after you get your last injection.NOTE:This sheet is a summary. It may not cover all possible information. If you have questions about this medicine, talk to your doctor, pharmacist, or health care provider. Copyright? 2017 [employer] Normal [facility] Obstetrics Office/Clinic Not lindy 09-11-2017 Obstetrics [...] qualifying data available.Electronically signed by Florina smart Ahmet CALIXTO 09/11/17 16:33 EDT Normal [facility] Ambulatory Patient Education on 09-09-2017 Ambulatory Patient [...] want to have children in the future.? [phone] [employer]. [address] [place], [place] [address]. All rights reserved. This information is not intended as a substitute for professional medical care. Always follow your healthcare professional's instructions. [facility] EM[facility] REPORT [place] [address] Patient: RABIA GASPAR Date of : 1995 Unit#: [id number] DOS: 12/30/16 History of Present Illness Chief [...] is noted to the lower extremities. Skin: [place], warm and dry, no lesions, rashes, ulcers, or lacerations noted. Skin turgor is appropriate for age. BACK: shows no obvious deformity, bruising, swelling or lesions. No CVA tenderness. NEURO: Alert and oriented x 3, no gross focal deficits. Diagnostic Labs Laboratory Tests Test 12/30/16 14:08 Urine Color Lt. yellow (YELLOW) Urine Appearance Cloudy (CLEAR) Urine pH 6.0 (5.0-8.5) Urine Specific Hitchcock 1.025 (1.005-1.030) Urine Protein 100 mg/dL (NEGATIVE) [...] 14:40 Sign dt/tm: 12/30/16 1441 LESLY OLIVAREZ NP < > Dict Eliane Velasquez dt/tm: 12/30/16 1441 Trans: ANGELA Trans dt/tm: 12/30/16 1441 [~ rep ct ivnm] [~ rep ct add1] [~ rep ct add2] [~ rep ct add3] Normal [facility] Vital Signs Date Time Vital Sign Value Performing Clinician Facility 02-17-2024 08:55-0400 Body weight 74.84 kg [employer] Work Phone: [facility] 02-17-2024 08:55-0400 Diastolic blood pressure 68 mm[Hg] [employer] Work Phone: [facility] 02-17-2024 08:55-0400 Systolic blood pressure 106 mm[Hg] [employer] Work Phone: [phone] [place] [address] 07-10-2023 15:07-0400 Body height 177.8 cm DO Quique Granger Work Phone: [facility] 07-10-2023 15:07-0400 Body temperature 98.8 [degF] DO Quique Granger Work Phone: [facility] 07-10-2023 15:07-0400 Body weight 74.9 kg DO Quique Granger Work Phone: [facility] 07-10-2023 15:07-0400 Diastolic blood pressure 83 mm[Hg] DO Quique Granger Work Phone: [facility] 07-10-2023 15:07-0400 Heart rate 63 /min DO Quique Granger Work Phone: [facility] 07-10-2023 15:07-0400 Respiratory rate 16 /min DO Quique Granger Work Phone: [facility] 07-10-2023 15:07-0400 SaO2% (BldA) [Mass fraction] 99 % DO Quique Granger Work Phone: [facility] 07-10-2023 15:07-0400 Systolic blood pressure 154 mm[Hg] DO Quique Granger Work Phone: [facility] 06-22-2022 21:11-0500 Body height 175.26 cm PHYSICIAN NO [facility] 06-22-2022 21:11-0500 Body temperature 98.2 [degF] PHYSICIAN NO [facility] 06-22-2022 21:11-0500 Body weight 63 kg PHYSICIAN NO [facility] 06-22-2022 21:11-0500 Diastolic blood pressure 65 mm[Hg] PHYSICIAN NO [facility] 06-22-2022 21:11-0500 Heart rate 91 /min PHYSICIAN NO [facility] 06-22-2022 21:11-0500 Respiratory rate 16 /min PHYSICIAN NO [facility] 06-22-2022 21:11-0500 SaO2% (BldA) [Mass fraction] 99 % PHYSICIAN NO [facility] 06-22-2022 21:11-0500 Systolic blood pressure 115 mm[Hg] PHYSICIAN NO [facility] 06-20-2022 02:51-0500 Diastolic blood pressure 52 mm[Hg] PHYSICIAN NO [facility] 06-20-2022 02:51-0500 Heart rate 82 /min PHYSICIAN NO [facility] 06-20-2022 02:51-0500 Respiratory rate 18 /min PHYSICIAN NO [facility] 06-20-2022 02:51-0500 SaO2% (BldA) [Mass fraction] 100 % PHYSICIAN NO [facility] 06-20-2022 02:51-0500 Systolic blood pressure 102 mm[Hg] PHYSICIAN NO [facility] 06-19-2022 22:23-0500 Body height 172.72 cm PHYSICIAN NO [facility] 06-19-2022 22:23-0500 Body temperature 100 [degF] PHYSICIAN NO [facility] 06-19-2022 22:23-0500 Body weight 60.45 kg PHYSICIAN NO [facility] Encounters Encounter Date Encounter Type Care Provider Facility Start: 02-17-2024 End: 02-17-2024 Bamboo flowsheet Franco Tara DO Work Phone: [facility] Start: 02-17-2024 End: 02-25-2024 Bamboo flowsheet Franco Tara DO Work Phone: [facility] Start: 02-17-2024 End: 02-25-2024 Clinisync Result Encounter Franco Tara DO Work Phone: [facility] Unsolicited Start: 02-17-2024 End: 02-19-2024 External Result Encounter Franco Tara DO Work Phone: [facility] Unsolicited Start: 02-17-2024 End: 02-17-2024 ambulatory FRANCO TARA Not Available Start: 02-17-2024 End: 02-17-2024 Office outpatient visit 15 minutes Franco Tara DO Work Phone: [facility] Comment on above: Well woman exam with routine gynecological exam; Second trimester ; Exposure to STD; Need for maternal serum alpha-protein (MSAFP) screening; Screening, , for anatomic survey; 16 weeks gestation of Start: 02-17-2024 End: 02-17-2024 Patient encounter procedure Franco Tara DO Work Phone: [facility] Start: 02-14-2024 End: 02-14-2024 Clinisync Result Encounter Franco Tara DO Work Phone: [facility] Unsolicited Start: 02-14-2024 End: 02-14-2024 Clinisync Result Encounter Franco Tara DO Work Phone: [facility] Unsolicited Start: 01-16-2024 End: 01-16-2024 ambulatory FRANCO DE LA PAZO Not Available Start: 07-10-2023 End: 07-10-2023 Emergency department patient visit Trae Richey Facility:[facility] Start: 07-10-2023 End: 07-10-2023 Emergency department patient visit DO Quique Granger Work Phone: [facility] Work Phone: Start: 05-31-2023 End: 05-31-2023 ambulatory Greg Ren Facility:[facility] Start: 05-31-2023 End: 05-31-2023 ambulatory DO Quique Granger Work Phone: [facility] Work Phone: Start: 05-31-2023 End: 05-31-2023 Departed Referred DO Quique Granger Work Phone: [facility] Start: 06-22-2022 End: 06-22-2022 Emergency department patient visit PHYSICIAN NO [facility] Work Phone: Start: 06-19-2022 End: 06-20-2022 Emergency department patient visit PHYSICIAN NO [facility] Work Phone: Start: 12-26-2017 End: 12-27-2017 Patient encounter AHMETALPESH MICHELLEIAIN Facility:[facility] Start: 11-11-2017 End: 11-12-2017 Patient encounter AHMET Kidd YOANMarti Facility:[facility] Start: 11-07-2017 End: 11-07-2017 Emergency department patient visit Jarret Oquendo Facility:[facility] Start: 10-30-2017 End: 10-30-2017 Emergency department patient visit Alex Suarez Facility:[facility] Start: 09-25-2017 End: 09-26-2017 Patient encounter AHMET MILTONMarti Facility:[facility] Start: 09-25-2017 End: 09-26-2017 Patient encounter AHMETALPESH MICHELLETHEODOREMarti Facility:[facility] Start: 09-11-2017 End: 09-12-2017 Patient encounter AHMET PABON Facility:[facility] Start: 12-30-2016 End: 12-30-2016 Emergency department patient visit LESLY OLIVAREZ Facility:[facility] Procedures Date Procedure Procedure Detail Performing Clinician Start: 02-17-2024 IGP,APTIMA HPV,AGE GDLN Franco Tara DO Work Phone: Start: 02-17-2024 URETHRITIS/DISCHARGE PLUS VAGINITIS (HTRX) Franco Tara DO Work Phone: Start: 02-14-2024 BOX TEST Franco Fazi o DO Work Phone: Start: 06-20-2022 Aerobic microbial culture PHYSICIAN NO FAMILY Plan of Treatment Date Care Activity Detail Author Start: 03-16-2024 End: 03-16-2024 Patient encounter procedure 03/16/2024 9:20 AM EST Routine [facility] [address] [place] [id number] Samantha Ambrose PA [address] [place] [address] [facility] Start: 02-17-2024 End: 03-19-2024 Alpha fetoprotein, maternal Alpha fetoprotein, maternal Lab Routine Screening, , for anatomic survey Expected: 02/17/2024 (Approximate), Expires: 03/19/2024 [facility] Comment on above: Expected: 02/17/2024 (Approximate), Expires: 03/19/2024 Start: 02-17-2024 End: 02-16-2025 US for US OB ANATOMY SINGLE W US OB CERVICAL LENGTH Imaging Routine Screening, , for anatomic survey Expected: 02/17/2024 (Approximate), Expires: 02/16/2025 [facility] Comment on above: Expected: 02/17/2024 (Approximate), Expires: 02/16/2025 Start: 02-17-2024 End: 02-17-2024 Patient encounter procedure 02/17/2024 8:30 AM EDT Routine [facility] [address] [place] [id number] Franco Pacheco, [address] [place], [place] [id number] [facility] Start: 06-20-2022 Bacteria identified in Blood by Culture Blood Culture [facility] Start: 06-20-2022 Blood culture for bacteria, including anaerobic screen Blood Culture [facility] Start: 06-20-2022 Superficial Wound Culture Superficial Wound Culture [facility] CHLAMYDIA TRACHOMATI S (GENITO/STI) CHLAMYDIA TRACHOMATIS (GENITO/STI) Lab Routine Exposure to STD Ordered: 02/17/2024 [facility] Comment on above: Ordered: 02/17/2024 Cytology Cervical or vaginal smear or scraping study Pap Smear Pathology and Cytology Routine Well woman exam with routine gynecological exam Ordered: 02/17/2024 [facility] Comment on above: Ordered: 02/17/2024 Neisseria gonorrhoea e DNA [Presence] in Unspecified specimen by AMBER with probe detection Neisseria gonorrhea DNA probe, direct Lab Routine Exposure to STD Ordered: 02/17/2024 [facility] Comment on above: Ordered: 02/17/2024 Patient Education [facility] Work Phone: Patient referral [facility] Work Phone: SURESWAB(R) ADVANCED VAGINITIS PLUS, TMA SURESWAB(R) ADVANCED VAGINITIS PLUS, TMA Pathology and Cytology Routine Exposure to STD Ordered: 02/17/2024 [facility] Work Phone: Comment on above: Ordered: 02/17/2024 Payers Date Payer Category Payer Medicaid (Managed Care) [employer] [id number] 2023 Medicaid [id number] 2023 Private Health Insurance [id number] 2023 Self-pay 2017 Unknown 1995 Unknown [id number] 1995 Unknown [id number] Unknown Christofer BC/BS [id number] Unknown [id number] Unknown [id number] Social History Date Type Detail Facility Start: 06-20-2022 End: 07-10-2023 Tobacco smoking status MIIS Smoker (finding) [facility] Start: 04-22-2014 History of tobacco use [facility] Work Phone: Start: 1995 Sex Assigned At Female [facility] Tobacco smoking status NHIS Tobacco smoking consumption unknown [facility] Start: 11-07-2023 [facility] Start: 01-09-2024 Gender identity Identifies as female gender (finding) [facility] NEGATED: Highlighted row [facility] History of Present illness Narrative 02-17-2024 Franco Pacheco - 02/17/2024 8:30 AM EDT Note Date & Type Note Facility 02-17-2024 History of Presen t illness Narrative Reason for Appointment: Patient ID: Rabia Gaspar is a 28 y.o. female who presents for Routine Visit Patient presents today for Return OB appointment. MEDICATIONS Current Outpatient Medications Medication Instructions ondansetron ODT (ZOFRAN-ODT) 4 mg, Oral, Every 6 hours Vit-Fe Fumarate-FA (PNV Plus Multivitamin) 27-1 MG tablet 1 tablet, Oral, Daily ALLERGIES No Known Allergies PROBLEMS Active Ambulatory Problems Diagnosis Date Noted No Active Ambulatory Problems Resolved Ambulatory Problems Diagnosis Date Noted No Resolved Ambulatory Problems No Additional Past Medical History HISTORY PAST MEDICAL HISTORY SOCIAL HISTORY No past medical history on file. Social History Tobacco Use Smoking status: Not on file Smokeless tobacco: Not on file Substance Use Topics Alcohol use: Not on file Drug use: Not on file FAMILY HISTORY No family history on file. SURGICAL HISTORY No past surgical history on file. REVIEW OF SYSTEMS Review of Systems: Review of Systems All other systems reviewed and are negative. OBJECTIVE Objective: Physical Exam Constitutional: Appearance: Normal appearance. She is well-developed. Genitourinary: Vulva normal. Breasts: Breasts are soft. Right: Normal. Left: Normal. Cardiovascular: Rate and Rhythm: Normal rate and regular rhythm. Pulmonary: Effort: Pulmonary effort is normal. Breath sounds: Normal breath sounds. Abdominal: General: Bowel sounds are normal. There is no distension. Palpations: Abdomen is soft. Tenderness: There is no abdominal tenderness. There is no guarding or rebound. Musculoskeletal: General: No swelling. Normal range of motion. Right lower leg: No edema. Left lower leg: No edema. Neurological: Mental Status: She is alert and oriented to person, place, and time. Skin: General: Skin is warm and dry. Psychiatric: Mood and Affect: Mood normal. Behavior: Behavior normal. Vitals and nursing note reviewed. Exam conducted with a roving hand present. Vitals: There is no height or weight on file to calculate BMI. BP: 106/68 Patient's last menstrual period was 10/24/2023. ASSESSMENT & PLAN ICD-10-CM 1. Well woman exam with routine gynecological exam Z01.419 Pap Smear 2. Second trimester Z34.92 CANCELED: POCT urinalysis dipstick manually resulted 3. Exposure to STD Z20.2 SURESWAB(R) ADVANCED VAGINITIS PLUS, TMA CHLAMYDIA TRACHOMATIS (GENITO/STI) Neisseria gonorrhea DNA probe, direct 4. Need for maternal serum alpha-protein (MSAFP) screening Z36.1 5. Screening, , for anatomic survey Z36.89 US OB ANATOMY SINGLE W US OB CERVICAL LENGTH Alpha fetoprotein, maternal Alpha fetoprotein, maternal 6. 16 weeks gestation of Z3A.16 Return OB/Annual Exam: Patient presents today for a annual exam/routine obstetrics appointment. Patient is currently 16w4d . Patient states she is doing well but has complaints of nausea in the morning. Pap and cultures was obtained without difficulty and patient was given orders for anatomy scan and msAFP to be obtained. Orders Placed This Encounter Procedures US OB ANATOMY SINGLE W US OB CERVICAL LENGTH CHLAMYDIA TRACHOMATIS (GENITO/STI) Neisseria gonorrhea DNA probe, direct Alpha fetoprotein, maternal Patient had no complaints at appointment today. Follow Up: Patient is to schedule annual exam for next year and return to office in 4 weeks for OB appointment. Documented by Ingrid Gordon LPN on behalf of: Franco Pacheco DO documented in this encounter [facility] Healthcare Evaluation note Note Date & Type Note Facility Evaluation note No assessment information [facility] Work Phone: Evaluation note Note Date & Type Note Facility Evaluation note Diagnosis Well woman exam with routine gynecological exam Routine gynecological examination Second trimester state, incidental Exposure to STD Need for maternal serum alpha-protein (MSAFP) screening Screening, , for anatomic survey Encounter for anatomic survey 16 weeks gestation of documented in this encounter [facility] Hospital Discharge instructions Note Date & Type [...] to you for ongoing evaluation and care. [facility] Work Phone: Hospital Discharge instructions Note Date & Type Note Facility Hospital Discharge instructions Additional Instructions Take prednisone as directed Take Pepcid as directed Take Benadryl as needed for itching Warm soaks several times a day as discussed Avoid picking, popping, poke area affected Follow-up with your doctor Saturday Return here if any problems persist or worsen as history [facility] Work Phone: Hospital Discharge instructions Note Date & Type Note Facility Hospital Discharge instructions Additional Instructions Continue to take Benadryl every 8 hours [facility] Work Phone: Summary Purpose Family History No [...] section and content) DATE CREATED AUTHOR 10/16/2017 [facility] DATE CREATED AUTHOR AUTHOR'S ORGANIZ ATION 01/05/2018 [facility] DATE CREATED AUTHOR AUTHOR'S ORGANIZ ATION 12/06/2020 [facility] DATE CREATED AUTHOR AUTHOR'S ORGANIZ ATION 07/12/[address] [facility] DATE CREATED AUTHOR AUTHOR'S ORGANIZ ATION 02/17/2024 [facility] EPIC Care Teams (unrecognized sec [...] Status: Active Member Role Status Dates Services [facility] Care Provider Ac tive Team Status: Inactive Member Role Status Dates Quique Granger DO Referring Provider Active St art: May 31, 2023 End: May 31, 2023 Greg Ren DO Attending Provider Active Start : May 31, 2023 End: May 31, 2023 Team Status: Inactive Member Role Status Dates [facility] Provider Ac tive Start: July 10, 2023 End: July 10, 2023 Trae Richey APRN Emergency Provider Active Start: July 10, 2023 End: July 10, 2023 Goals (unrecognized section and content) Goals may be documented in a n alternate sectionGoals may be documented in an alternate sectionGoals may be documented in an alternate sectionGoals may be documented in an alternate section Reason for Visit (unrecogniz ed section and content) Reason Comments Routine Visit FOR RECORDS PERTAINING TO PATIENTS WHO ARE [...] BE BASED ON THE PRIMARY CLINICAL RECORDS. [employer] provides no warranty or guarantee of the accuracy or completeness of information in this document.
[2024-03-04 00:09] LABS: AFP Value 34.3 ng/mL (.); Gest. Age on Collection Date 16.6 weeks (.); Insulin Dep Diabetes No (.); Maternal Age At EDD 27.3 yr (.); OSBR Risk 1 IN 10000 (.); Results Report (.)
== END 2024-02-29 10:24 | disposition home or self-care (01) ==
LOC: LAB 10:25
PROVIDERS: Visit Provider Obstetrics & Gynecology
DX: Z34.92 Encounter for supervision of normal pregnancy, unspecified, second trimester (principal); Z36.89 Encounter for other specified antenatal screening
CPT/HCPCS: 36415; 82105

== ENCOUNTER 2024-05-07 14:33 | Outpatient (OUT) | payer OTHER, SELFPAY ==
[2024-05-07 15:44] LABS: Basophils Percent Auto 0.3 % (0.2-2.0); Eosinophils Absolute Auto 0.1 10^3/uL (0.0-0.7); Eosinophils Percent Auto 1.1 % (0.9-7.0); Hematocrit 36.7 % (36.0-48.0); Hemoglobin 11.9 g/dL (12.0-16.0); Immature Granulocytes Abs Auto 0.04 10^3/uL (0.00-0.03); Immature Granulocytes Pct Auto 0.6 % (0.0-0.5); Lymphocytes Absolute Auto 1.2 10^3/uL (1.2-3.8); Lymphocytes Percent Auto 17.5 % (20.5-60.0); Mean Corpuscular HGB Conc 32.4 g/dL (29.9-35.2); Mean Corpuscular Volume 89.3 fL (81.0-99.0); Mean Platelet Volume 11.1 fL (9.5-13.5); Monocytes Absolute Auto 0.5 10^3/uL (0.3-0.8); Monocytes Percent Auto 7.5 % (1.7-12.0); Neutrophils Absolute Auto 5.2 10^3/uL (1.4-6.5); Platelet Count 149 10^3/uL (150-450); Red Blood Count 4.11 10^6/uL (4.20-5.40); Red Cell Distribution Width 13.9 % (11.0-15.0); White Blood Count 7.1 10^3/uL (4.0-11.0)
[2024-05-07 16:12] LABS: Glucose 1 Hour 128 mg/dL (<130)
== END 2024-05-07 14:34 | disposition home or self-care (01) ==
LOC: LAB 14:35
PROVIDERS: Visit Provider Obstetrics & Gynecology
DX: Z13.1 Encounter for screening for diabetes mellitus (principal); Z3A.28 28 weeks gestation of pregnancy
CPT/HCPCS: 36415; 82950; 85025

== ENCOUNTER 2024-05-15 09:51 | Outpatient (RCR) | payer OTHER, SELFPAY ==
[2024-05-15] MEDS: RHO(D) IMMUNE GLOBULIN 1,500 UNIT SYRINGE 1500 UNIT IM (13:18)
[2024-05-15 13:20] VITALS: BP 117/73; PULSE 71; TEMP 36.6; O2SAT 98
--- NOTE | 2024-05-15 13:28 | PC.NURSE ---
Pt here for Rhogam injection, lab results reviewed. Injection given w/o incident. Pt d/c'd stable.
== END 2024-05-22 23:59 | disposition home or self-care (01) ==
LOC: INF 09:51
PROVIDERS: Visit Provider Obstetrics & Gynecology
DX: O26.893 Other specified pregnancy related conditions, third trimester (principal); Z67.91 Unspecified blood type, Rh negative; Z3A.00 Weeks of gestation of pregnancy not specified
CPT/HCPCS: 36415; 86850; 86900; 86901; 96372; J2791

== ENCOUNTER 2024-07-02 20:03 | Outpatient (REF) | payer OTHER, SELFPAY ==
--- OUTSIDE RECORDS SUMMARY | 2024-07-02 20:07 | XMS_ITS | CCD ---
Author Organization [facility] Care Team Providers Care Gas Engine Repairer Name Role Phone LESLY OLIVAREZ Unavailable Unavailable HERMILLER, AHMET R Unavailable Unavailable HERMILLER, AHMET R Unavailable Unavailable HERMILLER, AHMET R Unavailable Unavailable Alex Suarez Unavailable Unavailable HERMILLER, AHMET R Unavailable Unavailable Jarret Oquendo Unavailable Unavailable NO FAMILY, PHYSICIAN Primary Care Provider DO Luis De Santiago Emergency Provider UnaHAO Lu Emergency Provider DO Quique Granger Attending Provider Trae Richey Admitting Unavailable Trae Richey Attending Unavailable [facility] Primary Care navailable Greg Ren Admitting Unavailable Greg Ren Attending Unavailable Quique Granger Referring Unavailable DO Quique Granger Referring Provider DO Greg Ren Attending Provider [facility] Primary Care [facility] ider HAO Richey Emergency Provider [phone] Unavailable Primary Care Provider Unavailabl e FRANCO PACHECO Referring Unavailable SAMANTHA SON Attending Unavailable SAMANTHA SON Attending Unavailable FRANCO PACHECO Attending Unavailable FRANCO PACHECO Attending Unavailable FRANCO PACHECO Attending Unavailable SAMANTHA SON Attending Unavailable Allergies Allergy Classification Reported Allergen(s) Allergy Type Date of Onset Reaction(s) Facility (1 source) No Known Medication Allergies; Translations: [No Known Medication Allergies] Propensity to adverse reactions to drug (disorder) [facility] Repository Medications Current Medications Medication Drug Class(es) Dates Sig (Normalized) Sig (Original) ondansetron 4 mg disintegrating oral tablet (11 sources) Serotonin-3 Receptor Antagonist Start: 01-16-2024 End: [...] daily Prednisone Active 10 MG PO Daily July 10, 2023 12:00am 60mg daily for three days, 40mg daily for three days, 20mg daily for three days, 10mg daily for three days. Start: 06-22-2022 End: 07-10-2023 take 40 mg by mouth once daily Prednisone Discontinued 40 MG PO Daily 6 June 22, 2022 1:00am July 10, 2023 3:08pm Vit-Fe Fumarate-FA (PNV Plus Multivitamin) 27-1 MG tablet (20 sources) Start: 02-25-2024 End: 02-24-2025 take 1 tablet by mouth once daily Vit-Fe Fumarate-FA (PNV Plus Multivitamin) 27-1 MG tablet Indications: , unspecified gestational age Take 1 tablet by mouth Daily 30 tablet 02/25/2024 02/24/2025 Active Start: 01-16-2024 End: 01-15-2025 take 1 tablet by mouth once daily Vit-Fe Fumarate-FA (PNV Plus Multivitamin) 27-1 MG tablet Indications: , unspecified gestational age Take 1 tablet by mouth Daily 30 tablet 01/16/2024 01/15/2025 Active Completed/Discontinued Medications Medication Drug [...] Episodic Immunizations and screening for infectious disease (6 sources) Exposure to sexually transmissible disorder; Translations: [Contact with and (suspected) exposure to infections with a predominantly sexual mode of transmission] 02-17-2024 Episodic Menstrual disorders (1 source) Missed period; Translations: [Irregular menstruation, unspecified] 01-16-2024 Chronic Mood disorders (1 source) Major depressive disorder, single episode, mild; Translations: [Major depressive disorder, single episode, mild] Onset: 05-31-2023 Chronic Other aftercare (3 sources) Follow-up status; Translations: [Encounter for change or removal of nonsurgical wound dressing] 06-22-2022 Episodic Other complications of (1 source) Vomiting of , unspecified; Translations: [Unspecified vomiting of , unspecified as to episode of care or not applicable] 01-16-2024 Episodic Other complications of (2 sources) size does not accord with dates; Translations: [Uterine size-date discrepancy, unspecified trimester] 05-21-2024 Episodic Other and delivery including normal (14 sources) Second trimester ; Translations: [Encounter for supervision of normal , unspecified, second trimester] 02-17-2024 Episodic Other screening for suspected conditions (not mental disorders or infectious disease) (6 sources) Alpha-fetoprotein blood test status; Translations: [Encounter for screening for raised alphafetoprotein level] 02-17-2024 Episodic Residual codes; unclassified (2 sources) Gestation period, 16 weeks; Translations: [16 weeks gestation of ] 02-17-2024 Episodic Residual codes; unclassified (2 sources) Gestation period, 23 weeks; Translations: [23 weeks gestation of ] 04-07-2024 Episodic Residual codes; unclassified (2 sources) Gestation period, 27 weeks; Translations: [27 weeks gestation of ] 05-07-2024 Episodic Residual codes; unclassified (2 sources) Gestation period, 30 weeks; Translations: [30 weeks gestation of ] 05-21-2024 Episodic Residual codes; unclassified (2 sources) Gestation period, 32 weeks; Translations: [32 weeks gestation of ] 06-04-2024 Episodic Residual codes; unclassified (2 sources) Gestation period, 34 weeks; Translations: [34 weeks gestation of ] 06-18-2024 Episodic Skin and subcutaneous tissue infections (8 sources) Abscess; Translations: [Cutaneous abscess, unspecified] 06-20-2022 Episodic Results Test Name Value Interpretation Reference Range Facility Urinalysis macro (dipstick) panel (U)on 06-18-2024 Bilirubin, UA Negative Negative - 4(70) +++ mg/dL [facility] Blood, UA Negative Negative - 50 Akin/mcL [facility] Clarity, UA Clear [facility] Color, UA Yellow [facility] Glucose, UA Negative Negative - 2000(110) ++++ mg/dL [facility] Interpretation and review of laboratory results Abnormal [facility] Ketones, UA Negative Negative - 160(16) ++++ mg/dL [facility] Leukocytes, UA Positive Negative - 500+++ Dany/mcL [facility] Comment on above: small Nitrite, UA Negative Negative - Positive [facility] pH, UA 7 5 - 9 [facility] Protein, UA Negative Negative - 2000(20) ++++ mg/dL [facility] Spec Grav, UA 1.02 1 - 1.03 [facility] Urobilinogen, UA 0.2 0.2 - 12 mg/dL [facility] US OB FOLLOW UP TRANSABDOMIN AL APPROACHon 06-04-2024 US OB FOLLOW UP TRANSABDOMINAL APPROACH EXAM: US OB FOLLOW UP TRANSABDOMINAL APPROACH HISTORY: Inconsistent size. COMPARISON: OB ultrasound 01/17/2024. TECHNIQUE: Two-dimensional transabdominal grayscale ultrasound imaging of the pelvis was performed. Limited head measurements due to position. FINDINGS: Gestation: Single Presentation: Cephalic Cardiac Activity: 153 beats per minute Placental Location: Posterior with no sonographic abnormalities identified. Cervical canal: Not visualized Amniotic Fluid Index: 17.9 cm MEASUREMENTS: BPD: 8.4 cm EGA: 33 weeks 5 days HC: 30.6 cm EGA: 34 weeks 0 days AC: 28.8 cm EGA: 32 weeks 6 days FL: 6.1 cm EGA: 31 weeks 4 days HC/AC Ratio: 1.06 The gestational age by today's ultrasound is 33 weeks 0 days (+/- 16 days gestation). Estimated Weight: 2016 grams, +/- 302 grams ( 4 lb 7 oz). Weight Percentile for gestational age: 60 % IMPRESSION: 1. Single, live intrauterine gestation 32 weeks, 0 days by LMP. Today's ultrasound measurements correlate with a gestational age of 33 weeks 0 days. Estimated weight is 2016 grams, +/- 302 grams ( 4 lb 7 oz) which correlates to 60 %. FE is 07/23/2024. Electronically Signed:Electronically signed by MARY CARRILLO II, MD, PHD at 05-Jun-2024 08:38:55 AM [facility] Normal Not Available Comment on above: Order Comment: US OB SCAN FOR GROWTH Estimated Date of Delivery: 07/30/24 Gestational Age as of 05/21/2024: 30w0d Urinalysis macro (dipstick) panel (U)on 05-21-2024 Bilirubin, UA Negative Negative - 4(70) +++ mg/dL [facility] Blood, UA Negative Negative - 50 Akin/mcL [facility] Clarity, UA Clear [facility] Color, UA Yellow [facility] Glucose, UA Negative Negative - 2000(110) ++++ mg/dL [facility] Interpretation and review of laboratory results Abnormal [facility] Ketones, UA Negative Negative - 160(16) ++++ mg/dL [facility] Leukocytes, UA Positive Negative - 500+++ Dany/mcL [facility] Comment on above: small Nitrite, UA Negative Negative - Positive [facility] pH, UA 6 5 - 9 [facility] Protein, UA Negative Negative - 2000(20) ++++ mg/dL [facility] Spec Grav, UA 1.02 1 - 1.03 [facility] Urobilinogen, UA 0.2 0.2 - 12 mg/dL [facility] ALL CBC WITH AUTO DIFFon BASOPHILS ABSOLUTE AUTO 0 [facility] Basophils/100 WBC (Bld) 0.3 % 0.2 - 2.0 % [facility] Eosinophils/100 WBC (Bld) 1.1 % 0.9 - 7.0 % [facility] Erythrocyte distribution width (RBC) [Ratio] 13.9 % 11.0 - 15.0 % [facility] Hematocrit (Bld) [Volume fraction] 36.7 % 36.0 - 48.0 % [facility] Hemoglobin (Bld) [Mass/Vol] 11.9 g/dL Low 12.0 - 16.0 g/dL [facility] IMMATURE GRANULOCYTES ABS AUTO 0.04 High [facility] Immature granulocytes/100 WBC (Bld) 0.6 % High 0.0 - 0.5 % [facility] Interpretation and review of laboratory results Abnormal [facility] LYMPHOCYTES ABSOLUTE AUTO 1.2 [facility] Lymphocytes/100 WBC (Bld) 17.5 % Low 20.5 - 60.0 % [facility] MCH (RBC) [Entitic mass] 29 pg 26.7 - 34.0 pg [facility] MCHC (RBC) [Mass/Vol] 32.4 g/dL 29.9 - 35.2 g/dL [facility] MCV (RBC) [Entitic vol] 89.3 fL 81.0 - 99.0 fL [facility] MONOCYTES ABSOLUTE AUTO 0.5 [facility] Monocytes/100 WBC (Bld) 7.5 % 1.7 - 12.0 % [facility] NEUTROPHILS ABSOLUTE AUTO 5.2 [facility] Neutrophils/100 WBC (Bld) 73 % 43.0 - 75.0 % [facility] Platelet mean volume (Bld) [Entitic vol] 11.1 fL 9.5 - 13.5 fL [facility] TBH EO # 0.1 [facility] PLT 149 Low [facility] RBC 4.11 Low [facility] WBC 7.1 [facility] Urinalysis macro (dipstick) panel (U)on 05-07-2024 Bilirubin, UA Negative Negative - 4(70) +++ mg/dL [facility] Blood, UA Negative Negative - 50 Akin/mcL [facility] Clarity, UA Clear [facility] Color, UA Yellow [facility] Glucose, UA Negative Negative - 1999(110) ++++ mg/dL [facility] Interpretation and review of laboratory results Abnormal [facility] Ketones, UA Negative Negative - 160(16) ++++ mg/dL [facility] Leukocytes, UA Negative Negative - 500+++ Dany/mcL [facility] Nitrite, UA Negative Negative - Positive [facility] pH, UA 6 5 - 9 [facility] Protein, UA Trace Negative - 1999(20) ++++ mg/dL [facility] Spec Grav, UA 1.025 1 - 1.03 [facility] Urobilinogen, UA 0.2 0.2 - 12 mg/dL [facility] AFP, SERUM, OPEN SPINA BIFID Aon 03-04-2024 AFP MOM 1.02 . [facility] AFP VALUE 34.3 ng/mL . [facility] COMMENT: Comment . [facility] Comment on above: Amie Roach , Ph.D., [facility] Director References: Available Upon Request. Multiples Of Median Cutoffs For AFP Elevations Miller 2.5 Black 2.8 IDD 2.0 Twins 4.5 Abbreviation Definitions IDD - Insulin Dep Diabetes OSBR - Open Spina Bifida Risk For further inquiries contact [facility] at [phone]. This test was developed and its performance characteristics determined by [employer]. It has not been cleared or approved by the Food and Drug Administration. Performed at: [facility] [address] [place], [place] [id number] Gas Engine Repairer: Grace Barragan [facility], Phone: [phone] GEST. AGE ON COLLECTION DATE 16.6 . weeks [facility] GESTAT. AGE BASED ON LMP . [facility] Comment on above: Recalculations are n ot recommended when gestational dating by LMP and ultrasound are within 10 days. INSULIN DEP DIABETES No . [facility] INTERPRETATION Comment . [facility] Comment on above: Interpretation: Scre en Negative This result is screen negative for OSB. The AFP MoM calculated is based on the gestational age provided. MS-AFP can identify up to 80% of open neural tube defects. Closed neural tube defects and some open defects may not be detected by this test. This test does not screen for Down Syndrome or Trisomy 18. If screening for Down Syndrome or Trisomy 18 is desired, contact [facility] [employer] [facility] to discuss available options. The [employer] recommends amniocentesis be offered to women age 35 and older. [age] 27.5 . yr [facility] MULTIPLE GESTATION No . [facility] [place] [id number] . [facility] RACE . [facility] RESULTS Report . [facility] TEST RESULTS: Negative . [facility] WEIGHT 165 . lbs [facility] N N LMP [id number] 4 16 N 1 Y 165 N N N N N White/ [facility] IGP,APTIMA HPV,AGE GDLNon AGE GDLN ACOG TESTING Note . [facility] Comment on above: TESTS RESULT [facility] REF RANGE LAB Clinician Provided Cytology Information Source.............Cervix;Vulva Other.............. No. of containers..01 ThinPrep Vial Age Algo ACOG Lauren... FLAG LEGEND: L-Low Normal,H-High Normal,LL-Alert Low,HH-Alert High <-Panic Low,>-Panic High,A-Abnormal,AA-Critical Abnormal Performed at: 01 =G [facility] [address] Fernanda Macedo MD, IGP, RFX APTIMA HPV ASCU Note . [facility] Comment on above: TESTS RESULT [facility] REF RANGE LAB DIAGNOSIS: 02 NEGATIVE FOR INTRAEPITHELIAL LESION OR MALIGNANCY. Specimen adequacy: 02 Satisfactory for evaluation. No endocervical component is identified. An endocervical component is not commonly seen in the patient. Performed by: 02 Marco Butterfield Knife Setter (ASCP) . 02 Note: Note 02 The Pap [...] <-Panic Low,>-Panic High,A-Abnormal,AA-Critical Abnormal Performed at: [address] [address] Fernanda Macedo MD, Performed at: = - [facility] [address] [id number] Gas Engine Repairer: Fernanda Macedo MD, Phone: [phone] Performed at: [facility] [id number] Gas Engine Repairer: Fernanda Macedo MD, Phone: [phone] SPATULA-ALONE CERVIX VULVA [facility] URETHRITIS/DISCHARGE PLUS VA GINITIS (HTRX)on 02-19-2024 ATOPOBIUM VAGINAE 19.009 Abnormal [facility] ATOPOBIUM VAGINAE Detected Abnormal [facility] BVAB 2,3 (BACTERIAL VAGINOSIS ASSOCIATED BACTERIA 2, 3); MOBILUNCUS SPP 9.763 Abnormal [facility] BVAB 2,3 (BACTERIAL VAGINOSIS ASSOCIATED BACTERIA 2, 3); MOBILUNCUS SPP Detected Abnormal [facility] KRYSTYNA ALBICANS, PARAPSILOSIS, TROPICALIS 0 [facility] KRYSTYNA ALBICANS, PARAPSILOSIS, TROPICALIS Not detected [facility] KRYSTYNA GLABRATA 0 [facility] KRYSTYNA GLABRATA Not detected [facility] KRYSTYNA KRUSEI 0 [facility] KRYSTYNA KRUSEI Not detected [facility] CHLAMYDIA TRACHOMATIS 26.358 Abnormal [facility] CHLAMYDIA TRACHOMATIS Detected Abnormal [facility] Healthcare ERMB, C; MEFA 24.199 Abnormal [facility] ERMB, C; MEFA Detected Abnormal [facility] GARDNERELLA VAGINALIS 22.01 Abnormal [facility] GARDNERELLA VAGINALIS Detected Abnormal [facility] Interpretation and review of laboratory results Abnormal [facility] MEGASPHAERA (TYPES 1, 2) 20.793 Abnormal [facility] MEGASPHAERA (TYPES 1, 2) Detected Abnormal [facility] MYCOPLASMA GENITALIUM 0 [facility] MYCOPLASMA GENITALIUM Not detected N [facility] NEISSERIA GONORRHOEAE 0 [facility] NEISSERIA GONORRHOEAE Not detected N [facility] TET B, TET M 17.287 Abnormal [facility] TET B, TET M Detected Abnormal [facility] TRICHOMONAS VAGINALIS 0 [facility] TRICHOMONAS VAGINALIS Not detected N [facility] BOX TESTon 02-14-2024 BOX TEST SENT OUT [facility] BOX1 [facility] BOX2 02/14/24 [facility] ( test) Ql (U)o n 01-16-2024 Interpretation and review of laboratory results Abnormal [facility] Preg Test, Ur Positive [facility] Urinalysis macro (dipstick) panel (U)on 01-16-2024 Bilirubin, UA Positive Negative - 4(70) +++ mg/dL [facility] Comment on above: small Blood, UA Positive Negative - 50 Akin/mcL [facility] Comment on above: trace Clarity, UA Clear [facility] Color, UA Carli [facility] Glucose, UA Negative Negative - 2000(110) ++++ mg/dL [facility] Interpretation and review of laboratory results Abnormal [facility] Ketones, UA Positive Negative - 160(16) ++++ mg/dL [facility] Comment on above: trace Leukocytes, UA Trace Negative - 500+++ Dany/mcL [facility] Nitrite, UA Negative Negative - Positive [facility] pH, UA 5.5 5 - 9 [facility] Protein, UA Positive Negative - 2000(20) ++++ mg/dL [facility] Comment on above: 30 mg Spec Grav, UA 1.030 1 - 1.03 [facility] Urobilinogen, UA 0.2 0.2 - 12 mg/dL [facility] Alanine aminotransferase [En zymatic activity/volume] in Serum or PlasmaOrdered By: Quique Granger on 05-31-2023 ALT [Catalytic activity/Vol] 122 U/L 7-52 [facility] Albumin [Mass/volume] in Ser um or Plasma by Bromocresol green (BCG) dye binding methoOrdered By: Quique Granger on 05-31-2023 Albumin BCG dye [Mass/Vol] 4.4 g/dL 3.5-5.7 [facility] Alkaline phosphatase [Enzyma tic activity/volume] in Serum or PlasmaOrdered By: Quique Granger on 05-31-2023 ALP [Catalytic activity/Vol] 51 U/L 34-104 [facility] Aspartate aminotransferase [ Enzymatic activity/volume] in Serum or PlasmaOrdered By: Quique Granger on 05-31-2023 AST [Catalytic activity/Vol] 93 U/L 13-39 [facility] Basophils Auto (Bld) [#/Vol] Ordered By: Quique Granger on 05-31-2023 Basophils (Bld) [#/Vol] 0.0 10*3/uL 0.0-0.2 [facility] Basophils/100 WBC Auto (Bld) Ordered By: Quique Granger on 05-31-2023 Basophils/100 WBC (Bld) 0.6 % . [facility] Bilirubin.total [Mass/volume ] in Serum or PlasmaOrdered By: Quique Granger on 05-31-2023 Bilirubin [Mass/Vol] 0.5 mg/dL 0.3-1.[address] [facility] Calcium [Mass/volume] in Ser um or PlasmaOrdered By: Quique Granger on 05-31-2023 Calcium [Mass/Vol] 9.2 mg/dL 8.6-10.3 [facility] Carbon dioxide, total [Moles /volume] in Serum or PlasmaOrdered By: Quique Granger on 05-31-2023 CO2 [Moles/Vol] 25.4 mmol/L 21.0-31.0 [facility] Chloride [Moles/volume] in S quan or PlasmaOrdered By: Quique Granger on 05-31-2023 Chloride [Moles/Vol] 106 mmol/L 98-[address] [facility] Complete Blood Count Auto Di ffon 05-31-2023 Basophils (Bld) [#/Vol] 0.0 10*3/uL Normal 0.0-0.2 [facility] Comment on above: Result Comment: PERF ORMED BY: [place] [address] PATHOLOGIST TRAPPER BIRD ADRIAN LANG M.D. Performed By: #### T SH3 wRFLX, CMP, CBC #### [facility] [address] [place] [address] Basophils/100 WBC (Bld) 0.6 % Normal . [facility] Comment on above: Performed By: #### T SH3 wRFLX, CMP, CBC #### [facility] [address] [place] [address] [place] Eosinophils (Bld) [#/Vol] 0.2 10*3/uL Normal 0.0-0.45 [facility] Comment on above: Performed By: #### T SH3 wRFLX, CMP, CBC #### [facility] [address] [place] [address] [place] Eosinophils/100 WBC (Bld) 3.9 % Normal . [facility] Comment on above: Performed By: #### T SH3 wRFLX, CMP, CBC #### [facility] [address] [place] [address] [place] Erythrocyte distribution width (RBC) [Ratio] 13.8 % Normal 11.9-15.3 [facility] Comment on above: Performed By: #### T SH3 wRFLX, CMP, CBC #### [facility] [address] [place] [address] [place] Hematocrit (Bld) [Volume fraction] 39.2 % Normal 34.0-46.4 [facility] Comment on above: Performed By: #### T SH3 wRFLX, CMP, CBC #### [address] Hemoglobin (Bld) [Mass/Vol] 13.2 g/dL Normal 11.8-15.4 [facility] Comment on above: Performed By: #### T SH3 wRFLX, CMP, CBC #### [address] Lymphocytes (Bld) [#/Vol] 1.7 10*3/uL Normal 1.00-4.8 [facility] Comment on above: Performed By: #### T SH3 wRFLX, CMP, CBC #### [address] Lymphocytes/100 WBC (Bld) 27.2 % Normal . [facility] Comment on above: Performed By: #### T SH3 wRFLX, CMP, CBC #### [address] MCH (RBC) [Entitic mass] 29.0 pg Normal 24.7-34.3 [facility] Comment on above: Performed By: #### T SH3 wRFLX, CMP, CBC #### [address] MCV (RBC) [Entitic vol] 86.3 fL Normal 80-100 [facility] Comment on above: Performed By: #### T SH3 wRFLX, CMP, CBC #### [address] Mean Corpuscular HGB Conc 33.6 g/dL Normal 32.0-35.0 [facility] Comment on above: Performed By: #### T SH3 wRFLX, CMP, CBC #### [address] Monocytes (Bld) [#/Vol] 0.5 10*3/uL Normal 0.0-0.8 [facility] Comment on above: Performed By: #### T SH3 wRFLX, CMP, CBC #### [address] [place] [address] [place] Monocytes/100 WBC (Bld) 7.9 % Normal . [facility] Comment on above: Performed By: #### T SH3 wRFLX, CMP, CBC #### [facility] [address] Neutrophils (Bld) [#/Vol] 3.8 10*3/uL Normal 1.8-7.7 [facility] Comment on above: Performed By: #### T SH3 wRFLX, CMP, CBC #### [place] [address] [place] Neutrophils/100 WBC (Bld) 60.4 % Normal . [facility] Comment on above: Performed By: #### T SH3 wRFLX, CMP, CBC #### [address] NRBC% 0.1 /100{WBC} Normal 0-0.5 [facility] Comment on above: Performed By: #### T SH3 wRFLX, CMP, CBC #### [address] Platelet mean volume (Bld) [Entitic vol] 10.0 fL Normal 6.3-10.7 [facility] Comment on above: Performed By: #### T SH3 wRFLX, CMP, CBC #### [place] [address] [place] Platelets (Bld) [#/Vol] 210 10*3/uL Normal 150-450 [facility] Comment on above: Performed By: #### T SH3 wRFLX, CMP, CBC #### [facility] [address] [place] [address] [place] RBC (Bld) [#/Vol] 4.54 10*6/uL Normal 3.60-5.00 [facility] Comment on above: Performed By: #### T SH3 wRFLX, CMP, CBC #### [place] [address] [place] WBC (Bld) [#/Vol] 6.3 10*3/uL Normal 3.8-11.6 [facility] Comment on above: Performed By: #### T SH3 wRFLX, CMP, CBC #### [facility] [address] [place] [address] Comprehensive Metabolic Pane caden 05-31-2023 Albumin [Mass/Vol] 4.4 g/dL Normal 3.5-5.7 [facility] Comment on above: Performed By: #### T SH3 wRFLX, CMP, CBC #### [facility] [address] Albumin/Globulin [Mass ratio] 1.9 {ratio} Normal [facility] Comment on above: Performed By: #### T SH3 wRFLX, CMP, CBC #### [address] ALP [Catalytic activity/Vol] 51 U/L Normal 34-104 [facility] Comment on above: Performed By: #### T SH3 wRFLX, CMP, CBC #### [facility] [address] [place] [address] ALT [Catalytic activity/Vol] 122 U/L High 7-52 [facility] Comment on above: Performed By: #### T SH3 EmperatrizFLX, CMP, CBC #### [address] Anion gap [Moles/Vol] 9.8 mmol/L Normal 6.0-15.0 [facility] Comment on above: Performed By: #### T SH3 wRFLX, CMP, CBC #### [facility] [address] [place] [address] AST [Catalytic activity/Vol] 93 U/L High 13-39 [facility] Comment on above: Performed By: #### T SH3 wRFLX, CMP, CBC #### [facility] [address] [place] [address] Bilirubin [Mass/Vol] 0.5 mg/dL Normal 0.3-1.[address] [facility] Comment on above: Performed By: #### T SH3 wRFLX, CMP, CBC #### [place] [address] [place] Calcium [Mass/Vol] 9.2 mg/dL Normal 8.6-10.3 [facility] Comment on above: Performed By: #### T SORIN SimpsonX CMP, CBC #### [facility] [address] Chloride [Moles/Vol] 106 mmol/L Normal 98-[address] [facility] Comment on above: Performed By: #### T SORIN AwanFLX, CMP, CBC #### [facility] [address] CO2 [Moles/Vol] 25.4 mmol/L Normal 21.0-31.0 [facility] Comment on above: Performed By: #### T SORIN SimpsonX CMP, CBC #### [facility] [address] Creatinine [Mass/Vol] 0.51 mg/dL Low 0.60-1.20 [facility] Comment on above: Performed By: #### T SORIN AwanFLX, CMP, CBC #### [facility] [address] [place] [address] [place] GFR/1.73 sq M.predicted MDRD (S/P/Bld) [Vol rate/Area] mL/min/{1.73_m2} [facility] Comment on above: Performed By: #### T SORIN SimpsonX CMP, CBC #### [facility] [address] Globulin (S) [Mass/Vol] 2.3 g/dL [facility] Comment on above: Performed By: #### T SH3 wRFLX, CMP, CBC #### [facility] [address] [place] [address] [place] Glucose [Mass/Vol] 92 mg/dL Normal 70-100 [facility] Comment on above: Result Comment: [place] Glucose Reference Range is dependent on time and content of last meal. Glucose of more than 200 mg/dL in a nonstressed, ambulatory subject supports the diagnosis of Diabetes Mellitus. ADA recommended reference range Performed By: #### T SH3 wRFLX, CMP, CBC #### [facility] [address] [place] [id number] [place] Potassium [Moles/Vol] 4.2 mmol/L Normal 3.5-5.1 [facility] Comment on above: Performed By: #### T SH3 wRFLX, CMP, CBC #### [facility] [address] [place] [id number] [place] Protein [Mass/Vol] 6.7 g/dL Normal 6.4-8.9 [facility] Comment on above: Performed By: #### T SH3 wRFLX, CMP, CBC #### [facility] [address] [place] [address] [place] Sodium [Moles/Vol] 137 mmol/L Normal 136-145 [facility] Comment on above: Performed By: #### T SH3 wRFLX, CMP, CBC #### [facility] [address] [place] [address] [place] Urea nitrogen [Mass/Vol] 9 mg/dL Normal 7-25 [facility] Comment on above: Performed By: #### T SH3 wRFLX, CMP, CBC #### [facility] [address] [place] [address] [place] Creatinine [Mass/volume] in Serum or PlasmaOrdered By: Quique Granger on 05-31-2023 Creatinine [Mass/Vol] 0.51 mg/dL 0.60-1.20 [facility] Eosinophils Auto (Bld) [#/Vo l]Ordered By: Quique Granger on 05-31-2023 Eosinophils (Bld) [#/Vol] 0.2 10*3/uL 0.0-0.45 [facility] Eosinophils/100 WBC Auto (Bl d)Ordered By: Quique Granger on 05-31-2023 Eosinophils/100 WBC (Bld) 3.9 % . [facility] Erythrocyte distribution wid th Auto (RBC) [Ratio]Ordered By: Quique Granger on 05-31-2023 Erythrocyte distribution width (RBC) [Ratio] 13.8 % 11.9-15.3 [facility] Globulin Calc (S) [Mass/Vol] Ordered By: Quique Granger on 05-31-2023 Globulin (S) [Mass/Vol] 2.3 g/dL [facility] Glucose [Mass/volume] in Ser um or PlasmaOrdered By: Quique Granger on 05-31-2023 Glucose [Mass/Vol] 92 mg/dL 70-100 [facility] Comment on above: ADA recommended refe rence rangeRandom Glucose Reference Range is dependent on time and content of last meal. Glucose of more than 200 mg/dL in a nonstressed, ambulatory subject supports the diagnosis of Diabetes Mellitus. Hematocrit Auto (Bld) [Volum e fraction]Ordered By: Quique Granger on 05-31-2023 Hematocrit (Bld) [Volume fraction] 39.2 % 34.0-46.4 [facility] Hemoglobin [Mass/volume] in BloodOrdered By: Quique Granger on 05-31-2023 Hemoglobin (Bld) [Mass/Vol] 13.2 g/dL 11.8-15.4 [facility] Leukocytes [#/volume] correc adrienne for nucleated erythrocytes in Blood by Automated counOrdered By: Quique Granger on 05-31-2023 WBC corrected for nucl RBC Auto (Bld) [#/Vol] 6.3 10*3/uL 3.8-11.6 [facility] Lymphocytes Auto (Bld) [#/Vo l]Ordered By: Quique Granger on 05-31-2023 Lymphocytes (Bld) [#/Vol] 1.7 10*3/uL 1.00-4.8 [facility] Lymphocytes/100 WBC Auto (Bl d)Ordered By: Quique Granger on 05-31-2023 Lymphocytes/100 WBC (Bld) 27.2 % . [facility] MCH Auto (RBC) [Entitic mass ]Ordered By: Quique Granger on 05-31-2023 MCH (RBC) [Entitic mass] 29.0 pg 24.7-34.3 [facility] MCHC Auto (RBC) [Mass/Vol]Or dered By: Quique Granger on 05-31-2023 MCHC (RBC) [Mass/Vol] 33.6 g/dL 32.0-35.0 [facility] MCV Auto (RBC) [Entitic vol] Ordered By: Quique Granger on 05-31-2023 MCV (RBC) [Entitic vol] 86.3 fL 80-100 [facility] Monocytes Auto (Bld) [#/Vol] Ordered By: Quique Granger on 05-31-2023 Monocytes (Bld) [#/Vol] 0.5 10*3/uL 0.0-0.8 [facility] Monocytes/100 WBC Auto (Bld) Ordered By: Quique Granger on 05-31-2023 Monocytes/100 WBC (Bld) 7.9 % . [facility] Neutrophils Auto (Bld) [#/Vo l]Ordered By: Quique Granger on 05-31-2023 Neutrophils (Bld) [#/Vol] 3.8 10*3/uL 1.8-7.7 [facility] Neutrophils/100 WBC Auto (Bl d)Ordered By: Quique Granger on 05-31-2023 Neutrophils/100 WBC (Bld) 60.4 % . [facility] No Panel InformationOrdered By: Quique Granger on 05-31-2023 Estimated GFR (CKD-EPI) > 60.0 mL/Min [facility] Creatinine Clearance (Chem N/A [facility] Nucleated erythrocytes [Pres ence] in Blood by Automated countOrdered By: Quique Granger on 05-31-2023 Nucleated RBC Auto Ql (Bld) 0.1 /100{WBC} 0-0.5 [facility] Platelet mean volume Auto (B ld) [Entitic vol]Ordered By: Quique Granger on 05-31-2023 Platelet mean volume (Bld) [Entitic vol] 10.0 fL 6.3-10.7 [facility] Platelets Auto (Bld) [#/Vol] Ordered By: Quique Granger on 05-31-2023 Platelets (Bld) [#/Vol] 210 10*3/uL 150-450 [facility] Potassium [Moles/volume] in Serum or PlasmaOrdered By: Quique Granger on 05-31-2023 Potassium [Moles/Vol] 4.2 mmol/L 3.5-5.1 [facility] Protein [Mass/volume] in Ser um or PlasmaOrdered By: Quique Granger on 05-31-2023 Protein [Mass/Vol] 6.7 g/dL 6.4-8.9 [facility] RBC Auto (Bld) [#/Vol]Ordere d By: Quique Granger on 05-31-2023 RBC (Bld) [#/Vol] 4.54 10*6/uL 3.60-5.00 [facility] Serum or plasma albumin/glob ulin mass ratioOrdered By: Quique Granger on 05-31-2023 Albumin/Globulin [Mass ratio] 1.9 {ratio} [facility] Serum or plasma anion gap de terminationOrdered By: Quique Granger on 05-31-2023 Anion gap [Moles/Vol] 9.8 mmol/L 6.0-15.0 [facility] Sodium [Moles/volume] in Ser um or PlasmaOrdered By: Quique Granger on 05-31-2023 Sodium [Moles/Vol] 137 mmol/L 136-145 [facility] Thyroid Stim Hormone w/Rflxo n 05-31-2023 Thyroid Stim Hormone w/Rflx 0.86 u[iU]/mL Normal 0.45-5.33 [facility] Comment on above: Result Comment: PERF ORMED BY: [place] [address] PATHOLOGIST TRAPPER BIRD ADRIAN LANG M.D. Performed By: #### T SH3 wRFLX, CMP, CBC #### [address] Thyrotropin [Units/volume] i n Serum or PlasmaOrdered By: Quique Granger on 05-31-2023 TSH Qn 0.86 m[IU]/L 0.45-5.33 [facility] Urea nitrogen [Mass/volume] in Serum or PlasmaOrdered By: Quique Granger on 05-31-2023 Urea nitrogen [Mass/Vol] 9 mg/dL 7-25 [facility] WBC Auto (Bld) [#/Vol]Ordere d By: Quique Granger on 05-31-2023 WBC (Bld) [#/Vol] 6.3 10*3/uL 3.8-11.6 [facility] Aerobic cultureOrdered By: Moshe Grayson on 06-20-2022 Bacteria identified Aer cx Nom (Unsp spec) 2 Days [facility] Albumin [Mass/volume] in Bod y fluidOrdered By: uLis Grayson on 06-20-2022 Albumin (Body fld) [Mass/Vol] 3.8 g/dL 3.2-5.5 [facility] Alkaline phosphatase [Enzyma tic activity/volume] in Serum or PlasmaOrdered By: Luis Grayson on 06-20-2022 ALP [Catalytic activity/Vol] 60 U/L 32-92 [facility] Aspartate aminotransferase [ Enzymatic activity/volume] in Serum or PlasmaOrdered By: Luis Grayson on 06-20-2022 AST [Catalytic activity/Vol] 65 U/L 10-42 [facility] Basophils Auto (Bld) [#/Vol] Ordered By: Luis Grayson on 06-20-2022 Basophils (Bld) [#/Vol] 0.0 10*3/uL 0.0-0.2 [facility] Basophils/100 WBC Auto (Bld) Ordered By: Luis Grayson on 06-20-2022 Basophils/100 WBC (Bld) 0.3 % . [facility] Bilirubin.direct [Mass/volum e] in Serum or PlasmaOrdered By: Luis Grayson on 06-20-2022 Bilirubin.direct [Mass/Vol] 0.2 mg/dL 0.0-0.4 [facility] Bilirubin.total [Mass/volume ] in Serum or PlasmaOrdered By: Luis Grayson on 06-20-2022 Bilirubin [Mass/Vol] 0.6 mg/dL 0.3-1.[address] [facility] Calcium [Mass/volume] in Ser um or PlasmaOrdered By: Luis Grayson on 06-20-2022 Calcium [Mass/Vol] 8.9 mg/dL 8.2-10.2 [facility] Carbon dioxide, total [Moles /volume] in Serum or PlasmaOrdered By: Luis Grayson on 06-20-2022 CO2 [Moles/Vol] 25.9 mmol/L 22.0-30.0 [facility] Chloride [Moles/volume] in S quan or PlasmaOrdered By: Luis Grayson on 06-20-2022 Chloride [Moles/Vol] 98 mmol/L 95-[address] [facility] Creatinine and Glomerular fi ltration rate.predicted panel (S/P/Bld)Ordered By: Luis Grayson on 06-20-2022 Creatinine [Mass/Vol] 0.55 mg/dL 0.44-1.03 [facility] Eosinophils Auto (Bld) [#/Vo l]Ordered By: Luis Grayson on 06-20-2022 Eosinophils (Bld) [#/Vol] 0.0 10*3/uL 0.0-0.45 [facility] Eosinophils/100 WBC Auto (Bl d)Ordered By: Luis Grayson on 06-20-2022 Eosinophils/100 WBC (Bld) 0.4 % . [facility] Erythrocyte distribution wid th Auto (RBC) [Ratio]Ordered By: Luis Grayson on 06-20-2022 Erythrocyte distribution width (RBC) [Ratio] 14.3 % 11.9-15.3 [facility] Estimated glomerular filtrat ion rate (GFR) non- AmericanOrdered By: Luis Grayson on 06-20-2022 GFR/1.73 sq M.predicted among non-blacks MDRD (S/P/Bld) [Vol rate/Area] > 60 mL/Min [facility] Globulin Calc (S) [Mass/Vol] Ordered By: Luis Grayson on 06-20-2022 Globulin (S) [Mass/Vol] 3.0 g/dL [facility] Glucose [Mass/volume] in Ser um or PlasmaOrdered By: Luis Grayson on 06-20-2022 Glucose [Mass/Vol] 93 mg/dL 70-100 [facility] Comment on above: ADA recommended refe rence rangeRandom Glucose Reference Range is dependent on time and content of last meal. Glucose of more than 200 mg/dL in a nonstressed, ambulatory subject supports the diagnosis of Diabetes Mellitus. Hematocrit Auto (Bld) [Volum e fraction]Ordered By: Luis Grayson on 06-20-2022 Hematocrit (Bld) [Volume fraction] 36.7 % 34.0-46.4 [facility] Hemoglobin [Mass/volume] in BloodOrdered By: Luis Grayson on 06-20-2022 Hemoglobin (Bld) [Mass/Vol] 12.2 g/dL 11.8-15.4 [facility] Leukocytes [#/volume] correc adrienne for nucleated erythrocytes in Blood by Automated counOrdered By: Luis Grayson on 06-20-2022 WBC corrected for nucl RBC Auto (Bld) [#/Vol] 10.0 10*3/uL 3.8-11.6 [facility] Lymphocytes Auto (Bld) [#/Vo l]Ordered By: Luis Grayson on 06-20-2022 Lymphocytes (Bld) [#/Vol] 1.1 10*3/uL 1.00-4.8 [facility] Lymphocytes/100 WBC Auto (Bl d)Ordered By: Luis Grayson on 06-20-2022 Lymphocytes/100 WBC (Bld) 10.7 % . [facility] MCH Auto (RBC) [Entitic mass ]Ordered By: Luis Grayson on 06-20-2022 MCH (RBC) [Entitic mass] 28.5 pg 24.7-34.3 [facility] MCHC Auto (RBC) [Mass/Vol]Or dered By: Luis Grayson on 06-20-2022 MCHC (RBC) [Mass/Vol] 33.3 g/dL 32.0-35.0 [facility] MCV Auto (RBC) [Entitic vol] Ordered By: Luis Grayson on 06-20-2022 MCV (RBC) [Entitic vol] 85.4 fL 80-100 [facility] Monocyte distribution width [Entitic volume] in Blood by AutomatedOrdered By: Luis Grayson on 06-20-2022 Monocyte distribution width Auto (Bld) [Entitic vol] 18.16 % 0.00-20.00 [facility] Monocytes Auto (Bld) [#/Vol] Ordered By: Luis Grayson on 06-20-2022 Monocytes (Bld) [#/Vol] 1.1 10*3/uL 0.0-0.8 [facility] Monocytes/100 WBC Auto (Bld) Ordered By: Luis Grayson on 06-20-2022 Monocytes/100 WBC (Bld) 11.0 % . [facility] Neutrophils Auto (Bld) [#/Vo l]Ordered By: Luis Grayson on 06-20-2022 Neutrophils (Bld) [#/Vol] 7.8 10*3/uL 1.8-7.7 [facility] Neutrophils/100 WBC Auto (Bl d)Ordered By: Luis Grayson on 06-20-2022 Neutrophils/100 WBC (Bld) 77.6 % . [facility] No Panel InformationOrdered By: Luis Grayson on 06-20-2022 Estimated GFR () > 60 mL/Min [facility] Comment on above: GFR estimated refere nce range: According to KDOQI guidelines, <60 ml/min/1.73m2 is sufficient to diagnose a patient with chronic kidney disease. Pharmacy Creatinine Clearance (Chem 149.22 [facility] Nucleated erythrocytes [Pres ence] in Blood by Automated countOrdered By: Luis Grayson on 06-20-2022 Nucleated RBC Auto Ql (Bld) 0.1 /100{WBC} 0-0.5 [facility] Platelet mean volume Auto (B ld) [Entitic vol]Ordered By: Luis Grayson on 06-20-2022 Platelet mean volume (Bld) [Entitic vol] 9.7 fL 6.3-10.7 [facility] Platelets Auto (Bld) [#/Vol] Ordered By: Luis Grayson on 06-20-2022 Platelets (Bld) [#/Vol] 138 10*3/uL 150-450 [facility] Potassium [Moles/volume] in Serum or PlasmaOrdered By: Luis Grayson on 06-20-2022 Potassium [Moles/Vol] 3.3 mmol/L 3.5-5.1 [facility] Protein [Mass/volume] in Ser um or PlasmaOrdered By: Luis Grayson on 06-20-2022 Protein [Mass/Vol] 6.8 g/dL 6.1-7.9 [facility] RBC Auto (Bld) [#/Vol]Ordere d By: Luis Grayson on 06-20-2022 RBC (Bld) [#/Vol] 4.29 10*6/uL 3.60-5.00 [facility] Serum or plasma alanine humphrey otransferase measurement without P-5'-P (enzymatic activiOrdered By: Luis Grayson on 06-20-2022 ALT No additional P-5'-P [Catalytic activity/Vol] 53 U/L 10-60 [facility] Serum or plasma albumin/glob ulin mass ratioOrdered By: Luis Grayson on 06-20-2022 Albumin/Globulin [Mass ratio] 1.3 {ratio} [facility] Serum or plasma anion gap de terminationOrdered By: Luis Grayson on 06-20-2022 Anion gap [Moles/Vol] 15.4 mmol/L 6.0-15.0 [facility] Serum or plasma non-glucuron idated bilirubin measurement (mass/volume)Ordered By: Luis Grayson on 06-20-2022 Bilirubin.indirect [Mass/Vol] 0.4 mg/dL [facility] Sodium [Moles/volume] in Ser um or PlasmaOrdered By: Luis Grayson on 06-20-2022 Sodium [Moles/Vol] 136 mmol/L 136-146 [facility] Urea nitrogen [Mass/volume] in Serum or PlasmaOrdered By: Luis Grayson on 06-20-2022 Urea nitrogen [Mass/Vol] 13 mg/dL 9-23 [facility] Urine lactic acid measuremen tOrdered By: Luis Grayson on 06-20-2022 Lactate (U) [Moles/Vol] 0.8 mmol/L 0.5-2.2 [facility] WBC Auto (Bld) [#/Vol]Ordere d By: Luis Grayson on 06-20-2022 WBC (Bld) [#/Vol] 10.0 10*3/uL 3.8-11.6 [facility] EMS Documentationon 12-07-19 EMS Documentation [id number]:[id number] [facility] Coding Summary.on 12-05-2020 Coding Summary. CD:[id number]:[id number] Gh0bWw+P GhlYWQ+TQ5CSHDjZ89obOVkxA7RR 5wLAX4HZMNGUORKWA7LUQ9obIA2L DmqF6LdnoIi GsvszHDzAZ29RZu4MVX2yCxuXRcv iZ9mlNEvW6q8YpNzWD46zE24QZob JQBjSfD5VpQsufbcfNJm W7bkGzCpvXQmEol+PHRhYmxlIHdp CEVbTEqqWPWwPmDfmNhbRW9xUf0w ZGVyLWNvbGxhcHNlOiBj r7nbFEOnMVanNU4maGfyK0XelKC2 UYFkn7r8Xg98bVB+FMMgUTD9eMwa XFhck472GnVwc1faVAC7 rSBjIBppFFY7R98rs5D3KYBoPAMk HGZ8nDT0qY9htTxmawxkK8ZzeTUu EwJ3PJB7nBOgwD2wtEvh wkhjtJ7aEhf+V98ELM0GZIOSUH1J Vaf7Z7TtVzyurMD+EC17KBYeVG47 aNIguIJoz2fykDg0ZtPu HPHmACB5dKmiCOpbe2CzVMCqM85s hFRtd7D8HPKhxBhahNJvFkHmgTX4 bN7bSJlxitprr0wktprj Xpdak2xzyv56vA87S82oTWedRXZd EKE3LTDrENEhqWhsfb9wyN4pNe6+ ZYbty2pzi9mhqAn6FsPf QXMspiCgfIfpHPI5s0FkXo53M9If tIymc8JsWpi2fg83lPEmd9P0cFD1 RAjwAWKnuA7tVXmeVtF9 VOHaEpNgdT79dZGtMQtfKf1toBlj pFjbAJ0nSKMpjnbjUAEarG7vDTYo tXSepLknWQ7kEUAmadkl z562IiFrUGT7HOFbeUDmA1WzrQ9e AmRrIGHjBNJsL7YzvNDyWBdfE789 UDdiInA2IOCkrbMfL4Kk VQAmaTujHtY9p5C7Je5Im5Wzgkpt ZDH3IFctBKZ7CtM6ScIjQyW9R2Fl Fkn6KLGbaXepXB2zN9Vd CAYqvulihxnkaHV2JILtUGPzfT01 cFBtUIagFh9pn6M7w034KUQbYFNx jB47Dq0xdWouXGWetJLJ gZ2fdgotz8kpbfbjPiZwCGPdOSc7 OGa0BKSrxKhtQcEyXSR4ZlF0OLF1 yLIyqV2ftUnpwhgamC8o Oyc+F33gzR5bYGK9YOR2tslfTYQq gnSjFI63HM78H6LcBnwcwFJhcGO+ BXEnxlNnxZvyRD8bQhUc w9rla5RhPDysR9XmIKAlHTzxYyv1 FIVtEBS0oZS9zO8fNFIaKGfkk0I0 pZM2O8HgqoGaep4bh3hp OQMbTKnmA12fjJRcu1H1AUMptAP5 DOScsNkeXnJitT62Qer+PGNvbGdy r0QpNnvgf0pnt2zscAb7 GqGvLLHvatWzxVknSDU8o5GrHy67 U01rMOzrHNSxYJNcGDYlKAUjyKhr tm9sdF1eLc6+PGNvbCB3 bCT2vP5mOMToFgD1AOjjU481VwXm hEWfLithh8axn7dzcKd0SpAsNDWl wcOmiUpgRJW3i9AcTu49 E51uDKqkNEEgDPTzXGDtQEQruIdp yu8xhW6mDa6+TL4fq8dqut69vT73 dHI+KXZcESH1aGnhEEhd GIHfhH6wHGsoFvG3FZGxTdRwnM78 eTVkLXprFk7xdMdgaFrpJQ6vLZMy hqerp143OuVit1xkMWPx cUMqEDwhZNJ3A03zy2N1MVLuYPVe WXA0jZZ8zW4arUsntagcoEJtxExk yuNdmQapDBnjDNqiU263 IHRvcDsnPlBhdGllbnQgTmFtZTo8 A2WqEyu3VHWpeKspVO4tnNSfCZcp Qh9vdYlvaDwcNF7iARGu hjjdf745NfSty4efGLFfjOKtORkj XCL9X05dg2A1RBWeZDLzBWK0tLC0 tT3rzAlqeozxgKCdmTtw veTlgGumZStiHWygM841TQXamFmu ZwIquoBeZPXitCE6CC60JR32wTMz e4D1nQO5H5TyTGBvoqsn pqlzdOT1QATeVEVozK69Op6ymXkf Qs0sOLUiKVJ6WHQxiGOzA4EzhQ9w ZaAsTZFfBFBkV5EbxDMr DHwnN312VEaaZeI4FHBqnfMnH0Nb EBUswNavMtT6h3G1Qw9EX3M7VW22 DN60eJHfb0D1iLC1D9Wd PHFwowrefhjcaWA7XMZtZQJvdI88 Rx0ebMlzUz9rJIBsHDZ3NQWfxMUn Y3JoaR9fRxBoPRRhVJEp Y5NfqSTvFFdzA328LNolOrI4CHLl pfJgU5FyZTCqyBuaYaN7b5K0Jw7H QDd9OL04TN02dZEnw9Q0 lHK5K3HhQHHvvxzsdsyfcVR1NZJg WNUkzB19Qe0syCpnAm2iUCHeUXW1 GAFjeXUpQ3WxkZ8mIsGg FOHtPWRmI5KohNPbPHcfK976GGib NeN5FNOthgGsQ5VkIGIgrCfwVgW3 r3J7Pl8QBVOmSB04TES2 oWK8TT43IJ70Q2FdLxhnsZOxyVF+ PHRhYmxlIHdpZHRoPScxMDAlJyBz xZcoOU0nAp3tMLDpELFi jQlxjZVqQtZks8vyVKCoAGuuBT8b rLavZ6HehEW7YWMam6q2Dh16G43a U7MxaSI+QYEohEE6pLF3 cX7hSpGsDoY6XLidV493MnKkxGOu Rarjl2aml1wegHi6LlK0JMPgfrRx wZeaFHY0j8WnMr35Z39d JAzcCCZxWKUsQPDySXRmnJrctl6o fT3fHe6+YVIieTN6qYT7dK9iUhVk ZaK5NTxgM908SvBigJGc Amttg1tfj3brwPs5IoAxVWWaceRn xUkqIEN7t9OrXg72Q6WpfLvim9Up Duj7jr39uCYck7H6vFZ7 V0GzHJLotzzcyJXhnWdjHS2mNJFy izdwAMFkaV6pJHKjA8u5NwPiBkI0 LVopI3MctxB0ZCPscAKv XUgdEPL7U73pg0A2BYFwUZRxCYT6 hAZ2oV9qhZhtjghkzUGxcUffasHw pAizLMojCXpbJ497XMZz vOwwKNAwgT0eGOJrzMEfeNfeJL3t UMGuhzwlPleVLLTFTZTSLRGMM85C JXI5X8HoFsg7MLKuaRxo DK3mbFRoGYvmPo1etLvgeIuwOF4u OKUhtiopFHFqaH8hIGQlmMBhfMlq LM8bDCMglcaun384MnEt DHN4CLRdzIDuZ5KviX2gZrPaZRPf GASfY4SlnSGtMLarL137GDurCuX2 POZhzkYaY4NhDACrrKkp WeQ5p5F6Xe3tXn5eJu3rMPn2JK46 GN04hFCcl3U0sWR0U4CyKUVszrar nyvpzZP7ZUDcFUPfvO22 kPQrXHheKg3zg2N3c287YLHbVCRy uH30Lj8auBofNAExoEQXkW7usmlx i3rzxlixQdXjAWXsIAt6 DBa4EKNvfXwgGsFxRSL0UoK9SOU6 aIOzgR7zcHotohpjpN6gOkz+MjMg CTIwwhZ8X8ZbBxx8QJXb iOrzDO2ttETfBSebBn5zvVzlfCih UP2gRXLdtmxuMMVunZ4oSWOqjVCd hGexHO8sJMAiurxxc199 WyCvIUE7HZEiiVQhE3UvsY1jSzGl OUUeGOBbE5TxfQCjWPlnT553NAvk XdI4FERledGxM6HiYDAw xHmsIbG0w5H6Wl8HMN4wvCR8H4He Gss3AUEdkSwrOD3riGQsDCavWq0z pKsxlDmxEB5sSMGgfaog ZYRrpB1mXEHweSNarRkdOY6sKPQc bekrz366FfGdEAD5RPUacJThB8Ba wN1wLeVjIAGyXJLgT1Vg eOOnGGtbC228VAdvAuM6EBQeggAw C7HiZBQhlAviDwU1b6E0Ob3FeSJg F0UyC8d9L9GiOdprySI+ DF89RKQxGH29dBWyxBIoo2zfvLl6 AtEhTEAwWWK4kNrcRZvbd8VeJCNc Z56fkUDui2W3MLAkdDzl aIShJuOoePF8oG6vEUsdwqcsn2vw ibdiNroxg0dovo67yJ66U99kSWzr ZHRoPSIzMCUiIHZhbGln hv0xuI0rHz6+QWOifUG8eQN2aC0d NuBhFzP7WTvjR735LfLdwCZlPelf a9kce7zrqZj1HbAhQFKa wnTqcYnuYKC3c4UxCb09X28fOGsu YWGcPRPiXKMyHYTesAxawf9pbM5o Ii8+VL0jn4shgy66vW48 dHI+PONzPXI4sSciZNzpSNQyzK6e MOyzHjU6HENeSpBtsT02vZRhCQgt Zv4xbOvebEnhGV2zDVBe nqcmu642FnFdi3snUZGjyJUjYWjb ALV8Y10cr4K0DAOeEFHdBAX7qNM0 cE3cwAhsfibldAMqxLqc pwPrwEgnHAfrRZtwT997BUSodWdl NaJhhGTpK0fgnnTNNK2fCulymWI+ KXQsNZF4gQlxYZfkUBFk kN3gAXDcD6b5QwMdJaA5ZFffK8En wpY9ODMgvTSmWYPexRUAgN7brulu y5hdlstbGzDwTNElFPj9 LUc2KSQyaLygJhHuOKC6BrH8SZW7 aNTtrX5ioCuuzolytI5vJsk+RklO OjwvdGQ+TZQpJTU9sHvk UCxeGETtrK7dLHAoV3b2YhJsDcH9 PLpqE4UcinJ8YZRvaPIdJLXseWCF pU0thftwj3mzilpaKpIy JLUrXHn5ADq8ARFtaRqtZbOrPOO4 WxG6RZG5eXKqgB3tqBcvbohhsP7b Oyc+TVJOOjwvdGQ+PHRk GMD9qGotWIchBSXsiB9yVCBgP0q1 ZqYkNcL5ZEllW0YpuzY2CUTnaKNx JWZrjAKWeI9twneeh4nz zrmoDpHqKDXmNPk5JLj5TJRepAim RgIeWMH9UbV2MXB6fGAcrX7jtLtm ojcnoP0rUma+GJY4RYJ6 NH09EH14I8SdNhlkbDUbgXO+PHRh YmxlIHdpZHRoPScxMDAlJyBzdHls PP9cPv2kIBFxJOOzqOwn cHNl (more content not included)... Normal [facility] Acetamnphn Lvlon 12-04-2020 Acetaminophen [Mass/Vol] ug/mL Low 15- [facility] Comment on above: Result Comment: Resu lt verified by dilution Performed By: #### 2 [id number], [id number], [id number], [id number], [id number], [id number], [id number], [id number], [id number] ####[facility] [address] [place] [address] Consent for Treatmenton 11-20 Consent for Treatment [id number]:[address] [facility] Discharge Instructionson Discharge Instructions [id number]:[address] [facility] ED Clinical Summaryon 2020 ED Clinical Summary (Inserted Image. Addie ble to display) [place] [id number] ED Clinical Summary Person Information Name: RABIA GASPAR/[facility] Age: 25 Years : 1995 Sex: Female Language: Kyrgyz PCP: NONE, XXXX Marital Status: Single Visit [...] 12/04/2020 03:19:09 12/04/2020 03:19:09 12/04/2020 03:19:09 AD[address]ESS: [address] [id number] [facility] DOC NOTES: MEDICAL INFORMATION: Prescriptions Given: PATIENT EDUCATION INFORMATION: Instructions: Alcohol Intoxication Follow up: With: Address: When: XXXX NONE , [place] In 3 days 12/07/2020 DIAGNOSIS: 1:Alcohol intoxication; 2:Depression Normal [facility] ED Note-Physicianon 12-05-19 ED Note-Physician Basic Information Time Seen: Keyshawn Stout MD 12/03/2020 20:58 Chief Complaint Pt is intoxicated. Not answering questions. Possible opiates on board. Says she wants to and be left alone. History of Present Illness patient is from [place]. Candy states she was at a libertarian. They state it was a libertarian after a wedding. Patient drinking ETOH. They [...] Cigarettes, 12/03/2020 Lab Results WBC: 9.6 E9/L (12/03/20::00) RBC: 4.8 E12/L (12/03/20::00) Hgb: 13.8 gm/dL (12/03/20:00) Hct: 41.8 % (12/03/20::00) MCV: 86.9 fL (12/03/20::00) MCH: 28.7 pg (12/03/20:) MCHC: 33 gm/dL (12/03/20::00) RDW: 14.9 % High (12/03/20::00) Platelet: 200 E9/L (12/03/20:) MPV: 9.7 fL (12/03/20:) Neutro Auto: 57.4 % (12/03/20::00) Lymph Auto: 29.6 % (12/03/20::00) [place] Auto: 7.9 % (12/03/20::00) Eos Auto: 4.5 % (12/03/20::00) Basophil Auto: 0.6 % (12/03/20::00) Neutro Absolute: 5.5 E9/L (12/03/20::00) Lymph Absolute: 2.8 E9/L (12/03/20::00) [place] Absolute: 0.8 E9/L (12/03/20::00) Eos Absolute: 0.4 E9/L (12/03/20::00) Basophil Absolute: 0.1 E9/L (12/03/20::00) Glucose Lvl: 86 mg/dL (12/03/20::00) BUN: 16 mg/dL (12/03/20:00) Creatinine: 0.5 mg/dL (12/03/20:00) eGFR: >60 (12/03/20:26:00) eGFR AA: >60 (12/03/20:26:00) BUN/Creat Ratio: 32 High (12/03/20:26:00) Sodium Lvl: 141 mmol/L (12/03/20:26:00) Potassium Lvl: 3.5 mmol/L (12/03/20:26:00) Chloride: 112 mmol/L High (12/03/20::00) CO2: 21 mmol/L (12/03/20:26:00) AGAP: 12 mEq/L [...] Ql: NEGAT (more content not included)... Normal [facility] Comment on above: Result Comment: Elec [...] between alcoholic drinks. General instructions ? Take ybdk-ske-dskthwp and prescription medicines only as told by your health care provider. ? Do not drive after drinking any amount of alcohol. Plan for a designated cryogenic transport driver or another way to go home. ? Have someone responsible stay with you while you are intoxicate (more content not included)... Normal [facility] ED Patient Summaryon 021 ED Patient Summary (Inserted Image. Addie ble to display) [address] [address] Patient Discharge Instructions Person Information Name: RABIA GASPAR Age: 25 Years Arrival Date: 12/03/2020 20:52:33 Discharge Diagnosis: 1:Alcohol intoxication; 2:Depression Primary Care Physician: NONE, XXXX Provider Information Primary Provider: Keyshawn Stout MD Advanced Java Tech Lead:None The exam and treatment you received in the Emergency Department were for an urgent problem and are not intended as complete care. It is important that you follow up with a doctor, nurse practitioner, or physician?s assistant health educator for ongoing care. If your symptoms become [...] opioids can be used to help relieve nrogtupf-di-gpzqgn pain and are often prescribed following a [...] be struggling with addiction, tell your health healthcare insurance sales agent and ask for guidance or call [employer]?S National Helpline at 6-681-715-CYPS. v Source: [place] Department of Health and Human Services/Center for Disease Control & Prevention Am (more content not included)... Normal [facility] Ethanolon 12-04-2020 Ethanol [Mass/Vol] 196 mg/dL Abnormal <=7 [facility] Comment on above: Result Comment: Resu lts verified by repeat analysis\Critical Result S_ETOH:196.0 Called to AMRIK HOWELL AT by KEIRY LEVIN And Read Back For Confirmation at: 12/03/2020 22:01:24 Performed By: #### 2 [id number] ####[facility] [address] [place] [address] Salicylateon 12-04-2020 Salicylates [Mass/Vol] mg/dL Low 6-29 [facility] Comment on above: Performed By: #### 2 325937, 24991969, 9826532, 79599226, 7862522, 1396884, 2916772, 6952903, 2811180 ####[facility] [address] [place] [address] Auto Diffon 12-03-2020 Basophils/100 WBC (Bld) 0.6 % Normal 0.0-2.0 [facility] Comment on above: Order Comment: Order Added by Discern Expert. Performed By: #### 2 596641, 57187652, 2982699, 12635595, 4543133, 9100960, 5314207, 3573899, 9940929 #### [facility] [address] [place] [address] Basophils/Leukocytes Auto (Bld) [Pure # fraction] 0.1 E9/L Normal 0.0-0.2 [facility] Comment on above: Order Comment: Order Added by Discern Expert. Performed By: #### 2 157237, 71565526, 0308834, 02755831, 9968762, 3430928, 7987113, 2785169, 5995215 #### [facility] [address] [place] [address] Eosinophils/100 WBC (Bld) 4.5 % Normal 0.0-8.0 [facility] Comment on above: Order Comment: Order Added by Discern Expert. Performed By: #### 2 617166, 62691683, 3534783, 61781757, 5232775, 2388854, 4523706, 6269101, 5651535 #### [facility] [address] [place] [address] Eosinophils/Leukocyte s Auto (Bld) [Pure # fraction] 0.4 E9/L Normal 0.0-0.5 [facility] Comment on above: Order Comment: Order Added by Discern Expert. Performed By: #### 2 525920, 71177467, 9639513, 72010438, 7754457, 0974116, 4782548, 9622929, 7288563 #### [facility] [address] [place] [address] Lymphocytes/100 WBC (Bld) 29.6 % Normal 14.0-50.0 [facility] Comment on above: Order Comment: Order Added by Discern Expert. Performed By: #### 2 001470, 08208817, 1624987, 93155665, 9759145, 8274132, 2500933, 5739364, 4629465 #### [facility] [address] [place] [address] Lymphocytes/Leukocyte s Auto (Bld) [Pure # fraction] 2.8 E9/L Normal 1.0-4.0 [facility] Comment on above: Order Comment: Order Added by Discern Expert. Performed By: #### 2 892415, 45741862, 9478312, 95041437, 0565212, 4428905, 4608670, 5152938, 1792365 #### [facility] [address] [place] [address] Monocytes/100 WBC (Bld) 7.9 % Normal 4.0-14.0 [facility] Comment on above: Order Comment: Order Added by Discern Expert. Performed By: #### 2 031799, 61050259, 1707449, 02635353, 1034666, 0115508, 4275144, 7548972, 9005750 #### [facility] [address] [place] [address] Monocytes/Leukocytes Auto (Bld) [Pure # fraction] 0.8 E9/L Normal 0.2-1.0 [facility] Comment on above: Order Comment: Order Added by Discern Expert. Performed By: #### 2 915323, 85796488, 0392185, 20410293, 9390648, 5408071, 7328821, 6680069, 5658728 #### [facility] [address] [place] [address] Neutrophils/100 WBC (Bld) 57.4 % Normal 36.0-75.0 [facility] Comment on above: Order Comment: Order Added by Discern Expert. Performed By: #### 2 918861, 93237576, 6974530, 87307339, 5029537, 9050698, 2107790, 4962260, 7331357 #### [facility] [address] [place] [address] Neutrophils/Leukocyte s Auto (Bld) [Pure # fraction] 5.5 E9/L Normal 2.0-7.5 [facility] Comment on above: Order Comment: Order Added by Discern Expert. Performed By: #### 2 496102, 89991718, 4949738, 00636757, 5172524, 6969235, 0739797, 0454281, 7787464 #### [facility] [address] [place] [address] B hCG Qualon 12-03-2020 Beta hCG Ql Negative Normal [facility] Comment on above: Performed By: #### 2 418917, 79570079, 4220150, 84747413, 3972622, 5001534, 6759368, 7641639, 8168834 #### [facility] [address] [place] [address] Bili Directon 12-03-2020 Bilirubin.direct [Mass/Vol] 0.1 mg/dL Normal 0.1-0.4 [facility] Comment on above: Order Comment: Order Added by Discern Expert. Performed By: #### 2 393465, 68426873, 1773913, 62354942, 1701959, 1736640, 7670246, 3241012, 9007411 #### [facility] [address] [place] [address] CBC w/ Auto Diffon Erythrocyte distribution width (RBC) [Ratio] 14.9 % High 10.9-14.2 [facility] Comment on above: Performed By: #### 2 609564, 05322081, 0218709, 17652768, 2334416, 7938146, 6677122, 5633218, 5841156 #### [facility] [address] [place] [address] Hematocrit (Bld) [Volume fraction] 41.8 % Normal 34.0-46.0 [facility] Comment on above: Performed By: #### 2 357531, 92692074, 7799313, 55539368, 5382296, 6945173, 0078753, 2152064, 8642473 #### [facility] [address] [place] [address] Hemoglobin (Bld) [Mass/Vol] 13.8 g/dL Normal 12.0-16.0 [facility] Comment on above: Performed By: #### 2 679690, 08151351, 9969315, 83068796, 2622043, 6512921, 9446208, 7777788, 9250868 #### [facility] [address] [place] [address] MCH (RBC) [Entitic mass] 28.7 pg Normal 27.0-34.0 [facility] Comment on above: Performed By: #### 2 649236, 68182332, 3416525, 26725249, 1531425, 7285199, 0732826, 1200668, 3644877 #### [facility] [address] [place] [address] MCHC (RBC) [Mass/Vol] 33.0 g/dL Normal 31.4-36.0 [facility] Comment on above: Performed By: #### 2 645196, 88395566, 8680395, 42182974, 1375115, 1270643, 3886204, 3332874, 1997507 #### [facility] [address] [place] [address] MCV (RBC) [Entitic vol] 86.9 fL Normal 80.0-100.0 [facility] Comment on above: Performed By: #### 2 752023, 17715597, 8190013, 82763202, 0956096, 6227697, 1753902, 6263773, 2097943 #### [facility] [address] [place] [address] Platelet mean volume (Bld) [Entitic vol] 9.7 fL Normal 6.4-10.8 [facility] Comment on above: Performed By: #### 2 871270, 50492609, 8477051, 70925941, 9463632, 5173365, 5305299, 3405718, 1258927 #### [facility] [address] [place] [address] Platelets (Bld) [#/Vol] 200.0 E9/L Normal 150.0-500. 0 [facility] Comment on above: Performed By: #### 2 040967, 10398742, 7431699, 82545418, 8533629, 6973043, 9681191, 0647968, 0936143 #### [facility] [address] [place] [address] RBC (Bld) [#/Vol] 4.8 E12/L Normal 4.3-5.9 [facility] Comment on above: Performed By: #### 2 515674, 48168222, 9441916, 27748499, 5221124, 4125854, 7711514, 0267572, 7001215 #### [facility] [address] [place] [address]95[address] WBC corrected for nucl RBC Auto (Bld) [#/Vol] 9.6 E9/L Normal 4.0-11.0 [facility] Comment on above: Performed By: #### 2 966766, 22517568, 3448573, 09211067, 6894618, 4422594, 8329334, 9157105, 8985743 #### [facility] [address] [place] [address] CMPon 12-03-2020 Albumin [Mass/Vol] 4.4 g/dL Normal 3.3-5.0 [facility] Comment on above: Performed By: #### 2 635384, 32241422, 0166199, 49736534, 6331010, 8222746, 4154878, 8078163, 1207074 #### [facility] [address] [place] [address]230 Albumin/Globulin (S) [Mass conc ratio] 1.6 Normal 1.1-2.2 [facility] Comment on above: Performed By: #### 2 893612, 15672764, 4478740, 08348635, 2023675, 6605638, 5777612, 1063743, 5961619 #### [facility] [address] [place] [address] ALP [Catalytic activity/Vol] 49 Int._Unit/L Normal 21-98 [facility] Comment on above: Performed By: #### 2 514597, 22923212, 6087732, 14464813, 3045057, 2225476, 7338747, 5024301, 7430192 #### [facility] [address] [place] [address] 99959 ALT No additional P-5'-P [Catalytic activity/Vol] 137 Int._Unit/L High 6-46 [facility] Comment on above: Performed By: #### 2 670979, 42216270, 4229126, 95627315, 6846535, 3608101, 6510124, 0322499, 9416611 #### [facility] [address] [place] [address] 10965 AST [Catalytic activity/Vol] 115 Int._Unit/L High 5-43 [facility] Comment on above: Performed By: #### 2 342924, 77076656, 7420043, 09363288, 2937487, 5324283, 4765286, 4166474, 5641302 #### [facility] [address] [place] [address] Bilirubin [Mass/Vol] 0.4 mg/dL Normal 0.0-1.1 [facility] Comment on above: Performed By: #### 2 257982, 92157324, 7282072, 98477497, 2415509, 8909939, 1089560, 9616321, 1044709 #### [facility] [address] [place] [address] Creatinine [Mass/Vol] 0.5 mg/dL Normal 0.5-1.3 [facility] Comment on above: Performed By: #### 2 627634, 99173909, 9762114, 27354748, 5566710, 6739700, 9943634, 6532763, 3011749 #### [facility] [address] [place] [address] Globulin (S) [Mass/Vol] 2.7 g/dL Normal 1.4-4.0 [facility] Comment on above: Performed By: #### 2 245807, 58923778, 6425461, 49319918, 2494449, 2383053, 7590408, 4209923, 5664893 #### [facility] [address] [place] [address] 90337 Protein [Mass/Vol] 7.1 g/dL Normal 6.0-7.8 [facility] Comment on above: Performed By: #### 2 478304, 23810667, 1871096, 47237294, 5032460, 3359819, 0313605, 4709723, 5187917 #### [facility] [address] [place] [address] 09553 Urea nitrogen [Mass/Vol] 16 mg/dL Normal 5-21 [facility] Comment on above: Performed By: #### 2 152617, 26024688, 0709867, 71996351, 5328595, 8384683, 1857261, 1034343, 1654152 #### [facility] [address] [place] [address] Urea nitrogen/Creatinine [Mass ratio] 32 No Units High 10-20 [facility] Comment on above: Performed By: #### 2 694217, 04535802, 1383318, 77260477, 8398074, 6481092, 5281952, 7228735, 9821529 #### [facility] [address] [place] [address] Anion gap [Moles/Vol] 12 mmol/L Normal 6-16 [facility] Comment on above: Performed By: #### 2 844418, 77938878, 1509250, 91741035, 7712182, 3260827, 9752030, 7578419, 1137795 #### [facility] [address] [place] [address] Calcium [Mass/Vol] 8.4 mg/dL Low 8.9-11.1 [facility] Comment on above: Performed By: #### 2 693372, 92702148, 8293976, 06331325, 2849346, 5891290, 5974440, 7338652, 9464028 #### [facility] [address] [place] [address] Chloride [Moles/Vol] 112 mmol/L High 101-111 [facility] Comment on above: Performed By: #### 2 552340, 85365691, 8590154, 65206151, 2821842, 9970906, 7550723, 5915802, 2686628 #### [facility] [address] [place] [address] CO2 [Moles/Vol] 21 mmol/L Normal 21-31 [facility] Comment on above: Performed By: #### 2 129238, 22623364, 9277319, 33815160, 2244145, 7520739, 3790523, 5404265, 9065017 #### [facility] [address] [place] [address] Glucose [Mass/Vol] 86 mg/dL Normal 55-199 [facility] Comment on above: Result Comment: If t his glucose result represents a fasting glucose, interpretation should refer to the following reference range: 55-99 mg/dL Performed By: #### 2 954935, 79409831, 2639494, 28835374, 6378694, 5994041, 3785909, 8128292, 1560095 #### [facility] [address] [place] [address] Potassium [Moles/Vol] 3.5 mmol/L Normal 3.5-5.3 [facility] Comment on above: Performed By: #### 2 713630, 69391029, 1762199, 16363572, 0733245, 2108205, 4628828, 6473451, 2971058 #### [facility] [address] [place] [address] Sodium [Moles/Vol] 141 mmol/L Normal 135-145 [facility] Comment on above: Performed By: #### 2 494821, 93952881, 6605701, 23460697, 5919245, 9533215, 2913123, 0469996, 8121575 #### [facility] [address] [place] [address] Lipase Levelon 12-03-2020 Lipase [Catalytic activity/Vol] 35 U/L Normal 13-58 [facility] Comment on above: Performed By: #### 2 939593, 14593783, 5894103, 52598874, 8582309, 5958772, 9600558, 8295507, 1968257 #### [facility] [address] [place] [address] eGFRon 12-03-2020 GFR/1.73 sq M.predicted among blacks MDRD (S/P/Bld) [Vol rate/Area] mL/min/{1.73_m2} Normal >=59 [facility] Comment on above: Order Comment: Order added by Discern Expert. Result Comment: eGFR is race adjusted. AA=. Performed By: #### 2 011671, 76636715, 5607183, 37061893, 4586796, 4812518, 1771135, 4576511, 9218749 #### [facility] [address] [place] [address] GFR/1.73 sq M.predicted among non-blacks MDRD (S/P/Bld) [Vol rate/Area] mL/min/{1.73_m2} Normal >=59 [facility] Comment on above: Order Comment: Order added by Discern Expert. Result Comment: [employer] anuradha kidney disease could be indicated at eGFR's of less than 60 mL/min/1.73m2. Kidney failure is indicated at less than 15 mL/min/1.73m2. Performed By: #### 2 773860, 60671100, 6566498, 84106505, 5085014, 9005079, 2153438, 3846137, 2047470 #### [facility] [address] [place] [address] Gynecology Office/Clinic Not lindy 11-11-2017 Gynecology Office/Clinic [...] qualifying data available.Electronically signed by Florina smart CNPAhmete 11/11/17 16:14 EDT Normal [facility] .UA Microscp Aon 11-07-2017 UA Bacteria Present Abnormal Absent [facility] Comment on above: Performed By: #### C [id number] ####[address] [address] UA Mucus Present Abnormal Absent [facility] Comment on above: Performed By: #### C D:[id number] ####[address] [place] [address] UA RBC Quant 1 /HPF Normal 0-5 [facility] Comment on above: Performed By: #### C D:[id number] ####[address] [address] UA Squepi Cells Quant 3 /HPF Normal 0-29 [facility] Comment on above: Performed By: #### C D:[id number] ####[address] [address] UA WBC Quant 10 /HPF High 0-5 [facility] Comment on above: Performed By: #### C D:[id number] ####[address] [address] .eGFRon 11-07-2017 eGFR Non-AA >60 Normal >=60 [facility] Comment on above: Result Comment: Resu [...] medication dosing. Performed By: #### E GFR ####[address] [address] eGFR AA >60 Normal >=60 [facility] Comment on above: Result Comment: Resu lt = 0-14.9 mL/min/1.73 m2 Kidney failure or DialysisResult = 15-29 mL/min/1.73 m2 Severe decrease in GFRResult = 30-59 mL/min/1.73 m2 Moderate decrease in GFRResult >= 60 mL/min/1.73 m2 Normal or increased GFR Performed By: #### E GFR ####[place] [address] CBC w/ Diffon 11-07-2017 Erythrocyte distribution width Auto Ratio (RBC) 15.0 % High 11.6-14.8 [facility] Comment on above: Performed By: #### C BC ####[place] [address] Hematocrit Auto Volume Fraction (Bld) 34.4 % Low 36.0-46.0 [facility] Comment on above: Performed By: #### C BC ####[place] [address] Hemoglobin mass conc (Bld) 11.5 g/dL Low 12.0-16.0 [facility] Comment on above: Performed By: #### C BC ####[place] [address] MCH Auto Entitic mass (RBC) 26.9 pg Low 27.0-35.0 [facility] Comment on above: Performed By: #### C BC ####[address] MCHC Auto mass conc (RBC) 33.3 % Normal 31.0-37.0 [facility] Comment on above: Performed By: #### C BC ####[place] [address] MCV Auto Entitic volume (RBC) 80.6 fL Normal 80.0-100.0 [facility] Comment on above: Performed By: #### C BC ####[address] Platelet mean volume Auto Entitic volume (Bld) 9.7 fL Normal 6.7-10.6 [facility] Comment on above: Performed By: #### C BC ####[address] Platelets Auto #/vol (Bld) 166 x10*3/mcL Normal 150-350 [facility] Comment on above: Performed By: #### C BC ####[address] [address] RBC Auto #/vol (Bld) 4.27 x10*6/mcL Normal 3.80-5.20 [facility] Comment on above: Performed By: #### C BC ####[address] [address] WBC Auto #/vol (Bld) 8.6 x10*3/mcL Normal 4.5-11.0 [facility] Comment on above: Performed By: #### C BC ####[address] [address] CMPon 11-07-2017 Albumin mass conc 4.2 g/dL Normal 3.2-4.9 [facility] Comment on above: Performed By: #### C OMP ####[place] [address] Albumin/Globulin mass ratio 1.4 {ratio} Normal 1.1-2.2 [facility] Comment on above: Performed By: #### C OMP ####[address] [address] Alk Phos 57 IU/L Normal 32-91 [facility] Comment on above: Performed By: #### C OMP ####[address] [address] ALT enzyme act/vol 106 U/L High 14-54 [facility] Comment on above: Performed By: #### C OMP ####[place] [address] Anion gap 3 molar conc 9 mmol/L Normal 7-17 [facility] Comment on above: Performed By: #### C OMP ####[address] [address] AST enzyme act/vol 80 U/L High 15-41 [facility] Comment on above: Performed By: #### C OMP ####[address] [address] Bili Total 0.4 mg/dL Normal 0.3-1.2 [facility] Comment on above: Performed By: #### C OMP ####[address] [address] Calcium mass conc 8.9 mg/dL Normal 8.5-10.3 [facility] Comment on above: Performed By: #### C OMP ####[address] [address] Chloride molar conc 106 mmol/L Normal 98-110 [facility] Comment on above: Performed By: #### C OMP ####[address] [address] CO2 molar conc 27 mmol/L Normal 22-32 [facility] Comment on above: Performed By: #### C OMP ####[address] [address] Creatinine mass conc 0.40 mg/dL Low 0.44-1.03 [facility] Comment on above: Performed By: #### C OMP ####[address] [address] Glucose mass conc 102 mg/dL Normal 74-118 [facility] Comment on above: Performed By: #### C OMP ####[address] [address] Potassium molar conc 4.1 mmol/L Normal 3.4-4.8 [facility] Comment on above: Performed By: #### C OMP ####[address] [address] Protein mass conc 7.3 g/dL Normal 6.5-8.1 [facility] Comment on above: Performed By: #### C OMP ####[address] [address] Sodium molar conc 138 mmol/L Normal 133-142 [facility] Comment on above: Performed By: #### C OMP ####[address] [place] [address] Urea nitrogen mass conc 16 mg/dL Normal 8-26 [facility] Comment on above: Performed By: #### C OMP ####[address] [place] [address] Urea nitrogen/Creatinine mass ratio 40.0 mg/mg High 15.0-25.0 [facility] Comment on above: Performed By: #### C OMP ####[address] [address] [address] Abdomen Pelvis w/ IV Cont raston [...] acute osseous abnormalities.IMPRESSION: No acute findings.Radiation Dose Estimate:CTDI(mGy):0.378558 / / / kVp:120.754788 / mAs:0.758558 / / / DLP(mGy-cm):7.326157Xlnh Part: AbdomenCTDI(mGy):8.707253 / / / kVp:100.025360 / mAs:115.038134 / / / DLP(mGy-cm):404.757953Qder Part: Abdomen Final Dictated by: Essie Osorio MD DT/TM: 11.07.2017 7:06 pmSigned by: Wilfredo Osorio MD (Electronic Signature): 11.07.2017 7:10 pm(If Report Is Signed, Electronically Signed in Other Vendor System) Normal [facility] Diff Autoon 11-07-2017 Baso Absolute 0.0 x10*3/mcL Normal 0.0-0.2 [facility] Comment on above: Performed By: #### . Automated Diff ####[address] [address] Basophils/100 WBC Auto (Bld) 0.5 % Normal 0.0-1.5 [facility] Comment on above: Performed By: #### . Automated Diff ####[address] [address] Eos Absolute 0.3 x10*3/mcL Normal 0.0-0.4 [facility] Comment on above: Performed By: #### . Automated Diff ####[address] [address] Eosinophils/100 WBC Auto (Bld) 3.1 % Normal 0.0-5.4 [facility] Comment on above: Performed By: #### . Automated Diff ####[address] [address] Lymphocytes Auto #/vol (Bld) 1.5 x10*3/mcL Normal 1.2-5.2 [facility] Comment on above: Performed By: #### . Automated Diff ####[address] [address] Lymphocytes/100 WBC Auto (Bld) 17.9 % Low 28.0-42.0 [facility] Comment on above: Performed By: #### . Automated Diff ####[address] [address] [place] Absolute 1.0 x10*3/mcL Normal 0.1-1.1 [facility] Comment on above: Performed By: #### . Automated Diff ####[address] [address] Monocytes/100 WBC Auto (Bld) 11.2 % Normal 3.7-11.9 [facility] Comment on above: Performed By: #### . Automated Diff ####[place] [address] Neutro Absolute 5.8 x10*3/mcL Normal 1.8-8.0 [facility] Comment on above: Performed By: #### . Automated Diff ####[place] [address] Neutro Auto 67.3 % Normal 45.6-68.4 [facility] Hospital Comment on above: Performed By: #### . Automated Diff ####[place] [address] ED Clinical Summaryon 2017 ED Clinical Summary (Inserted Image. Addie ble to display) [place] [address] ed Clinical SummaryPerson InformationName: Rabia Gaspar [facility] Age: 22 Years : 1995Sex: Female PCP:Marital Status:Single Phone:Race:White Ethnicity:Not or Language:EnglishMRN: [id number] Reason:Headache; Abdominal pain; Abdominal pain Acuity: 3Enc Type: Emergency Med Service: Emergency MedicineArrival:11/07/2017 17:17:00 Discharge: 11/07/2017 19:46:00 LOS: 000 02:29Checkin:11/07/2017 17:17:00 Checkout: 11/07/2017 19:46:00 Dispo Type: Home or Self CareAddress:[address] [place] [address] Provider Notes:Diagnosis:1:Abdominal pain; 2:Urinary tract infection; 3:Frontal [...] range between ( 28.0 and 42.0 ) [place] Auto: 11.2 % -- Normal range between [...] range between ( 36.0 and 46.0 ) [place] Absolute: 1.0 x10 MCH: 26.9 pg -- [...] No Immunizations Documented This VisitFinal Med List:New MedicationsJ[facility] [address] [place] [address], [phone] (Keflex 500 mg oral capsule) 1 Capsules [...] muscle) every 3 months.Last Dose: GERMAN CRUZ [address] [place] [address], [phone] (Keflex 500 mg oral capsule) 1 Capsules [...] 3 months.Care Team Members:Attending Physician: Jarret Oquendo MDConsuharry Physician:Referring Physician:Provider Role Assigned AddiessAmie Kennedy ED Nurse 11/07/2017 17:24:13Jarret Oquendo MD ED Provider 11/07/2017 17:27:38Follow up:With: Address: When:Follow-up with your primary care provider in next 2-3 days. If you do not have a primary care provider, you can call for help establishing with a primary care doctor in the area.Type Location Start [facility] Establ[facility] 11/11/2017 15:45:00 11/11/2017 16:00:00 Confirmed[facility]urse [facility] 12/26/2017 15:15:00 12/26/2017 15:30:00 ConfirmedDischarge Orders:Discharge Patient 11/07/17 19:17:00 EDT, Discharge to Home, SelfPatient Education Information:HEADACHE, Unspecified; BLADDER INFECTION, Female (Adult); ABDOMINAL PAIN, Unknown Cause, (Female)[facility] Poison Help line: .[facility] Hotline: [place] Tobacco Quit Line: [facility] ([place], [place]) [address]: [phone] ([place], [place]) [address]: [phone] [address] [place], [place]: [phone] Normal [facility] ED Note-Physicianon 11-08-19 ED Note-Physician Chief [...] PCP: none. Patient reports she has an [employer] appointment on November 11.Review of Systems GENERAL: [...] in this document, created by the medical transcriptionist for me, accurately reflects the services I [...] is instructed follow-up with PCP and her interlibrary loan specialist as scheduled.Assessment/Plan 1. Abdominal pain Ordered: cephalexin, 1 caps, Oral, q8hr, X 7 days, # 21 caps, 0 Refill(s), 11/14/17 19:17:00 EDT, Pharmacy: [place] [address] 2. Urinary tract infection 3. Frontal headache [...] 11/07/17 18:14 17.9 Low 10/30/17 14.7 Low [place] Auto 11/07/17 18:14 11.2 10/30/17 10.0 Eos Auto 11/07/17 18:14 3.1 10/30/17 5.1 Basophil Auto 11/07/17 18:14 0.5 10/30/17 0.3 Neutro Absolute 11/07/17 18:14 5.8 10/30/17 6.4 Lymph Absolute 11/07/17 18:14 1.5 10/30/17 1.4 [place] Absolute 11/07/17 18:14 1.0 10/30/17 0.9 Eos [...] 19:06:57 IMPRESSION: No acute findings. Signed By: Devon MIXON, Margaux Ultrasound No qualifying data available. Magnetic Resonance Imaging No qualifying data available. ___Trae Torres RElectronically signed by Jarret Oquendo MD 11/07/2017 21:04 EDT Normal [facility] Lipaseon 11-07-2017 Lipase Lvl 22 IU/L Normal 22-51 [facility] Comment on above: Performed By: #### L IP ####[place] [address] UA w Culture if Indon 2017 Color Nom (U) Yellow Normal [facility] Comment on above: Performed By: #### U CI ####[address] [place] [address] Glucose mass conc (U) Negative Normal Negative [facility] Comment on above: Performed By: #### U CI ####[address] [address] Ketones Ql (U) Negative Normal Negative [facility] Comment on above: Performed By: #### U CI ####[address] [place] [address] UA Blood Large Abnormal Negative [facility] Comment on above: Performed By: #### U CI ####[address] [place] [address] UA Clarity Clear Normal [facility] Comment on above: Performed By: #### U CI ####[address] [place] [address] UA Leukocyte Esterase Moderate Abnormal Negative [facility] Comment on above: Performed By: #### U CI ####[address] [address] UA Nitrite Negative Normal Negative [facility] Comment on above: Performed By: #### U CI ####[address] [address] UA pH 6.0 Normal 4.5 - 7.8 [facility] Comment on above: Performed By: #### U CI ####[address] [address] UA Protein Negative Normal Negative [facility] Comment on above: Performed By: #### U CI ####[address] [address] UA Source Clean Catch Normal [facility] Comment on above: Performed By: #### U CI ####[address] [address] UA Spec Grav 1.020 Normal 1.003-1.03 5 [facility] Comment on above: Performed By: #### U CI ####[address] [address] UA Urobilinogen 0.2 mg/dL Normal 0.2 - 1.0 [facility] Comment on above: Performed By: #### U CI ####[address] [address] Urobilinogen Test strip Qn (U) Negative Normal Negative [facility] Comment on above: Performed By: #### U CI ####[address] [address] Ambulatory Patient Education on 11-06-2017 Ambulatory Patient Education Patient Education MaterialsName: Jareddm Rabia Richard Lackey Current Date: 11/06/2017 11:38:14 [place] 1995 following sheet(s) are the Patient Education Leaflets for Rabia Gaspar Normal [facility] .eGFRon 10-30-2017 eGFR AA >60 Normal >=60 [facility] Comment on above: Result Comment: Resu lt = 0-14.9 mL/min/1.73 m2 Kidney failure or DialysisResult = 15-29 mL/min/1.73 m2 Severe decrease in GFRResult = 30-59 mL/min/1.73 m2 Moderate decrease in GFRResult >= 60 mL/min/1.73 m2 Normal or increased GFR Performed By: #### E GFR ####[address] [address] eGFR Non-AA >60 Normal >=60 [facility] Comment on above: Result Comment: Resu [...] medication dosing. Performed By: #### E GFR ####[address] [address] ABO/Rhon 10-30-2017 ABO/Rh DCon: 0 ABO/Rh: O NEG Normal [facility] Comment on above: Performed By: #### A BORH ####[address] [address] Basic Metabolic Profileon Anion gap 3 molar conc 10 mmol/L Normal 7-17 [facility] Comment on above: Performed By: #### C D:[id number] ####[address] [address] Calcium mass conc 8.9 mg/dL Normal 8.5-10.3 [facility] Comment on above: Performed By: #### C [id number] ####[address] [address] Chloride molar conc 108 mmol/L Normal 98-110 [facility] Comment on above: Performed By: #### C [id number] ####[address] [address] CO2 molar conc 25 mmol/L Normal 22-32 [facility] Comment on above: Performed By: #### C D:[id number] ####[address] [address] Creatinine mass conc 0.65 mg/dL Normal 0.44-1.03 [facility] Comment on above: Performed By: #### C [id number] ####[address] [address] Glucose mass conc 87 mg/dL Normal 74-118 [facility] Comment on above: Performed By: #### C [id number] ####[address] [address] Potassium molar conc 3.8 mmol/L Normal 3.4-4.8 [facility] Comment on above: Performed By: #### C D:[id number] ####[address] [address] Sodium molar conc 139 mmol/L Normal 133-142 [facility] Comment on above: Performed By: #### C [id number] ####[address] [address] Urea nitrogen mass conc 11 mg/dL Normal 8-26 [facility] Comment on above: Performed By: #### C D:[id number] ####[address] [address] Urea nitrogen/Creatinine mass ratio 16.9 mg/mg Normal 15.0-25.0 [facility] Comment on above: Performed By: #### C D:[id number] ####[address] [address] BhCG Qnton 10-30-2017 HCG.beta subunit Qn m[IU]/mL Low 0.0-4.9 [facility] Comment on above: Result Comment: 0.0 - 4.9 Negative for Pregnancy5.0 - 25.0 Indeterminant for : Suggest repeat in 72 hours.>25.0 Positive for Performed By: #### H CG ####[address] [address] CBC w/ Diffon 10-30-2017 Erythrocyte distribution width Auto Ratio (RBC) 15.1 % High 11.6-14.8 [facility] Comment on above: Performed By: #### C BC ####[address] [address] Hematocrit Auto Volume Fraction (Bld) 38.5 % Normal 36.0-46.0 [facility] Comment on above: Performed By: #### C BC ####[address] [address] Hemoglobin mass conc (Bld) 12.9 g/dL Normal 12.0-16.0 [facility] Comment on above: Performed By: #### C BC ####[address] [address] MCH Auto Entitic mass (RBC) 27.3 pg Normal 27.0-35.0 [facility] Comment on above: Performed By: #### C BC ####[address] [address] MCHC Auto mass conc (RBC) 33.6 % Normal 31.0-37.0 [facility] Comment on above: Performed By: #### C BC ####[address] [address] MCV Auto Entitic volume (RBC) 81.4 fL Normal 80.0-100.0 [facility] Comment on above: Performed By: #### C BC ####[address] [address] Platelet mean volume Auto Entitic volume (Bld) 9.9 fL Normal 6.7-10.6 [facility] Comment on above: Performed By: #### C BC ####[address] [address] Platelets Auto #/vol (Bld) 171 x10*3/mcL Normal 150-350 [facility] Comment on above: Performed By: #### C BC ####[address] [address] RBC Auto #/vol (Bld) 4.73 x10*6/mcL Normal 3.80-5.20 [facility] Comment on above: Performed By: #### C BC ####[address] [address] WBC Auto #/vol (Bld) 9.2 x10*3/mcL Normal 4.5-11.0 [facility] Comment on above: Performed By: #### C BC ####[address] [address] Diff Autoon 10-30-2017 Baso Absolute 0.0 x10*3/mcL Normal 0.0-0.2 [facility] Comment on above: Performed By: #### . Automated Diff ####[address] [address] Basophils/100 WBC Auto (Bld) 0.3 % Normal 0.0-1.5 [facility] Comment on above: Performed By: #### . Automated Diff ####[address] [address] Eos Absolute 0.5 x10*3/mcL High 0.0-0.4 [facility] Comment on above: Performed By: #### . Automated Diff ####[address] [address] Eosinophils/100 WBC Auto (Bld) 5.1 % Normal 0.0-5.4 [facility] Comment on above: Performed By: #### . Automated Diff ####[address] [address] Lymphocytes Auto #/vol (Bld) 1.4 x10*3/mcL Normal 1.2-5.2 [facility] Comment on above: Performed By: #### . Automated Diff ####[address] [address] Lymphocytes/100 WBC Auto (Bld) 14.7 % Low 28.0-42.0 [facility] Comment on above: Performed By: #### . Automated Diff ####[address] [address] [place] Absolute 0.9 x10*3/mcL Normal 0.1-1.1 [facility] Comment on above: Performed By: #### . Automated Diff ####[address] [address] Monocytes/100 WBC Auto (Bld) 10.0 % Normal 3.7-11.9 [facility] Comment on above: Performed By: #### . Automated Diff ####[address] [address] Neutro Absolute 6.4 x10*3/mcL Normal 1.8-8.0 [facility] Comment on above: Performed By: #### . Automated Diff ####[place] [address] Neutro Auto 69.9 % High 45.6-68.4 [facility] Comment on above: Performed By: #### . Automated Diff ####[address] [address] ED Clinical Summaryon 2017 ED Clinical Summary (Inserted Image. Addie ble to display) [place] [id number] ed Clinical SummaryPerson InformationName: Rabia Gaspar [facility] Age: 22 Years : 1995Sex: Female PCP:Marital Status:Single Phone:Race:White Ethnicity:Not or Language:EnglishMRN: [id number] Reason:Abdominal pain; Abdominal pain Acuity: 3Enc Type: Emergency Med Service: Emergency MedicineArrival:10/30/2017 12:10:00 Discharge: 10/30/2017 16:32:00 LOS: 000 04:22Checkin:10/30/2017 12:10:00 Checkout: 10/30/2017 16:32:00 Dispo Type: Home or Self CareAddress:[address] [place], [place] [id number] Provider Notes: History of Present IllnessPatient presents [...] range between ( 28.0 and 42.0 ) [place] Auto: 10.0 % -- Normal range between [...] range between ( 36.0 and 46.0 ) [place] Absolute: 0.9 x10 MCH: 27.3 pg -- [...] Home, Self, Vaginal bleedingPatient Education Information:DYSFUNCTIONAL UTERINE BLEEDINGGILLETTE [facility] Poison Help line: .[facility] Hotline: [place] Tobacco Quit Line: [place], [place]) [address]: [phone], [place]) [address]: [phone] [place] [address] [address], [place]: [phone] Normal [facility] ED Note-Physicianon 10-31-19 18 ED Note-Physician Chief [...] in this document, created by the medical transcriptionist for me, accurately reflects the services I personally performed and the decisions made by me. This report has been created using voice recognition software. It may contain minor errors which are inherent in voice recognition technology. Scribe Attestation: The information in this document, created by the medical transcriptionist for me, accurately reflects the services I [...] High Lymph Auto 10/30/17 12:41 14.7 Low [place] Auto 10/30/17 12:41 10.0 Eos Auto 10/30/17 12:41 5.1 Basophil Auto 10/30/17 12:41 0.3 Neutro Absolute 10/30/17 12:41 6.4 Lymph Absolute 10/30/17 12:41 1.4 [place] Absolute 10/30/17 12:41 0.9 Eos Absolute 10/30/17 12:41 0.5 High Baso Absolute 10/30/17 12:41 0.0Diagnostic Results XRay No qualifying data available. Computerized Tomagraphy No qualifying data available. Ultrasound No qualifying data available. Magnetic Resonance Imaging No qualifying data available. ___Uri Flavia JElectronically signed by Erick OLIVAREZ DO Alex Medina 10/30/2017 16:08 EDT Normal [facility] US Transvaginalon 10-30-2017 US Transvaginal Procedure: [...] Kelton Parks DT/TM: 10/30/2017 3:05 pmSigned by: Kelton Rosales MDigned (Electronic Signature): 10/30/2017 3:09 pm(If Report Is Signed, Electronically Signed in Other Vendor System) Normal [facility] Send-out: Otheron 09-30-2017 Ref Lab Sent to [facility]. See report for normal ranges. Normal [facility] Comment on above: Order Comment: HSV 1 & 2 swab Performed By: #### S OOTH ####[address] [address] Ref Lab Test Culture, HSV with Re flex to Typing, Genital Normal [facility] Comment on above: Order Comment: HSV 1 & 2 swab Performed By: #### S OOTH ####[address] [address] Send-out Other See Report Normal [facility] Comment on above: Order Comment: HSV 1 & 2 swab Result Comment: Miss ing Attachment Chartable Reference Lab Reports Can be viewed in source system Performed By: #### S OOTH ####[address] [address] HSV 1 & 2 Ab, IgG-[facility] HSV Type I IgG-[place] Negative Normal Negative [facility] Comment on above: Performed By: #### C [id number] ####[facility] [id number] [place] [address] HSV Type II IgG-[place] Negative Normal Negative [facility] Comment on above: Result Comment: Test Performed by:[facility] [place] [address] Performed By: #### C [id number] ####[facility] [id number] [place] [address] RPRon 09-27-2017 RPR Ql Non-Reactive Normal Non-Reacti ve [facility] Comment on above: Performed By: #### R CO ####[place] [address] Chlam & GC, DNAon 09-26-2017 Chlamydia, DNA Negative Normal Negative [facility] Comment on above: Result Comment: The [...] to the clinician. Performed By: #### C [id number] ####[place] [id number] [place] [address] Gonorrhea, DNA Negative Normal Negative [facility] Comment on above: Result Comment: The [...] to the clinician. Performed By: #### C D:[id number] ####[place] [id number] Gynecology Office/Clinic Not lindy 09-25-2017 Gynecology Office/Clinic [...] in 3 months for repeat injection Ordered: [id number] AMB Urine POC 2. Encounter for initial prescription of injectable contraceptive Ordered: [id number] AMB Urine POC 3. Routine screening for [...] oral tablet, 500 mg, 1 tabs, Oral, c20dpCyaeekkce No Known Medication AllergiesSocial History Alcohol Never Sexual Sexually active: Yes. Substance Abuse Denies All Tobacco Current every day smoker, Cigarettes, 1 per day. Packs, 1 year(s).Family History Family history is negativeDiagnostic Results No qualifying data available. No qualifying data available. No qualifying data available. No qualifying data available.Electronically signed by Ahmet Mace CNP 09/25/17 16:07 EDT Normal [facility] HIV 1 & 2 ABon 09-25-2017 HIV 1, HIV 2 AB Interp Normal Negative [facility] Comment on above: Result Comment: Nega tive Performed By: #### H IV12 ####[place] [address] Hep Bs Agon 09-25-2017 Body surface area Derived from formula Normal Negative [facility] Comment on above: Result Comment: Nega tive Performed By: #### H BSAG ####[place] [address] Hep C Ab w/reflex HCV RNA Qn t, PCRon 09-25-2017 Hep C IgG Interp Normal Negative [facility] Comment on above: Result Comment: Nega tive Performed By: #### H CV ####[place] [address] OR Trackon 09-25-2017 Pl Red # 1 Normal [facility] Comment on above: Performed By: #### [facility] Tracking Order ####[place] [address] Ambulatory Patient Education on 09-20-2017 Ambulatory Patient [...] These injections are given by a health healthcare insurance sales agent. You must not be before getting an injection. The injection is usually given during the first 5 days after the start of a menstrual period or 6 weeks after delivery of a baby.Talk to your husbandry person regarding the use of this medicine in children. Special care may be needed. These injections have been used in female children who have started having menstrual periods.What side effects may I notice from receiving this medicine?Side effects that you should report to your doctor or health healthcare insurance sales agent as soon as possible:? allergic reactions like [...] attention (report to your doctor or health healthcare insurance sales agent if they continue or are bothersome):? acne? [...] like ethotoin, felbamate, oxcarbazepine, phenytoin, topiramate? modafinil? Chehalis's wortWhat if I miss a dose?Try not [...] be given to you by a health healthcare insurance sales agent.What should I tell my health care provider [...] risk for weak bones. Ask your health healthcare insurance sales agent how you can keep strong bones.You may have a change in bleeding pattern or irregular periods. Many females stop having periods while taking this drug.If you have received your injections on time, your chance of being is very low. If you think you may be , see your health healthcare insurance sales agent as soon as possible.Tell your health healthcare insurance sales agent if you want to get within the next year. The effect of this medicine may last a long time after you get your last injection.NOTE:This sheet is a summary. It may not cover all possible information. If you have questions about this medicine, talk to your doctor, pharmacist, or health care provider. Copyright? 2017 [employer] Normal [facility] Obstetrics Office/Clinic Not lindy 09-11-2017 Obstetrics [...] qualifying data available.Electronically signed by Florina smart CNPAhmet 09/11/17 16:33 EDT Normal [facility] Ambulatory Patient Education on 09-09-2017 Ambulatory [...] want to have children in the future.? [id number] [employer]. [address] [place] [address]. All rights reserved. This information is not intended as a substitute for professional medical care. Always follow your healthcare professional's instructions. Normal [facility] VNOTEon 12-30-2016 [facility] EMERGENCY DEPARTMENT REPORT [place] [address] Patient: RABIA GASPAR Date of : 1995 Unit#: [id number] DOS: 12/30/16 History of Present Illness Chief [...] is noted to the lower extremities. Skin: [place], warm and dry, no lesions, rashes, ulcers, or lacerations noted. Skin turgor is appropriate for age. BACK: shows no obvious deformity, bruising, swelling or lesions. No CVA tenderness. NEURO: Alert and oriented x 3, no gross focal deficits. Diagnostic Labs Laboratory Tests Test 12/30/16 14:08 Urine Color Lt. yellow (YELLOW) Urine Appearance Cloudy (CLEAR) Urine pH 6.0 (5.0-8.5) Urine Specific [place] 1.025 (1.005-1.030) Urine Protein 100 mg/dL (NEGATIVE) [...] 12/30/161440 LESLY OLIVAREZ NP < > Dict Eliane Velasquez dt/tm: 12/30/161440 Trans: ANGELA Trans dt/tm: 12/30/161440 [~ rep ct ivnm] [~ rep ct add1] [~ rep ct add2] [~ rep ct add3] Normal [facility] [place] Vital Signs Date Time Vital Sign Value Performing Clinician Facility 06-18-2024 13:26-0500 Body weight 89.36 kg Samantha MIR Work Phone: [facility] 06-18-2024 13:26-0500 Diastolic blood pressure 82 mm[Hg] Samantha Pineland PA Work Phone: [facility] 06-18-2024 13:26-0500 Systolic blood pressure 104 mm[Hg] Samantha Pineland PA Work Phone: [facility] 06-04-2024 14:02-0500 Body weight 85.46 kg Franco Tara DO Work Phone: [facility] 06-04-2024 14:02-0500 Diastolic blood pressure 66 mm[Hg] Franco Tara DO Work Phone: [facility] 06-04-2024 14:02-0500 Systolic blood pressure 118 mm[Hg] Franco Tara DO Work Phone: [facility] 05-21-2024 09:52-0500 Body weight 84.82 kg Franco Tara DO Work Phone: [facility] 05-21-2024 09:52-0500 Diastolic blood pressure 64 mm[Hg] Franco Tara DO Work Phone: [facility] 05-21-2024 09:52-0500 Systolic blood pressure 110 mm[Hg] Franco Tara DO Work Phone: [facility] 05-07-2024 14:08-0500 Body weight 83.64 kg Samantha Halie PA Work Phone: [facility] 05-07-2024 14:08-0500 Diastolic blood pressure 72 mm[Hg] Samantha Halie PA Work Phone: [facility] 05-07-2024 14:08-0500 Systolic blood pressure 118 mm[Hg] Samantha Pineland PA Work Phone: [facility] 04-07-2024 15:11-0500 Body weight 80.29 kg Samantha Halie PA Work Phone: [facility] 04-07-2024 15:11-0500 Diastolic blood pressure 72 mm[Hg] Samantha Pineland PA Work Phone: [facility] 04-07-2024 15:11-0500 Systolic blood pressure 118 mm[Hg] Samantha MIR Work Phone: [facility] 02-17-2024 08:55-0400 Body weight 74.84 kg Franco Tara DO Work Phone: [facility] 02-17-2024 08:55-0400 Diastolic blood pressure 68 mm[Hg] Franco Tara DO Work Phone: [facility] 02-17-2024 08:55-0400 Systolic blood pressure 106 mm[Hg] Franco Tara DO Work Phone: [facility] 01-16-2024 16:26-0400 Body weight 71.67 kg Noms Nurse [facility] 01-16-2024 16:26-0400 Diastolic blood pressure 62 mm[Hg] Noms Nurse [facility] 01-16-2024 16:26-0400 Systolic blood pressure 102 mm[Hg] Nom Nurse [facility] 07-10-2023 15:07-0400 Body height 177.8 cm DO Quique Elkin Work Phone: [facility] 07-10-2023 15:07-0400 Body temperature 98.8 [degF] DO Quique Granger Work Phone: [facility] 07-10-2023 15:07-0400 Body weight 74.9 kg DO Quique Elkin Work Phone: [facility] 07-10-2023 15:07-0400 Diastolic blood pressure 83 mm[Hg] DO Quique Elkin Work Phone: [facility] 07-10-2023 15:07-0400 Heart rate 63 /min DO Quique Granger Work Phone: [facility] 07-10-2023 15:07-0400 Respiratory rate 16 /min DO Quique Granger Work Phone: [facility] 07-10-2023 15:07-0400 SaO2% (BldA) [Mass fraction] 99 % DO Quique Granger Work Phone: [facility] 07-10-2023 15:07-0400 Systolic blood pressure 154 mm[Hg] DO Quique Granger Work Phone: [facility] 06-22-2022 21:11-0500 Body height 175.26 cm PHYSICIAN NO [facility] 06-22-2022 21:11-0500 Body temperature 98.2 [degF] PHYSICIAN NO [facility] 06-22-2022 21:11-0500 Body weight 63 kg PHYSICIAN NO [facility] 06-22-2022 21:11-0500 Diastolic blood pressure 65 mm[Hg] PHYSICIAN NO [facility] 06-22-2022 21:11-0500 Heart rate 91 /min PHYSICIAN NO [facility] 06-22-2022 21:11-0500 Respiratory rate 16 /min PHYSICIAN NO [facility] 06-22-2022 21:11-0500 SaO2% (BldA) [Mass fraction] 99 % PHYSICIAN NO [facility] 06-22-2022 21:11-0500 Systolic blood pressure 115 mm[Hg] PHYSICIAN NO [facility] 06-20-2022 02:51-0500 Diastolic blood pressure 52 mm[Hg] PHYSICIAN NO [facility] 06-20-2022 02:51-0500 Heart rate 82 /min PHYSICIAN NO [facility] 06-20-2022 02:51-0500 Respiratory rate 18 /min PHYSICIAN NO [facility] 06-20-2022 02:51-0500 SaO2% (BldA) [Mass fraction] 100 % PHYSICIAN NO [facility] 06-20-2022 02:51-0500 Systolic blood pressure 102 mm[Hg] PHYSICIAN NO [facility] 06-19-2022 22:23-0500 Body height 172.72 cm PHYSICIAN NO [facility] 06-19-2022 22:23-0500 Body temperature 100 [degF] PHYSICIAN NO [facility] 06-19-2022 22:23-0500 Body weight 60.45 kg PHYSICIAN NO [facility] Encounters Encounter Date Encounter Type Care Provider Facility Start: 06-18-2024 End: 06-18-2024 Bamboo flowsheet Samantha MIR Work Phone: [facility] Start: 06-18-2024 End: 06-18-2024 Bamboo flowsheet Samantha MIR Work Phone: [facility] Start: 06-18-2024 End: 06-18-2024 Office outpatient visit 15 minutes Samantha MIR Work Phone: [facility] Comment on above: Third trimester preg aaron; 34 weeks gestation of Start: 06-18-2024 End: 06-18-2024 ambulatory SAMANTHA SON Not Available Start: 06-04-2024 End: 06-04-2024 Office outpatient visit 15 minutes Franco Tara DO Work Phone: [facility] Comment on above: Third trimester preg aaron; 32 weeks gestation of Start: 06-04-2024 End: 06-04-2024 ambulatory FRANCO TARA Not Available Start: 05-21-2024 End: 05-21-2024 Bamboo flowsheet Franco Tara DO Work Phone: [facility] Start: 05-21-2024 End: 05-21-2024 Bamboo flowsheet Franco Tara DO Work Phone: [facility] Start: 05-21-2024 End: 05-21-2024 flow sheet Franco Tara DO Work Phone: [facility] Comment on above: 30 weeks gestation o f ; Third trimester ; size inconsistent with dates Start: 05-21-2024 End: 05-21-2024 ambulatory FRANCO TARA Not Available Start: 05-07-2024 End: 05-07-2024 Bamboo flowsheet Samantha MIR Work Phone: [facility] Start: 05-07-2024 End: 05-07-2024 Bamboo flowsheet Samantha MIR Work Phone: [facility] Start: 05-07-2024 End: 05-07-2024 Clinisync Result Encounter Franco Tara DO Work Phone: [facility] Unsolicited Start: 05-07-2024 End: 05-07-2024 Office outpatient visit 15 minutes Samantha MIR Work Phone: [facility] Comment on above: Diabetes mellitus sc reening; Second trimester ; 27 weeks gestation of Start: 05-07-2024 End: 05-07-2024 ambulatory SAMANTHA SON Not Available Start: 04-07-2024 End: 04-07-2024 Office outpatient visit 15 minutes Samantha MIR Work Phone: [facility] Comment on above: Chlamydia contact, t reated; Exposure to STD; Second trimester ; 23 weeks gestation of Start: 04-07-2024 End: 04-07-2024 ambulatory SAMANTHA SON Not Available Start: 04-07-2024 End: 04-07-2024 Bamboo flowsheet Samantha MIR Work Phone: [facility] Start: 04-07-2024 End: 04-07-2024 Bamboo flowsheet Samantha MIR Work Phone: [facility] Start: 02-29-2024 End: 03-04-2024 Clinisync Result Encounter Franco Tara DO Work Phone: [facility]solicited Start: 02-29-2024 End: 03-04-2024 Clinisync Result Encounter Franco Tara DO Work Phone: [facility]solicited Start: 02-17-2024 End: 02-17-2024 Bamboo flowsheet Franco [...] Unsolicited Start: 02-17-2024 End: 02-17-2024 ambulatory FRANCO DE LA PAZO Not Available Start: 02-17-2024 End: 02-17-2024 Office outpatient visit 15 minutes Franco Tara DO Work Phone: [facility] Comment on above: Well woman exam with routine gynecological exam; Second trimester ; Exposure to STD; Need for maternal serum alpha-protein (MSAFP) screening; Screening, , for anatomic survey; 16 weeks gestation of Start: 02-17-2024 End: 02-17-2024 Patient encounter procedure Franco De La Pazo DO Work Phone: [facility] Start: 02-14-2024 End: 02-14-2024 Clinisync Result Encounter Franco Tara DO Work Phone: [facility] Unsolicited Start: 02-14-2024 End: 02-14-2024 Clinisync Result Encounter Franco De La Pazo DO Work Phone: [facility] Unsolicited Start: 01-16-2024 End: 01-16-2024 ambulatory [facility] Tara Nurse [facility] Comment on above: GA: 12w0d Start: 07-10-2023 End: 07-10-2023 Emergency department patient visit Trae Rossi Facility:[facility] Start: 07-10-2023 End: 07-10-2023 Emergency department patient visit DO Quique Granger Work Phone: [facility] Work Phone: Start: 05-31-2023 End: 05-31-2023 ambulatory Greg Ren Facility:[facility] Start: 05-31-2023 End: 05-31-2023 ambulatory DO Quique Granger Work Phone: [facility] Work Phone: Start: 05-31-2023 End: 05-31-2023 Departed Referred DO Quique Granger Work Phone: [facility] Start: 06-22-2022 End: 06-22-2022 Emergency department patient visit PHYSICIAN NO [facility] Work Phone: Start: 06-19-2022 End: 06-20-2022 Emergency department patient visit PHYSICIAN NO [facility] Work Phone: Start: 12-26-2017 End: 12-27-2017 Patient encounter AHMET PABON Facility:[facility] Start: 11-11-2017 End: 11-12-2017 Patient encounter AHMET PABON Facility:[facility] Start: 11-07-2017 End: 11-07-2017 Emergency department patient visit Jarret Oquendo Facility:[facility] Start: 10-30-2017 End: 10-30-2017 Emergency department patient visit Alex Suarez Facility:[facility] Start: 09-25-2017 End: 09-26-2017 Patient encounter AHMET PABON Facility:[facility] Start: 09-25-2017 End: 09-26-2017 Patient encounter AHMET PABON Facility:[facility] Start: 09-11-2017 End: 09-12-2017 Patient encounter AHMET PABON Facility:[facility] Start: 12-30-2016 End: 12-30-2016 Emergency department patient visit LESLY OLIVAREZ Facility:[facility] Procedures Date Procedure Procedure Detail Performing Clinician Start: 06-18-2024 Urnls dip stick/tabl et rgnt non-auto w/o micrscp Samantha MIR Work Phone: Start: 05-21-2024 Urnls dip stick/tabl et rgnt non-auto w/o micrscp Franco Tara DO Work Phone: Start: 05-07-2024 ALL CBC WITH AUTO DIFF Franco Tara DO Work Phone: Start: 05-07-2024 Urnls dip stick/tabl et rgnt non-auto w/o micrscp Samantha MIR Work Phone: Start: 02-29-2024 AFP, SERUM, OPEN SPI NA BIFIDA Franco Tara DO Work Phone: Start: 02-17-2024 IGP,APTIMA HPV,AGE GDLN Franco Tara DO Work Phone: Start: 02-17-2024 URETHRITIS/DISCHARGE PLUS VAGINITIS (HTRX) Franco Tara DO Work Phone: Start: 02-14-2024 BOX TEST Franco Fazi o DO Work Phone: Start: 01-16-2024 Urnls dip stick/tabl et rgnt non-auto w/o micrscp Franco Tara DO Work Phone: Start: 06-20-2022 Aerobic microbial culture PHYSICIAN NO FAMILY Plan of Treatment Date Care Activity Detail Author Start: 07-02-2024 End: 07-02-2024 Patient encounter procedure 07/02/2024 2:50 PM EDT Routine [facility] [address] [place] [id number] Samantha Son PA [address] [place], [place] [id number] [facility] Start: 06-18-2024 End: 06-18-2024 Patient encounter procedure [facility] Comment on above: Arrived Start: 06-04-2024 End: 06-04-2024 Patient encounter procedure 06/04/2024 10:00 AM EST Routine [facility] [address] [place] [id number] Franco Pacheco, DO [address] [place] [address] [facility] Start: 06-04-2024 End: 06-04-2024 Professional / ancillary services management 06/04/2024 9:30 AM EST Ancillary Procedure [facility] [address] [place] [id number] [facility] Start: 05-21-2024 End: 05-21-2025 US for US OB follow up transabdominal approach Imaging Routine Third trimester size inconsistent with dates Expected: 05/21/2024, Expires: 05/21/2025 [facility] Work Phone: Comment on above: Expected: 05/21/2024 , Expires: 05/21/2025 Start: 05-21-2024 End: 05-21-2024 Patient encounter procedure 05/21/2024 10:00 AM EST Routine [facility] [address] [place] [phone] Franco Pacheco, DO [address] [place] [address] Arrived [facility] Comment on above: Arrived Start: 05-20-2024 End: 05-20-2024 Patient encounter procedure 05/20/2024 3:00 PM EST Routine [facility] [address] [phone] Franco Pacheco, DO [address] [place] [address] [facility] Start: 05-07-2024 End: 05-07-2025 CBC panel - Blood by Automated count CBC Lab Routine Diabetes mellitus screening Expected: 05/07/2024 (Approximate), Expires: 05/07/2025 [facility] Work Phone: Comment on above: Expected: 05/07/2024 (Approximate), Expires: 05/07/2025 Start: 05-07-2024 End: 05-07-2025 Measurement of glucose 1 hour after glucose challenge for glucose tolerance test Glucose tolerance, 1 hour Lab Routine Diabetes mellitus screening Expected: 05/07/2024 (Approximate), Expires: 05/07/2025 [facility] Comment on above: Expected: 05/07/2024 (Approximate), Expires: 05/07/2025 Start: 05-07-2024 End: 05-07-2024 Patient encounter procedure 05/07/2024 2:00 PM EST Routine [facility] [address] [place] [phone] Samantha Son, PA [address] [place] [address] Arrived [facility] Comment on above: Arrived Start: 04-07-2024 End: 04-07-2024 Patient encounter procedure 04/07/2024 2:50 PM EST Routine [facility] [address] [place] [phone] Samantha Son, PA [address] [place] [address] Arrived [facility] Comment on above: Arrived Start: 03-16-2024 End: 03-16-2024 Patient encounter procedure 03/16/2024 9:20 AM EST Routine [facility] [address] [place] [phone] Samantha Son PA [address] [facility] [address] [address] [facility] Start: 02-17-2024 End: 03-19-2024 Alpha fetoprotein, maternal Alpha fetoprotein, maternal Lab Routine Screening, , for anatomic survey Expected: 02/17/2024 (Approximate), Expires: 03/19/2024 [facility] Comment on above: Expected: 02/17/2024 (Approximate), Expires: 03/19/2024 Start: 02-17-2024 End: 02-16-2025 US for US OB ANATOMY SINGLE W US OB CERVICAL LENGTH Imaging Routine Screening, , for anatomic survey Expected: 02/17/2024 (Approximate), Expires: 02/16/2025 [facility] Comment on above: Expected: 02/17/2024 (Approximate), Expires: 02/16/2025 Start: 02-17-2024 End: 02-17-2024 Patient encounter procedure 02/17/2024 8:30 AM EDT Routine [facility] [address] [place] [phone] Franco Pacheco, DO [address] [facility] [address] [place] [address] [facility] Start: 01-16-2024 End: 01-15-2025 ABO/Rh ABO/Rh Lab Routine Missed menses , unspecified gestational age Expected: 01/16/2024 (Approximate), Expires: 01/15/2025 [facility] Comment on above: Expected: 01/16/2024 (Approximate), Expires: 01/15/2025 Start: 01-16-2024 End: 01-15-2025 Blood type and Indirect antibody screen panel - Blood Type and screen Lab Routine Missed menses , unspecified gestational age Expected: 01/16/2024 (Approximate), Expires: 01/15/2025 [facility] Work Phone: Comment on above: Expected: 01/16/2024 (Approximate), Expires: 01/15/2025 Start: 01-16-2024 End: 01-15-2025 Drugs of abuse panel - Urine by Screen method Rapid drug screen, urine Lab Routine , unspecified gestational age Encounter for supervision of normal first in first trimester Expected: 01/16/2024 (Approximate), Expires: 01/15/2025 [facility] Comment on above: Expected: 01/16/2024 (Approximate), Expires: 01/15/2025 Start: 01-16-2024 End: 01-15-2025 US for US OB less than 14 weeks early Imaging Routine Missed menses Expected: 01/16/2024 (Approximate), Expires: 01/15/2025 [facility] Comment on above: Expected: 01/16/2024 (Approximate), Expires: 01/15/2025 Start: 12-22-2023 Influenza vaccination Influenza Vacc ine (#1) [facility] Start: 06-20-2022 Bacteria identified in Blood by Culture Blood Culture [facility] Start: 06-20-2022 Blood culture for bacteria, including anaerobic screen Blood Culture [facility] Start: 06-20-2022 Superficial Wound Culture Superficial Wound Culture [facility] Bacteria identified in Urine by Culture Urine culture Microbiology Routine Missed menses Ordered: 01/16/2024 [facility] Comment on above: Ordered: 01/16/2024 CBC W Auto Different ial panel - Blood CBC and differential Lab Routine Missed menses , unspecified gestational age Ordered: 01/16/2024 [facility] Comment on above: Ordered: 01/16/2024 CHLAMYDIA TRACHOMATI S (GENITO/STI) CHLAMYDIA TRACHOMATIS (GENITO/STI) Lab Routine Exposure to STD Ordered: 02/17/2024 [facility] Comment on above: Ordered: 02/17/2024 CHLAMYDIA TRACHOMATI S (GENITO/STI) CHLAMYDIA TRACHOMATIS (GENITO/STI) Lab Routine Chlamydia contact, treated Ordered: 04/07/2024 [facility] Comment on above: Ordered: 04/07/2024 Cytology Cervical or vaginal smear or scraping study Pap Smear Pathology and Cytology Routine Well woman exam with routine gynecological exam Ordered: 02/17/2024 [facility] Comment on above: Ordered: 02/17/2024 Hemoglobin A1c/Hemoglobin.total in Blood Hemoglobin A1c Lab Routine Missed menses , unspecified gestational age Ordered: 01/16/2024 [facility] Comment on above: Ordered: 01/16/2024 Hepatitis B virus surface Ag [Presence] in Serum or Plasma by Immunoassay Hepatitis B surface antigen Lab Routine Missed menses , unspecified gestational age Ordered: 01/16/2024 [facility] Comment on above: Ordered: 01/16/2024 Hepatitis C virus Ab [Presence] in Serum or Plasma by Immunoassay Hepatitis C antibody Lab Routine Missed menses , unspecified gestational age Ordered: 01/16/2024 [facility] Comment on above: Ordered: 01/16/2024 HIV-1/HIV-2 antigen/antibody combination immunoassay HIV-1 and HIV-2 antibodies Lab Routine Missed menses , unspecified gestational age Ordered: 01/16/2024 [facility] Comment on above: Ordered: 01/16/2024 Neisseria gonorrhoea e DNA [Presence] in Unspecified specimen by AMBER with probe detection Neisseria gonorrhea DNA probe, direct Lab Routine Exposure to STD Ordered: 02/17/2024 [facility] Comment on above: Ordered: 02/17/2024 Neisseria gonorrhoea e DNA [Presence] in Unspecified specimen by AMBER with probe detection Neisseria gonorrhea DNA probe, direct Lab Routine Chlamydia contact, treated Ordered: 04/07/2024 [facility] Comment on above: Ordered: 04/07/2024 Patient Education [facility] Work Phone: Patient referral [facility] Work Phone: Reagin Ab [Presence] in Serum by RPR RPR Lab Routine Missed menses , unspecified gestational age Ordered: 01/16/2024 [facility] Comment on above: Ordered: 01/16/2024 Rubella antibody, IgG Rubella an tibody, IgG Lab Routine Missed menses , unspecified gestational age Ordered: 01/16/2024 [facility] Comment on above: Ordered: 01/16/2024 SURESWAB(R) ADVANCED VAGINITIS PLUS, TMA SURESWAB(R) ADVANCED VAGINITIS PLUS, TMA Pathology and Cytology Routine Exposure to STD Ordered: 02/17/2024 [facility] [email or web address] Work Phone: Comment on above: Ordered: 02/17/2024 SURESWAB(R) ADVANCED VAGINITIS PLUS, TMA SURESWAB(R) ADVANCED VAGINITIS PLUS, TMA Pathology and Cytology Routine Chlamydia contact, treated Ordered: 04/07/2024 [facility] [email or web address] Work Phone: Comment on above: Ordered: 04/07/2024 Payers Date Payer Category Payer Medicaid [employer] [place] [employer] [id number] 2023-Present [address] [place] [id number] 2023 Medicaid (Managed Care) [facility] MEDICAID [id number] 2023 Medicaid [id number] 2023 Self-pay 2023 Private Health Insurance [facility] [id number] 2023 Private Health Insurance [id number] 2017 Unknown 1997 Unknown [id number] 1258 1997 Unknown [id number] 1258 1997 Unknown [id number]. 1258 1997 Unknown [id number] 1258 1997 Unknown [id number]. 1258 1997 Unknown [id number]. 1258 1997 Unknown [id number]. 1258 1997 Unknown [id number] 1259 Unknown Christofer BC/BS [id number] Unknown [id number] 531 Unknown [id number] 531 Social History Date Type Detail Facility Start: 06-20-2022 End: 07-10-2023 Tobacco smoking status NHIS Smoker (finding) [facility] Start: 04-22-2014 History of tobacco use [facility] Work Phone: Start: 1995 Sex Assigned At Female [facility] Tobacco smoking status [facility] Tobacco smoking consumption unknown [facility] Start: 11-07-2023 [facility] Start: 01-09-2024 Gender identity Identifies as female gender (finding) [facility] NEGATED: Highlighted row [facility] Clinical Notes 01-16-2024 to 06-18-2024 ADEOLA Cyr - 06/18/2024 1:30 PM ESTSgustaov Gordon LPN - 06/04/2024 1:40 PM ESTSgustavo Gordon, DORIS - 05/21/2024 10:00 AM ADEOLA Lemus - 05/07/2024 2:00 PM EST Note Date & Type Note Facility 06-18-2024 History of Present illness Narrative Reason for Appointment: Patient ID: Rabia Gaspar is a 29 y.o. female who presents for Routine Visit Patient presents today for Return OB appointment. MEDICATIONS Current Outpatient Medications Medication Instructions Vit-Fe Fumarate-FA (PNV Plus Multivitamin) 27-1 MG [...] SYSTEMS Review of Systems: Review of Systems Constitutional: Negative. HENT: Negative. Eyes: Negative. Respiratory: Negative. Cardiovascular: Negative. Gastrointestinal: Negative. Genitourinary: Negative. Musculoskeletal: Negative. Skin: Negative. Neurological: Negative. All other systems reviewed and are negative. Hematological: Negative. Endocrine: Negative. Allergic/Immunologic: Negative. OBJECTIVE Objective: Physical Exam Constitutional: Appearance: Normal appearance. She is normal weight. HENT: Head: Normocephalic. Cardiovascular: Rate and Rhythm: Normal rate. Pulses: Normal pulses. Pulmonary: Effort: Pulmonary effort is normal. Breath sounds: Normal breath sounds. Abdominal: Palpations: Abdomen is soft. Musculoskeletal: General: Normal range of motion. Neurological: General: No focal deficit present. Mental Status: She is alert and oriented to person, place, and time. Psychiatric: Mood and Affect: Mood normal. Behavior: Behavior normal. Thought Content: Thought content normal. Judgment: Judgment normal. Vitals and nursing note reviewed. Vitals: There is no height or weight on file to calculate BMI. BP: 104/82 Patient's last menstrual period was 10/24/2023. ASSESSMENT & PLAN ICD-10-CM 1. Third trimester Z34.93 POCT urinalysis dipstick manually resulted 2. 34 weeks gestation of Z3A.34 Return OB: Patient presents today for a routine obstetrics appointment. Patient is currently 34w0d . Patient states she is doing well but has complaints of being tired due to current . Patient has verbalizes frequent movement. labor precautions was discussed/given and patient was instructed to perform kick counts three times a day. Orders Placed This Encounter Procedures POCT urinalysis dipstick manually resulted Follow Up: Patient is to return to office in 1 week for routine OB appointment. Documented by ADEOLA Cyr on behalf of: ADEOLA Cyr documented in this encounter [facility] 06-04-2024 History of Present illness Narrative Reason for Appointment: Patient ID: Rabia Gaspar is a 29 y.o. female who presents for Weight Management Patient presents today for Return OB appointment. MEDICATIONS Current Outpatient Medications Medication Instructions Vit-Fe Fumarate-FA (PNV Plus Multivitamin) 27-1 MG [...] Constitutional: Appearance: Normal appearance. She is well-developed. Cardiovascular: Rate and Rhythm: Normal rate and [...] nursing note reviewed. Exam conducted with a sheriff's officer present. Vitals: There is no height or weight on file to calculate BMI. BP: 118/66 Patient's last menstrual period was 10/24/2023. ASSESSMENT & PLAN ICD-10-CM 1. Third trimester Z34.93 2. 32 weeks gestation of Z3A.32 Patient presents today for a routine obstetrics appointment. Patient is currently 32w0d with a Estimated Date of Delivery: 07/30/24. Documented by Ingrid Gordon LPN on behalf of: Franco Pacheco DO documented in this encounter [facility] 05-21-2024 History of Present illness Narrative Reason for Appointment: Patient ID: Rabia Gaspar is a 29 y.o. female who presents for No chief complaint on file. Patient presents today for Return OB appointment. MEDICATIONS Current Outpatient Medications Medication Instructions Vit-Fe Fumarate-FA (PNV Plus Multivitamin) 27-1 MG tablet 1 tablet, Oral, Daily ALLERGIES No Known Allergies PROBLEMS Active Ambulatory Problems Diagnosis Date Noted No Active Ambulatory Problems Resolved Ambulatory Problems Diagnosis Date Noted No Resolved Ambulatory Problems No Additional Past Medical History HISTORY PAST MEDICAL HISTORY SOCIAL HISTORY History reviewed. No pertinent past medical history. Social History Tobacco Use Smoking status: Not on file Smokeless tobacco: Not on file Substance Use Topics Alcohol use: Not on file Drug use: Not on file FAMILY HISTORY No family history on file. SURGICAL HISTORY History reviewed. No pertinent surgical history. REVIEW OF SYSTEMS Review of Systems: Review of Systems All other systems reviewed and are negative. OBJECTIVE Objective: Physical Exam Constitutional: Appearance: Normal appearance. She is well-developed. Cardiovascular: Rate and Rhythm: Normal rate and [...] nursing note reviewed. Exam conducted with a sheriff's officer present. Vitals: There is no height or weight on file to calculate BMI. BP: 110/64 Patient's last menstrual period was 10/24/2023. ASSESSMENT & PLAN ICD-10-CM 1. 30 weeks gestation of Z3A.30 POCT urinalysis dipstick manually resulted 2. Third trimester Z34.93 POCT urinalysis dipstick manually resulted US OB follow up transabdominal approach 3. size inconsistent with dates O26.849 US OB follow up transabdominal approach Patient presents today for a routine obstetrics appointment. Patient is currently 30w0d with a Estimated Date of Delivery: 07/30/24. Patient given growth scan today to setup for in 2 weeks prior to next appointment. Patient to return to clinic in 2 weeks. Documented by Ingrid Gordon LPN on behalf of: Franco Pacheco DO documented in this encounter [facility] 05-07-2024 History of Present illness Narrative Reason for Appointment: Patient ID: Rabia Gaspar is a 29 y.o. female who presents for Routine Visit Patient presents today for Return OB appointment. MEDICATIONS Current Outpatient Medications Medication Instructions Vit-Fe Fumarate-FA (PNV Plus Multivitamin) 27-1 MG [...] SYSTEMS Review of Systems: Review of Systems OBJECTIVE Objective: OBGyn Exam Vitals: There is no height or weight on file to calculate BMI. BP: 118/72 Patient's last menstrual period was 10/24/2023. ASSESSMENT & PLAN ICD-10-CM 1. Diabetes mellitus screening Z13.1 CBC Glucose tolerance, 1 hour CBC Glucose tolerance, 1 hour 2. Second trimester Z34.92 3. 27 weeks gestation of Z3A.27 POCT urinalysis dipstick manually resulted Return OB: Patient presents today for a routine obstetrics appointment. Patient is currently 28w0d . Patient states she is doing well but has complaints of being tired due to current . Patient has verbalizes frequent movement. labor precautions was discussed/given and patient was instructed to perform kick counts three times a day. Patient encouraged to get anatomy scan completed and make sure to get rhogam next week. She verbalized understanding and agrees with plan of care Orders Placed This Encounter Procedures CBC Glucose tolerance, 1 hour POCT urinalysis dipstick manually resulted Follow Up: Patient is to return to office in 2 week for routine OB appointment. Documented by ADEOLA Cyr on behalf of: ADEOLA Cyr documented in this encounter [facility] 04-07-2024 History of Present illness Narrative Reason for Appointment: Patient ID: Rabia Gaspar is a 29 y.o. female who presents for Routine Visit (Pt tested positive for Chlamydia on 02/17/2024. Pt present today for YOLIS/routine OB visit. ) Patient presents today for YOLIS/Return OB appointment. MEDICATIONS Current Outpatient Medications Medication [...] Objective: Physical Exam Constitutional: Appearance: Normal appearance. Genitourinary: Right Adnexa: not tender and no mass present. Left Adnexa: not tender and no mass present. No cervical discharge. Breasts: Breasts are soft. Right: Normal. Left: Normal. HENT: Head: Normocephalic. Nose: Nose normal. Mouth/Throat: Mouth: Mucous membranes are moist. Cardiovascular: Rate and Rhythm: Normal rate. Pulmonary: Effort: Pulmonary effort is normal. Abdominal: General: Bowel sounds are normal. Palpations: Abdomen is soft. Musculoskeletal: General: Normal range of motion. Cervical back: Normal range of motion. Neurological: General: No focal deficit present. Mental Status: She is alert. Skin: General: Skin is warm and dry. Psychiatric: Mood and Affect: Mood normal. Vitals and nursing note reviewed. Exam conducted with a sheriff's officer present. Vitals: There is no height or weight on file to calculate BMI. BP: 118/72 Patient's last menstrual period was 10/24/2023. ASSESSMENT & PLAN ICD-10-CM 1. Chlamydia contact, treated Z20.2 SURESWAB(R) ADVANCED VAGINITIS PLUS, TMA CHLAMYDIA TRACHOMATIS (GENITO/STI) Neisseria gonorrhea DNA probe, direct 2. Exposure to STD Z20.2 3. Second trimester Z34.92 CANCELED: POCT urinalysis dipstick manually resulted 4. 21 weeks gestation of Z3A.21 Return OB: Patient presents today for a routine obstetrics appointment. Patient is currently 23w5d . Patient states she is doing well but has complaints of being tired due to current . Patient has verbalizes frequent movement. labor precautions was discussed/given and patient was instructed to perform kick counts three times a day. Orders Placed This Encounter Procedures CHLAMYDIA TRACHOMATIS (GENITO/STI) Neisseria gonorrhea DNA probe, direct Pt present today for YOLIS Chlamydia. Pt tested positive and cx's will be done at today's visit. Follow Up: Patient is to return to office in 2 week for routine OB appointment. Documented by Breanne Douglass MA on behalf of: ADEOLA Cyr Reason for Appointment: Patient ID: Rabia Gaspar is a 29 y.o. female who presents for Routine Visit (Pt tested positive for Chlamydia on 02/17/2024. Pt present today for YOLIS/routine OB visit. ) Patient presents today for Return OB appointment. [...] SYSTEMS Review of Systems: Review of Systems Constitutional: Negative. HENT: Negative. Eyes: Negative. Respiratory: Negative. Cardiovascular: Negative. Gastrointestinal: Negative. Genitourinary: Negative. Musculoskeletal: Negative. Skin: Negative. Neurological: Negative. All other systems reviewed and are negative. Hematological: Negative. Endocrine: Negative. Allergic/Immunologic: Negative. OBJECTIVE Objective: Physical Exam Constitutional: Appearance: Normal appearance. She is normal weight. HENT: Head: Normocephalic. Cardiovascular: Rate and Rhythm: Normal rate. Pulses: Normal pulses. Pulmonary: Effort: Pulmonary effort is normal. Breath sounds: Normal breath sounds. Abdominal: Palpations: Abdomen is soft. Musculoskeletal: General: Normal range of motion. Neurological: General: No focal deficit present. Mental Status: She is alert and oriented to person, place, and time. Psychiatric: Mood and Affect: Mood normal. Behavior: Behavior normal. Thought Content: Thought content normal. Judgment: Judgment normal. Vitals and nursing note reviewed. Vitals: There is no height or weight on file to calculate BMI. BP: 118/72 Patient's last menstrual period was 10/24/2023. ASSESSMENT & PLAN ICD-10-CM 1. Chlamydia contact, treated Z20.2 SURESWAB(R) ADVANCED VAGINITIS PLUS, TMA CHLAMYDIA TRACHOMATIS (GENITO/STI) Neisseria gonorrhea DNA probe, direct 2. Exposure to STD Z20.2 3. Second trimester Z34.92 CANCELED: POCT urinalysis dipstick manually resulted 4. 23 weeks gestation of Z3A.23 Return OB: Patient presents today for a routine obstetrics appointment. Patient is currently 23w5d . Patient states she is doing well but has complaints of being tired due to current . Patient has verbalizes frequent movement. labor precautions were discussed Orders Placed This Encounter Procedures CHLAMYDIA TRACHOMATIS (GENITO/STI) Neisseria gonorrhea DNA probe, direct Follow Up: Patient is to return to office in 2 week for routine OB appointment. Documented by ADEOLA Cyr on behalf of: ADEOLA Cyr documented in this encounter [facility] 02-17-2024 History of Present illness Narrative Reason for Appointment: Patient ID: [...] nursing note reviewed. Exam conducted with a sheriff's officer present. Vitals: There is no height or [...] Franco Pacheco DO documented in this encounter [facility] 01-16-2024 History of Present illness Narrative Reason for Appointment: Patient ID: Rabia Gaspar is a 28 y.o. female who presents for Routine Visit Patient presents today for a Nurse OB Intake appointment. Patient is 12w0d with a Estimated Date of Delivery: 07/30/24 OB History Para Term AB Living 1 SAB IAB Ectopic Multiple Live Births # Outcome Date GA Lbr Jong/2nd Weight Sex Type Anes PTL Lv 1 Current Current Medications: has a current medication list which includes the following prescription(s): ondansetron odt and pnv plus multivitamin. Medical History: Active Ambulatory Problems Diagnosis Date Noted No Active Ambulatory Problems Resolved Ambulatory Problems Diagnosis Date Noted No Resolved Ambulatory Problems No Additional Past Medical History No family history on file. Social History Tobacco Use Smoking status: Not on file Smokeless tobacco: Not on file Substance Use Topics Alcohol use: Not on file Drug use: Not on file History reviewed. No pertinent surgical history. No Known Allergies Vitals: There is no height or weight on file to calculate BMI. BP: 102/62 Patient's last menstrual period was 10/24/2023. Assessment/Plan Diagnoses and all orders for this visit: Missed menses - Type and screen; Future - ABO/Rh; Future - CBC and differential - Hemoglobin A1c - RPR - Rubella antibody, IgG - Hepatitis B surface antigen - Hepatitis C antibody - HIV-1 and HIV-2 antibodies - Urine culture - POCT , urine manually resulted - POCT urinalysis dipstick manually resulted - US OB less than 14 weeks early; Future , unspecified gestational age - Type and screen; Future - ABO/Rh; Future - CBC and differential - Hemoglobin A1c - RPR - Rubella antibody, IgG - Hepatitis B surface antigen - Hepatitis C antibody - HIV-1 and HIV-2 antibodies - Rapid drug screen, urine; Future - Vit-Fe Fumarate-FA (PNV Plus Multivitamin) 27-1 MG tablet; Take 1 tablet by mouth Daily Encounter for supervision of normal first in first trimester - Rapid drug screen, urine; Future Nausea and vomiting in - ondansetron ODT (Zofran-ODT) 4 MG disintegrating tablet; Take 1 tablet (4 mg) by mouth every 6 (six) hours Nurse Note: Pt desires unity 21 at today was advised to have labs together. Pt verbally understood. Follow Up: Patient is to have labs drawn at directed and return to office for initial OB appointment with provider. Patient may call office as needed with any concerns or questions. Nurse Visit Completed by: Breanne Douglass MA documented in this encounter [facility] Healthcare Evaluation note No assessment inform ation available [facility] Work Phone: Evaluation note Diagnosis Well woman exam with routine gynecological exam Routine gynecological examination Second trimester state, incidental Exposure to STD Need for maternal serum alpha-protein (MSAFP) screening Screening, , for anatomic survey Encounter for anatomic survey 16 weeks gestation of documented [facility] Diagnosis Chlamydia contact, treated Contact with or exposure to venereal diseases Exposure to STD Second trimester state, incidental 23 weeks gestation of [facility]* Diagnosis Missed menses , unspecified gestational age Encounter for supervision of normal first in first trimester Nausea and vomiting in Unspecified vomiting of , unspecified as to episode of care [facility]* Diagnosis Diabetes mellitus screening Screening for diabetes mellitus Second trimester state, incidental 27 weeks gestation of documented [facility]* Diagnosis 30 weeks gestation of Third trimester state, incidental size inconsistent with dates documented [facility]* Diagnosis Third trimester state, incidental 32 weeks gestation of [facility] Diagnosis Third trimester state, incidental 34 weeks gestation of [facility] Additional Instructions Keep your skin [...] provided to you for ongoing evaluation and care.[facility] Work Phone: Hospital Discharge instructions Additional Instructions Take prednisone as directed Take Pepcid as directed Take Benadryl as needed for itching Warm soaks several times a day as discussed Avoid picking, popping, poke area affected Follow-up with your doctor Saturday Return here if any problems persist or wor[facility] Discharge instructions Additional Instructions Continue to take Benadryl [facility] Work Phone: Summary Purpose Family History [...] section and content) DATE CREATED AUTHOR 10/16/2017 [facility] DATE CREATED AUTHOR AUTHOR'S ORGANIZ ATION 01/05/2018 [facility] DATE CREATED AUTHOR AUTHOR'S ORGANIZ ATION 12/06/2020 [facility] DATE CREATED AUTHOR AUTHOR'S ORGANIZ ATION 07/12/2023 [facility] DATE CREATED AUTHOR AUTHOR'S ORGANIZ ATION 06/20/2024 [facility] EPIC Care Teams (unrecognized [...] Status: Active Member Role Status Dates Services [facility] Primary Care Provider Ac tive Team Status: Inactive Member Role Status Dates Quique rGanger DO Referring Provider Active St art: May 31, 2023 End: May 31, 2023 Greg Ren DO Attending Provider Active Start : May 31, 2023 End: May 31, 2023 Team Status: Inactive Member Role Status Dates Services [facility] Care Provider Ac tive Start: July 10, [...] section and content) Reason Comments Routine Visit Reason Comments Routine Visit Pt tested positiv e for Chlamydia on 02/17/2024. Pt present today for YOLIS/routine OB visit. Reason Comments Weight Management FOR RECORDS PERTAINING TO PATIENTS WHO ARE [...] BE BASED ON THE PRIMARY CLINICAL RECORDS. [facility] [employer] [facility]. provides no warranty or guarantee of the accuracy or completeness of information in this document.
== END 2024-07-02 20:04 | disposition home or self-care (01) ==
LOC: LAB 20:03
PROVIDERS: Visit Provider Physician Assistant
DX: Z34.93 Encounter for supervision of normal pregnancy, unspecified, third trimester (principal)
CPT/HCPCS: 36415; 87081

== ENCOUNTER 2024-07-23 13:49 | Inpatient (IN) | payer OTHER, SELFPAY ==
[2024-07-23] VITALS (27 sets, daily range): BP systolic 98–132; BP diastolic 56–80; PULSE 61–74; TEMP 36.4–37.4
[2024-07-23 14:39] LABS: Hematocrit 35.9 % (36.0-48.0); Hemoglobin 11.9 g/dL (12.0-16.0); Mean Corpuscular HGB Conc 33.1 g/dL (29.9-35.2); Mean Corpuscular Hemoglobin 27.2 pg (26.7-34.0); Mean Corpuscular Volume 82.2 fL (81.0-99.0); Mean Platelet Volume 12.9 fL (9.5-13.5); Platelet Count 153 10^3/uL (150-450); Red Blood Count 4.37 10^6/uL (4.20-5.40); Red Cell Distribution Width 13.7 % (11.0-15.0); White Blood Count 7.1 10^3/uL (4.0-11.0)
[2024-07-23] MEDS: 0.9 % SODIUM CHLORIDE 1,000 ML 125 ML IV ×2 (14:44→20:13)
[2024-07-23] MEDS: OXYTOCIN/0.9 % SODIUM CHLORIDE 10 UNITS/500 ML PLAST..BAG 6 UNIT IV (14:44)
[2024-07-23 15:54] LABS: Amphetamine Screen Urine NEGATIVE (NEGATIVE); Barbiturates Screen Urine NEGATIVE (NEGATIVE); Benzodiazepines Screen Urine NEGATIVE (NEGATIVE); Buprenorphine Screen Urine NEGATIVE (NEGATIVE); Cannabinoid Screen Urine POSITIVE (NEGATIVE); Cocaine Screen Urine NEGATIVE (NEGATIVE); Methadone Screen Urine NEGATIVE (NEGATIVE); Methamphetamines Screen Urine NEGATIVE (NEGATIVE); Opiate Screen Urine NEGATIVE (NEGATIVE); Oxycodone Screen Urine NEGATIVE (NEGATIVE); Phencyclidine Screen Urine NEGATIVE (NEGATIVE); Tricyclic Antidepressant Urine NEGATIVE (NEGATIVE)
[2024-07-23] MEDS: ROPIVACAINE HCL/PF 400 MG/200 ML PREMIX 6 MG EPIDURAL (20:40)
--- NOTE | 2024-07-23 21:00 | PC.NURSE ---
moore catheter 16 welsh placed using sterile technique. Clear pale yellow urine drains. Balloon inflated with 10 cc sterile saline. Pt tolerates procedure. Secured to leg and bag secured to bed.
[2024-07-23] MEDS: 0.9 % SODIUM CHLORIDE 1,000 ML 1000 ML IV (21:13)
[2024-07-24] VITALS (25 sets, daily range): BP systolic 103–146; BP diastolic 56–84; PULSE 58–89; TEMP 36.4–37.4
[2024-07-24] MEDS: OXYTOCIN/0.9 % SODIUM CHLORIDE 20 UNITS/1,000 ML PLAST..BAG 125 UNIT IV (03:07)
--- NOTE | 2024-07-24 03:15 | PM.OBPRCVD ---
Procedure Intrapartal events: None Induction method: per pitocin protocol Delivery augmentation: rupture of membranes and pitocin Delivery monitor: external FHT and external uterine Route of delivery: Episiotomy Description: none L&D Laceration Description: periurethral - 1st degree and perineal - 1st degree Delivery repair: Vicryl Estimated blood loss (mL): 250 Anesthesia type: Epidural Disposition: PACU Delivery date: 07/24/24 Gender: male presentation: vertex Placental delivery description: Spontaneous cord description: 3 Vessels
[2024-07-24] MEDS: BENZOCAINE/MENTHOL 85 GRAM SPRAY BOTTLE 1 APPLIC TOPICAL (04:06)
[2024-07-24] MEDS: GLYCERIN/WITCH HAZEL PADS 1 PAD TOPICAL (04:06)
[2024-07-24] MEDS: IBUPROFEN 600 MG TABLET PO ×3 (04:06→17:58)
--- NOTE | 2024-07-24 14:32 | SWNOTE1 ---
SW consulted due to positive THC drug screen on admission. SW spoke with nurse and no concerns a this, pt and significant other caring for baby appropriately. SW met with pt and father of baby in room. Pt breast feeding during conversation. Pt voiced she and baby are doing well and that he is doing really good with breast feeding. Pt and father of baby voiced it is there first child and they do have everything they need for baby at home and that they have great support. SW did discuss positive Marijuana drug screen on admission. Pt stated she smokes it for her headaches/migraines and feels it is better than taking Tylenol or other medications. Pt's significant other voiced that is is natural. SW did ask if she had her medical marijuana card? She stated no it is too expensive. SW did ask if she plans on continuing use, pt stated she likely will. SW did advise that SW is mandated reported and required to make report to CPS. SW did explain if CPS opened a case they may make a home visit or drug screen. Pt and significant other voiced understanding and no further questions at this time. Report made to [facility] CPS. HIPAA form filled out and sent to Peyton Turcios.
[2024-07-25 00:19] VITALS: BP 128/78; PULSE 63; TEMP 36.6
[2024-07-25] MEDS: IBUPROFEN 600 MG TABLET PO (00:26)
[2024-07-25 07:50] VITALS: BP 121/67; PULSE 55; TEMP 36.9
[2024-07-25 08:03] LABS: Basophils Percent Auto 0.4 % (0.2-2.0); Eosinophils Absolute Auto 0.3 10^3/uL (0.0-0.7); Eosinophils Percent Auto 3.1 % (0.9-7.0); Hematocrit 31.7 % (36.0-48.0); Hemoglobin 10.1 g/dL (12.0-16.0); Immature Granulocytes Abs Auto 0.05 10^3/uL (0.00-0.03); Immature Granulocytes Pct Auto 0.5 % (0.0-0.5); Lymphocytes Absolute Auto 1.9 10^3/uL (1.2-3.8); Lymphocytes Percent Auto 20.7 % (20.5-60.0); Mean Corpuscular HGB Conc 31.9 g/dL (29.9-35.2); Mean Corpuscular Hemoglobin 27.1 pg (26.7-34.0); Mean Platelet Volume 11.4 fL (9.5-13.5); Monocytes Absolute Auto 0.9 10^3/uL (0.3-0.8); Monocytes Percent Auto 9.9 % (1.7-12.0); Neutrophils Percent Auto 65.4 % (43.0-75.0); Platelet Count 135 10^3/uL (150-450); Red Blood Count 3.73 10^6/uL (4.20-5.40); White Blood Count 9.2 10^3/uL (4.0-11.0)
[2024-07-25 08:17] VITALS: BP 121/67; PULSE 55
--- NOTE | 2024-07-25 10:05 | PM.OBPN ---
OB - PN: Subj Subjective Patient comments: no complaints and pain well controlled Exam Constitutional Vital Signs, click to edit/add: Last Vital Signs Temp 98.4 F 07/25/24 07:50 Pulse 55 L 07/25/24 08:17 Resp 16 07/25/24 07:50 BP 121/67 07/25/24 08:17 O2 Del Method Room Air 07/25/24 07:50 Documenting provider has reviewed patient's vital signs: yes Common normals: no apparent distress Respiratory Common normals: normal respiratory effort and clear to auscultation bilaterally Cardio Common normals: regular rate and regular rhythm GI Common normals: Normal to inspection, nondistended, normoactive bowel sounds present Extremity Common normals: no clubbing, cyanosis or edema and no calf tenderness Results Labs Labs: Short CBC 07/25/24 Range/Units 07:57 WBC 9.2 (4.0-11.0) 10^3/uL Hgb 10.1 L (12.0-16.0) g/dL Hct 31.7 L (36.0-48.0) % Plt Count 135 L (150-450) 10^3/uL OB - PN: A/P Plan - Vaginal Delivery day: 1 Plan: routine care, discharge home and follow up 6 weeks Time Spent with Patient Time: Total time spent is greater than 50% in coordination of care (as documented) at patient's floor/unit and/or counseling patient: Total time spent with greater than 50% in coordination of care (as documented) at patient's floor/unit and/or counseling patient: less than 15 minutes
[2024-07-25] MEDS: RHO(D) IMMUNE GLOBULIN 1,500 UNIT SYRINGE 1500 UNIT IV (12:50)
[2024-07-25] MEDS: DOCUSATE SODIUM 100 MG CAPSULE PO ×2 (12:54→22:50)
[2024-07-25 17:00] VITALS: TEMP 37.6
[2024-07-25 17:13] VITALS: BP 110/79; PULSE 72
[2024-07-25 20:07] LABS: Cannabinoid Positive (.); Carboxy THC Conf, MS, UR 617 ng/mL (Cutoff=10)
[2024-07-26 00:04] VITALS: TEMP 36.4
[2024-07-26 00:05] VITALS: BP 108/70; PULSE 61; TEMP 36.4
[2024-07-26 08:25] VITALS: BP 134/85; PULSE 62
[2024-07-26] MEDS: DOCUSATE SODIUM 100 MG CAPSULE PO (08:27)
[2024-07-26 08:31] VITALS: BP 134/85; PULSE 62; TEMP 36.9
--- NOTE | 2024-07-26 08:54 | P.OBPN_ITS ---
OB - PN: Subj Subjective Patient comments: no complaints and pain well controlled [place] status: doing well Exam Constitutional Vital Signs, click to edit/add: Last Vital Signs Temp 98.5 F 07/26/24 08:31 Pulse 62 07/26/24 08:31 Resp 16 07/26/24 08:31 BP 134/85 07/26/24 08:31 O2 Del Method Room Air 07/26/24 08:31 Documenting provider has reviewed patient's vital signs: yes Common normals: no apparent distress Respiratory Common normals: normal respiratory effort and clear to auscultation bilaterally Cardio Common normals: regular rate and regular rhythm GI Common normals: Normal to inspection, nondistended, normoactive bowel sounds present Extremity Common normals: normal to inspection and no clubbing, cyanosis or edema OB - PN: A/P Plan - Vaginal Delivery day: 2 Plan: routine care, discharge home and follow up 6 weeks Time Spent with Patient Time: Total time spent is greater than 50% in coordination of care (as documented) at patient's floor/unit and/or counseling patient: Total time spent with greater than 50% in coordination of care (as documented) at patient's floor/unit and/or counseling patient: less than 15 minutes
[2024-07-26] MEDS: ADACEL DIPH,PERTUSS(ACELL),TET VAC/PF 0.5 ML ADULT SYRINGE IM (11:52)
== END 2024-07-26 12:05 | disposition home or self-care (01) | DRG 560 ==
PROVIDERS: Admitting Provider Obstetrics & Gynecology; Visit Provider Obstetrics & Gynecology
DX: O71.82 Other specified trauma to perineum and vulva (principal); O70.0 First degree perineal laceration during delivery; O26.893 Other specified pregnancy related conditions, third trimester; Z67.41 Type O blood, Rh negative; Z3A.39 39 weeks gestation of pregnancy; Z37.0 Single live birth; Z23 Encounter for immunization
CPT/HCPCS: 36415; 59050; 59410; 80307; 80349; 85025; 85027; 85461; 86850; 86900; 86901; 90715; J2791; J2795

== ENCOUNTER 2024-12-15 12:24 | Outpatient (RCR) | payer OTHER, SELFPAY | END 2024-12-19 23:59 | disposition home or self-care (01) | LOC: LAB 12:24 | PROVIDERS: Visit Provider Obstetrics & Gynecology | DX: Z32.01 Encounter for pregnancy test, result positive (principal) | CPT/HCPCS: 36415; 84702 ==